=== PATIENT | female | born 1990 | race Caucasian/White ===

== ENCOUNTER → 2018-06-08 07:24 | Outpatient (CLI) | payer SELFPAY | PROVIDERS: Family Provider Family Medicine; PCP Family Medicine | DX: D64.9 Anemia, unspecified (principal) ==

== ENCOUNTER → 2018-06-08 14:43 | Outpatient (CLI) | payer SELFPAY ==
[2018-06-08 14:58] LABS: Hematocrit 39.7 % (37-47); Hemoglobin 12.8 g/dl (12.0-15.0); Mean Corp Hgb Conc 32.2 g/gl (32-36); Mean Corpuscular Hgb 28.9 pg (27.0-32.0); Mean Corpuscular Volume 89.6 fL (81-99); Mean Platelet Vol. 9.6 fl (6.2-12.0); Platelet Count 281 K/mm3 (150-450); RBC Distribution Width CV 14.9 % (11.6-14.6); RBC Distribution Width SD 48.5 fl (35.1-43.9); Red Blood Count 4.43 M/mm3 (4.2-5.4); Scan Indicated on CBC? Y/N NO; White Blood Count 6.2 K/mm3 (4.4-11.0)
[2018-06-08 15:22] LABS: Ferritin 8 ng/mL (8-252); Iron 97 ug/dL (50-170); Iron Binding Capacity,Total 468 ug/dL (250-450)
== END ==
PROVIDERS: Family Provider Family Medicine; PCP Family Medicine
DX: Z00.00 Encounter for general adult medical examination without abnormal findings (principal)
CPT/HCPCS: 36415; 82728; 83540; 83550; 85027

== ENCOUNTER → 2022-10-26 | Outpatient (CLI) | payer SELFPAY ==
[2022-10-30 01:07] LABS: Chlamydia By Nucleic Acid AMP Negative (Negative)
[2022-10-30 10:29] LABS: Gonococcus By Nucleic Acid AMP Negative (Negative)
== END | disposition home or self-care (01) ==
PROVIDERS: PCP Family Medicine; Visit Provider Obstetrics & Gynecology
DX: O09.90 Supervision of high risk pregnancy, unspecified, unspecified trimester (principal); Z3A.00 Weeks of gestation of pregnancy not specified
CPT/HCPCS: 87086; 87491; 87591

== ENCOUNTER → 2022-11-20 | Outpatient (CLI) | payer SELFPAY ==
[2022-11-20 09:32] LABS: Absolute Neutrophil Count 4.4 X10^3/uL (2.0-7.7); Basophil# 0.05 X10^3/uL; Basophil% 0.8 % (0-1); Eosinophil# 0.22 X10^3/uL; Eosinophils% 3.4 % (0-5); Hematocrit 39.3 % (37-47); Hemoglobin 13.4 g/dL (12.0-15.0); Lymphocyte % 21.5 % (19-41); Mean Corp Hgb Conc 34.1 g/dL (32-36); Mean Corpuscular Hgb 30.6 pg (27.0-32.0); Mean Corpuscular Volume 89.7 fL (81-99); Mean Platelet Vol. 9.5 fl (6.2-12.0); Monocyte# 0.42 X10^3/uL; Monocyte% 6.4 % (0-10); NRBC Flagged by Analyzer 0 % (0-5); Neutrophil % 67.4 % (47-70); Platelet Count 307 K/mm3 (150-450); RBC Distribution Width CV 13.9 % (11.6-14.6); RBC Distribution Width SD 45.8 fl (35.1-43.9); Red Blood Count 4.38 M/mm3 (4.2-5.4); White Blood Count 6.5 K/mm3 (4.4-11.0)
[2022-11-20 10:17] LABS: NATERA MAILED SPECIMEN
[2022-11-20 10:38] LABS: HIV - WCH Non-Reactive (Nonreactive); Hepatitis B Surface Antigen Non-Reactive (Nonreactive); Hepatitis C Antibody Non-Reactive (Nonreactive); Rubella IgG Equiv (Nonreactive); Syphilis Antibodies Non-reactive
== END | disposition home or self-care (01) ==
PROVIDERS: PCP Family Medicine; Referring Provider Obstetrics & Gynecology; Visit Provider Obstetrics & Gynecology
DX: O09.90 Supervision of high risk pregnancy, unspecified, unspecified trimester (principal); Z3A.00 Weeks of gestation of pregnancy not specified
CPT/HCPCS: 36415; 85025; 86703; 86762; 86780; 86803; 86850; 86900; 86901; 87340

== ENCOUNTER → 2023-03-07 | Outpatient (CLI) | payer SELFPAY ==
[2023-03-07 08:20] LABS: Absolute Lymphocyte Count 1.26 X10^3/uL (0.83-4.51); Absolute Neutrophil Count 4.9 X10^3/uL (2.0-7.7); Basophil# 0.02 X10^3/uL; Basophil% 0.3 % (0-1); Eosinophil# 0.18 X10^3/uL; Eosinophils% 2.7 % (0-5); Hematocrit 34.4 % (37-47); Hemoglobin 11.4 g/dL (12.0-15.0); Lymphocyte # 1.26 X10^3/ul (0.83-4.51); Lymphocyte % 18.6 % (19-41); Mean Corp Hgb Conc 33.1 g/dL (32-36); Mean Corpuscular Hgb 31.2 pg (27.0-32.0); Mean Corpuscular Volume 94.2 fL (81-99); Mean Platelet Vol. 9.8 fl (6.2-12.0); Monocyte# 0.36 X10^3/uL; Monocyte% 5.3 % (0-10); NRBC Flagged by Analyzer 0 % (0-5); Neutrophil # 4.87 X10^3/uL (2.7-7.7); Neutrophil % 72.1 % (47-70); Platelet Count 247 K/mm3 (150-450); RBC Distribution Width CV 14.1 % (11.6-14.6); RBC Distribution Width SD 48.3 fl (35.1-43.9); Red Blood Count 3.65 M/mm3 (4.2-5.4); White Blood Count 6.8 K/mm3 (4.4-11.0)
[2023-03-07 08:39] LABS: Glucose Challenge Gest 1H 50g 162 mg/dL (70-140)
[2023-03-07 09:12] LABS: HIV - WCH Non-Reactive (Nonreactive); Syphilis Antibodies Non-reactive
== END | disposition home or self-care (01) ==
PROVIDERS: PCP Family Medicine; Referring Provider Advanced Practice Midwife; Visit Provider Advanced Practice Midwife
DX: O09.90 Supervision of high risk pregnancy, unspecified, unspecified trimester (principal); Z13.1 Encounter for screening for diabetes mellitus; Z3A.00 Weeks of gestation of pregnancy not specified
CPT/HCPCS: 36415; 82950; 85025; 86703; 86780

== ENCOUNTER → 2023-03-13 | Outpatient (CLI) | payer SELFPAY ==
[2023-03-13 11:05] LABS: Glucose GTT- Fasting 87 mg/dL (74-106)
[2023-03-13 11:50] LABS: Glucose GTT- 1 Hour 135 mg/dL (120-170)
[2023-03-13 12:50] LABS: Glucose GTT- 2 Hour 124 mg/dL (70-120)
[2023-03-13 13:34] LABS: Glucose GTT- 3 Hour 106 mg/dL (74-106)
== END | disposition home or self-care (01) ==
PROVIDERS: PCP Family Medicine; Referring Provider Nurse Practitioner Women's Health; Visit Provider Nurse Practitioner Women's Health
DX: Z13.1 Encounter for screening for diabetes mellitus (principal)
CPT/HCPCS: 36415; 82951; 82952

== ENCOUNTER → 2023-04-04 | Outpatient (CLI) | payer SELFPAY | END | disposition home or self-care (01) | LOC: LABSPEC 14:35 | PROVIDERS: PCP Family Medicine; Referring Provider Obstetrics & Gynecology; Visit Provider Obstetrics & Gynecology | DX: O26.899 Other specified pregnancy related conditions, unspecified trimester (principal); R10.2 Pelvic and perineal pain; Z3A.00 Weeks of gestation of pregnancy not specified | CPT/HCPCS: 87070; 87077; 87205 ==

== ENCOUNTER → 2024-08-21 | Outpatient (CLI) | payer SELFPAY ==
--- NOTE | 2024-08-21 10:23 | US_ITS ---
STUDY: ABDOMINAL ULTRASOUND - RIGHT UPPER QUADRANT REASON FOR VISIT: Female, 34 years old RUQ ABD PAIN TECHNIQUE: Ultrasound evaluation of the right upper quadrant was performed with real-time and static acharya-scale imaging. TECHNICAL QUALITY: Adequate. COMPARISON: None. FINDINGS: Liver: The liver measures 16.2 cm. There is increased echogenicity consistent with fatty infiltration. The bile ducts are within normal limits. There is hepatic color flow. The direction of portal flow is hepatopetal. There is no demonstrated mass lesion. Gallbladder: Normal distended gallbladder. The gallbladder wall measures 2.0 mm. There is a negative sonographic Padilla''s sign. There is no pericholecystic fluid. There are no gallstones. Common Bile Duct (C.B.D.): The common bile duct measures 2 mm. Pancreas: Normal size of the head, body and tail of the pancreas. There is normal echogenicity of the pancreas. There is no demonstrated pancreatic mass or cyst. Right Kidney: Normal size of the right kidney. The right kidney measures 11.4 cm x 4 cm x 4.5 cm. Normal renal cortex. The right cortex measures 1.5 cm. There is no demonstrated renal mass or cyst. There is no right hydronephrosis. US/Abdomen Limited IMPRESSION: Fatty infiltration of the liver. Electronically Signed: Star Cortez MD at 12:10 EST ,
== END | disposition home or self-care (01) ==
LOC: US 10:21
PROVIDERS: PCP Family Medicine; Referring Provider Family Medicine; Visit Provider Family Medicine
DX: R10.11 Right upper quadrant pain (principal)
CPT/HCPCS: 76705

== ENCOUNTER → 2024-09-09 | Outpatient (CLI) | payer SELFPAY ==
--- NOTE | 2024-09-09 08:56 | NM_ITS ---
PROCEDURE: HEPATOBILLIARY IMG W/PHARM INT REASON FOR EXAM: Right upper quadrant abdominal pain. TECHNIQUE: Intravenous Choletec with planar imaging of the abdomen. 1.8 mcg Kinevac intravenously approximately 60 minutes after the radiopharmaceutical with additional anterior imaging and a region of interest drawn around the gallbladder to calculate a time-activity curve. RADIOPHARMACEUTICAL: 5.7 mCi mebrofenin intravenous. COMPARISON: None. FINDINGS: Study presented for my interpretation on 09/16/2024. There is good uptake of the radiopharmaceutical by the liver. Normal gallbladder visualization with the gallbladder identified by 30 minutes. Radioisotope extending into the small bowel by the 15 minute film. Gallbladder Ejection Fraction: 0 % at 29 minutes (normal is >35%) NM/Hepatobilliary Img w/Pharm Int IMPRESSION: 1. Abnormal gallbladder ejection fraction of 0% at 29 minutes following cholecy stokinin administration. This is concerning for chronic cholecystitis. 2. Satisfactory hepatic uptake and clearance, as well as filling of the gallbla dder and small bowel activity. No evidence of common duct obstruction. Reading Location: [id number]
== END | disposition home or self-care (01) ==
LOC: NM 08:54
PROVIDERS: PCP Family Medicine; Referring Provider Family Medicine; Visit Provider Family Medicine
DX: R10.11 Right upper quadrant pain (principal)
CPT/HCPCS: 78227; A9537; J2805

== ENCOUNTER → 2025-02-13 | Outpatient (CLI) | payer SELFPAY ==
[2025-02-16 23:07] LABS: Chlamydia By Nucleic Acid AMP Negative (Negative); Gonococcus By Nucleic Acid AMP Negative (Negative)
== END | disposition home or self-care (01) ==
LOC: LABSPEC 16:16
PROVIDERS: PCP Family Medicine; Visit Provider Advanced Practice Midwife
DX: O09.90 Supervision of high risk pregnancy, unspecified, unspecified trimester (principal); Z3A.00 Weeks of gestation of pregnancy not specified; Z12.4 Encounter for screening for malignant neoplasm of cervix
CPT/HCPCS: 87086; 87088; 87491; 87591; 87624; 88175; G0145

== ENCOUNTER → 2025-02-23 | Outpatient (CLI) | payer SELFPAY ==
[2025-02-23 12:25] LABS: Hematocrit 41.1 % (37-47); Hemoglobin 13.2 g/dL (12.0-15.0); Immature Granulocytes Count 0.030 X10^3/uL (0.0-0.0); Mean Corp Hgb Conc 32.1 g/dL (32-36); Mean Corpuscular Volume 89.3 fL (81-99); Mean Platelet Vol. 9.9 fl (6.2-12.0); NRBC Flagged by Analyzer 0 % (0-5); Platelet Count 341 K/mm3 (150-450); RBC Distribution Width CV 14.9 % (11.6-14.6); RBC Distribution Width SD 48.8 fl (35.1-43.9); Red Blood Count 4.60 M/mm3 (4.2-5.4); White Blood Count 6.4 K/mm3 (4.4-11.0)
[2025-02-23 13:37] LABS: HIV Nonreactive (Nonreactive); Hepatitis B Surface Antigen Nonreactive (Nonreactive); Hepatitis C Antibody Nonreactive (Nonreactive); Syphilis Antibodies Nonreactive (Nonreactive)
--- OUTSIDE RECORDS SUMMARY | 2025-02-23 19:22 | XMS RPT_ITS | CCD ---
Author Organization [facility] Care Team Providers Care Industrial Tech Instructor Name Role Phone Self, Self Primary Care Provider Unavailabl e SELF, SELF Referring Unavailable SELF, SELF Primary Care Unavailable JIMMY TADEO Attending Unavailable Lili Rodriguez DO Primary Care Provider [phone] Mehrdad DOOLEY, [facility] Primary Care Provider [phone] Lili Rodriguez DO Primary Care Provider MARY MAE Referring Unavailable JOSE DAVIDSON Attending Unavailable LILI RODRIGUEZ Primary Care Unavailable SELF, SELF Referring Unavailable LILI RODRIGUEZ Primary Care Unavailable LATHA REAVES Attending Unavailabl e SELF, SELF Primary Care Unavailable SELF, SELF Referring Unavailable AIDE THAKKAR Attending Unavailable RUPALI SON Admitting Unavailable RUPALI SON Attending Unavailable SYSTEM, PROVIDER NOT IN Referring Unavaila ble LILI RODRIGUEZ Primary Care Unavailable CONSULT, HEMATOLOGY Consulting Unavailable TAIWO ROCA Attending Unavailable LILI RODRIGUEZ Primary Care Unavailable JOSE DAVIDSON Attending Unavailable LILI RODRIGUEZ Primary Care Unavailable LILI RODRIGUEZ Referring Unavailable Dr. Lili Rodriguez Primary Care Provider [phone] Dr. Lili Rodriguez Referring Provider Dr. Allyssa Santana Attending Provider [phone] Dr. Meghana Granda Attending Provider [phone] Lili Rodriguez Primary Care Provider Dr. Lili Rodriguez Referring Provider [phone] JOSE CRUZ Hernandes Attending Provider [phone] JOSE CRUZ Jordan Attending Provider [phone] Dianne EDITORIAL CLERK, EDITORIAL CLERKSameera Garcia Attending Provider [phone] Unavailable Unavailable Shane, Dr. Shekhar Acosta Primary Care Catherine vailable MARCANTHBARRERA, ALLYSSA NATION Referring Un available Ella, Dr. Betina Gomez Attending Unav ailable Shane, Dr. Shekhar Acosta Primary Care Catherine vailable Guero, Dr. Loli Lo Attending Unava ilable Guero, Dr. Loli Lo Admitting Unava ilable Shane, Dr. Shekhar Acosta Primary Care Catherine vailable Guero, Dr. Loli Lo Attending Unava ilable Guero, Dr. Loli Lo Admitting Unava ilable Shane, Dr. Shekhar Acosta Primary Care Catherine vailable [place], Dr. Esme Nation Attending U navailable Shane, Dr. Shekhar Acosta Primary Care Catherine vailable Uriel, Dr. Joanne Regan Attending Unav ailable Shane, Dr. Shekhar Acosta Primary Care Catherine vailable Uriel, Dr. Joanne Regan Attending Unav ailable Michael, Dr. Booth Primary Care Provider Dr. Lili Rodriguez Referring Provider [phone] Dr. Meghana Granda Attending Provider Shekhar Lynn MD Primary [facility] Provide r Guero Aguirre MD, Loli Unavailable Unavailable Shekhar Lynn MD [facility] Provide r Sigrid DOOLEY, Kalani Mattson Unavailable SHILPI BENAVIDES Attending Unavailable CYNDI WONG Referring Unavailabl e SHEKHAR LYNN Primary [facility] Unavail able SHILPI BENAVIDES Attending Unavailable SHEKHAR LYNN Primary Care Unavail able SHILPI BENAVIDES Admitting Unavailable SHILPI BENAVIDES Attending Unavailable CYNDI WONG Referring Unavailabl e RANNEY, CHRISTOPHER KARLA Primary Care Unavail able KALANI CAO Attending Unavailable SHANE, SHEKHAR CADENAR Primary Care Unavail able SHANE, SHEKHAR KARLA Primary Care Unavail able Og DOOLEY, Ananda Primary Care Provider [phone] Og DOOLEY, Ananda Referring Provider Debbie Jordan CNM Attending Provider Og, Chalflaco Referring Unavailable Og, Chalon Primary Care Unavailable Debbie Jordan Attending Unavailable Og, Chalon Referring Unavailable Og, Chalon Primary Care Unavailable Cyndi Wong Attending Unavailable Dianne EDITORIAL CLERK, Radha Attending Unavailable Debbie Jordan Attending Unavailable Og, Chalon Primary Care Unavailable Og, Chalon Primary Care Unavailable Jolliff, Susana S Referring Unavailable Jolliff, Susana S Attending Unavailable Og, Chalon Primary Care Unavailable Jolliff, Susana S Referring Unavailable Jolliff, Susana S Attending Unavailable Allergies Allergy Classification Reported Allergen(s) Allergy Type Date of Onset Reaction(s) Facility (3 sources) NSAIDs Propensity to adverse reactions to drug 7 [facility] (1 source) Aspirin Drug Allergy 2 Other - comment required [facility] (7 sources) Nonsteroidal Anti-inflammator y Compounds Propensity to adverse reactions 3 [facility] Comment on above: HEMOPHILLIA B SAMUEL R (9 sources) Doxycycline; Translations: [doxycycline] Drug Allergy 3 [facility] (5 sources) natural latex rubber; Translations: [LATEX] Allergy to substance (finding) 3 [facility] 3 [facility] (7 sources) Penicillins; Translations: [Penicillins] Allergy to drug (finding) 3 Itching, Rash [id number] Work Phone: (4 sources) Latex Propensity to adverse reactions 3 [facility] Work Phone: (2 sources) Penicillins Propensity to adverse reactions 3 Itching, Rash [facility] Work Phone: (2 sources) natural latex rubber Allergy to substance 5 [facility] Comment on above: Rash (2 sources) Penicillins Allergy to substance 5 Shortness of breath [facility] (1 source) natural latex rubber Drug allergy (disorder) 5 [facility] (1 source) NSAIDs Drug allergy (disorder) 5 [facility] (1 source) Penicillins Drug allergy (disorder) 5 [facility] Medications Current Medications Medication Drug Class(es) Dates Sig (Normalized) Sig (Original) alteplase (Cathflo Activase) injection 2 mg (1 source) Start: 10-22-2024 amoxicillin 875 mg / clavulanate 125 mg oral tablet (2 sources) Penicillin-class Antibacterial Start: 11-16-2021 End: 11-26-2021 take 1 tablet by mouth every twelve hours amoxicillin-clav ulanate 875-125 MG tablet Take 1 tablet by mouth every 12 hours for 10 days. 20 tablet 0 11/16/2021 11/26/2021 Active ascorbic acid 1000 mg oral capsule (7 sources) Vitamin C Start: 01-30-2025 take 1 capsule by mouth once daily Ascorbic Acid (Vitamin C) 1,000 mg capsule Active 1000 mg PO daily January 30, 2025 12:00am Start: 10-22-2024 take 1000 mg by mouth twice da nolan 1,000 mg, oral, 2 times daily, First dose on Sun10/22/24 at 1300 take 1 tablet by jaxon th twice daily ascorbic acid (Vitamin C) 1,000 mg tablet Take 1 tablet (1,000 mg) by mouth 2 times a day. Active cholecalciferol 0.05 mg oral capsule (7 sources) Vitamin D Start: 01-30-2025 take 1 capsule by mouth once daily Cholecalciferol (Vitamin D3) 50 mcg (2,000 unit) capsule Active 6000 U PO daily January 30, 2025 12:00am Start: 10-22-2024 take 10 ug by mouth once daily 10 mcg (400 Units), oral, Daily, First dose on Sun10/22/24 at 1800 cholecalciferol (Vitamin D3) 25 mcg (1000 units) tablet Active ferrous fumarate 325 mg oral tablet (2 sources) Start: 09-19-2024 take 1 tablet by mouth once daily Ferrous Fumarate 325 mg (106 mg iron) tablet Active 325 mg PO daily September 19, 2024 1:00am ferrous sulfate 325 mg oral tablet (5 sources) Start: 10-22-2024 take 325 mg by mouth once daily 325 mg, oral, Daily, First dose (after last reorder) on Sun10/22/24 at 1830 take 1 tablet by mouth once vielka y ferrous sulfate 325 (65 Fe) mg EC tablet Take 1 tablet by mouth once daily. Do not crush, chew, or split. Active 1000 ml glucose 500 mg/ml injection (1 source) Start: 11-27-2021 End: 11-27-2021 dextrose 50 % IV solution 1 ml HYDROmorphone hydrochloride 1 mg/ml cartridge (2 sources) Opioid Agonist Start: 10-22-2024 0.4 mg, intrav enous, Every 3 hours PRN, pain severe (7-10), first line, Starting on Sun10/22/24 at 1724 Start: 10-22-2024 End: 10-22-2024 0.2 mg, intravenous, Every 5 min PRN, pain moderate (4-6), first line, Starting on Sun10/22/24 at 1118, Recovery (only), Max total of 4 mg regardless of dose. Multivit 69-Pokj-Cgpmfd 1-Dh a (Pnv-Dha) 27 mg iron-1 mg -300 mg capsule (7 sources) Start: 10-18-2022 Multivit 47-Ir on-Folate 1-Dha (Pnv-Dha) 27 mg iron-1 mg -300 mg capsule Active NMA PO October 18, 2022 12:00am Start: 10-18-2022 Multivit 47-Ir on-Folate 1-Dha (Pnv-Dha) 27 mg iron-1 mg -300 mg capsule Active CAP PO October 18, 2022 12:00am [place]-3 Fatty Acids 1,000 mg capsule (2 sources) Start: 01-30-2025 take 1 capsule by mouth once daily [place]-3 Fatty Acids 1,000 mg capsule Active 2000 mg PO daily January 30, 2025 12:00am ondansetron 4 mg oral tablet (3 sources) Serotonin-3 Receptor Antagonist Start: 10-22-2024 take 1 tablet by mouth every eight hours as needed 4 mg, oral, Every 8 hours PRN, nausea/vomiting , first line, Starting on Sun10/22/24 at 2121 Start: 10-22-2024 End: 10-22-2024 4 mg, intravenous, Once as n eeded, nausea/vomiting, first line, Starting on Sun10/22/24 at 1118, For 1 dose, Recovery (only), When administering via IV Push, administer over 3-5 minutes. Start: 11-27-2021 ondansetron (Z OFRAN) injection 4 mg oxyCODONE hydrochloride 10 mg oral tablet (3 sources) Opioid Agonist Start: 10-23-2024 End: 10-26-2024 take 1 tablet by mouth every four hours for pain oxyCODONE (Roxicodone) 10 mg immediate release tablet Indications: Hemophilia B (Multi) Take 1 tablet (10 mg) by mouth every 4 hours if needed for severe pain (7 - 10) for up to 3 days. 18 tablet 10/23/2024 11:28 AM EDT 10/23/2024 10/26/2024 Active Start: 10-22-2024 End: 10-23-2024 take 1 tablet by mouth every four hours as needed 5 mg, oral, Every 4 hours PRN, pain moderate (4-6), first line, Starting on Sun10/22/24 at 1725, If ordered PRN for pain, nurse is permitted to administer this medication for higher pain scores based on patient preference? Yes polyethylene glycol 3350 55883 mg powder for oral solution (1 source) Osmotic Laxative Start: 10-22-2024 17 g, oral, Daily, First dose on Sun10/22/24 at 1800, Bowel Regimen - for prevention of constipation. sennosides, skilled nursing 8.6 mg oral tablet (1 source) Start: 10-22-2024 take 1 tablet by mouth twice daily for constipation 17.2 mg (2 tablet), oral, 2 times daily, First dose on Sun10/22/24 at 2100, Bowel Regimen - for prevention of constipation Hold for loose stools Completed/Discontinued Medications Medication Drug Class(es) Dates Sig (Normalized) Sig (Original) acetaminophen 500 mg oral tablet (3 sources) Start: 05-29-2023 End: 10-15-2024 take 2 tablets by mouth every six hours for pain acetaminophen (Tylenol) 500 mg tablet Indications: (normal spontaneous vaginal delivery) ([facility]) Take 2 tablets (1,000 mg) by mouth every 6 hours if needed for moderate pain (4 - 6). 120 tablet 05/29/2023 10/15/2024 Discontinued (Med List Cleanup) Start: 11-27-2021 End: 11-28-2021 take 1 tablet by mouth every four hours as needed acetaminophen (TYLENOL) tablet 650 mg acetaminophen 500 mg / caffeine 65 mg oral tablet (1 source) Central Nervous System Stimulant, Methylxanthine Start: 10-23-2024 End: 10-23-2024 take 1 tablet by mouth once, then take 8 tablets by mouth once daily 1 tablet, oral, Once, On Sun10/23/24 at 0900, For 1 dose, Maximum 8 tablets per day B-Complex With Vitamin C capsule (2 sources) Start: 09-19-2024 End: 01-30-2025 B-Complex With Vitamin C capsule Discontinued 1 NMA PO daily September 19, 2024 1:00am January 30, 2025 11:00am calcium chloride 0.0014 meq/ml / potassium chloride 0.004 meq/ml / sodium chloride 0.103 meq/ml / sodium lactate 0.028 meq/ml injectable solution (1 source) Start: 10-22-2024 End: 10-23-2024 take 75 mL intravenously every hour 75 mL/hr, intravenous, Continuous, Starting on Sun10/22/24 at 1145, For 1 day, Recovery (only) esomeprazole 20 mg delayed release oral capsule (2 sources) Proton Pump Inhibitor End: 10-15-2024 take 1 capsule by mouth once daily before mealtime esomeprazole (NexIUM) [address] capsule Take 1 capsule (20 mg) by mouth once daily in the morning. Take before meals. Do not open capsule. 10/15/2024 Discontinued (Med List Cleanup) nonacog froy 1 unt injection (8 sources) Human Blood Coagulation Factor Start: 10-22-2024 End: 10-23-2024 take 4500 [IU] intravenously every twelve hours 4,500 Units, intravenous, Every 12 hours, First dose (after last modification) on Sun10/22/24 at 2200, For 2 doses, Please give at 10pm and 10 am , Site of bleed: Post-op Start: 10-22-2024 End: 10-22-2024 take 4500 [IU] intravenously every twelve hours 4,500 Units, intravenous, Every 12 hours, First dose on Sun10/22/24 at 1100, For 3 doses, Preprocedure, Please infuse first dose pre-op for surgery. Note: we are using the patient's own supply of Benefix shipped from [facility] to Pharmacy just for this procedure. 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 50 units/kg. Weight 90.9 kg. Infuse slow I.V. push every 12 hours as directed. Disp 3 doses. No refill. 3 each 10/16/2024 Active coagulation fact or IX, recomb, (BeneFIX) 3,000 unit injection Indications: hemophilia B Infuse 50 Units/kg into a venous catheter if needed (to treat or prevent bleeding). Rx to [facility] on 12/20/23. Patient stated current weight at 95 kg. Active 1 ml hydrALAZINE hydrochloride 20 mg/ml injection (1 source) Arteriolar Vasodilator Start: 11-27-2021 End: 11-28-2021 take 10 mg intravenously every hour as needed hydrALAZINE (APRESOLINE) injection 10 mg iopamidol (ISOVUE-370) 76 % injection 75 mL (1 source) Start: 11-27-2021 End: 11-27-2021 iopamidol (ISOVUE-370) 76 % injection 75 mL labetalol hydrochloride 5 mg/ml injectable solution (1 source) beta-Adrenergic Gianfranco Start: 11-27-2021 End: 11-28-2021 take 10 mg intravenously every hour as needed labetalol (NORMODYNE) injection 10 mg Magnesium (3 sources) Magnesium CAPS Quantity: 0 Refills: 0 Ordered: 15-Jan-2023 DO Active metroNIDAZOLE 500 mg oral tablet (3 sources) Nitroimidazole Antimicrobial Start: 2023 End: 04-12-2023 take 1 tablet by mouth twice daily Metronidazole 500 mg tablet Discontinued 500 mg PO TWICE A DAY 14 7 0 2023 12:00am April 11, 2023 12:00am April 12, 2023 12:04am penicillin v potassium 500 mg oral tablet (3 sources) Start: 04-10-2023 End: 04-17-2023 take 1 tablet by mouth three times daily Penicillin V Potassium 500 mg tablet Discontinued 500 mg PO THREE TIMES A DAY 21 7 0 April 10, 2023 12:00am April 16, 2023 12:00am April 17, 2023 12:03am polyethylene glycol (MIRALAX) packet 17 g (1 source) Start: 11-27-2021 End: 11-28-2021 polyethylene glycol (MIRALAX) packet 17 g 2 ml prochlorperazine 5 mg/ml injection (1 source) Phenothiazine Start: 11-27-2021 End: 11-27-2021 prochlorperazine (COMPAZINE) injection 10 mg Start: 11-27-2021 End: 11-27-2021 prochlorperazine (COMPAZINE) injection 10 mg Senna Leaves (1 source) Start: 11-27-2021 End: 11-28-2021 senna (SENOKOT) tablet 8.6 mg 1000 ml sodium chloride 9 mg/ml injection (5 sources) Start: 10-22-2024 End: 10-23-2024 take 100 mL intravenously every hour 100 mL/hr, intravenous, Continuous, Starting on Sun10/22/24 at 1915, For 12 hours Start: 11-27-2021 sodium chlorid e flush 0.9 % injection 5-40 mL Start: 11-27-2021 End: 11-27-2021 sodium chloride 0.9% IV solu tion Vitamin C CAPS (3 sources) Vitamin C CAPS Q uantity: 0 Refills: 0 Ordered: 15-Jan-2023 DO Active Vitamin D CAPS (3 sources) Vitamin D CAPS Q uantity: 0 Refills: 0 Ordered: 15-Jan-2023 DO Active Problems Active Problems Problem Classification Problem Date Documented Date Episodic/Chronic Acute cerebrovascular disease (2 sources) Cerebrovascular accident; Translations: [Cerebral infarction, unspecified] Onset: 11-27-2021 Chronic Coagulation and hemorrhagic disorders (19 sources) Hereditary factor IX deficiency disease; 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] Onset: 11-22-2021 Chronic Conditions associated with dizziness or vertigo (1 source) Dizziness; Translations: [Dizziness and giddiness] Episodic Deficiency and other anemia (1 source) Iron deficiency anemia due to blood loss; Translations: [Iron deficiency anemia secondary to blood loss (chronic)] 10-15-2024 Chronic Deficiency and other anemia (2 sources) Iron deficiency anemia secondary to blood loss (chronic); Translations: [Iron deficiency anemia secondary to blood loss (chronic)] Onset: 10-15-2024 Chronic Diabetes or abnormal glucose tolerance complicating ; childbirth; or the puerperium (8 sources) Impaired glucose tolerance in ; Translations: [Abnormal glucose complicating ] 03-07-2023 Episodic Headache; including migraine (7 sources) Migraine; Translations: [Migraine, unspecified, not intractable, without status migrainosus] Onset: 11-27-2021 Chronic Other complications of (2 sources) Obesity complicating , unspecified trimester; Translations: [Obesity complicating , unspecified trimester] Onset: 02-20-2023 Chronic Other complications of (4 sources) Maternal obesity complicating , childbirth and the puerperium, antepartum; Translations: [Obesity complicating , unspecified trimester] 01-30-2025 Chronic Comment on above: HGBA1c Other complications of (18 sources) High risk ; Translations: [Supervision of high risk , unspecified, unspecified trimester] Onset: 05-07-2023 Resolved: 05-26-2023 10-18-2022 Episodic Comment on above: , YARA 09/17/25, Damaris Hall, Mo PRR YARA 3, boy, Mo Other complications of (20 sources) Supervision of high risk , unspecified, unspecified trimester; Translations: [Supervision of unspecified high-risk ] Onset: 01-15-2023 10-26-2022 Episodic Other complications of (3 sources) Rubella non-immune; Translations: [Supervision of other high risk pregnancies, unspecified trimester] 03-07-2023 Episodic Other complications of (5 sources) Supervision of other high risk pregnancies, unspecified trimester; Translations: [Other specified complications of , antepartum condition or complication] 03-07-2023 Episodic Other complications of (1 source) Other diseases of the blood and blood-forming organs and certain disorders involving the immune mechanism complicating , third trimester; Translations: [Oth dis of bld/bld-form org/immun mechnsm comp preg, 3rd tri] Onset: 03-27-2023 Episodic Other connective tissue disease (1 source) Neurological symptom; Translations: [Unspecified symptoms and signs involving the nervous system] Episodic Other eye disorders (1 source) Nystagmus; Translations: [Unspecified nystagmus] Chronic Other hematologic conditions (1 source) H/O: coagulation defect; Translations: [Personal history of diseases of the blood and blood-forming organs and certain disorders involving the immune mechanism] Episodic Other nervous system disorders (3 sources) H/O: migraine; Translations: [Supervision of other high-risk ] Episodic Other nervous system disorders (1 source) Personal history of other diseases of the nervous system and sense organs; Translations: [Personal history of dis of the nervous sys and sense organs] Onset: 01-15-2023 Episodic Other and delivery including normal (20 sources) ; Translations: [Encounter for supervision of normal , unspecified, unspecified trimester] Onset: 03-27-2023 Resolved: 05-26-2023 10-26-2022 Episodic Comment on above: Equiv-presume nonimm une and MMR pp declined NIPT, Pt Ca rrier of hemophilia Other screening for suspected conditions (not mental disorders or infectious disease) (7 sources) Encounter for suspected problem with growth ruled out; Translations: [Abnormal results of function studies of other organs and systems] Onset: 01-15-2023 10-02-2024 Episodic Other upper respiratory infections (1 source) Acute maxillary sinusitis; Translations: [Acute maxillary sinusitis, unspecified] Episodic Residual codes; unclassified (11 sources) 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 Mac-care until 36 weeks then transfer of care to . Residual codes; unclassified (20 sources) Genetic carrier of other disease; Translations: [Other genetic carrier status] Onset: 11-22-2021 Episodic Residual codes; unclassified (3 sources) Gestation period, 20 weeks; Translations: [ state, incidental] Episodic Residual codes; unclassified (1 source) 30 weeks gestation of ; Translations: [30 weeks gestation of ] Onset: 03-27-2023 Episodic Residual codes; unclassified (1 source) Personal history of other complications of , childbirth and the puerperium; Translations: [Personal history of comp of preg, chldbrth and the puerp] Onset: 01-15-2023 Episodic Residual codes; unclassified (1 source) 20 weeks gestation of ; Translations: [20 weeks gestation of ] Onset: 01-15-2023 Episodic Residual codes; unclassified (1 source) Genetic disorder carrier; Translations: [Genetic carrier of other disease] 10-02-2024 Episodic Residual codes; unclassified (4 sources) Family history of cancer; Translations: [Family history of malignant neoplasm, unspecified] 07-14-2024 Episodic Comment on above: Mother lymphoma, jonatan erMGM breast, colonOffered empower Residual codes; unclassified (1 source) 9 weeks gestation of ; Translations: [9 weeks gestation of ] Onset: 02-13-2025 Episodic Residual codes; unclassified (1 source) Family history of malignant neoplasm, unspecified; Translations: [Family history of malignant neoplasm, unspecified] Onset: 02-13-2025 Episodic Past or Other Problems Problem Classification Problem Date Documented Date Episodic/Chronic Abdominal pain (1 source) Right upper quadrant pain; Translations: [Right upper quadrant pain] Onset: 09-26-2024 Episodic Biliary tract disease (15 sources) Biliary dyskinesia; Translations: [Other specified diseases of gallbladder] Onset: 10-02-2024 Resolved: 10-23-2024 10-02-2024 Episodic Coagulation and hemorrhagic disorders (4 sources) Bleeds easily; Translations: [Hemorrhagic condition, unspecified] Onset: 04-30-2023 Resolved: 05-26-2023 05-26-2023 Episodic Esophageal disorders (4 sources) Gastroesophageal reflux disease without esophagitis; Translations: [Gastro-esophageal reflux disease without esophagitis] Onset: 05-26-2023 Resolved: 05-26-2023 05-26-2023 Chronic Menopausal disorders (4 sources) Abnormal perimenopausal bleeding; Translations: [Excessive bleeding in the premenopausal period] Onset: 04-30-2023 Resolved: 05-26-2023 05-26-2023 Chronic Mood disorders (2 sources) Mood disorders Onset: 11-22-2021 11-22-2021 Other complications of (4 sources) Headache; Translations: [Other specified related conditions, third trimester] Onset: 05-07-2023 Resolved: 05-26-2023 05-26-2023 Episodic Other connective tissue disease (2 sources) Unspecified symptoms and signs involving the nervous system; Translations: [Unspecified symptoms and signs involving the nervous system] Onset: 11-27-2021 Episodic Other injuries and conditions due to external causes (2 sources) Other injury of unspecified body region, initial encounter; Translations: [Other injury of unspecified body region, initial encounter] Onset: 11-29-2021 Episodic Other non-traumatic joint disorders (2 sources) Pain in left elbow; Translations: [Pain in left elbow] Onset: 11-29-2021 Episodic Results Test Name Value Interpretation Reference Range Facility PAP IG HPV APTIMA 16/18,45on 02-20-2025 ADEQ Comment Normal . [facility] Comment on above: Order Comment: Speci men Comment: [id number] Specimen Comment: Source.............Cervix Specimen Comment: No. of containers..01 ThinPrep Vial Result Comment: Sati sfactory for evaluation. Endocervical and/or squamous metaplastic cells (endocervical component) are present. Performed By: #### L 7400.0280, M100.2200, L7000.1800 #### [facility] [address] [place], [place], [id number] COMM . Normal . [facility] Comment on above: Order Comment: Speci men Comment: [id number] Specimen Comment: Source.............Cervix Specimen Comment: No. of containers..01 ThinPrep Vial Performed By: #### L 7400.0280, M100.2200, L7000.1800 #### [facility] [address] [place], [place], [id number] COMMENT Comment Normal . [facility] Comment on above: Order Comment: Speci men Comment: [id number] Specimen Comment: Source.............Cervix Specimen Comment: No. of containers..01 ThinPrep Vial Result Comment: This liquid based ThinPrep(R) pap test was screened with the use of an image guided system. Performed By: #### L 7400.0280, M100.2200, L7000.1800 #### [facility] [address] [place], [address] DIAG Comment Normal . [facility] Comment on above: Order Comment: Speci men Comment: [id number] Specimen Comment: Source.............Cervix Specimen Comment: No. of containers..01 ThinPrep Vial Result Comment: NEGA TIVE FOR INTRAEPITHELIAL LESION OR MALIGNANCY. THIS SPECIMEN WAS RESCREENED PART OF OUR VISUAL SPECIALIST PROGRAM. Performed By: #### L 7400.0280, M100.2200, L7000.1800 #### [facility] [address] [place], [address] HPV APTIMA, HR Negative Normal Negative [facility] Comment on above: Order Comment: Speci men Comment: [id number] Specimen Comment: Source.............Cervix Specimen Comment: No. of containers..01 ThinPrep Vial Result Comment: This nucleic acid amplification test detects fourteen high- risk HPV types (16,18,31,33,35,39,45,51,52,56,58,59,66,68) without differentiation. Performed By: #### L 7400.0280, M100.2200, L7000.1800 #### [facility] [address] [place], [address] HPV Roz Rfx Comment Normal . [facility] Comment on above: Order Comment: Speci men Comment: [id number] Specimen Comment: Source.............Cervix Specimen Comment: No. of containers..01 ThinPrep Vial Result Comment: Liberty smart not met, HPV Genotype not performed. Performed at: [facility] [address] [place], [place] [id number] Organizational Psychologist: Nate Gamez MD, Phone: [phone] Performed at: - [address] [id number] Organizational Psychologist: Corrine Johnson MD, Phone: [phone] Performed at: = - [facility] [id number] Organizational Psychologist: Corrine Johnson MD, Phone: [phone] Performed By: #### L 7400.0280, M100.2200, L7000.1800 #### [facility] [address] [place], [address] PAPSMR Comment Normal . [facility] Comment on above: Order Comment: Speci men Comment: [id number] Specimen Comment: Source.............Cervix Specimen Comment: No. of containers..01 ThinPrep Vial Result Comment: The Pap smear is a screening test designed to aid in the detection of premalignant and malignant conditions of the uterine cervix. It is not a diagnostic procedure and should not be used as the sole means of detecting cervical cancer. Both false-positive and false-negative reports do occur. Performed By: #### L 7400.0280, M100.2200, L7000.1800 #### [facility] [address] [place], [place], [address] PERFORM Comment Normal . [facility] Comment on above: Order Comment: Speci men Comment: [id number] Specimen Comment: Source.............Cervix Specimen Comment: No. of containers..01 ThinPrep Vial Result Comment: Carley Zhu, Road Engineer (ASCP) Performed By: #### L 7400.0280, M100.2200, L7000.1800 #### [facility] [address] [place], [place], [address] QC REV Comment Normal . [facility] Comment on above: Order Comment: Speci men Comment: [id number] Specimen Comment: Source.............Cervix Specimen Comment: No. of containers..01 ThinPrep Vial Result Comment: Slim Jordan, Road Engineer (ASCP) Performed By: #### L 7400.0280, M100.2200, L7000.1800 #### [facility] [address] [place], [address] Chlamydia/GC ALAYNA aptimaon CHLAMY,NUC ACID Negative Normal Negative [facility] Comment on above: Performed By: #### L 7400.0280, M100.2200, L7000.1800 #### [facility] [address] [place], [address] GC BY NUC ACID Negative Normal Negative [facility] Comment on above: Result Comment: Perf ormed at: =G - [facility] [address] [id number] Organizational Psychologist: Corrine Johnson MD, Phone: [phone] Performed By: #### L 7400.0280, M100.2200, L7000.1800 #### [facility] [address] [place], [address] Urine Cultureon 02-15-2025 URC Below infection level. Mixed Gram Positive Organisms [place] Count 1000-10,000 MIXC Mixed contaminants. Submit a new specimen if indicated. Normal [facility] Comment on above: Performed By: #### L 7400.0280, M100.2200, L7000.1800 #### [facility] [address] [place], [address] Chlamydia trachomatis rRNA d etection by probe and target amplification methodOrdered By: Debbie Jordan on 02-13-2025 C. trachomatis rRNA ALAYNA+probe Ql (Unsp spec) Negative Negative [facility] Neisseria gonorrhoeae nuclei c acid detection by amplified probe techniqueOrdered By: Debbie Jordan on 02-13-2025 N. gonorrhoeae DNA ALAYNA+probe Ql (Unsp spec) Negative Negative [facility] Comment on above: Performed at: =[facility]abela [facility] [place] [id number] Director: Corrine Johnson MD, Phone: [phone] [employer] Office Visit Reporton 02-13-2025 [employer] Office Visit Report [facility] [address], [address] [place] [address] OFFICE VISIT Date of Service: 02/13/25 MR#: [id number] Acct: [id number] Name: SUSANA RODRIGUEZ Rep #: [id number] : 1990 Provider: JOSE CRUZ Alatorre ams Age/Sex: 34/F Location: [facility] Status: Signed Intake Vital Signs 09/19/24 13:46 02/13/25 14:43 Height 5 ft 5 in 5 ft 5 in Weight: 202 lb 6 oz BMI 33.6 BP 111/69 Intake Visit Reasons: *NEW* NOB LMP 12/11, YARA 09/17 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 Is patient in pain?: No Allergies Latex, Natural Rubber Allergy (Mild, Verified 02/13/25 14:47) Hives Penicillins Allergy (Mild, Verified 02/13/25 14:47) Shortness of breath NSAIDS (Non-Steroidal Anti-Inflamma Adverse Reaction (Verified 02/13/25 14:47) Other Medications ???Medication ???Instructions ???Recorded ???Confirmed ???Type multivitamin no.47-iron fum 27 cap PO 10/18/22 01/30/25 History mg-folate no.1 1 mg-dha 300 mg capsule (PNV-DHA) ferrous fumarate 325 mg (106 mg 325 mg PO QDAY 09/19/24 01/30/25 H istory iron) tablet ascorbic acid (vitamin C) 1,000 mg 1,000 mg PO QDAY 01/30/25 History capsule cholecalciferol (vitamin D3) 50 6,000 unit PO QDAY 01/30/25 History mcg (2,000 unit) capsule omega-3 fatty acids 1,000 mg 2,000 mg PO QDAY 01/30/25 01/30/25 History capsule Last Menstrual Period: 12/11/24 Zika: Zika virus screening: Negative : No Have you fallen in the past year?: No PFSH PFSH Medical History Seasonal allergies Abnormal biliary HIDA scan History of femur fracture 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 Surgical History History of cholecystectomy Hx of oral surgery Family History Mother Cancer, Onset Age: 31 lymphoma Grandmother Breast cancer Colon cancer Diabetes Father Hypertension Brother Hemophilia Brother Hemophilia Social History adopted: No household members: spouse and children number of children: 1 service: No current occupational status: unemployed current occupation: [employer] pets and animals: No history of recent travel: Yes (- December) out of state: Yes out of country: No sexually active: Yes Smoking Status: Never smoker Electronic Cigarette Use: not used alcohol intake: never substance use type: does not use diet: other well-balanced diet: about half the time caffeine: No eating out: rarely or never during the past year weight has: decreased > 10 lbs what type of physical activity do you participate in: walking and bicycling frequency: 3-4 times per week duration: 15-30 minutes/day sanaz/faith: Hinduism seatbelt use: always do you feel safe at home: Yes additional social history: Mo History 2 Elective abortions Hx Para 1 Spontaneous abortions Hx # Term Pregnancies 1 Ectopic pregnancies Hx # Pregnancies Multiple births # of living children 1 Past Pregnancies Del. Date Name GA/Weeks Outcome Route Bth Weight Gen Labor Lgth Anesthesia Del Locatn Provider FOB 05/27/23 Rafael 39 live - full term 7lbs 7oz Male epidural Mo Delivery Date: 05/27/23 Last Updated by: Katheryn Fine IOL hemophilia carrier HPI *NEW* NOB LMP 12/11, YARA 09/17 Details: SUSANA RODRIGUEZ is a 34 year old who presents for New OB visit. OB Visit YARA Calculator Estimated Delivery Date Method Current WG Current Estimate 09/17/25 Ultrasound #1 9w 1d Other Estimates 09/17/25 LMP (Certain) 9w 1d Comments: HIV: Urine Culture: Sequential Screen: NIPT Screen: Estimated Due Date: 09/17/25 Expected Delivery Route/Plan Labor Preferences- CB/BF classes: [] labor support person: [] labor intervention preferences: [] pain management options preferred: [] cut cord/dad catch: [] : [] PP control planned: [] discussed possible routes of delivery and associated risks: [] special requests: [] Specific Issue/Plans Covid status: [] Flu vaccine: [] Tdap vaccine: [] Rhogam: [] LARC form signed: [] Problem list reviewed and updated with the most current plan of care details and appropriate orders placed. Relevant counseling for the gestational age provided. Continue routine care and follow up unless otherwise noted in visit notes/problem list details Initial Weight: 202 lb Date -???-???-???-???-???- ???-???-???-???-???-? ??-???- EGA Weight BP Urine Prot -???-???-???-???-???- ???-???-???-???-???-? ??-???- Glucose FHR FuHt Pres Dilation -???-???-???-???-???- ???-?? (more content not included)... Normal [facility] Urine cultureOrdered By: Spenser Jordan on 02-13-2025 Bacteria identified Cx Nom (U) Positive Abnormal [facility] CBC panel Auto (Bld)on 10-23 Erythrocyte distribution width (RBC) [Ratio] 14.1 % 11.5 - 14.5 % [facility] Hematocrit (Bld) [Volume fraction] 39.3 % 36.0 - 46.0 % [facility] Hemoglobin (Bld) [Mass/Vol] 11.8 g/dL Low 12.0 - 16.0 g/dL [facility] Interpretation and review of laboratory results Abnormal [facility] MCH (RBC) [Entitic mass] 27.4 pg 26.0 - 34.0 pg [facility] MCHC (RBC) [Mass/Vol] 30 g/dL Low 32.0 - 36.0 g/dL [facility] MCV (RBC) [Entitic vol] 91 fL 80 - 100 fL [facility] Nucleated RBC/100 WBC (Bld) [Ratio] 0 % [facility] Platelets (Bld) [#/Vol] 367 10*3/uL [facility] RBC (Bld) [#/Vol] 4.3 10*6/uL [facility] WBC (Bld) [#/Vol] 10.7 10*3/uL [facility] Erythrocyte distribution width (RBC) [Ratio] 14.1 % Normal 11.5-14.5 [facility] Comment on above: Performed By: #### 5 7021-8 #### BEKAH SAM ([id number]) [facility] ([place]) [address] [place] [address] Hematocrit (Bld) [Volume fraction] 39.3 % Normal 36.0-46.0 [facility] Comment on above: Performed By: #### 5 7021-8 #### BEKAH SAM ([id number]) [facility]) [address] [place] [address] Hemoglobin (Bld) [Mass/Vol] 11.8 g/dL Low 12.0-16.0 [facility] Comment on above: Performed By: #### 5 7021-8 #### BEKAH SAM ([id number]) [facility]) [address] [place] [address] MCH (RBC) [Entitic mass] 27.4 pg Normal 26.0-34.0 [facility] Comment on above: Performed By: #### 5 7021-8 #### BEKAH SAM ([id number]) [facility] ([place]) [address] [place] [address] MCHC (RBC) [Mass/Vol] 30.0 g/dL Low 32.0-36.0 [facility] Comment on above: Performed By: #### 5 7021-8 #### BEKAH SAM ([id number]) [facility]) [address] [place] [address] MCV (RBC) [Entitic vol] 91 fL Normal 80-100 U [facility] Comment on above: Performed By: #### 5 7021-8 #### BEKAH SAM ([id number]) [facility]) [address] [place] [address] Nucleated RBC/100 WBC (Bld) [Ratio] 0.0 /100 WBCs Normal 0.0-0.0 [facility] Comment on above: Performed By: #### 5 7021-8 #### BEKAH SAM ([id number]) [facility]) [address] [place] [address] Platelets (Bld) [#/Vol] 367 x10*3/uL Normal 150-450 [facility] Comment on above: Performed By: #### 5 7021-8 #### BEKAH SAM ([id number]) [facility]) [address] [place] [address] RBC (Bld) [#/Vol] 4.30 x10*6/uL Normal 4.00-5.20 [facility] Comment on above: Performed By: #### 5 7021-8 #### BEKAH SAM ([id number]) [facility]) [address] [place] [address] WBC (Bld) [#/Vol] 10.7 x10*3/uL Normal 4.4-11.3 [facility] Comment on above: Performed By: #### 5 7021-8 #### BEKAH SAM ([id number]) [facility]) [address] [place] [address] Blood type and Indirect anti body screen panel (Bld)on 10-22-2024 ABO group Nom (Bld) AB [facility] Blood group antibody screen Ql Negative [facility] D Ag Ql (Bld) Positive [facility] ABO group Nom (Bld) AB Normal [facility] Comment on above: Order Comment: Colle ct CBCD monthly starting 10/04/23 Performed By: #### 5 7021-8 #### BEKAH Sylvester'HADLEY ([id number]) [facility]) [address] [place] [id number] Blood group antibody screen Ql Negative [facility] Comment on above: Order Comment: Colle ct CBCD monthly starting 10/04/23 Performed By: #### 5 7021-8 #### BEKAH Sylvester'HADLEY ([id number]) [facility]) [address] [place] [id number] D Ag Ql (Bld) Positive [facility] Comment on above: Order Comment: Colle ct CBCD monthly starting 10/04/23 Performed By: #### 5 7021-8 #### BEKAH O'HADLEY ([id number]) [facility]) [address] [place] [id number] CBC W Auto Differential pane l (Bld)on 10-22-2024 Basophils (Bld) [#/Vol] 0.04 10*3/uL [facility] Basophils/100 WBC (Bld) 0.8 % 0.0 - 2.0 % [facility] Eosinophils (Bld) [#/Vol] 0.32 10*3/uL [facility] Eosinophils/100 WBC (Bld) 6.5 % 0.0 - 6.0 % [facility] Erythrocyte distribution width (RBC) [Ratio] 13.7 % 11.5 - 14.5 % [facility] Hematocrit (Bld) [Volume fraction] 38.2 % 36.0 - 46.0 % [facility] Hemoglobin (Bld) [Mass/Vol] 12.1 g/dL 12.0 - 16.0 g/dL [facility] Immature granulocytes (Bld) [#/Vol] 0.01 10*3/uL [facility] Immature granulocytes/100 WBC (Bld) 0.2 % 0.0 - 0.9 % [facility] Comment on above: Immature Granulocyte Count (IG) includes promyelocytes, myelocytes and metamyelocytes but does not include bands. Percent differential counts (%) should be interpreted in the context of the absolute cell counts (cells/UL). Interpretation and review of laboratory results Abnormal [facility] Lymphocytes (Bld) [#/Vol] 1.82 10*3/uL [facility] Lymphocytes/100 WBC (Bld) 37 % 13.0 - 44.0 % [facility] MCH (RBC) [Entitic mass] 27.3 pg 26.0 - 34.0 pg [facility] MCHC (RBC) [Mass/Vol] 31.7 g/dL Low 32.0 - 36.0 g/dL [facility] MCV (RBC) [Entitic vol] 86 fL 80 - 100 fL [facility] Monocytes (Bld) [#/Vol] 0.35 10*3/uL [facility] Monocytes/100 WBC (Bld) 7.1 % 2.0 - 10.0 % [facility] Neutrophils (Bld) [#/Vol] 2.38 10*3/uL [facility] Comment on above: Percent differential counts (%) should be interpreted in the context of the absolute cell counts (cells/uL). Neutrophils/100 WBC (Bld) 48.4 % 40.0 - 80.0 % [facility] Nucleated RBC/100 WBC (Bld) [Ratio] 0 % [facility] Platelets (Bld) [#/Vol] 364 10*3/uL [facility] RBC (Bld) [#/Vol] 4.43 10*6/uL [facility] WBC (Bld) [#/Vol] 4.9 10*3/uL [facility] Basophils (Bld) [#/Vol] 0.04 x10*3/uL Normal 0.00-0.10 [facility] Comment on above: Order Comment: Colle ct CBCD monthly starting 10/04/23 Performed By: #### 5 7021-8 #### BEKAH Sylvester'HADLEY ([id number]) [facility]) [address] [place] [address] Basophils/100 WBC (Bld) 0.8 % Normal 0.0-2.0 [facility] Comment on above: Order Comment: Colle ct CBCD monthly starting 10/04/23 Performed By: #### 5 7021-8 #### BEKAH Sylvester'HADLEY ([id number]) [facility]) [address] [place] [address] Eosinophils (Bld) [#/Vol] 0.32 x10*3/uL Normal 0.00-0.70 [facility] Comment on above: Order Comment: Colle ct CBCD monthly starting 10/04/23 Performed By: #### 5 7021-8 #### BEKAH Sylvester'HADLEY ([id number]) [facility]) [address] [place] [address] Eosinophils/100 WBC (Bld) 6.5 % Normal 0.0-6.0 [facility] Comment on above: Order Comment: Colle ct CBCD monthly starting 10/04/23 Performed By: #### 5 7021-8 #### BEKAH Sylvester'HADLEY ([id number]) [facility]) [address] [place] [address] Erythrocyte distribution width (RBC) [Ratio] 13.7 % Normal 11.5-14.5 [facility] Comment on above: Order Comment: Colle ct CBCD monthly starting 10/04/23 Performed By: #### 5 7021-8 #### BEKAH Sylvester'HADLEY ([id number]) [facility]) [address] [place] [address] Hematocrit (Bld) [Volume fraction] 38.2 % Normal 36.0-46.0 [facility] Comment on above: Order Comment: Colle ct CBCD monthly starting 10/04/23 Performed By: #### 5 7021-8 #### BEKAH SAM ([id number]) [facility]) [address] [place] [address] Hemoglobin (Bld) [Mass/Vol] 12.1 g/dL Normal 12.0-16.0 [facility] Comment on above: Order Comment: [facility] ct CBCD monthly starting 10/04/23 Performed By: #### 5 7021-8 #### BEKAH SAM ([id number]) [facility]) [address] [place] [address] Immature granulocytes (Bld) [#/Vol] 0.01 x10*3/uL Normal 0.00-0.70 [facility] Comment on above: Order Comment: Colle ct CBCD monthly starting 10/04/23 Performed By: #### 5 7021-8 #### BEKAH SAM ([id number]) [facility]) [address] [place] [address] Immature granulocytes/100 WBC (Bld) 0.2 % Normal 0.0-0.9 [facility] Comment on above: Order Comment: Colle ct CBCD monthly starting 10/04/23 Result Comment: Lucy ture Granulocyte Count (IG) includes promyelocytes, myelocytes and metamyelocytes but does not include bands. Percent differential counts (%) should be interpreted in the context of the absolute cell counts (cells/UL). Performed By: #### 5 7021-8 #### BEKAH SAM ([id number]) [facility]) [address] [place] [address] Lymphocytes (Bld) [#/Vol] 1.82 x10*3/uL Normal 1.20-4.80 [facility] Comment on above: Order Comment: Colle ct CBCD monthly starting 10/04/23 Performed By: #### 5 7021-8 #### BEKAH Sylvester'HADLEY ([id number]) [facility]) [address] [place] [address] Lymphocytes/100 WBC (Bld) 37.0 % Normal 13.0-44.0 [facility] Comment on above: Order Comment: Colle ct CBCD monthly starting 10/04/23 Performed By: #### 5 7021-8 #### BEKAH Sylvester'HADLEY ([id number]) [facility]) [address] [place] [address] MCH (RBC) [Entitic mass] 27.3 pg Normal 26.0-34.0 [facility] Comment on above: Order Comment: Colle ct CBCD monthly starting 10/04/23 Performed By: #### 5 7021-8 #### BEKAH Sylvester'HADLEY ([id number]) [facility]) [address] [place] [address] MCHC (RBC) [Mass/Vol] 31.7 g/dL Low 32.0-36.0 [facility] Comment on above: Order Comment: Colle ct CBCD monthly starting 10/04/23 Performed By: #### 5 7021-8 #### BEKAH SAM ([id number]) [facility]) [address] [place] [address] MCV (RBC) [Entitic vol] 86 fL Normal 80-100 U [facility] Comment on above: Order Comment: Colle ct CBCD monthly starting 10/04/23 Performed By: #### 5 7021-8 #### BEKAH Sylvester'HADLEY ([id number]) [facility]) [address] [place] [address] Monocytes (Bld) [#/Vol] 0.35 x10*3/uL Normal 0.10-1.00 [facility] Comment on above: Order Comment: Colle ct CBCD monthly starting 10/04/23 Performed By: #### 5 7021-8 #### BEKAH SAM ([id number]) [facility]) [address] [place] [address] Monocytes/100 WBC (Bld) 7.1 % Normal 2.0-10.0 U [facility] Comment on above: Order Comment: Colle ct CBCD monthly starting 10/04/23 Performed By: #### 5 7021-8 #### BEKAH SAM ([id number]) [facility]) [address] [place] [address] Neutrophils (Bld) [#/Vol] 2.38 x10*3/uL Normal 1.20-7.70 [facility] Comment on above: Order Comment: Colle ct CBCD monthly starting 10/04/23 Result Comment: Perc ent differential counts (%) should be interpreted in the context of the absolute cell counts (cells/uL). Performed By: #### 5 7021-8 #### BEKAH SAM ([id number]) [facility]) [address] [place] [address] Neutrophils/100 WBC (Bld) 48.4 % Normal 40.0-80.0 [facility] Comment on above: Order Comment: Colle ct CBCD monthly starting 10/04/23 Performed By: #### 5 7021-8 #### BEKAH SAM ([id number]) [facility]) [address] [place] [address] Nucleated RBC/100 WBC (Bld) [Ratio] 0.0 /100 WBCs Normal 0.0-0.0 [facility] Comment on above: Order Comment: Colle ct CBCD monthly starting 10/04/23 Performed By: #### 5 7021-8 #### BEKAH SAM ([id number]) [facility]) [address] [place] [address] Platelets (Bld) [#/Vol] 364 x10*3/uL Normal 150-450 [facility] Comment on above: Order Comment: Colle ct CBCD monthly starting 10/04/23 Performed By: #### 5 7021-8 #### BEKAH Sylvester'HADLEY ([id number]) [facility]) [address] [place] [address] RBC (Bld) [#/Vol] 4.43 x10*6/uL Normal 4.00-5.20 [facility] Comment on above: Order Comment: Colle ct CBCD monthly starting 10/04/23 Performed By: #### 5 7021-8 #### BEKAH Sylvester'HADLEY ([id number]) [facility]) [address] [place] [address] WBC (Bld) [#/Vol] 4.9 x10*3/uL Normal 4.4-11.3 [facility] Comment on above: Order Comment: Colle ct CBCD monthly starting 10/04/23 Performed By: #### 5 7021-8 #### BEKAH Sylvester'HADLEY ([id number]) [facility]) [address] [place] [address] HCG ( test) Ql (U)o n 10-22-2024 Interpretation and review of laboratory results Normal [facility] Work Phone: Preg Test, Ur Negative Negative [facility] Work Phone: [facility] Work Phone: Surgical pathology studyon 0 10-22-2024 Surgical pathology study Pathology report.total SEE COMMENT Surgical Pathology Case: [id number] Authorizing Provider: Shilpi Benavides MD Collected: 10/22/2024 1110 Ordering Location: [facility] Received: 10/22/2024 [facility] Pathologist: Veronica Coronado MD PhD Specimen: GALLBLADDER CHOLECYSTECTOMY, GALLBLADDER Path report.final diagnosis SEE COMMENT A. Gallbladder, Cholecystectomy: -- Gallbladder with focal mild chronic inflammation. -- Two benign lymph nodes. Laboratory comment By the signature on this report, the individual or group listed as making the Final Interpretation/Diagno sis certifies that they have reviewed this case. Path report.relevant Hx SEE COMMENT Pre-op diagnosis: Biliary dyskinesia [K82.8] Path report.gross observation SEE COMMENT A: Received in formalin, labeled with the patient's name and hospital number and gallbladder, is an intact gallbladder, opened for fixation, measuring 6.8 x 3.1 x 0.8 cm. The serosal surface is smooth, and glistening with focal hemorrhagic areas. The wall measures up to 0.3 cm in greatest thickness. The lumen contains bile. Calculi are not present. The mucosal surface appears bile-stained, with areas of melgar-red. Adjacent to the cystic duct margin is are two possible lymph nodes measuring up to 1.0 cm in greatest dimension. Abrasive Worker sections consisting of the cystic duct margin, and gallbladder wall, and the possible lymph nodes are submitted in two cassettes. BMG/SBS Summary of Cassettes: Specimen Label Site A 1 Gallbladder wall and cystic duct margin 2 Possible lymph nodes Normal [facility] Comment on above: Order Comment: Colle ct CBCD monthly starting 10/04/23 Amylaseon 10-15-2024 Amylase [Catalytic activity/Vol] 27 U/L Low 29 - 103 U/L [facility] Amylase [Catalytic activity/Vol] 27 U/L Low 29-103 [facility] Comment on above: Performed By: #### 1 798-8 #### SHIV Wilcox ([id number]) [facility] ([facility]) [address] [place] [address] Bilirubin, Directon 10-16-19 25 Bilirubin.direct [Mass/Vol] 0.1 mg/dL 0.0 - 0.3 mg/dL [facility] Bilirubin.glucuronidated+Sanju irubin.albumin boundon 10-15-2024 Bilirubin.direct [Mass/Vol] 0.1 mg/dL Normal 0.0-0.3 [facility] Comment on above: Performed By: #### 1 968-7 #### SHIV Wilcox ([id number]) [facility] ([facility]) [address] [place], [place] [id number] CBC W Auto Differential pane l (Bld)on 10-15-2024 Basophils (Bld) [#/Vol] 0.05 10*3/uL [facility] Basophils/100 WBC (Bld) 0.8 % 0.0 - 2.0 % [facility] Eosinophils (Bld) [#/Vol] 0.27 10*3/uL [facility] Eosinophils/100 WBC (Bld) 4.5 % 0.0 - 6.0 % [facility] Erythrocyte distribution width (RBC) [Ratio] 14.4 % 11.5 - 14.5 % [facility] Hematocrit (Bld) [Volume fraction] 39.8 % 36.0 - 46.0 % [facility] Hemoglobin (Bld) [Mass/Vol] 13 g/dL 12.0 - 16.0 g/dL [facility] Immature granulocytes (Bld) [#/Vol] 0.02 10*3/uL [facility] Immature granulocytes/100 WBC (Bld) 0.3 % 0.0 - 0.9 % [facility] Comment on above: Immature Granulocyte Count (IG) includes promyelocytes, myelocytes and metamyelocytes but does not include bands. Percent differential counts (%) should be interpreted in the context of the absolute cell counts (cells/UL). Lymphocytes (Bld) [#/Vol] 1.73 10*3/uL [facility] Lymphocytes/100 WBC (Bld) 28.9 % 13.0 - 44.0 % [facility] MCH (RBC) [Entitic mass] 28.1 pg 26.0 - 34.0 pg [facility] MCHC (RBC) [Mass/Vol] 32.7 g/dL 32.0 - 36.0 g/dL [facility] MCV (RBC) [Entitic vol] 86 fL 80 - 100 fL [facility] Monocytes (Bld) [#/Vol] 0.43 10*3/uL [facility] Monocytes/100 WBC (Bld) 7.2 % 2.0 - 10.0 % [facility] Neutrophils (Bld) [#/Vol] 3.49 10*3/uL [facility] Comment on above: Percent differential counts (%) should be interpreted in the context of the absolute cell counts (cells/uL). Neutrophils/100 WBC (Bld) 58.3 % 40.0 - 80.0 % [facility] Nucleated RBC/100 WBC (Bld) [Ratio] 0 % [facility] Platelets (Bld) [#/Vol] 376 10*3/uL [facility] RBC (Bld) [#/Vol] 4.62 10*6/uL [facility] WBC (Bld) [#/Vol] 6 10*3/uL [facility] Basophils (Bld) [#/Vol] 0.05 x10*3/uL Normal 0.00-0.10 [facility] Comment on above: Order Comment: Colle ct CBCD monthly starting 10/04/23 Performed By: #### 5 7021-8 #### BEKAH Sylvester'HADLEY ([id number]) [facility] ([place]) [address] [place] [address] Basophils/100 WBC (Bld) 0.8 % Normal 0.0-2.0 [facility] Comment on above: Order Comment: Colle ct CBCD monthly starting 10/04/23 Performed By: #### 5 7021-8 #### BEKAH Sylvester'HADLEY ([id number]) [facility] ([place]) [address] [place] [address] Eosinophils (Bld) [#/Vol] 0.27 x10*3/uL Normal 0.00-0.70 [facility] Comment on above: Order Comment: Colle ct CBCD monthly starting 10/04/23 Performed By: #### 5 7021-8 #### BEKAH Sylvester'HADLEY ([id number]) [facility] ([place]) [address] [place] [address] Eosinophils/100 WBC (Bld) 4.5 % Normal 0.0-6.0 [facility] Comment on above: Order Comment: Colle ct CBCD monthly starting 10/04/23 Performed By: #### 5 7021-8 #### BEKAH Sylvester'HADLEY ([id number]) [facility] ([place]) [address] [place] [address] Erythrocyte distribution width (RBC) [Ratio] 14.4 % Normal 11.5-14.5 [facility] Comment on above: Order Comment: [facility] ct CBCD monthly starting 10/04/23 Performed By: #### 5 7021-8 #### BEKAH SAM ([id number]) [facility] ([place]) [address] [place] [address] Hematocrit (Bld) [Volume fraction] 39.8 % Normal 36.0-46.0 [facility] Comment on above: Order Comment: [facility] ct CBCD monthly starting 10/04/23 Performed By: #### 5 7021-8 #### BEKAH SAM ([id number]) [facility] ([place]) [address] [place] [address] Hemoglobin (Bld) [Mass/Vol] 13.0 g/dL Normal 12.0-16.0 [facility] Comment on above: Order Comment: [facility] ct CBCD monthly starting 10/04/23 Performed By: #### 5 7021-8 #### BEKAH SAM ([id number]) [facility] ([place]) [address] [place] [address] Immature granulocytes (Bld) [#/Vol] 0.02 x10*3/uL Normal 0.00-0.70 [facility] Comment on above: Order Comment: [facility] ct CBCD monthly starting 10/04/23 Performed By: #### 5 7021-8 #### BEKAH Sylvester'HADLEY ([id number]) [facility] ([place]) [address] [place] [address] Immature granulocytes/100 WBC (Bld) 0.3 % Normal 0.0-0.9 [facility] Comment on above: Order Comment: [facility] ct CBCD monthly starting 10/04/23 Result Comment: Lucy ture Granulocyte Count (IG) includes promyelocytes, myelocytes and metamyelocytes but does not include bands. Percent differential counts (%) should be interpreted in the context of the absolute cell counts (cells/UL). Performed By: #### 5 7021-8 #### BEKAH SAM ([id number]) [facility] ([place]) [address] [place] [address] Lymphocytes (Bld) [#/Vol] 1.73 x10*3/uL Normal 1.20-4.80 [facility] Comment on above: Order Comment: Colle ct CBCD monthly starting 10/04/23 Performed By: #### 5 7021-8 #### BEKAH Sylvester'HADLEY ([id number]) [facility] ([place]) [address] [place] [address] Lymphocytes/100 WBC (Bld) 28.9 % Normal 13.0-44.0 [facility] Comment on above: Order Comment: Colle ct CBCD monthly starting 10/04/23 Performed By: #### 5 7021-8 #### BEKAH SAM ([id number]) [facility] ([place]) [address] [place] [address] MCH (RBC) [Entitic mass] 28.1 pg Normal 26.0-34.0 [facility] Comment on above: Order Comment: Colle ct CBCD monthly starting 10/04/23 Performed By: #### 5 7021-8 #### BEKAH Sylvester'HADLEY ([id number]) [facility] ([place]) [address] [place] [address] MCHC (RBC) [Mass/Vol] 32.7 g/dL Normal 32.0-36.0 [facility] Comment on above: Order Comment: Colle ct CBCD monthly starting 10/04/23 Performed By: #### 5 7021-8 #### BEKAH Sylvester'HADLEY ([id number]) [facility] ([place]) [address] [place] [address] MCV (RBC) [Entitic vol] 86 fL Normal 80-100 U [facility] Comment on above: Order Comment: Colle ct CBCD monthly starting 10/04/23 Performed By: #### 5 7021-8 #### BEKAH Sylvester'HADLEY ([id number]) [facility] ([place]) [address] [place] [address] Monocytes (Bld) [#/Vol] 0.43 x10*3/uL Normal 0.10-1.00 [facility] Comment on above: Order Comment: Colle ct CBCD monthly starting 10/04/23 Performed By: #### 5 7021-8 #### BEKAH Sylvester'HADLEY ([id number]) [facility] ([place]) [address] [place] [address] Monocytes/100 WBC (Bld) 7.2 % Normal 2.0-10.0 [facility] Comment on above: Order Comment: Colle ct CBCD monthly starting 10/04/23 Performed By: #### 5 7021-8 #### BEKAH Sylvester'HADLEY ([id number]) [facility] ([place]) [address] [place] [address] Neutrophils (Bld) [#/Vol] 3.49 x10*3/uL Normal 1.20-7.70 [facility] Comment on above: Order Comment: Colle ct CBCD monthly starting 10/04/23 Result Comment: Perc ent differential counts (%) should be interpreted in the context of the absolute cell counts (cells/uL). Performed By: #### 5 7021-8 #### BEKAH SAM ([id number]) [facility] ([place]) [address] [place] [address] Neutrophils/100 WBC (Bld) 58.3 % Normal 40.0-80.0 [facility] Comment on above: Order Comment: Colle ct CBCD monthly starting 10/04/23 Performed By: #### 5 7021-8 #### BEKAH SAM ([id number]) [facility] ([place]) [address] [place] [address] Nucleated RBC/100 WBC (Bld) [Ratio] 0.0 /100 WBCs Normal 0.0-0.0 [facility] Comment on above: Order Comment: Colle ct CBCD monthly starting 10/04/23 Performed By: #### 5 7021-8 #### BEKAH SAM ([id number]) [facility] ([place]) [address] [place] [address] Platelets (Bld) [#/Vol] 376 x10*3/uL Normal 150-450 [facility] Comment on above: Order Comment: Colle ct CBCD monthly starting 10/04/23 Performed By: #### 5 7021-8 #### BEKAH Sylvester'HADLEY ([id number]) [facility] ([place]) [address] [place] [address] RBC (Bld) [#/Vol] 4.62 x10*6/uL Normal 4.00-5.20 [facility] Comment on above: Order Comment: Colle ct CBCD monthly starting 10/04/23 Performed By: #### 5 7021-8 #### BEKAH Sylvester'HADLEY ([id number]) [facility] ([place]) [address] [place] [address] WBC (Bld) [#/Vol] 6.0 x10*3/uL Normal 4.4-11.3 [facility] Comment on above: Order Comment: Colle ct CBCD monthly starting 10/04/23 Performed By: #### 5 7021-8 #### BEKAH SAM ([id number]) [facility] ([place]) [address] [place] [address] Coagulation factor IX activi ty actual/Normalon 10-15-2024 Coagulation factor IX activity actual/normal Coag (PPP) [Relative time] 38 % Low 65-150 [facility] Comment on above: Performed By: #### 3 187-2 #### SHIV Wilcox ([id number]) [facility] ([facility]) [address] [place] [address] Coagulation factor IX activi ty actual/normal Coag (PPP) [Relative time]Ordered By: Sherly Chatterjee on 10-15-2024 Interpretation and review of laboratory results Abnormal [facility] Coagulation surface inducedo n 10-15-2024 aPTT Coag (PPP) [Time] 38 s High 26-36 Un [facility] Comment on above: Order Comment: The A PTT is no longer used for monitoring Unfractionated Heparin Therapy. For monitoring Heparin Therapy, use the Heparin Assay. Performed By: #### 1 4979-9 #### SHIV Wilcox ([id number]) [facility] ([facility]) [address] [place] [address] Coagulation tissue factor in ducedon 10-15-2024 PT Coag (PPP) [Time] 11.0 s Normal 9.8-12.4 [facility] Comment on above: Performed By: #### 5 902-2 #### SHIV Wilcox ([id number]) [facility] ([facility]) [address] [place] [address] Comprehensive metabolic 2000 panelon 10-15-2024 Albumin BCP dye [Mass/Vol] 4.8 g/dL 3.4 - 5.0 g/dL [facility] ALP [Catalytic activity/Vol] 58 U/L 33 - 110 U/L [facility] ALT With P-5'-P [Catalytic activity/Vol] 10 U/L 7 - 45 U/L [facility] Comment on above: Patients treated wit h Sulfasalazine may generate falsely decreased results for ALT. Anion gap [Moles/Vol] 11 mmol/L 10 - 2 0 mmol/L [facility] AST With P-5'-P [Catalytic activity/Vol] 9 U/L 9 - 39 U/L [facility] Bilirubin [Mass/Vol] 0.8 mg/dL 0.0 - 1 .2 mg/dL [facility] Calcium [Mass/Vol] 10 mg/dL 8.6 - 10. 3 mg/dL [facility] Chloride [Moles/Vol] 106 mmol/L 98 - 10 7 mmol/L [facility] CO2 [Moles/Vol] 26 mmol/L 21 - 32 mmol/L [facility] Creatinine [Mass/Vol] 0.84 mg/dL 0.50 - 1.05 mg/dL [facility] eGFR - PINF [facility] Comment on above: Calculations of anusha mated GFR are performed using the 2020 CKD-EPI Study Refit equation without the race variable for the IDMS-Traceable creatinine methods. https://jasn.asnjournals.org/content//ASN.2020 205032 Glucose [Mass/Vol] 97 mg/dL 74 - 99 mg/dL [facility] Interpretation and review of laboratory results Normal [facility] Potassium [Moles/Vol] 4.2 mmol/L 3.5 - 5.3 mmol/L [facility] Protein [Mass/Vol] 7.8 g/dL 6.4 - 8.2 g/dL [facility] Sodium [Moles/Vol] 139 mmol/L 136 - 145 mmol/L [facility] Urea nitrogen [Mass/Vol] 12 mg/dL 6 - 23 mg/dL [facility] Albumin BCP dye [Mass/Vol] 4.8 g/dL Normal 3.4-5.0 [facility] Comment on above: Performed By: #### 2 4323-8 #### BEKAH SAM ([id number]) [facility] ([place]) [address] [place] [address] ALP [Catalytic activity/Vol] 58 U/L Normal 33-110 [facility] Comment on above: Performed By: #### 2 4323-8 #### BEKAH SAM ([id number]) [facility] ([place]) [address] [place] [address] ALT With P-5'-P [Catalytic activity/Vol] 10 U/L Normal 7-45 [facility] Comment on above: Result Comment: Otilia ents treated with Sulfasalazine may generate falsely decreased results for ALT. Performed By: #### 2 4323-8 #### BEKAH SAM ([id number]) [facility] ([place]) [address] [place] [address] Anion gap [Moles/Vol] 11 mmol/L Normal 10-20 [facility] Comment on above: Performed By: #### 2 4323-8 #### BEKAH Sylvester'HADLEY ([id number]) [facility] ([place]) [address] [place] [address] AST With P-5'-P [Catalytic activity/Vol] 9 U/L Normal 9-39 [facility] Comment on above: Performed By: #### 2 4323-8 #### BEKAH Sylvester'HADLEY ([id number]) [facility] ([place]) [address] [place] [address] Bilirubin [Mass/Vol] 0.8 mg/dL Normal 0.0-1.2 [facility] Comment on above: Performed By: #### 2 4323-8 #### BEKAH Sylvester'HADLEY ([id number]) [facility] ([place]) [address] [place] [address] Calcium [Mass/Vol] 10.0 mg/dL Normal 8.6-10.3 [facility] Comment on above: Performed By: #### 2 4323-8 #### BEKAH Sylvester'HADLEY ([id number]) [facility] ([place]) [address] [place] [address] Chloride [Moles/Vol] 106 mmol/L Normal 98-107 [facility] Comment on above: Performed By: #### 2 4323-8 #### BEKAH O'HADLEY ([id number]) [facility] ([place]) [address] [place] [address] CO2 [Moles/Vol] 26 mmol/L Normal 21-32 [facility] Comment on above: Performed By: #### 2 4323-8 #### BEKAH Sylvester'HADLEY ([id number]) [facility] ([place]) [address] [place] [address] Creatinine [Mass/Vol] 0.84 mg/dL Normal 0.50-1.05 [facility] Comment on above: Performed By: #### 2 4323-8 #### BEKAH Sylvester'HADLEY ([id number]) [facility] ([place]) [address] [place] [address] GFR/1.73 sq M.predicted MDRD (S/P/Bld) [Vol rate/Area] mL/min/{1.73_m2} Normal >60 [facility] Comment on above: Result Comment: Calc ulations of estimated GFR are performed using the 2020 CKD-EPI Study Refit equation without the race variable for the IDMS-Traceable creatinine methods. https://jasn.asnjournals.org/content/early//ASN.2020 936098 Performed By: #### 2 4323-8 #### BEKAH Sylvester'HADLEY ([id number]) [facility] ([place]) [address] [place] [address] Glucose [Mass/Vol] 97 mg/dL Normal 74-99 [facility] Comment on above: Performed By: #### 2 4323-8 #### BEKAH Sylvester'HADLEY ([id number]) [facility] ([place]) [address] [place] [address] Potassium [Moles/Vol] 4.2 mmol/L Normal 3.5-5.3 [facility] Comment on above: Performed By: #### 2 4323-8 #### BEKAH Sylvester'HADLEY ([id number]) [facility] ([place]) [address] [place] [address] Protein [Mass/Vol] 7.8 g/dL Normal 6.4-8.2 [facility] Comment on above: Performed By: #### 2 4323-8 #### BEKAH Sylvester'HADLEY ([id number]) [facility] ([place]) [address] [place] [address] Sodium [Moles/Vol] 139 mmol/L Normal 136-145 [facility] Comment on above: Performed By: #### 2 4323-8 #### BEKAH SAM ([id number]) [facility] ([place]) [address] [place] [address] Urea nitrogen [Mass/Vol] 12 mg/dL Normal 6-23 [facility] Comment on above: Performed By: #### 2 4323-8 #### BEKAH SAM ([id number]) [facility] ([place]) [address] [place] [address] Factor 9 ActivityOrdered By: Sherly Chatterjee on 10-15-2024 Coagulation factor IX activity actual/normal Coag (PPP) [Relative time] 38 % Low 65 - 150 % [facility] Ferritinon 10-15-2024 Ferritin [Mass/Vol] 32 ng/mL 8 - 150 ng/mL Un [facility] Ferritin [Mass/Vol] 32 ng/mL Normal 8-150 [facility] Comment on above: Order Comment: Month ly CBCD, comprehensive , and ferritin Performed By: #### 2 276-4 #### SHIV Wilcox ([id number]) [facility] ([facility]) [address] [place] [address] Iron and Iron binding capaci ty panelon 10-15-2024 Iron [Mass/Vol] 31 ug/dL Low 35 - 150 ug/dL [facility] Iron binding capacity [Mass/Vol] 417 ug/dL 240 - 445 ug/dL [facility] Iron binding capacity.unsaturated [Mass/Vol] 386 ug/dL High 110 - 370 ug/dL [facility] Iron saturation [Mass fraction] 7 % Low 25 - 45 % [facility] Iron [Mass/Vol] 31 ug/dL Low 35-150 [facility] Comment on above: Performed By: #### 5 7021-8 #### BEKAH SAM ([id number]) [facility] ([place]) [address] [place] [address] Iron binding capacity [Mass/Vol] 417 ug/dL Normal 240-445 [facility] Comment on above: Performed By: #### 5 7021-8 #### BEKAH SAM ([id number]) [facility] ([place]) [address] [place] [address] Iron binding capacity.unsaturated [Mass/Vol] 386 ug/dL High 110-370 [facility] Comment on above: Performed By: #### 5 7021-8 #### BEKAH Sylvester'HADLEY ([id number]) [facility] ([place]) [address] [place] [address] Iron saturation [Mass fraction] 7 % Low 25-45 [facility] Comment on above: Performed By: #### 5 7021-8 #### BEKAH Sylvester'HADLEY ([id number]) [facility] ([place]) [address] [place] [address] Lipaseon 10-15-2024 Lipase [Catalytic activity/Vol] 22 U/L 9 - 82 U/L [facility] Lipase [Catalytic activity/V ol]on 10-15-2024 Venipuncture immediately after or during the administration of Metamizole may lead to falsely low results. Testing should be performed immediately prior to Metamizole dosing. [facility] No Panel Informationon 10-15 Interpretation and review of laboratory results Normal [facility] Interpretation and review of laboratory results Abnormal [facility] PT Coag (PPP) [Time]on 10-15 INR Coag (PPP) [Relative time] 1 {INR} 0.9 - 1.1 [facility] Interpretation and review of laboratory results Normal [facility] INR Coag (PPP) [Relative time] 1.0 Normal 0.9-1.1 [facility] Comment on above: Performed By: #### 5 902-2 #### SHIV Wilcox ([id number]) [facility] ([facility]) [address] [place] [address] Protime-INRon 10-15-2024 PT Coag (PPP) [Time] 11 s [facility] Reticulocytes panel (Bld)on 10-15-2024 Hemoglobin (Reticulocytes) [Entitic mass] 29 pg 28 - 38 pg [facility] Immature Retic fraction 4.1 % NINF - 16.0 % [facility] Comment on above: Reticulocytes are me asured based on a fluorescent technique. The IRF, or immature reticulocyte fraction, is the percent of reticulocytes that show medium (MFR) or high (HFR) fluorescence. This value can be used to assess the relative maturity of the reticulocyte population in response to anemia. The shift reticulocytes are not measured by this technique, eliminating the need for their correction in the reticulocyte index. Interpretation and review of laboratory results Normal [facility] Reticulocytes (Bld) [#/Vol] 0.049 10*3/uL [facility] Reticulocytes/100 RBC (Bld) 1.1 % 0.5 - 2.0 % [facility] Hemoglobin (Reticulocytes) [Entitic mass] 29 pg Normal 28-38 [facility] Comment on above: Order Comment: To be done with CBCD Performed By: #### 5 0262-5 #### BEKAH SAM ([id number]) [facility] ([place]) [address] [place] [address] IMMATURE RETIC FRACTION 4.1 % Normal <=16.0 U [facility] Comment on above: Order Comment: To be done with CBCD Result Comment: Reti culocytes are measured based on a fluorescent technique. The IRF, or immature reticulocyte fraction, is the percent of reticulocytes that show medium (MFR) or high (HFR) fluorescence. This value can be used to assess the relative maturity of the reticulocyte population in response to anemia. The shift reticulocytes are not measured by this technique, eliminating the need for their correction in the reticulocyte index. Performed By: #### 5 0262-5 #### BEKAH SAM ([id number]) [facility] ([place]) [address] [place] [address] Reticulocytes (Bld) [#/Vol] 0.049 x10*6/uL Normal 0.018-0.083 [facility] Comment on above: Order Comment: To be done with CBCD Performed By: #### 5 0262-5 #### BEKAH SAM ([id number]) [facility] ([place]) [address] [place] [address] Reticulocytes/100 RBC (Bld) 1.1 % Normal 0.5-2.0 [facility] Comment on above: Order Comment: To be done with CBCD Performed By: #### 5 0262-5 #### BEKAH SAM ([id number]) [facility] ([place]) [address] [place] [address] Slide RequestOrdered By: Yusef Enrique on 10-15-2024 [facility] Triacylglycerol lipaseon Lipase [Catalytic activity/Vol] 22 U/L Normal 9-82 [facility] Comment on above: Order Comment: Venip uncture immediately after or during the administration of Metamizole may lead to falsely low results. Testing should be performed immediately prior to Metamizole dosing. Performed By: #### 3 040-3 #### SHIV Wilcox ([id number]) [facility] [facility] ([facility] [address] [place] [address] aPTTon 10-15-2024 aPTT Coag (PPP) [Time] 38 s High [facility] aPTT Coag (PPP) [Time]on Interpretation and review of laboratory results Abnormal [facility] The APTT is no longe r used for monitoring Unfractionated Heparin Therapy. For monitoring Heparin Therapy, use the Heparin Assay. [facility] Surgery Visit Reporton 09-19 Surgery Visit Report [facility] [address] [place], [place] [address] OFFICE VISIT Date of Service: 09/19/24 MR#: [id number] Acct: [id number] Name: SUSANA RODRIGUEZ Rep #: [id number] : 1990 Provider: Dr. Cyndi ivey MD Age/Sex: 34/F Location: [facility] Status: Signed with Addenda ADDENDUM by Dr. Cyndi Wong MD on 09/21/24 at 0903 Visit Charges Office Visits / Consults: 19681 OV L3 New 30min (new office visit level 3--correction) 09/21/24 0903 Date Cyndi Wong MD cc: * Signed Intake Vital Signs 07/14/24 08:10 09/19/24 13:46 Height 5 ft 5 in 5 ft 5 in Weight: 208 lb 4 oz BMI 34.6 BP 118/74 Blood Pressure Location Rt brachial Position Sitting Respiration 18 Pulse 64 Pulse Source Monitor Temp 97.5 F L Temp Source Temporal Pulse Oximetry (%) 100 Oxygen Delivery Method room air Intake Visit Reasons: ABNORMAL HIDA Chief Complaint: abnormal hida Is patient in pain?: No Allergies Penicillins Allergy (Mild, Verified 09/19/24 13:47) Shortness of breath NSAIDS (Non-Steroidal Anti-Inflamma Adverse Reaction (Verified 09/19/24 13:47) Other Medications ???Medication ???Instructions ???Recorded ???Confirmed ???Type multivitamin no.47-iron fum 27 cap PO 10/18/22 07/14/24 History mg-folate no.1 1 mg-dha 300 mg capsule (PNV-DHA) B-complex with vitamin C 1 cap PO QDAY 09/19/24 09/19/24 Hi story ferrous fumarate 325 mg (106 mg 325 mg PO QDAY 09/19/24 09/19/24 H istory iron) tablet PFSH Medical History (Updated 09/19/24 @ 13:46 by Nahomy Escoto LPN) Abnormal biliary HIDA scan History of femur fracture 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 Surgical History Hx of oral surgery Family History Mother Cancer, Onset Age: 31 lymphoma Grandmother Breast cancer Colon cancer Diabetes Father Hypertension Social History adopted: No household members: spouse current occupational status: employed 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 Patient also does have a significant past medical history for a hemophilia B carrier and does need factor prior to procedures and after. Patient states her factors are about 32 to 39% and normal is from 50 to 150%. Patient did go to to deliver baby and follow 2022 and everything was controlled with the factor at that time. Patient states she does have the factor at home. Patient ultrasound gallbladder showed no gallstones, normal wall, no pericholecystic fluid, common bile duct 2 mm. Patient's HIDA scan showed ejection fraction of 0% at 29 minutes. Patient states she did have a lot of pain during the hide exam. Patient states that she has changed her diet to more of a Mediterranean diet. However she did have ice cream last night and had a lot of epigastric pain and nausea afterwards. Patient does have some reflux but only gets it maybe once every 2 weeks depending on food worse with citrus foods. ROS General General: Yes weight change and fatigue; No appetite, colon cancer, breast cancer or weakness HEENT HEENT: No difficulty swallowing, eye injury, eye surgery, swollen glands or hoarseness Endo Endocrine: No thyroid disease, diabetes mellitus, thyroid cancer, Hair loss, heat intolerance or cold intolerance Skin Skin: No rash or changing moles Musc Musculoskeletal: No back problems, arthritis, rheumatoid arthritis, gout or joint pain Cardio Cardiovascular: No murmur, pacemaker, heart disease, atrial fibrillation, high blood pressure, heart attack, heart stent, palpitations, shortness of breat with exertion or chest pain Psych Psychiatric: No depression, anxiety or hearing voices Resp Respiratory: No shortness of breath, No sleep apnea, No cough, No COPD, No asthma, No emphysema and No wheezing Gastro Gastrointestinal: Yes abdominal pain, No nausea or vomiting, No diarrhea, Yes constipation, No blood in stool, No acid reflux, No hemorrhoids, No ulcers, Yes gallbladder problem and No black,tarry stools Edilson Hematologic: No blood thinners, Yes blood disorders, No bleeding, No anemia and No blood clots (more content not included)... Normal [facility] Hepatobilliary Img w/Pharm I nton 09-09-2024 Hepatobilliary Img w/Pharm Int [facility] Services [address] [place] [address] Hepatobilliary Img w/Pharm Int MR#: [id number] Acct: [id number] Name: SUSANA RODRIGUEZ Rep #: [id number] : 1990 F 34 From: Christiano Antony PCP: Dr. Ananda Foley MD Status: REG CLI Study: Hepatobilliary Img w/Pharm Int Date of Exam: 0 09/09/24 Exam# [id number] Ordering Dr: Susana Gaona MD PROCEDURE: HEPATOBILLIARY IMG W/PHARM INT REASON FOR EXAM: Right upper quadrant abdominal pain. TECHNIQUE: Intravenous Choletec with planar imaging of the abdomen. 1.8 mcg Kinevac intravenously approximately 60 minutes after the radiopharmaceutical with additional anterior imaging and a region of interest drawn around the gallbladder to calculate a time-activity curve. RADIOPHARMACEUTICAL: 5.7 mCi mebrofenin intravenous. COMPARISON: None. FINDINGS: Study presented for my interpretation on 09/16/2024. There is good uptake of the radiopharmaceutical by the liver. Normal gallbladder visualization with the gallbladder identified by 30 minutes. Radioisotope extending into the small bowel by the 15 minute film. Gallbladder Ejection Fraction: 0 % at 29 minutes (normal is >35%) NM/Hepatobilliary Img w/Pharm Int IMPRESSION: 1. Abnormal gallbladder ejection fraction of 0% at 29 minutes following cholecystokinin administration. This is concerning for chronic cholecystitis. 2. Satisfactory hepatic uptake and clearance, as well as filling of the gallbladder and small bowel activity. No evidence of common duct obstruction. Reading Location: [id number] CC: Dr. Susana Gaona MD; Dr. Ananda Foley MD Security Solutions Architect: Signed Normal [facility] Abdomen Limitedon 08-21-2024 Abdomen Limited [facility] [address] [place], [place] [address] Abdomen Limited MR#: [id number] Acct: [id number] Name: SUSANA RODRIGUEZ Rep #: [id number] : 1990 F 34 From: Star dangelo MD PCP: Dr. Ananda Foley MD Status: REG [facility] Study: Abdomen Limited Date of Exam: 08/21/24 Exam# [id number] Ordering Dr: Ssuana Gaona MD [id number] STUDY: ABDOMINAL ULTRASOUND - RIGHT UPPER QUADRANT REASON FOR VISIT: Female, 34 years old RUQ ABD PAIN TECHNIQUE: Ultrasound evaluation of the right upper quadrant was performed with real-time and static paiz-scale imaging. TECHNICAL QUALITY: Adequate. COMPARISON: None. FINDINGS: Liver: The liver measures 16.2 cm. There is increased echogenicity consistent with fatty infiltration. The bile ducts are within normal limits. There is hepatic color flow. The direction of portal flow is hepatopetal. There is no demonstrated mass lesion. Gallbladder: Normal distended gallbladder. The gallbladder wall measures 2.0 mm. There is a negative sonographic Padilla''s sign. There is no pericholecystic fluid. There are no gallstones. Common Bile Duct (C.B.D.): The common bile duct measures 2 mm. Pancreas: Normal size of the head, body and tail of the pancreas. There is normal echogenicity of the pancreas. There is no demonstrated pancreatic mass or cyst. Right Kidney: Normal size of the right kidney. The right kidney measures 11.4 cm x 4 cm x 4.5 cm. Normal renal cortex. The right cortex measures 1.5 cm. There is no demonstrated renal mass or cyst. There is no right hydronephrosis. US/Abdomen Limited IMPRESSION: Fatty infiltration of the liver. Electronically Signed: Star Cortez MD at 12:10 EST Reading Location ID and State: [address] [place] [address] , Service support , CC: Dr. Susana Gaona MD; Dr. Ananda Foley MD Security Solutions Architect: Signed Normal [facility] Box Lining Machine Feeder Office Visit Reporton 07-14-2024 Box Lining Machine Feeder Office Visit Report [facility] [address], [address] [place] [address] OFFICE VISIT Date of Service: 07/14/24 MR#: [id number] Acct: [id number] Name: SUSANA RODRIGUEZ Rep #: [id number] : 1990 Provider: JITENDRA love Age/Sex: 34/F Location: [facility] Status: Signed Intake Vital Signs 07/13/23 15:54 07/14/24 08:04 07/14/24 08:10 Height 5 ft 5 in 5 ft 5 in 5 ft 5 in Weight: 216 lb 8 oz BMI 36.0 BP 110/66 Intake 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) Chief Complaint: Annual 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 Is patient in pain?: No Allergies Penicillins Allergy (Mild, Verified 07/14/24 08:03) Shortness of breath NSAIDS (Non-Steroidal Anti-Inflamma Adverse Reaction (Verified 07/14/24 08:03) Other Medications ???Medication ???Instructions ???Recorded ???Confirmed ???Type multivitamin no.47-iron fum 27 cap PO 10/18/22 07/14/24 History mg-folate no.1 1 mg-dha 300 mg capsule (PNV-DHA) Is last menstrual period known: Yes Last Menstrual Period: 06/24/24 Post menopausal: No Patient : No : No PFSH Medical History History of femur fracture 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 Surgical History Hx of oral surgery Family History Mother Cancer, Onset Age: 31 lymphoma Grandmother Breast cancer Colon cancer Diabetes Father Hypertension Social History adopted: No household members: spouse current occupational status: employed 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 Date Name GA/Weeks Outcome Route Bth Weight Infant Gen Labor Lgth Anesthesia Del Locatn Provider FOB Unknown [place] live - full term 7lbs 7oz Male HPI Encounter for routine gynecological examination Details: SUSANA RODRIGUEZ is a 34 year old who presents for annual exam. Declines concerns. Condoms for contraception Last PAP: 2022 History of abnormal PAP: no Last mammogram: age 37 Other preventative health care screenings: Og Female Reproductive History Last Menstrual Period: 06/24/24 Cycle Length: 21-35 Questions: metorrhagia: No, sexually active: Yes, dyspareunia: No and PCB: No ROS Const Constitutional: Denies fatigue, weight gain or weight loss Cardio Card: Denies chest pain Resp Resp: Denies cough or dyspnea on exertion GI GI: Denies abdominal pain, bloating, change in stool character, constipation or vomiting : Reports as per HPI; Denies difficulty voiding, pelvic pain, urinary frequency, urinary incontinence, urinary urgency, vaginal discharge or vaginal pruritus Exam Const General: cooperative, healthy appearing, no acute distress and well developed Orientation: alert, oriented to person and oriented to place [facility] Head: normal to inspection Neck Neck: normal visual inspection Thyroid: thyroid normal Lymphatic: no lymphadenopathy noted Chest Breast inspection: normal inspection of the breasts and normal inspection of the axillae Breast palpation: normal palpation of the breasts, normal palpation of the axillae and no axillary lymphadenopathy Resp Effort Inspection: normal respiratory effort GI Palpation: soft, no masses and nontender Rectal Exam: deferred External Female Exam: normal external appearance and normal appearance of the urethra Urethra: normal appearance of the urethra and normal palpation Speculum Exam - Vagina: normal appearance of the vagina and normal vaginal discharge Speculum Exam - Cervix: normal appearance of the cervix Bimanual Exam- Vagina Uterus: normal bimanual exam, uterine size normal, uterine shape normal and non-tender Bimanual Exam- Adnexa, other: normal adnexae, no masses, normal and non-tender Pelvic Support: normal Neuro General: patient alert and patient oriented x3 Psych Affect: normal affect Coding Level of Care Code Off vis,est,prev 18-39yrs Diagnoses Encounter for gynecological examination without abnormal finding Z01.419 Gynecological examination findings: a (more content not included)... Normal [facility] Gram stain for investigation of transfusion reactionOrdered By: Meghana Edwards on 04-04-2023 Microscopic observation Gram stain Nom (Unsp spec) [facility] Laboratory - Chemistry and C hemistry - challengeon 04-04-2023 Glucose Ql (U) Negative [facility] Laboratory - Urinalysison Protein Ql (U) Negative [facility] Thin prep Papanicolaou smear with manual screeningOrdered By: Meghana Edwards on 04-04-2023 Genital Culture Actinomyces naeslundii [facility] Clinic Note - Heme Oncon Clinic Note - Heme Onc History of Presen t Illness: ID Statement: SUSANA RODRIGUEZ is a 32 year old Female Chief Complaint: hemophilia b carrier Interval History: 32 yr old female was 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 Previous records show factor IX at 42% when checked in [place] in 2004 this is a follow up for History of Present Illness Patient is Gr1P0 at 30 weeks gestation Feels well, on PNV, denies any bleeding issues plans [facility] delivery [facility] with high rigger, will bring factor from home, understands genetics of hemophilia, she is carrying a boy Repeat factor IX is 43% 11/2022 12 point review of systems negative except as state in HPI. PAST MEDICAL HISTORY She had her Bourbon teeth extraction in 10/2017 w/o incident. heavy bleeding during her menarche at 14 yrs of age. Patient had h/o trauma followed by femur fracture in 2002 and underwent Zeus fixation. She did not require any factor replacement at that time. [facility] brothers were diagnosed with Hem[facility] and work up revealed she was a carrier for hemophilia B. Factor IX levels- 42% vWF activity-1001% vWF ag-164% Factor VIII-157% Past Medical and Surgical History: As above in HPI. Family History: Maternal Grandfather was diagnosed with moderate Hemophilia B Mothers carrier alba was never tested. All her maternal Uncles have no disease. She has two brothers and both of them have Moderate Hemophilia B with factor levels around 4 % per patient. One of her brothers suffered ICH as a child and another brother is on Benefix as needed. Mother had H/o Atrial sarcoma with liver resection for metastasis and subsequently dies of cardiac failure when patient was 7 months old. Maternal grand mother had h/o clon cancer, Breast cancer and most recently skin cancer. 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 Denies smoking, alcohol or illicit drug use. medications and allergies reviewed in emr Review of Systems: ConstitutionalNEGATIV E: Fever, Chills, Anorexia, Weight Loss, Malaise EyesNEGATIVE: Blurry Vision, Drainage, Diploplia, Redness, Vision Loss/ Change ENMTNEGATIVE: Nasal Discharge, Nasal Congestion, Ear Pain, Mouth Pain, Throat Pain RespiratoryNEGATIVE: Dry Cough, Productive Cough, Hemoptysis, Wheezing, Shortness of Breath CardiologyNEGATIVE: Chest Pain, Dyspnea on Exertion, Orthopnea, Palpitations, Syncope GastrointestinalNEGAT ENID: Abdominal Pain, Constipation, Diarrhea, Nausea, Vomiting GenitourinaryNEGATIVE : Discharge, Dysuria, Flank Pain, Frequency, Hematuria MusculoskeletalNEGATI VE: Decreased ROM, Pain, Swelling, Stiffness, Weakness NeurologicalNEGATIVE: Dizziness, Confusion, Headache, Seizures, Syncope PsychiatricNEGATIVE: Mood Changes, Anxiety, Hallucinations, Sleep Changes, Suicidal Ideas SkinNEGATIVE: Mass, Pain, Pruritus, Rash, Ulcer EndocrineNEGATIVE: Heat Intolerance, Cold Intolerance, Sweat, Polyuria, Thirst Hematologic/LymphPOSI TIVE: Bruising NEGATIVE: Anemia, Easy Bleeding, Night Sweats, Petechiae Allergic/ImmunologicN EGATIVE: Anaphylaxis, Itchy/ Teary Eyes, Itching, Sneezing, Swelling Allergies and Intolerances: Allergies: penicillin: Drug, Other, Active aspirin: Drug, Other, Active NSAIDs: Drug Category, Other, Active Latex: Latex, Rash, Active Outpatient Medication Profile: * Patient Currently Takes Medications as of 28-Nov-2022 11:16 documented in Structured Notes BeneFIX intravenous kit: 3500 international unit(s) +/-10% (50 iu/kg) intravenous every 24 hours as needed to treat or prevent bleeding. [facility] , Start Date: 25-Aug-2021 Vitamin D3 1000 intl units oral tablet: 1 tab(s) orally once a day ferrous sulfate: Vitamin B Complex 100: [place]cliff-3: 1 Plus 1: Vitamin C 1000 mg oral tablet: orally 2 times a day Medical History: : ICD-10: Z34.90, Status: Active Family History: No Family History items are recorded in the problem list. Social History: Social Substance History: Social Historydenies smoking, alcohol and drug use Smoking Statusnever smoker (1) Tobacco Usedenies Alcohol Usedenies Drug Usedenies Vitals and Measurements: Vitals: Temp: 35.8 HR: 99 RR: 18 BP: 110/69 SPO2%: 100 Measurements: HT(cm): 165.7 WT(kg): 95.1 BSA: 2.09 BMI: 34.6 Physical Exam: Constitutional: Well developed, awake/alert/oriented x3, no distress, alert and cooperative Eyes: PERRL, EOMI, clear sclera ENMT: mucous membranes moist, no apparent injury, no lesions seen Head/Neck: Neck supple, no apparent injury, thyroid without mass or tenderness, No JVD, trachea midline, no bruits Respiratory/Thorax: Patent airways, CTAB, normal breath sounds with good chest expansion, thorax symmetric Cardiovascular: Regular, rate and (more content not included)... Normal [facility] Clinic Note - Intakeon 03-27 Clinic Note - Intake Patient Visit Information: Visit TypeFollow Up Visit Source of Informationpatient Accompanied byspouse Admission Information: Admission Since Last VisitNo Vital Signs: Temp (degrees C)35.8 degrees C Temperatureskin Heart Rate (beats/min)99 beats per minute Respiration (breaths/min)18 breath per minute BP Systolic (mm Hg)110 mmHg BP Diastolic (mm Hg)69 mmHg BP Mean (mm Hg)82 mmHg Height in cm165.7 centimeter(s) Weight in kg95.1 kilogram(s) Weightstanding BMI (kg/m2)34.6 kg/M2 BSA (m2)2.09 M2 Last 3 Weights & HeightsDate: Weight/Scale Type:Height: 28-Nov-2022 11:0283.8 kg 165.7 cm SpO2 (%)100 % SpO2 Patient Onroom air Pain Screening: Patient States Painno (0) Allergies: penicillin: Drug, Other, Active aspirin: Drug, Other, Active NSAIDs: Drug Category, Other, Active Latex: Latex, Rash, Active Outpatient Medication Profile: * Patient Currently Takes Medications as of 28-Nov-2022 11:16 documented in Structured Notes BeneFIX intravenous kit: 3500 international unit(s) +/-10% (50 iu/kg) intravenous every 24 hours as needed to treat or prevent bleeding. [facility] , Start Date: 25-Aug-2021 Vitamin D3 1000 intl units oral tablet: 1 tab(s) orally once a day ferrous sulfate: Vitamin B Complex 100: [place]cliff-3: 1 Plus 1: Vitamin C 1000 mg oral tablet: orally 2 times a day Notification: NotificationsAnnual Screens Due Dates Advanced Directives: Nov 28, 2023 Family Violence: Nov 28, 2023 Depression (Due every 6 months for ONC only; all others use Annual date): May 27, 2023 Substance Use - Alcohol: Nov 28, 2023 Substance Use - Drugs: Nov 28, 2023 Nutrition: Nov 28, 2023 Learning: Nov 28, 2023 Travel History: COVID-19 Screening Completedno exposure or symptoms Travel or ExposureNO travel to International locations in the past 30 days Falls: Have you fallen in the last 6 monthsno Do you have a fear of fallingno Do you feel you need assistanceno Is the patient using an assistive deviceno Not a falls riskimplement environmental risk factors interventions Electronic Signatures: Dorie Quiñones (PALOMO Flood) (Signed 27-Mar-2023 08:11) Authored: Patient Visit Information, Vital Signs, Allergies, Outpatient Medication Profile, Notification, Travel History, Falls Last Updated: 27-Mar-2023 08:11 by Dorie Quiñones (PALOMO Flood) Normal [facility] No Panel Informationon 03-27 Normal PR-AVSL[facility]-Ihtv an 320 Work Phone: OB Follow up or repeat scano n 03-27-2023 OB Follow up or repeat scan Indication ======== Growth for Intrauterine Growth Restriction, Class I Obesity (BMI 30-34.9) History ====== General History Height 165 cm Height (ft) 5 ft Height (in) 5 in Previous Outcomes 1 Para 0 Maternal Assessment Height 165 cm Height (ft) 5 ft Height (in) 5 in Weight 83 kg Weight (lb) 182 lb Weight gain 0 kg Weight gain (lb) 0 lb BMI 30.29 kg/m? Physical Exam Initial weight (lb) 182 lb ========= Shoemaker . Number of fetuses: 1 Dating ====== GA by prior assessment 30 w + 3 d YARA by prior assessment: 06/02/2023 Ultrasound examination on: 03/27/2023 GA by U/S based upon: AC, BPD, Femur, HC GA by U/S 31 w + 2 d YARA by U/S: 05/27/2023 Assigned: based on stated YARA, selected on 01/15/2023 Assigned GA 30 w + 3 d Assigned YARA: 06/02/2023 Growth Overview Exam date GA BPD (mm) HC (mm) AC (mm) FL (mm) HL (mm) EFW (g) 01/15/2023 20w 2d 48 59% 184.1 64% 141.9 21% 32.8 40% 31.5 37% 325 29% 02/20/2023 25w 3d 63.3 48% 237.4 40% 185.2 2% 45.5 25% 683 8% 03/27/2023 30w 3d 82.3 97% 291.8 64% 257.8 31% 57.3 25% 1569 37% Impression ========= The patient is a carrier for Hemophilia B. She has a rr cfDNA. Delivery at [facility] planned. -Normal interval growth -No malformations were identified on a limited survey The patient is aware of the above information Thank you allowing us to participate in the care of your patient Follow-up ======== per [facility] appt to follow. General Evaluation Cardiac activity present. FHR 135 bpm. movements: visualized. Presentation: cephalic Placenta: Placental site: anterior, No Previa Seen Umbilical cord: Cord vessels: 3 vessel cord Amniotic fluid: Amount of AF: normal amount. MVP 3.3 cm. JORDAN 10.7 cm. Q1 2.1 cm, Q2 3.3 cm, Q3 2.7 cm, Q4 2.6 cm Biometry Standard BPD 82.3 mm 33w 1d 97% Hadlock OFD 100.8 mm 65% INTERGROWTH-21st HC 291.8 mm 32w 1d 64% Hadlock Cerebellum tr 39.4 mm 31w 5d 83% Mesa AC 257.8 mm 30w 0d 31% Hadlock Femur 57.3 mm 30w 0d 25% Hadlock HC / AC 1.13 EFW 1,569 g 30w 0d 37% Hadlock EFW (lb) 3 lb EFW (oz) 7 oz EFW by: Hadlock (SEN-BG-FN-FL) Extended Can Piler 5.4 mm Head / Face / Neck Cephalic index 0.82 75% Nicolaides Extremities / Bony Struc FL / BPD 0.70 FL / HC 0.20 FL / AC 0.22 Other Structures FHR 135 bpm Anatomy Cranium: Normal Lateral ventricles: Normal Midline falx: Normal Cavum septi pellucidi: Normal Cerebellum: Normal Cisterna magna: Normal Head / Neck Rt lateral ventricle: Normal Lt lateral ventricle: Normal Thalami: Normal Cerebellar lobes: Normal 4-chamber view: suboptimal RVOT view: suboptimal LVOT view: suboptimal 3-vessel view: suboptimal Heart / Thorax Cardiac axis: Normal Diaphragm: Normal Stomach: Normal Kidneys: Normal Bladder: visualized Abdomen Stomach: correct situs Rt kidney: Normal Lt kidney: Normal Large bowel: Normal sex: male Wants to know sex: yes Biophysical Profile 2: breathing movements 2: Gross body movements 2: tone 2: Amniotic fluid volume 03/13 Biophysical profile score Maternal Structures Uterus / Cervix Uterus: Normal Cervix: Not visualized Ovaries / Tubes / Adnexa Rt ovary: Visualized Rt ovary details: Normal Lt ovary: Not visualized Method ====== Transabdominal ultrasound examination. View: Suboptimal view: limited by late gestational age Electronically signed by: ESME CHANCE MD [facility] TELEVISION CABINET FINISHER - Office Visiton 03-07 TELEVISION CABINET FINISHER - Office Visit Provider Shamar hughes A:32 yr old female with Known hemophilia B carrier, follows up for management of (male fetus), at 30w3d gestation Hemophilia B: -Counseled on hemophilia at initial [facility] visit - Dx?d in 2004, h/o easy bruising and menorrhagia, labs demonstrated low Factor IX (FIX) activity but FIX level >40%; her 2 brothers have moderate Hemophilia B. She did not require transfusion or factor replacement w/ dental extraction or femur zeus fixation, no personal h/o major bleed. -f/u with Dr. Jack this morning and details of plan below: - Baseline FIX levels at 42% last checked 2004 and repeat 11/2022 at 43%. Goal is to keep levels at 100% peripartum and first 48 hours. after which levels of 40-50% are adequate for hemostasis so will not need factor replacement given her levels. Given baseline factor levels, will not need supplementation at home. Questions about peripartum management of baby, will be addressed by OB. Plan to induce at 39 weeks per OB - Okay to get epidural once she receives factor replacement. - plan for lysteda at home post - continue PNV , avoid ASA and other NSAIDS due to increased bleeding risk - Recommend repeat US assessment at 36w GA. Data is limited regarding the optimal mode of delivery given the risk of this male fetus being affected and possible hemorrhagic complications. Studies of children born with moderate to severe hemophilia have demonstrated similar incidences of intracranial bleed with compared with planned CS, although rates are significantly increased with vacuum- and forceps-assisted vaginal deliveries. Thus, while there is a slight risk of serious bleeding during , delivery by CS does not eliminate this risk. Thus, we recommend against operative vaginal delivery or use of scalp electrodes, but it is reasonable to consider as long as maternal/ status remains reassuring and prolonged labor is avoided. Unless additional concerns develop, do not recommend delivery prior to 39w. We do recommend delivery at [facility] for access to Hematology and required medications. - Given maternal bleeding risks, will plan for Anesthesiology consult in the third trimester. - Will plan for Neonatology consult prior to delivery, and if the ?s Hemophilia status is unknown discussed with patient we will defer performance of circumcision. H/O Migraines: - Found to be from exposure to black mold -Pt reports these have resolved now that they have sold the house and she is no longer exposed to the mold -Not on treatment at this time PNC - YARA 06/02/23 by LMP c/w OSH 8w US - Referred by Dr. Allyssa Santana in [place], [place] - [facility]NL records reviewed, AB+/-, Rubella IgG equivocal - S/p rrCFDNA w/ Cynthia, XY - Growth today- EFW 37%, AC 31%, normal interval growth- repeat at 36 wks, pt would like to limit the number of US as she is paying out of pocket for these. -GBS at 36 wks -Will need to confirm tdap status -Plan to transfer care to [facility] at 36 wks -RTC at 36 wks for SHERIDAN and repeat growth Arti Tang APRN-NUCLEAR WASTE MANAGEMENT ENGINEER Chief Complaint patient presents today for MFM F/u operations officer declined [facility] [employer] History of Present IllnessPt is a 32 y.o, here at 30w3d for MFM f/u, given distance to home she is currently in shared care with her local OBGYN. She plans to transfer care at 36 wks to [facility] for delivery at [facility]. Overall feeling well. +FM. Denies VB, LOF, or CTXs. Had f/u with Dr. Jack earlier today and detailed plan made for her delivery. See plan for details. Overall no concerns today. Active Problems Problems 20 weeks gestation of (V22.2) (Z3A.20) H/O migraine during (V23.89) (Z86.69,Z87.59) Hemophilia B (286.1) (D67) High risk , antepartum (V23.9) (O09.90) (V22.2) (Z34.90) Allergies Medication doxycycline Adverse Reaction; Throat pain; Recorded By: Rianna Marmolejo; 01/15/2023 3:32:31 PM Penicillins Adverse Reaction; Itching; Rash; Recorded By: Rianna Marmolejo; 01/15/2023 3:32:31 PM NonMedication Latex Adverse Reaction; Rash; Recorded By: Rianna Marmolejo; 01/15/2023 3:32:31 PM Current Meds Medication NameInstruction Magnesium CAPS Vitamin C CAPS Vitamin D CAPS Vitals Vital Signs Recorded: [id number] 01:09PM Heart Rate93 Whzicbqx256 Baonvylwm12 Height5 ft 5 in Qunqzi130 lb 0.8 oz BMI Xomtwtplxs55.79 kg/m2 BSA Calculated2.02 Tobacco Useb) No Falls Screening (Age 18+)a) No falls within the last year Pain Scale0 Physical Exam Constitutional: Alert and in no acute distress. Well developed, well nourished Head and Face: Head and face: normal Eyes: Normal external exam - nonicteric sclera, extraocular movements intact (EOMI) and no ptosis. Ears, Nose, Mouth, and Throat: External inspection of ears and nose: normal Neck: no neck asymmetry. Supple Pulmonary: No respiratory distress Abdomen: soft, non-tender, gravid. Musculoskeletal: no joint swelling seen, alcides (more content not included)... Normal [employer] Tobacco Screening.on 023 Fall risk assessment a) No falls within the last year [id number] an 320 Work Phone: Tobacco use status CPHS b) No M [id number] an 320 Work Phone: Laboratory - Chemistry and C hemistry - challengeon 03-22-2023 Glucose Ql (U) Negative [facility] Laboratory - Urinalysison Protein Ql (U) Trace [facility] No Panel InformationOrdered By: Radha Dean on 03-13-2023 Glucose 3 Hour See comment 70-120 [facility] Comment on above: FASTING 87 Col: 0803/28 0955GLUCOSE TOLERANCE TEST Reference Interval Non- Adults Fasting 74 - 106 30 minutes 110 - 170 1 hour 120 - 170 2 hour 74 - 120 3 hour 74 - 106 4 hour 74 - 106 5 hour 74 - 106 GLU 1 HR 135 Col: 03/13/23 1051 GLU 2 HR 124 H Col: 03/13/23 1152 GLU 3 HR 106 Col: 03/13/23 1255 Absolute lymphocyte countOrd ered By: Debbie Jordan on 03-07-2023 Lymphocytes Auto (Unsp spec) [#/Vol] 1.26 10*3/uL 0.83-4.51 [facility] Basophil percentageOrdered B y: Debbie Jordan on 03-07-2023 Basophils/100 WBC (Bld) 0.3 % 0-1 [facility] Eosinophils/100 WBC (Bld) 2.7 % 0-5 [facility] Neutrophils (Bld) [#/Vol] 4.9 10*3/uL 2.0-7.7 [facility] Neutrophils/100 WBC (Bld) 72.1 % 47-70 [facility] WBC (Bld) [#/Vol] 6.8 10*3/uL 4.4-11.0 [facility] Blood erythrocytes count (nu mber/volume)Ordered By: Debbie Jordan on 03-07-2023 RBC (Bld) [#/Vol] 3.65 10*6/uL 4.2-5.4 [facility] Blood hemoglobin measurement (mass/volume)Ordered By: Debbie Jordan on 03-07-2023 Hemoglobin (Bld) [Mass/Vol] 11.4 g/dL 12.0-15.0 [facility] Blood lymphocytes/100 leukoc ytesOrdered By: Debbie Jordan on 03-07-2023 Lymphocytes/100 WBC (Bld) 18.6 % 19-41 [facility] Blood monocytes/100 leukocyt esOrdered By: Debbie Jordan on 03-07-2023 Monocytes/100 WBC (Bld) 5.3 % 0-10 [facility] Blood platelet mean volumeOr dered By: Debbie Jordan on 03-07-2023 Platelet mean volume (Bld) [Entitic vol] 9.8 fL 6.2-12.0 [facility] Determination of erythrocyte mean corpuscular volume (MCV)Ordered By: Debbie Jordan on 03-07-2023 MCV (RBC) [Entitic vol] 94.2 fL 81-99 [facility] Gestational diabetes screen 1-hour screen with 50g oral glucose loadOrdered By: Debbie Jordan on 03-07-2023 Glucose 1 Hr post 50 g glucose PO [Mass/Vol] 162 mg/dL 70-140 [facility] HIV 1 and HIV-2 antibody ass ay with HIV-1 p24 antigen detectionOrdered By: Debbie Jordan on 03-07-2023 HIV 1+2 Ab+HIV1 p24 Ag IA Ql Non-Reactive Nonreactive [facility] Hematocrit Auto (Bld) [Volum e fraction]Ordered By: Debbie Jordan on 03-07-2023 Hematocrit (Bld) [Volume fraction] 34.4 % 37-47 [facility] Laboratory - Chemistry and C hemistry - challengeon 03-07-2023 Glucose Ql (U) Negative [facility] Laboratory - Hematology and Cell countsOrdered By: Debbie Jordan on 03-07-2023 Erythrocyte distribution width (RBC) [Entitic vol] 48.3 fL 35.1-43.9 [facility] Erythrocyte distribution width (RBC) [Ratio] 14.1 % 11.6-14.6 [facility] Immature granulocytes/100 WBC (Bld) 1.000 % 0.0-0.9 [facility] Comment on above: IG% - Immature Granu locytes (promyelocytes, myelocytes and metamyelocytes) > 1% indicates that a LEFT SHIFT is Present. MCH (RBC) [Entitic mass] 31.2 pg 27.0-32.0 [facility] Nucleated RBC/100 WBC (Bld) [Ratio] 0 % 0-5 [facility] Laboratory - Urinalysison Protein Ql (U) Negative [facility] MCHC Auto (RBC) [Mass/Vol]Or dered By: Debbie Jordan on 03-07-2023 MCHC (RBC) [Mass/Vol] 33.1 g/dL 32-36 [facility] Platelets bldOrdered By: Spenser Jordan on 03-07-2023 Platelets (Bld) [#/Vol] 247 10*3/uL 150-450 [facility] Serum Treponema species anti body detectionOrdered By: Debbie Jordan on 03-07-2023 Treponema sp Ab Ql (S) Non-Reactive [facility] OB Follow up or repeat scano n 02-20-2023 OB Follow up or repeat scan Indication ======== Growth for Abnormality Suspected, Class I Obesity (BMI 30-34.9) History ====== General History Height 165 cm Height (ft) 5 ft Height (in) 5 in Previous Outcomes 1 Para 0 Maternal Assessment Height 165 cm Height (ft) 5 ft Height (in) 5 in Weight 83 kg Weight (lb) 182 lb Weight gain 0 kg Weight gain (lb) 0 lb BMI 30.29 kg/m? Physical Exam Initial weight (lb) 182 lb ========= Shoemaker . Number of fetuses: 1 Dating ====== GA by prior assessment 25 w + 3 d YARA by prior assessment: 06/02/2023 Ultrasound examination on: 02/20/2023 GA by U/S based upon: AC, BPD, Femur, HC GA by U/S 25 w + 0 d YARA by U/S: 06/05/2023 Assigned: based on stated YARA, selected on 01/15/2023 Assigned GA 25 w + 3 d Assigned YARA: 06/02/2023 Growth Overview Exam date GA BPD (mm) HC (mm) AC (mm) FL (mm) HL (mm) EFW (g) 01/15/2023 20w 2d 48 59% 184.1 64% 141.9 21% 32.8 40% 31.5 37% 325 29% 02/20/2023 25w 3d 63.3 48% 237.4 40% 185.2 2% 45.5 25% 683 8% Impression ========= Ms. Rodriguez returns for completion of the heart and face views and evaluation of growth. -The anatomic survey was completed -Decreased interval growth. The AC is at the 2% and the EFW is at the 8% percentile -No malformations identified on a limited survey -Normal amniotic fluid volume -Normal doppler indices with an RI at the 40% percentile I discussed the findings of growth restriction with Susana and her family member. We discussed that the etiology for FGR can vary and includes infections, genetics, medications, hypertension, placental insufficiency and constitutional smallness. We discussed that a pathologically growth restricted fetus is at an increased risk of stillbirth. Recommend weekly BPP with dopplers and a growth ultrasounds in 3 weeks. All questions were answered Thank you for allowing us to participate in the care of your patient Follow-up ======== BPP with dopplers in one week General Evaluation Cardiac activity present. FHR 138 bpm. movements: visualized. Presentation: breech Placenta: Placental site: anterior, No Previa Seen Umbilical cord: Cord vessels: 3 vessel cord Amniotic fluid: MVP 3.9 cm. JORDAN 13.4 cm. Q1 2.8 cm, Q2 3.6 cm, Q3 3.1 cm, Q4 3.9 cm Biometry Standard BPD 63.3 mm 25w 4d 48% Hadlock OFD 85.9 mm 82% INTERGROWTH-21st HC 237.4 mm 25w 6d 40% Hadlock Cerebellum tr 29.8 mm 26w 1d 77% Mesa AC 185.2 mm 23w 2d 2% Hadlock Femur 45.5 mm 25w 0d 25% Hadlock HC / AC 1.28 EFW 683 g 24w 1d 8% Hadlock EFW (lb) 1 lb EFW (oz) 8 oz EFW by: Hadlock ([id number]) Extended Can Piler 5.8 mm Head / Face / Neck Cephalic index 0.74 7% Nicolaides Nasal bone: present Extremities / Bony Struc FL / BPD 0.72 FL / HC 0.19 FL / AC 0.25 Other Structures FHR 138 bpm Anatomy Cranium: Normal Lateral ventricles: Normal Midline falx: Normal Cavum septi pellucidi: Normal Cerebellum: Normal Cisterna magna: Normal Head / Neck Rt lateral ventricle: Normal Lt lateral ventricle: Normal Thalami: Normal Cerebellar lobes: Normal Lips: Normal Profile: Normal Nose: Normal Face Nasal bone: present Maxilla: Normal Mandible: Normal Orbits: Normal 4-chamber view: Normal RVOT view: Normal LVOT view: Normal 3-vessel view: Normal 6-jnzetd-eqvavwm view: Normal Heart / Thorax Aortic arch view: Normal Bicaval view: Normal Cardiac axis: Normal Diaphragm: Normal Stomach: Normal Kidneys: Normal Bladder: visualized Abdomen Stomach: correct situs Rt kidney: Normal Lt kidney: Normal Large bowel: Normal sex: male Wants to know sex: yes Doppler Arterial Umbilical A PI 1.11 28% Wilton Umbilical A RI 0.69 40% Wilton Maternal Structures Uterus / Cervix Uterus: Visualized Cervix: Not visualized Ovaries / Tubes / Adnexa Rt ovary details: Normal Lt ovary: Not visualized Method ====== Transabdominal ultrasound examination. 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 Susana Rodriguez. She is a 32 year old, , female who was 21 weeks 6 days at the time of our appointment with an EDC of 06-02-23. 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 PAST HISTORY: Susana reports no major complications or exposures during the current . She recently experienced flu like symptoms for 2 days, but did not have a fever. 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 She has not had genetic testing, but has FIX levels below 40%, and has two clinically affected brothers. Cell-free DNA screening was ordered by her provider, and returned low risk for trisomy 21, trisomy 18, trisomy 13, sex chromosome aneuploidy, and triploidy. sex was predicted to be male. Ultrasound on 01-15-23 showed normal anatomy with no soft markers or malformations. FAMILY HISTORY A three generation pedigree was reviewed and the following concerns regarding this were apparent. 1. Hemophilia B in patient and her two brothers. 2. with hypertrophic cardiomyopathy. 3. Paternal grandmother with colon cancer in her 40s, breast cancer in her 60s, and skin cancer in her 80s. Three of 's paternal uncles with prostate cancer, and another paternal uncle with GI cancner. The remainder of the family history was negative for defects, intellectual disability, recurrent loss, or recognized inherited conditions. Consanguinity denied. REPORTED ETHNICITY/RACE: Patient: Moises Patient's partner: Katherine Per updated ACOG recommendations from October 2016, we discussed the availability, benefits, and limitations of carrier screening for cystic fibrosis (CF), spinal muscular atrophy (SMA), and hemoglobinopathies/th alassemias. We reviewed the carrier frequencies of these conditions, varied clinical manifestations, and their autosomal recessive inheritance. If both members of the couple are found to be carriers for the same condition, there is a 25% chance for an affected child and diagnosis would be available. [place] screening is available for CF, hemoglobinopathies, and thalassemias, and SMA. We also discussed the availability of more expanded/wood ethnic carrier screening for additional, primarily autosomal recessive, conditions. We discussed the pros and cons of expanded carrier screening including the higher likelihood of being identified as a carrier for at least one condition on a larger panel. Approximately 2-4% of couples are found to be at risk to have a child with a genetic disorder based on this screening. The patient declined carrier screening. COUNSELING: The following information was discussed with your patient: 1. The general population risk of 3-5% for defects in every . 2. Hemophilia B is a hereditary bleeding disorder caused by a lack of blood clotting factor IX. Without enough factor IX, the blood cannot clot properly to control bleeding. Bleeding ranges from mild to severe, and can include post-operative or tooth extraction bleeding, prolonged or delayed oozing after relatively minor trauma, and spontaneous bleeds in the joints or muscles. This is an X-linked recessive condition, meaning there is a 1 in 2 risk for the male fetus to be affected. In the future, if Susana is with a female fetus, there would be a 1 in 2 risk for it to be a carrier, with 30% of female carriers being symptomatic. 3. The availability of diagnostic F9 genetic testing via amniocentesis to determine whether or not the fetus is affected. The methods, benefits, limitations and risks of amniocentesis and a 1 in 400 risk of complications, including a 1 in 800 risk of miscarriage. These risks may be increased due to Susana's carrier status. 4. The availability of F9 genetic testing via cord blood to determine whether or not the baby is affected after . 5. Susana has met with MFM and hematology, and will be scheduled to meet with neonatology, in order to create an appropriate delivery plan. Recommendations such as no operative vaginal delivery or scalp electrodes can be found in the above provider notes. We also discussed the option of genetic testing for Susana, as she has not had it done before. 6. Susana's is diagnosed with hypertrophic cardiomyopathy. Hypertrophic cardiomyopathy (HCM) is a condition in which the muscles of the left ventricle thicken, and is most commonly due to a mutation of one of the genes currently known to encode different components of the sarcomere and is inherited in an autosomal dominant manner. For individuals with a family history of HCM, a pathogenic mutation (known harmful gene change) in one of the sarcomere genes can be found in 50-60% of individuals. For individuals without a family history (simplex case), a pathogenic mutation can be found in around 20-30% of indiv (more content not included)... Normal [facility] - Chemistry and C hemistry - challengeon 01-19-2023 Glucose Ql (U) Negative [facility] Laboratory - Urinalysison Protein Ql (U) Negative [facility] No Panel Informationon 01-15 Normal ZN-[id number]-G akeside 1500 Work Phone: OB Completed scan + Detailed Anatomyon 01-15-2023 OB Completed scan + Detailed Anatomy Indication ======== Abnormality Suspected, Class I Obesity (BMI 30-34.9) History ====== General History Height 165 cm Height (ft) 5 ft Height (in) 5 in Previous Outcomes 1 Para 0 Maternal Assessment Height 165 cm Height (ft) 5 ft Height (in) 5 in Weight 83 kg Weight (lb) 182 lb BMI 30.29 kg/m? ========= Shoemaker . Number of fetuses: 1 Dating ====== GA by prior assessment 20 w + 2 d YARA by prior assessment: 06/02/2023 Ultrasound examination on: 01/15/2023 GA by U/S based upon: AC, BPD, Femur, HC GA by U/S 20 w + 2 d YARA by U/S: 06/02/2023 Assigned: based on stated YARA, selected on 01/15/2023 Assigned GA 20 w + 2 d Assigned YARA: 06/02/2023 Growth Overview Exam date GA BPD (mm) HC (mm) AC (mm) FL (mm) HL (mm) EFW (g) 01/15/2023 20w 2d 48 59% 184.1 64% 141.9 21% 32.8 40% 31.5 37% 325 29% Impression ========= A targeted anatomic survey was indicated due to hemophilia B. She has risk reducing cffDNA. - biometry is consistent with the stated gestational age -Detailed anatomic evaluation of the brain/ventricles, face, heart/outflow tracts and chest anatomy, abdominal organ specific anatomy, number/length/archite cture of limbs and detailed evaluation of the umbilical cord and placenta and other anatomy as clinically indicated was attempted. -The following structures were not visualized: heart and face -No malformations were identified on this incomplete survey within limitations of sonographic evaluation at this gestational age and maternal acoustic properties and lie. A repeat evaluation was scheduled. Thank you for allowing us to participate in the care of your patient Follow-up ======== Follow up anatomy in 2 weeks General Evaluation Cardiac activity present. FHR 161 bpm. movements: visualized. Presentation: cephalic Placenta: Placental site: anterior, No Previa Seen Umbilical cord: Cord vessels: 3 vessel cord. Insertion site: placental insertion: normal Amniotic fluid: Amount of AF: normal amount Biometry Standard BPD 48.0 mm 20w 4d 59% Hadlock OFD 66.2 mm 94% INTERGROWTH-21st HC 184.1 mm 20w 5d 64% Hadlock Cerebellum tr 22.6 mm 21w 3d 87% Mesa Nuchal fold 4.6 mm AC 141.9 mm 19w 4d 21% Hadlock Femur 32.8 mm 20w 2d 40% Hadlock Humerus 31.5 mm 37% Chitty HC / AC 1.30 >99% Hadlock EFW 325 g 19w 6d 29% Hadlock EFW (lb) 0 lb EFW (oz) 11 oz EFW by: Hadlock ([id number]) Extended Can Piler 6.8 mm CM 3.6 mm 9% Nicolaides Head / Face / Neck Cephalic index 0.73 3% Nicolaides Nasal bone: Suboptimal Extremities / Bony Struc FL / BPD 0.68 28% Hadlock FL / HC 0.18 21% Hadlock FL / AC 0.23 82% Hadlock Other Structures FHR 161 bpm Anatomy Cranium: Normal Lateral ventricles: Normal Choroid plexus: Normal Midline falx: Normal Cavum septi pellucidi: Normal Cerebellum: Normal Cisterna magna: Normal Head / Neck Head size: Normal Head shape: Normal Rt lateral ventricle: Normal Lt lateral ventricle: Normal Rt choroid plexus: Normal Lt choroid plexus: Normal Thalami: Normal Cerebellar lobes: Normal Vermis: Normal Neck: Normal Neck: No neck masses seen Lips: Normal Profile: suboptimal Nose: Normal Face Nasal bone: Suboptimal Maxilla: suboptimal Mandible: suboptimal Orbits: suboptimal 4-chamber view: suboptimal RVOT view: suboptimal LVOT view: suboptimal 3-vessel view: Normal 6-vhdyyf-fbdjjid view: Normal Heart / Thorax Situs: situs solitus (normal) Aortic arch view: Normal Bicaval view: Normal Cardiac position: levocardia (normal) Cardiac axis: Normal Cardiac size: normal (approx. 1/3 of thoracic area) Cardiac proportions: proportioned (normal) Cardiac rhythm: regular (normal) Rt lung: Normal Lt lung: Normal Rt diaphragm: Normal Lt diaphragm: Normal Cord insertion: Normal Stomach: Normal Kidneys: Normal Bladder: Normal Abdomen Abdom. wall: Normal Stomach: Stomach size and situs appear normal Rt kidney: Normal Lt kidney: Normal Small bowel: Normal Large bowel: Normal Cervical spine: Normal Thoracic spine: Normal Lumbar spine: Normal Sacral spine: Normal Arms: Normal Hands: normal Legs: Normal Feet: normal Rt upper arm: Normal Rt forearm: Normal Rt hand: Normal Rt fingers: Normal Lt upper arm: Normal Lt forearm: Normal Lt hand: Normal Lt fingers: Normal Rt upper leg: Normal Rt lower leg: Normal Rt foot: Normal Rt toes: Normal Lt upper leg: Normal Lt lower leg: Normal Lt foot: Normal Lt toes: Normal Position of hands: Normal Position of feet: Normal sex: male Wants to know sex: yes Genetic Screen Age 32 yrs Echogenic focus: no Ventriculomegal (more content not included)... 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 : anatomy Provider Impressions 32yo G1 @ 20w2d (YARA 06/02/23 by LMP c/w OSH 8w US) presents for MFM consult in the setting of symptomatic 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 status following w/ Dr. Jack @ , planning delivery @ [facility]. 1. Routine: - YARA 06/02/23 by LMP c/w OSH 8w US - Referred by Dr. Allyssa Santana in [place], [place] - PNL records reviewed, AB+/-, Rubella IgG equivocal - S/p rrCFDNA w/ Cynthia, XY - Anatomy scan today unremarkable but unable to clear face/cardiac views, recommend 2w f/u 2. Maternal Hemophilia B Carrier: - Dx?d in 2004, h/o easy bruising and menorrhagia, labs demonstrated low Factor IX (FIX) activity but FIX level >40%; her 2 brothers have moderate Hemophilia B. She did not require transfusion or factor replacement w/ dental extraction or femur zeus fixation, no personal h/o major bleed. - Follows w/ Dr. Jack @ (last saw 11/2022). Per chart, goal to keep FIX levels at 100% peripartum thru 48h pp, if Cs maintain at least 50% for next 10-14d. Given b/l levels may not need supplementation at home but plan for Lysteda. Okay to get epidural once receives factor replacement, avoid NSAIDs. - FIX activity 43% (11/2022); Heme f/u appt scheduled on 03/27 per patient. Given bleeding risk associated with and we appreciate their recommendations. - We discussed Hemophilia is a hereditary bleeding disorder. Both Hemophilia A (FVIII deficiency) and B (FIX deficiency) are X-linked, meaning if the patient is a carrier and her partner is not, any male offspring have a 50% chance of being affected with the disease and any female offspring have a 50% of also being carriers. The fetus is a male, recommend further discussion with Genetics to discuss testing options. - Recommend repeat US assessment @ 30w and 36w GA. Data is limited regarding the optimal mode of delivery given the risk of this male fetus being affected and possible hemorrhagic complications. Studies of children born with moderate to severe hemophilia have demonstrated similar incidences of intracranial bleed with compared with planned Cs, although rates are significantly increased with vacuum- and forceps-assisted vaginal deliveries. Thus, while there is a slight risk of serious bleeding during , delivery by Cs does not eliminate this risk. Thus, we recommend against operative vaginal delivery or use of scalp electrodes, but it is reasonable to consider as long as maternal/ status remains reassuring and prolonged labor is avoided. Unless additional concerns develop, do not recommend delivery prior to 39w. We do recommend delivery at [facility] for access to Hematology and required medications. - Given maternal bleeding risks, will plan for Anesthesiology consult in the third trimester. - Will plan for Neonatology consult prior to delivery, and if the ?s Hemophilia status is unknown discussed with patient we will defer performance of circumcision. 3. Migraines: - Previously rx?d amlodipine (d/c?d d/t concern for causing plt dysfunction) and amitriptyline PRN. Reports currently managed on rest/Tylenol/ice as needed with good control. Does not currently follow with Neurology and declines referral. Reports previously worsened by exposure to black mold and she has since moved housing. - We discussed that in many patients with migraines, sx improve during . Treatment involves avoiding precipitating factors, rest, ice and massage. Medical therapy includes Tylenol, low-dose caffeine, Reglan and Benadryl. NSAIDs can be used prior to the third trimester if needed (although contraindicated in this patient). Prophylactic treatment including beta-blockers can be tried if needed. Dispo: Thank you for this referral. Given her high-risk with plans to deliver at [facility] and geographic distance, at this time will plan to follow her for OB co-management/shared care with [facility] return visit and Growth US at 30w GA; given inability to complete Anatomy US today, also recommend return in 2w for US. If without additional concerns, will plan to fully transfer to [facility] OB care @ 36w for weekly visits. Patient expressed understanding and all of her questions were answered. We are happy to see her again sooner should any questions/concerns arise. Joanne Trevino MD MFM Fellow D/w Dr. Jaramillo Chief Complaint Patient presents for MFM consult. baironandreadora macdonald History of Present [id number] G1 @ 20w2d (YARA 06/02/23 by LMP c/w OSH 8w US) presents for MFM consult in the setting of symptomatic 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 status following w/ D (more content not included)... Normal [employer] Tobacco Screening.on 023 Adult depression screening assessment No MG-Genetics -L [place] 1500 Work Phone: Fall risk assessment a) No falls within the last year EI-Kpwagukz-E [place] 1500 Work Phone: Last menstrual period start date 28Aug2022 FT-Cdeoxkmd-F [place] 1500 Work Phone: Tobacco use status CPHS b) No M B-Spcvktop-P [place] 1500 Work Phone: Laboratory - Chemistry and C hemistry - challengeon 12-18-2022 Glucose Ql (U) Negative [facility] Laboratory - Urinalysison Protein Ql (U) Negative [facility] AMB - Narrative Note-Social Workon 11-28-2022 AMB - Narrative Note-Social Work Discipline and Description: Discipline: Social Work Topic: Annual Hematology Comp Visit Description: Patient in for her annual viisit with Dr. Jack and the [facility] team. Patient reports no insurance but has access to local medical care as needed. Patient reports overall health has was compromised over the last year, bleeding disorder managed ok, see medical notes. Patient reports mental & emotional health are good, no depressive episodes no suicide ideation, no attempts at self harm, No manic or depressive mood swings, no rage or uncontrolled anger, doesn't isolate, engages well with family, peers and community. Patient reports eating well with meals balanced most of the time, she is so usually vary aware of nutritional intake. Patient reports sleeping well through the night with no issues. Patient recently moved to [place], having to leave last home due to alleged mold contamination. Patient suffered from stroke like symptoms 2 times. Patient reports that doctors weren't clear if she suffered from TIA's or if it was the mold in the home causing the symptoms. Patient reports since the move shes been well but Migraines have returned. Patient is seen at the [facility] the [facility] for her OB care and reports all is well with the baby. She reports that the new home is ok, no threats or hazards, she is doing much better now that her symptoms have resolved, basic needs being met, care up to date, no need for support service referrals at this time. SW to follow up as needed. Alma Rosa Ruiz. Electronic Signatures: Alma Rosa Boyd) (Signed 29-Nov-2022 13:49) Authored: Discipline and Description Last Updated: 29-Nov-2022 13:49 by Alma Rosa Boyd) [facility] Note - Heme Onc-Benig n Heme Follow-upon 11-28-2022 Clinic Note - Heme Onc-Benign Heme Follow-up Patient Visit Information: Visit Type: Benign Heme Follow-up History of Present Illness: ID Statement: SUSANA RODRIGUEZ is a 32 year old Female Chief Complaint: hemophilia b carrier Interval History: 32 yr old female was 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 Previous records show factor IX at 42% when checked in [place] in 2004 this is a follow up for History of Present Illness Patient is Gr1P0 at 3 months gestation Feels well, on PNV, denies any bleeding issues plans for delivery at [facility] with high rigger and asked for a referral 12 point review of systems negative except as state in HPI. PAST MEDICAL HISTORY She had her Bourbon teeth extraction in 10/2017 w/o incident. heavy bleeding during her menarche at 14 yrs of age. Patient had h/o trauma followed by femur fracture in 2002 and underwent Zeus fixation. She did not require any factor replacement at that time. [facility] when her brothers were diagnosed with Hemophilia and work up revealed she was a carrier for hemophilia B. Factor IX levels- 42% vWF activity-1001% vWF ag-164% Factor VIII-157% Past Medical and Surgical History: As above in HPI. Family History: Maternal Grandfather was diagnosed with moderate Hemophilia B Mothers carrier alba was never tested. All her maternal Uncles have no disease. She has two brothers and both of them have Moderate Hemophilia B with factor levels around 4 % per patient. One of her brothers suffered ICH as a child and another brother is on Benefix as needed. Mother had H/o Atrial sarcoma with liver resection for metastasis and subsequently dies of cardiac failure when patient was 7 months old. Maternal grand mother had h/o clon cancer, Breast cancer and most recently skin cancer. 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 Denies smoking, alcohol or illicit drug use. medications and allergies reviewed in emr Review of Systems: ConstitutionalNEGATIV E: Fever, Chills, Anorexia, Weight Loss, Malaise EyesNEGATIVE: Blurry Vision, Drainage, Diploplia, Redness, Vision Loss/ Change ENMTNEGATIVE: Nasal Discharge, Nasal Congestion, Ear Pain, Mouth Pain, Throat Pain RespiratoryNEGATIVE: Dry Cough, Productive Cough, Hemoptysis, Wheezing, Shortness of Breath CardiologyNEGATIVE: Chest Pain, Dyspnea on Exertion, Orthopnea, Palpitations, Syncope GastrointestinalNEGAT ENID: Abdominal Pain, Constipation, Diarrhea, Nausea, Vomiting GenitourinaryNEGATIVE : Discharge, Dysuria, Flank Pain, Frequency, Hematuria MusculoskeletalNEGATI VE: Decreased ROM, Pain, Swelling, Stiffness, Weakness NeurologicalNEGATIVE: Dizziness, Confusion, Headache, Seizures, Syncope PsychiatricNEGATIVE: Mood Changes, Anxiety, Hallucinations, Sleep Changes, Suicidal Ideas SkinNEGATIVE: Mass, Pain, Pruritus, Rash, Ulcer EndocrineNEGATIVE: Heat Intolerance, Cold Intolerance, Sweat, Polyuria, Thirst Hematologic/LymphPOSI TIVE: Bruising NEGATIVE: Anemia, Easy Bleeding, Night Sweats, Petechiae Allergic/ImmunologicN EGATIVE: Anaphylaxis, Itchy/ Teary Eyes, Itching, Sneezing, Swelling Allergies and Intolerances: Allergies: penicillin: Drug, Other, Active aspirin: Drug, Other, Active NSAIDs: Drug Category, Other, Active Latex: Latex, Rash, Active Outpatient Medication Profile: * Patient Currently Takes Medications as of 28-Nov-2022 11:16 documented in Structured Notes BeneFIX intravenous kit: Last Dose Taken: , 3500 international unit(s) +/-10% (50 iu/kg) intravenous every 24 hours as needed to treat or prevent bleeding. [facility] , Start Date: 25-Aug-2021 Vitamin D3 1000 intl units oral tablet: Last Dose Taken: , 1 tab(s) orally once a day ferrous sulfate: Last Dose Taken: Vitamin B Complex 100: Last Dose Taken: [place]iff-3: Last Dose Taken: 1 Plus 1: Last Dose Taken: Vitamin C 1000 mg oral tablet: Last Dose Taken: , orally 2 times a day Medical History: : ICD-10: Z34.90, Status: Active Family History: No Family History items are recorded in the problem list. Social History: Social Substance History: Social Historydenies smoking, alcohol and drug use Smoking Statusnever smoker Tobacco Usedenies Alcohol Usedenies Drug Usedenies Vitals and Measurements: Vitals: Temp: 36.8 HR: 89 RR: 18 BP: 119/70 SPO2%: 100 Measurements: HT(cm): 165.7 WT(kg): 83.8 BSA: 1.96 BMI: 30.5 Physical Exam: Constitutional: Well developed, awake/alert/oriented x3, no distress, alert and cooperative Eyes: PERRL, EOMI, clear sclera ENMT: mucous membranes moist, no apparent injury, no lesions seen Head/Neck: Neck supple, no apparent injury, thyroid without mass or tenderness, No JVD, trachea midline, no bruits Respiratory/Thorax: Patent airways, CTAB, normal yunior (more content not included)... Normal [facility] Clinic Note - Intakeon 11-28 Clinic Note - Intake Patient Visit Information: Visit TypeFollow Up Visit Source of Informationpatient Vital Signs: Temp (degrees C)36.8 degrees C Temperatureskin Heart Rate (beats/min)89 beats per minute Respiration (breaths/min)18 breath per minute BP Systolic (mm Hg)119 mmHg BP Diastolic (mm Hg)70 mmHg BP Mean (mm Hg)86 mmHg Height in cm165.7 centimeter(s) Heightstanding Weight in kg83.8 kilogram(s) Weightstanding BMI (kg/m2)30.5 kg/M2 BSA (m2)1.96 M2 Nursing Verification [id number] Nursing Verification Height in cm165.7 centimeter(s) Nursing Verification CommentHEIGHT VERIFIED--Kahlil COVARRUBIAS RN SpO2 (%)100 % SpO2 Patient Onroom air Pain Screening: Patient States Painyes Current Pain Score (0-10)4 Pain Description/Locationb ack and hip Pain Scale UsedNumeric (0-10) Currently on a Pain Regimenno Allergies: penicillin: Drug, Other, Active aspirin: Drug, Other, Active NSAIDs: Drug Category, Other, Active Latex: Latex, Rash, Active Outpatient Medication Profile: * Patient Currently Takes Medications as of 28-Nov-2022 11:16 documented in Structured Notes BeneFIX intravenous kit: Last Dose Taken: , 3500 international unit(s) +/-10% (50 iu/kg) intravenous every 24 hours as needed to treat or prevent bleeding. [facility] , Start Date: 25-Aug-2021 Vitamin D3 1000 intl units oral tablet: Last Dose Taken: , 1 tab(s) orally once a day ferrous sulfate: Last Dose Taken: Vitamin B Complex 100: Last Dose Taken: [place]iff-3: Last Dose Taken: 1 Plus 1: Last Dose Taken: Vitamin C 1000 mg oral tablet: Last Dose Taken: , orally 2 times a day Notification: NotificationsAnnual Screens Due Dates Advanced Directives: Nov 28, 2023 Family Violence: Nov 28, 2023 Depression (Due every 6 months for ONC only; all others use Annual date): May 27, 2023 Substance Use - Alcohol: Nov 28, 2023 Substance Use - Drugs: Nov 28, 2023 Nutrition: Nov 28, 2023 Learning: Nov 28, 2023 Travel History: COVID-19 Screening Completedno exposure or symptoms Travel or ExposureNO travel to International locations in the past 30 days Falls: Have you fallen in the last 6 monthsno Do you have a fear of fallingno Do you feel you need assistanceno Is the patient using an assistive deviceno Spiritual/Procedural: Spiritual/cultural/re ligious practices important for us to knowno Alcohol, prescription or recreational drugs taken this AM for non medical reasonsno Adv Dir: Living [facility] [place] Violence: Are you or have you been threatened or abused physically,emotionall y or sexually abused by anyoneno Do you feel UNSAFE going back to the place you are livingno Depression: Past 2 wks: [place] down, depressed or hopelessno Past 2 wks: [place] little interest/pleasure doing thingsno Any Thoughts of Harming Othersno In the Past Month: Have you wished you were or could go to sleep and not wake upno In the Past Month: Have you had any actual thoughts of killing yourselfno Lifetime: Have you ever done, started to do, or prepared to do anything to end your lifeno Substance: How many times in the past year have you had 4 or more drinks within 24 hours0 Patient Declined to Answerno How many times in past year have you used recreational or prescription drugs for non-medical reasons0 Nutrition/Learning: In the past month, was there any day when you or anyone in your family went hungry because you didn't have enough foodno Primary LanguageEnglish Do you, or others today, need extra help due to problems with hearing,speaking, seeing, moving around or learningno Other Stiles Learnerno Electronic Signatures: Giana Covarrubias) (Signed 28-Nov-2022 23:52) Authored: Vital Signs, Notification Co-Signer: Vital Signs, Allergies, Outpatient Medication Profile, Notification, Travel History, Falls, Spiritual/Procedural, Adv Dir, Violence, Depression, Substance, Nutrition/Learning Merissa Jj (PALOMO) (Signed 28-Nov-2022 11:17) Authored: Patient Visit Information, Vital Signs, Allergies, Outpatient Medication Profile, Notification, Travel History, Falls, Spiritual/Procedural, Adv Dir, Violence, Depression, Substance, Nutrition/Learning Last Updated: 28-Nov-2022 23:52 by Giana Covarrubias (RN) Normal [facility] FACTOR IXon 11-28-2022 FACTOR IX 43 % Low 65 - 150 [facility] Comment on above: Performed By: #### F AC9 #### [facility] [address] [place] [address] Absolute lymphocyte countOrd ered By: Dr. Santana on 11-20-2022 Lymphocytes Auto (Unsp spec) [#/Vol] 1.40 10*3/uL 0.83-4.51 [facility] Basophil percentageOrdered B y: Dr. Santana on 11-20-2022 Basophils/100 WBC (Bld) 0.8 % 0-1 [facility] Eosinophils/100 WBC (Bld) 3.4 % 0-5 [facility] Neutrophils (Bld) [#/Vol] 4.4 10*3/uL 2.0-7.7 [facility] Neutrophils/100 WBC (Bld) 67.4 % 47-70 [facility] WBC (Bld) [#/Vol] 6.5 10*3/uL 4.4-11.0 [facility] Blood erythrocytes count (nu mber/volume)Ordered By: Dr. Santana on 11-20-2022 RBC (Bld) [#/Vol] 4.38 10*6/uL 4.2-5.4 [facility] Blood hemoglobin measurement (mass/volume)Ordered By: Dr. Santana on 11-20-2022 Hemoglobin (Bld) [Mass/Vol] 13.4 g/dL 12.0-15.0 [facility] Blood lymphocytes/100 leukoc ytesOrdered By: Dr. Santana on 11-20-2022 Lymphocytes/100 WBC (Bld) 21.5 % 19-41 [facility] Blood monocytes/100 leukocyt esOrdered By: Dr. Santana on 11-20-2022 Monocytes/100 WBC (Bld) 6.4 % 0-10 [facility] Blood platelet mean volumeOr dered By: Dr. Santana on 11-20-2022 Platelet mean volume (Bld) [Entitic vol] 9.5 fL 6.2-12.0 [facility] Determination of erythrocyte mean corpuscular volume (MCV)Ordered By: Dr. Santana on 11-20-2022 MCV (RBC) [Entitic vol] 89.7 fL 81-99 [facility] HIV 1 and HIV-2 antibody ass ay with HIV-1 p24 antigen detectionOrdered By: Dr. Santana on 11-20-2022 HIV 1+2 Ab+HIV1 p24 Ag IA Ql Non-Reactive Nonreactive [facility] Hematocrit Auto (Bld) [Volum e fraction]Ordered By: Dr. Santana on 11-20-2022 Hematocrit (Bld) [Volume fraction] 39.3 % 37-47 [facility] Laboratory - Chemistry and C hemistry - challengeon 11-20-2022 Glucose Ql (U) Negative [facility] Laboratory - Hematology and Cell countsOrdered By: Dr. Santana on 11-20-2022 Erythrocyte distribution width (RBC) [Entitic vol] 45.8 fL 35.1-43.9 [facility] Erythrocyte distribution width (RBC) [Ratio] 13.9 % 11.6-14.6 [facility] Immature granulocytes/100 WBC (Bld) 0.500 % 0.0-0.9 [facility] Comment on above: IG% - Immature Granu locytes (promyelocytes, myelocytes and metamyelocytes) > 1% indicates that a LEFT SHIFT is Present. MCH (RBC) [Entitic mass] 30.6 pg 27.0-32.0 [facility] Nucleated RBC/100 WBC (Bld) [Ratio] 0 % 0-5 [facility] Laboratory - Urinalysison Protein Ql (U) Negative [facility] MCHC Auto (RBC) [Mass/Vol]Or dered By: Dr. Santana on 11-20-2022 MCHC (RBC) [Mass/Vol] 34.1 g/dL 32-36 [facility] No Panel InformationOrdered By: Dr. Santana on 11-20-2022 Hepatitis B Surface Antigen Non-Reactive Nonreactive [facility] Hepatitis C Antibody Non-Reactive Nonreactive [facility] Comment on above: Non Reactive: < 0.8 Equivocal: >/= 0.8 to < 1.0 Reactive: >/= 1.0The CDC recommends that a reactive/equivocal HCV antibody result be followed up by the HCV Nucleic Acid Amplificationtest ([id number]) Miscellaneous Test Comment MAILED SPECIMEN [facility] Rubella IgG Antibody Equiv Nonreactive [facility] Comment on above: Antibody Results Int erpretation of Immune Status Non Reactive Presumed Non-Immune Equivocal Equivocal Reactive Presumed Immune Platelets bldOrdered By: Dr. Santana on 11-20-2022 Platelets (Bld) [#/Vol] 307 10*3/uL 150-450 [facility] Serum Treponema species anti body detectionOrdered By: Dr. Santana on 11-20-2022 Treponema sp Ab Ql (S) Non-Reactive [facility] Culture, urineOrdered By: Dr Lizeth Santana on 10-29-2022 Bacteria identified Cx Nom (U) Culture exhibits no growth. [facility] Chlamydia trachomatis rRNA d etection by probe and target amplification methodOrdered By: Dr. Santana on 10-26-2022 C. trachomatis rRNA ALAYNA+probe Ql (Unsp spec) Negative Negative [facility] Laboratory - Microbiology an d Antimicrobial susceptibilityOrdered By: Dr. Santana on 10-26-2022 N. gonorrhoeae DNA ALAYNA+probe Ql (Unsp spec) Negative Negative [facility] Comment on above: Performed at: =[address] [id number] Director: Corrine Johnson MD, Phone: [phone] XR ELBOW LEFT 3+ VIEWSon XR ELBOW LEFT 3+ VIEWS EXAM: XR ELBOW LE FT 3+ VIEWS, 11/29/2021 22:32 PM COMPARISON: No prior studies available for comparison. 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 Effusion: There is no joint effusion. Soft Tissue: Soft tissue swelling along the medial aspect of the elbow. Bone: No acute osseous abnormality is identified. Joint: The radiocapitellar and ulnotrochlear joints are anatomically aligned. Joint spaces are preserved. IMPRESSION: Mild medial soft tissue swelling. No acute fracture or dislocation. I personally viewed and interpreted these images and I have reviewed and approved this report. Normal [facility] CALCIUMon 11-29-2021 Calcium [Mass/Vol] 9.5 mg/dL Normal 8.6-10.5 [facility] Comment on above: Performed By: #### L [id number] #### [facility] (DEFAULT) [address] [address] CBC AND ELECTRONIC DIFFon Basophils (Bld) [#/Vol] 0.06 10*3/uL Normal 0.00-0.15 [facility] Comment on above: Performed By: #### P TPTT #### [facility] (DEFAULT) [address] [address] Basophils/100 WBC (Bld) 1.0 % Normal [facility] Comment on above: Performed By: #### P TPTT #### [facility] (DEFAULT) [address] [address] DIFF STATUS Electronic Differential Normal [facility] Comment on above: Performed By: #### P TPTT #### [facility] (DEFAULT) [address] [address] Eosinophils (Bld) [#/Vol] 0.25 10*3/uL Normal 0.00-0.42 [facility] Comment on above: Performed By: #### P TPTT #### [facility] (DEFAULT) [address] [address] Eosinophils/100 WBC (Bld) 4.1 % Normal [facility] Comment on above: Performed By: #### P TPTT #### [facility] (DEFAULT) [address] [place] [address] Hematocrit (Bld) [Volume fraction] 42.4 % Normal 34.9-44.3 [facility] Comment on above: Performed By: #### P TPTT #### [facility] (DEFAULT) [address] [address] Hemoglobin (Bld) [Mass/Vol] 13.9 g/dL Normal 11.4-15.2 [facility] Comment on above: Performed By: #### P TPTT #### [facility] (DEFAULT) [address] [place] [address] Immature Grans % 0.2 % Normal [facility] Comment on above: Performed By: #### P TPTT #### [facility] (DEFAULT) [address] [address] Immature Grans Absolute <0.04 Normal <=0.09 [facility] Comment on above: Performed By: #### P TPTT #### [facility] (DEFAULT) [address] [address] Lymphocytes (Bld) [#/Vol] 2.27 10*3/uL Normal 1.16-3.51 [facility] Comment on above: Performed By: #### P TPTT #### [facility] (DEFAULT) [address] [address] Lymphocytes/100 WBC (Bld) 37.0 % Normal [facility] Comment on above: Performed By: #### P TPTT #### [facility] (DEFAULT) [address] [address] MCV (RBC) [Entitic vol] 90.0 fL Normal 79.6-97.7 [facility] Comment on above: Performed By: #### P TPTT #### [facility] (DEFAULT) [address] [address] Mean Cell Hgb 29.5 pg Normal 25.9-33.9 [facility] Comment on above: Performed By: #### P TPTT #### [facility] (DEFAULT) [address] [place] [address] Mean Cell Hgb Conc 32.8 g/dL Normal 31.4-35.9 [facility] Comment on above: Performed By: #### P TPTT #### [facility] (DEFAULT) [address] [place] [address] 99396 Monocytes (Bld) [#/Vol] 0.55 10*3/uL Normal 0.22-0.87 [facility] Comment on above: Performed By: #### P TPTT #### [facility] (DEFAULT) [address] [place] [address] 85703 Monocytes/100 WBC (Bld) 9.0 % Normal [facility] Comment on above: Performed By: #### P TPTT #### [facility] (DEFAULT) [address] [place] [address] 19834 Nucleated RBC 0.0 /100 WBC Normal <=0.2 [facility] Comment on above: Performed By: #### P TPTT #### [facility] (DEFAULT) [address] [place] [address] 57921 Platelet mean volume (Bld) [Entitic vol] 9.9 fL Normal 8.5-12.2 [facility] Comment on above: Performed By: #### P TPTT #### [facility] (DEFAULT) [address] [place] [address] 64594 Platelets (Bld) [#/Vol] 352 10*3/uL Normal 150-393 [facility] Comment on above: Performed By: #### P TPTT #### [facility] (DEFAULT) [address] [place] [address] 09078 RBC (Bld) [#/Vol] 4.71 10*6/uL Normal 3.91-5.04 [facility] Comment on above: Performed By: #### P TPTT #### [facility] (DEFAULT) [address] [place] [address] 26233 RBC Distribution 13.3 % Normal 10.8-14.9 [facility] Comment on above: Performed By: #### P TPTT #### [facility] (DEFAULT) [address] [place] [address] 62415 Segs + Bands Auto 48.7 % Normal [facility] Comment on above: Performed By: #### P TPTT #### [facility] (DEFAULT) [address] [place] [address] 28993 Segs + Bands,Absolute Auto 3.00 K/uL Normal 1.64-7.28 [facility] Comment on above: Performed By: #### P TPTT #### [facility] (DEFAULT) [address] [address] WBC (Bld) [#/Vol] 6.14 10*3/uL Normal 3.99-11.19 [facility] Comment on above: Performed By: #### P TPTT #### [facility] (DEFAULT) [address] [place] [address] 73178 CHEM 7 (LYTES,BUN,CREA,GLUC) on 11-29-2021 Anion gap [Moles/Vol] 10 mmol/L Normal 7-17 [facility] Comment on above: Performed By: #### L [id number] #### [facility] (DEFAULT) [address] [place] [address] 72494 Chloride [Moles/Vol] 107 mmol/L Normal 98-108 [facility] Comment on above: Performed By: #### L [id number] #### [facility] (DEFAULT) [address] [place] [address] 14201 CO2 [Moles/Vol] 24 mmol/L Normal 21-31 [facility] Comment on above: Performed By: #### L [id number] #### U [facility] (DEFAULT) [address] [place] [address] 23030 Creatinine [Mass/Vol] 0.98 mg/dL Normal 0.50-1.20 [facility] Comment on above: Performed By: #### L [id number] #### U [facility] (DEFAULT) [address] [place] [address] 89507 GFR/1.73 sq M.predicted among non-blacks MDRD (S/P/Bld) [Vol rate/Area] 80 mL/min/{1.73_m2} Normal >=60 [facility] Comment on above: Result Comment: Repo rted eGFR is based on the CKD-EPI 2020 equation using creatinine, age, and sex. Performed By: #### L [id number] #### [facility] (DEFAULT) [address] [place] [address] 95375 Glucose [Mass/Vol] 92 mg/dL Normal 70-99 [facility] Comment on above: Performed By: #### L [id number] #### [facility] (DEFAULT) [address] [place] [address] 58630 Osmolality [Osmolality] 287 mosm/kg Normal 278-305 [facility] Comment on above: Performed By: #### L [id number] #### [facility] (DEFAULT) [address] [place] [address] 89873 Potassium [Moles/Vol] 4.0 mmol/L Normal 3.5-5.0 [facility] Comment on above: Performed By: #### L [id number] #### [facility] (DEFAULT) [address] [place] [address] 26634 Sodium [Moles/Vol] 137 mmol/L Normal 135-145 [facility] Comment on above: Performed By: #### L [id number] #### [facility] (DEFAULT) [address] [place] [address] 66108 Urea nitrogen [Mass/Vol] 14 mg/dL Normal 7-25 [facility] Comment on above: Performed By: #### L [id number] #### [facility] (DEFAULT) [address] [place] [address] 46820 Urea nitrogen/Creatinine [Mass ratio] 14 mg/mg Normal [facility] Comment on above: Performed By: #### L [id number] #### [facility] (DEFAULT) [address] [place] [address] 76669 HIGH SENSITIVITY TROPONIN I - SINGLE ORDERon 11-29-2021 hs-Troponin I <3 Normal <34 [facility] Comment on above: Order Comment: Acute Coronary Syndrome (ACS): Initial Evaluation and Management: [email or web address] Performed By: #### L ABHSTI1 #### [facility] (DEFAULT) [address] [place] [address] 02777 MAGNESIUMon 11-29-2021 Magnesium [Mass/Vol] 2.0 mg/dL Normal 1.6-2.6 [facility] Comment on above: Performed By: #### L [id number] #### [facility] (DEFAULT) [address] [place] [address] 56490 PHOSPHATE, INORGANICon 11-29 Phosphorous 3.3 mg/dL Normal 2.2-4.6 [facility] Comment on above: Performed By: #### L [id number] #### [facility] (DEFAULT) [address] [place] [address] 81687 PT,INR,PTTon 11-29-2021 aPTT Coag (Bld) [Time] 32.2 s Normal 24.0-34.3 [facility] Comment on above: Performed By: #### P TPTT #### [facility] (DEFAULT) [address] [place] [address] 68557 INR Coag (PPP) [Relative time] 0.9 {INR} Normal 0.9-1.1 [facility] Comment on above: Performed By: #### P TPTT #### [facility] (DEFAULT) [address] [place] [address] 29423 PT Coag (PPP) [Time] 11.8 s Low 11.9-14.2 [facility] Comment on above: Performed By: #### P TPTT #### [facility] (DEFAULT) [address] [place] [address] 42714 CBC,PLATELETSon 11-28-2021 Hematocrit (Bld) [Volume fraction] 40.2 % Normal 34.9-44.3 [facility] Comment on above: Performed By: #### L ABHSTI1 #### [facility] (DEFAULT) [address] [place] [address] 68598 Hemoglobin (Bld) [Mass/Vol] 13.5 g/dL Normal 11.4-15.2 [facility] Comment on above: Performed By: #### L ABHSTI1 #### [facility] (DEFAULT) [address] [address] MCV (RBC) [Entitic vol] 87.8 fL Normal 79.6-97.7 [facility] Comment on above: Performed By: #### L ABHSTI1 #### [facility] (DEFAULT) [address] [place] [address] 41645 Mean Cell Hgb 29.5 pg Normal 25.9-33.9 [facility] Comment on above: Performed By: #### L ABHSTI1 #### [facility] (DEFAULT) [address] [place] [address] 09114 Mean Cell Hgb Conc 33.6 g/dL Normal 31.4-35.9 [facility] Comment on above: Performed By: #### L ABHSTI1 #### [facility] (DEFAULT) [address] [place] [address] 03810 Platelet mean volume (Bld) [Entitic vol] 9.6 fL Normal 8.5-12.2 [facility] Comment on above: Performed By: #### L ABHSTI1 #### [facility] (DEFAULT) [address] [place] [address] 33403 Platelets (Bld) [#/Vol] 278 10*3/uL Normal 150-393 [facility] Comment on above: Performed By: #### L ABHSTI1 #### [facility] (DEFAULT) [address] [place] [address] 51150 RBC (Bld) [#/Vol] 4.58 10*6/uL Normal 3.91-5.04 [facility] Comment on above: Performed By: #### L ABHSTI1 #### [facility] (DEFAULT) [address] [place] [address] 72270 RBC Distribution 13.5 % Normal 10.8-14.9 [facility] Comment on above: Performed By: #### L ABHSTI1 #### [facility] (DEFAULT) [address] [place] [address] 58521 WBC (Bld) [#/Vol] 6.29 10*3/uL Normal 3.99-11.19 [facility] Comment on above: Performed By: #### L ABHSTI1 #### [facility] (DEFAULT) [address] [place] [address] 65194 Erythrocyte distribution width (RBC) [Ratio] 13.5 % 10.8 - 14.9 % [facility] Hematocrit (Bld) [Volume fraction] 40.2 % 34.9 - 44.3 % [facility] Hemoglobin (Bld) [Mass/Vol] 13.5 g/dL 11.4 - 15.2 g/dL [facility] Interpretation and review of laboratory results Normal [facility] MCH (RBC) [Entitic mass] 29.5 pg 25.9 - 33.9 pg [facility] MCHC (RBC) [Mass/Vol] 33.6 g/dL 31.4 - 35.9 g/dL [facility] MCV (RBC) [Entitic vol] 87.8 fL 79.6 - 97.7 fL [facility] Platelet mean volume (Bld) [Entitic vol] 9.6 fL 8.5 - 12.2 fL [facility] Platelets (Bld) [#/Vol] 278 10*3/uL 150 - 393 K/uL [facility] RBC (Bld) [#/Vol] 4.58 10*6/uL [facility] WBC (Bld) [#/Vol] 6.29 10*3/uL 3.99 - 11. 19 K/uL [facility] CHEM 7 (LYTES,BUN,CREA,GLUC) on 11-28-2021 Anion gap [Moles/Vol] 12 mmol/L Normal 7-17 [facility] Comment on above: Performed By: #### L ABHSTI1 #### [facility] (DEFAULT) [address] [place] [address] 40433 Chloride [Moles/Vol] 108 mmol/L Normal 98-108 [facility] Comment on above: Performed By: #### L ABHSTI1 #### [facility] (DEFAULT) [address] [place] [address] 84233 CO2 [Moles/Vol] 22 mmol/L Normal 21-31 [facility] Comment on above: Performed By: #### L ABHSTI1 #### [facility] (DEFAULT) [address] [place] [address] 54396 Creatinine [Mass/Vol] 0.77 mg/dL Normal 0.50-1.20 [facility] Comment on above: Performed By: #### L ABHSTI1 #### [facility] (DEFAULT) [address] [place] [address] 08802 eGFR, CKD-EPI, Female >90 Normal >=60 [facility] Comment on above: Result Comment: Repo rted eGFR is based on the CKD-EPI 2020 equation using creatinine, age, and sex. Performed By: #### L ABHSTI1 #### [facility] (DEFAULT) [address] [place] [address] 24182 Glucose [Mass/Vol] 88 mg/dL Normal 70-99 [facility] Comment on above: Performed By: #### L ABHSTI1 #### [facility] (DEFAULT) [address] [place] [address] 07207 Osmolality [Osmolality] 288 mosm/kg Normal 278-305 [facility] Comment on above: Performed By: #### L HSTI1 #### [facility] (DEFAULT) [address] [place] [address] 54332 Potassium [Moles/Vol] 3.7 mmol/L Normal 3.5-5.0 [facility] Comment on above: Performed By: #### L NOLVIATI1 #### [facility] (DEFAULT) [address] [place] [address] 37099 Sodium [Moles/Vol] 138 mmol/L Normal 135-145 [facility] Comment on above: Performed By: #### L NOLVIATI1 #### [facility] (DEFAULT) [address] [place] [address] 53187 Urea nitrogen [Mass/Vol] 13 mg/dL Normal 7-25 [facility] Comment on above: Performed By: #### L NOLVIATI1 #### [facility] (DEFAULT) [address] [place] [address] 62649 Urea nitrogen/Creatinine [Mass ratio] 17 mg/mg Normal [facility] Comment on above: Performed By: #### L HSTI1 #### [facility] (DEFAULT) [address] [place] [address] 97163 Anion gap [Moles/Vol] 12 mmol/L 7 - 17 mmol/L [facility] Chloride [Moles/Vol] 108 mmol/L 98 - 10 8 mmol/L [facility] CO2 [Moles/Vol] 22 mmol/L 21 - 31 mmol/L [facility] Creatinine [Mass/Vol] 0.77 mg/dL 0.50 - 1.20 mg/dL [facility] GFR/1.73 sq M.predicted CKD-EPI (S/P/Bld) [Vol rate/Area] >90 >=60 mL/min/1.73m2 [facility] Comment on above: Reported eGFR is bas ed on the CKD-EPI 2020 equation using creatinine, age, and sex. Glucose [Mass/Vol] 88 mg/dL 70 - 99 mg/dL [facility] Osmolality Calc [Osmolality] 288 [facility] Potassium [Moles/Vol] 3.7 mmol/L 3.5 - 5.0 mmol/L [facility] Sodium [Moles/Vol] 138 mmol/L 135 - 145 mmol/L [facility] Urea nitrogen [Mass/Vol] 13 mg/dL 7 - 25 mg/dL [facility] Urea nitrogen/Creatinine [[facility] ratio] 17 [facility] 11-28-2021 CT HEAD WITHOUT CONTRAST EXAM: CT HEAD WITHOUT CONTRAST, 11/28/2021 12:30 PM COMPARISON: Comparison is made to prior CT of the head from November 27, 2021. CLINICAL INDICATIONS: 31 years Female Stroke, follow up; 24 hrs post tPA; RELEVANT CLINICAL HISTORY: To be scheduled 24 hours post admission.; TECHNIQUE: A series of transaxial computerized tomographic images are obtained from base of skull to vertex without intravenous contrast. Axial whole-head and thin section posterior fossa slices are provided. Reformats: Sagittal and coronal. FINDINGS: No acute intracranial hemorrhage, significant mass effect or established territory infarct. No hyperdense extra-axial collection is noted. Ventricles are normal in size and configuration for patient's stated age. No significant mass effect involving the posterior fossa structures. Calvarium and skull base appear intact. Visualized sinuses show no air fluid levels. Visualized orbits are unremarkable. IMPRESSION: No significant interval change in comparison to previous head CT from November 27, 2021. No acute intracranial findings. Normal [facility] CT Head WO contraston 2021 IMPRESSION: No significant interval change in comparison to previous head CT from November 27, 2021. No acute intracranial findings. OLOGY EXAM: CT HEAD WITHOU T CONTRAST, 11/28/2021 12:30 PM COMPARISON: Comparison is made to prior CT of the head from November 27, 2021. CLINICAL INDICATIONS: 31 years Female Stroke, follow up; 24 hrs post tPA; RELEVANT CLINICAL HISTORY: To be scheduled 24 hours post admission.; TECHNIQUE: A series of transaxial computerized tomographic images are obtained from base of skull to vertex without intravenous contrast. Axial whole-head and thin section posterior fossa slices are provided. Reformats: Sagittal and coronal. FINDINGS: No acute intracranial hemorrhage, significant mass effect or established territory infarct. No hyperdense extra-axial collection is noted. Ventricles are normal in size and configuration for patient's stated age. No significant mass effect involving the posterior fossa structures. Calvarium and skull base appear intact. Visualized sinuses show no air fluid levels. Visualized orbits are unremarkable. RADIOLOGY Alo Goddard MD, MPH - 11/28/2021 EXAM: CT HEAD WITHOUT CONTRAST, 11/28/2021 12:30 PM COMPARISON: Comparison is made to prior CT of the head from November 27, 2021. CLINICAL INDICATIONS: 31 years Female Stroke, follow up; 24 hrs post tPA; RELEVANT CLINICAL HISTORY: To be scheduled 24 hours post admission.; TECHNIQUE: A series of transaxial computerized tomographic images are obtained from base of skull to vertex without intravenous contrast. Axial whole-head and thin section posterior fossa slices are provided. Reformats: Sagittal and coronal. FINDINGS: No acute intracranial hemorrhage, significant mass effect or established territory infarct. No hyperdense extra-axial collection is noted. Ventricles are normal in size and configuration for patient's stated age. No significant mass effect involving the posterior fossa structures. Calvarium and skull base appear intact. Visualized sinuses show no air fluid levels. Visualized orbits are unremarkable. IMPRESSION IMPRESSION: No significant interval change in comparison to previous head CT from November 27, 2021. No acute intracranial findings. U [facility] Radiology Study observation (narrative) U [facility] CT Head WO contrastOrdered B y: Alo Goddard on 11-28-2021 U [facility] Work Phone: EXTRA MICROon 11-28-2021 [facility] FACTOR IX ACTIVITYon 022 Factor IX 40 % Activity Low 77-147 [facility] Comment on above: Performed By: #### L [id number] #### [facility] (DEFAULT) [address] [place] [address] 21884 FACTOR IX ACTIVITYOrdered By : Swati Butler on 11-28-2021 Coagulation factor IX activity actual/normal Coag (PPP) [Relative time] 33 Low [facility] Interpretation and review of laboratory results Abnormal [facility] FIBRINOGEN, CLOTTABLEon 11-05 Fibrinogen-Clottable 248 mg/dL Normal 220-410 [facility] Comment on above: Order Comment: Fibr inogen levels may be altered by the normal physiologic changes of and should be interpreted considering reference ranges specific to gestational age.First Trimester: 244-510 mg/dLSecond Trimester: 291-538 mg/dLThird Trimester: 373-619 mg/dLReference: Mesha Thompson LG, Jt OLMSTEAD. and laboratory studies: a reference table for clinicians. Obstet Gynecol 2009; 114:1326. Result Comment: Func tional Fibrinogen (activity) levels can be affected by direct thrombin inhibitors such as heparins (>2.0 IU/ml) and dabigatran. Abnormal results should be interpreted with caution. Performed By: #### P TPTT #### [facility] (DEFAULT) [address] [place] [address] 98662 Fibrinogen Coag (PPP) [Mass/Vol] 248 mg/dL 220 - 410 mg/dL [facility] Comment on above: Functional Fibrinoge n (activity) levels can be affected by direct thrombin inhibitors such as heparins (>2.0 IU/ml) and dabigatran. Abnormal results should be interpreted with caution. Interpretation and review of laboratory results Normal [facility] Fibrinogen levels may be altered by the normal physiologic changes of and should be interpreted considering reference ranges specific to gestational age. First Trimester: 244-510 mg/dL Second Trimester: 291-538 mg/dL Third Trimester: 373-619 mg/dL Reference: Mesha Thompson LG, Cunningham FG. and laboratory studies: a reference table for clinicians. Obstet Gynecol 2009; 114:1326. [facility] HEMOGLOBIN [id number] By: Val Alcocer on 11-28-2021 Average glucose Estimated from glycated hemoglobin (Bld) [Mass/Vol] 100 mg/dL [facility] HbA1c (Bld) [Mass fraction] 5.1 % 4.7 - 5.6 % [facility] HEMOGLOBIN A1Con 11-28-2021 Glucose [Mass/Vol] 100 mg/dL Normal [facility] Comment on above: Performed By: #### L AB980 #### [facility] (DEFAULT) [address] [place] [address] 89261 HbA1c (Bld) [Mass fraction] 5.1 % Normal 4.7-5.6 [facility] Comment on above: Performed By: #### L AB980 #### [facility] (DEFAULT) [address] [place] [address] 89047 LIPID PANEL WITH REFLEX TO M EASURED LDLon 11-28-2021 Calculated LDL Cholesterol 132 mg/dL High 0-99 [facility] Comment on above: Result Comment: [<10 0 mg/dL: Optimal] [100-129 mg/dL: Near Optimal] [130-159 mg/dL: Borderline High] [160-189 mg/dL: High] [>189 mg/dL: Very High] Performed By: #### P TPTT #### [facility] (DEFAULT) [address] [place] [address] 87086 Cholesterol [Mass/Vol] 206 mg/dL High <200 [facility] Comment on above: Result Comment: [<20 0 mg/dL: Desirable] [200-239 mg/dL: Borderline High] [>239 mg/dL: High] Performed By: #### P TPTT #### [facility] (DEFAULT) [address] [place] [address] 74281 Cholesterol in HDL [Mass/Vol] 61 mg/dL Normal >=40 [facility] Comment on above: Result Comment: [<40 mg/dL: Low (High Risk)] [>59 mg/dL: High (Low Risk)] Performed By: #### P TPTT #### [facility] (DEFAULT) [address] [place] [address] 44433 Non HDL Cholesterol 145 mg/dL High <130 [facility] Comment on above: Performed By: #### P TPTT #### [facility] (DEFAULT) [address] [place] [address] 14040 Total Cholesterol/HDL Ratio 3.4 Normal <4.5 [facility] Comment on above: Performed By: #### P TPTT #### [facility] (DEFAULT) [address] [place] [address] 18129 Triglyceride [Mass/Vol] 66 mg/dL Normal <150 [facility] Comment on above: Result Comment: [<15 0 mg/dL: Desirable] [150-199 mg/dL: Borderline] [200-499 mg/dL: High] [>500 mg/dL: Very High] Performed By: #### P TPTT #### [facility] (DEFAULT) [address] [place] [address] 32627 Cholesterol [Mass/Vol] 206 mg/dL High <200 [facility] Comment on above: [<200 mg/dL: Desirab le] [200-239 mg/dL: Borderline High] [>239 mg/dL: High] Cholesterol in HDL [Mass/Vol] 61 mg/dL >=40 [facility] Comment on above: [<40 mg/dL: Low (Hig h Risk)] [>59 mg/dL: High (Low Risk)] Cholesterol in HDL [Mass/Vol] 145 mg/dL High <130 [facility] Cholesterol in LDL [Mass/Vol] 132 mg/dL High 0 - 99 mg/dL [facility] Comment on above: [<100 mg/dL: Optimal ] [100-129 mg/dL: Near Optimal] [130-159 mg/dL: Borderline High] [160-189 mg/dL: High] [>189 mg/dL: Very High] Cholesterol.total/Smita sterol in HDL [Mass ratio] 3.4 {ratio} <4.5 [facility] Interpretation and review of laboratory results Abnormal [facility] Triglyceride [Mass/Vol] 66 mg/dL <150 [facility] Comment on above: [<150 mg/dL: Desirab le] [150-199 mg/dL: Borderline] [200-499 mg/dL: High] [>500 mg/dL: Very High] [facility] MAGNESIUMon 11-28-2021 Magnesium [Mass/Vol] 2.3 mg/dL Normal 1.6-2.6 [facility] Comment on above: Performed By: #### L [facility] #### [facility] (DEFAULT) [address] [place] [address] Interpretation and review of laboratory results Normal [facility] Magnesium [Mass/Vol] 2.3 mg/dL 1.6 - 2 .6 mg/dL [facility] MR Brain WO contraston 11-28 IMPRESSION: No acute intracranial finding. OLOGY EXAM: MRI BRAIN WITHOUT CONTRAST, 11/27/2021 22:17 PM COMPARISON: No prior studies available for comparison. INDICATION: 31 years Female with Stroke Workup; TECHNIQUE: A series of multisequence, multiplanar MR images of the brain are obtained without intravenous contrast. Thank you for allowing me to assist in the care of your patient. If health care providers have questions or concerns regarding this report, please text me on Arc[employer] chat, or if emergent call or text my personal cell - M. Kayleigh Khalil MD. FINDINGS: PARENCHYMA: No mass effect or midline shift. No parenchymal abnormality. INFARCT/HEMORRHAGE: None. MIDLINE: Normal. EXTRA-AXIAL: Normal ventricles and sulci. Normal basilar cisterns. VASCULAR: Patent flow voids. ORBITS: Normal. SOFT TISSUES: Soft tissues and scalp are normal. OSSEOUS: Sinuses clear. Mastoids clear. No osseous abnormality. RADIOLOGY Liya Khalil MD - 11/28/2021 EXAM: MRI BRAIN WITHOUT CONTRAST, 11/27/2021 22:17 PM COMPARISON: No prior studies available for comparison. INDICATION: 31 years Female with Stroke Workup; TECHNIQUE: A series of multisequence, multiplanar MR images of the brain are obtained without intravenous contrast. --- Thank you for allowing me to assist in the care of your patient. If health care providers have questions or concerns regarding this report, please text me on Arcamed chat, or if emergent call or text my personal cell - M. Kayleigh Khalil MD. --- FINDINGS: PARENCHYMA: No mass effect or midline shift. No parenchymal abnormality. INFARCT/HEMORRHAGE: None. MIDLINE: Normal. EXTRA-AXIAL: Normal ventricles and sulci. Normal basilar cisterns. VASCULAR: Patent flow voids. ORBITS: Normal. SOFT TISSUES: Soft tissues and scalp are normal. OSSEOUS: Sinuses clear. Mastoids clear. No osseous abnormality. IMPRESSION IMPRESSION: No acute intracranial finding. [facility] MR Brain WO contrastOrdered By: Liya Khalil on 11-28-2021 [facility] Work Phone: MRI BRAIN WITHOUT CONTRASTon 11-28-2021 MRI BRAIN WITHOUT CONTRAST EXAM: MRI BRAIN WITHOUT CONTRAST, 11/27/2021 22:17 PM COMPARISON: No prior studies available for comparison. INDICATION: 31 years Female with Stroke Workup; TECHNIQUE: A series of multisequence, multiplanar MR images of the brain are obtained without intravenous contrast. Thank you for allowing me to assist in the care of your patient. If health care providers have questions or concerns regarding this report, please text me on [employer] secure chat, or if emergent call or text my personal cell - L. Kayleigh Khalil MD. FINDINGS: PARENCHYMA: No mass effect or midline shift. No parenchymal abnormality. INFARCT/HEMORRHAGE: None. MIDLINE: Normal. EXTRA-AXIAL: Normal ventricles and sulci. Normal basilar cisterns. VASCULAR: Patent flow voids. ORBITS: Normal. SOFT TISSUES: Soft tissues and scalp are normal. OSSEOUS: Sinuses clear. Mastoids clear. No osseous abnormality. IMPRESSION: No acute intracranial finding. Normal [facility] No Panel Informationon 11-28 [facility] BETA HCG, QUAL, BLOODon 11-05 HCG (Qual) Serum Negative Normal Negative [facility] Comment on above: Performed By: #### L [id number] #### [facility] (DEFAULT) [address] [place] [address] CBC AND ELECTRONIC DIFFon Basophils (Bld) [#/Vol] 0.04 10*3/uL Normal 0.00-0.15 [facility] Comment on above: Performed By: #### L [id number] #### [facility] (DEFAULT) [address] [address] Basophils/100 WBC (Bld) 1.2 % Normal [facility] Comment on above: Performed By: #### L [id number] #### [facility] (DEFAULT) [address] [address] DIFF STATUS Electronic Differential Normal [facility] Comment on above: Performed By: #### L [id number] #### [facility] (DEFAULT) [address] [address] Eosinophils (Bld) [#/Vol] 0.12 10*3/uL Normal 0.00-0.42 [facility] Comment on above: Performed By: #### L [id number] #### [facility] (DEFAULT) [address] [address] Eosinophils/100 WBC (Bld) 3.7 % Normal [facility] Comment on above: Performed By: #### L [id number] #### [facility] (DEFAULT) [address] [address] Hematocrit (Bld) [Volume fraction] 40.0 % Normal 34.9-44.3 [facility] Comment on above: Performed By: #### L [id number] #### [facility] (DEFAULT) [address] [address] Hemoglobin (Bld) [Mass/Vol] 13.0 g/dL Normal 11.4-15.2 [facility] Comment on above: Performed By: #### L [id number] #### [facility] (DEFAULT) [address] [place] [address] Immature Grans % 0.3 % Normal [facility] Comment on above: Performed By: #### L [id number] #### [facility] (DEFAULT) [address] [place] [address] Immature Grans Absolute <0.04 Normal <=0.09 [facility] Comment on above: Performed By: #### L [id number] #### [facility] (DEFAULT) [address] [place] [address] Lymphocytes (Bld) [#/Vol] 1.29 10*3/uL Normal 1.16-3.51 [facility] Comment on above: Performed By: #### L [id number] #### [facility] (DEFAULT) [address] [place] [address] Lymphocytes/100 WBC (Bld) 39.4 % Normal [facility] Comment on above: Performed By: #### L [id number] #### [facility] (DEFAULT) [address] [place] [address] MCV (RBC) [Entitic vol] 88.5 fL Normal 79.6-97.7 [facility] Comment on above: Performed By: #### L [id number] #### [facility] (DEFAULT) [address] [place] [address] Mean Cell Hgb 28.8 pg Normal 25.9-33.9 [facility] Comment on above: Performed By: #### L [id number] #### [facility] (DEFAULT) [address] [place] [address] Mean Cell Hgb Conc 32.5 g/dL Normal 31.4-35.9 [facility] Comment on above: Performed By: #### L [id number] #### [facility] (DEFAULT) [address] [place] [address] Monocytes (Bld) [#/Vol] 0.32 10*3/uL Normal 0.22-0.87 [facility] Comment on above: Performed By: #### L [id number] #### [facility] (DEFAULT) [address] [place] [address] Monocytes/100 WBC (Bld) 9.8 % Normal [facility] Comment on above: Performed By: #### L [id number] #### [facility] (DEFAULT) [address] [place] [address] Nucleated RBC 0.0 /100 WBC Normal <=0.2 [facility] Comment on above: Performed By: #### L [id number] #### [facility] (DEFAULT) [address] [place] [address] Platelet mean volume (Bld) [Entitic vol] 9.6 fL Normal 8.5-12.2 [facility] Comment on above: Performed By: #### L [id number] #### [facility] (DEFAULT) [address] [place] [address] Platelets (Bld) [#/Vol] 300 10*3/uL Normal 150-393 [facility] Comment on above: Performed By: #### L [id number] #### [facility] (DEFAULT) [address] [place] [address] RBC (Bld) [#/Vol] 4.52 10*6/uL Normal 3.91-5.04 [facility] Comment on above: Performed By: #### L [id number] #### [facility] (DEFAULT) [address] [place] [address] RBC Distribution 13.4 % Normal 10.8-14.9 [facility] Comment on above: Performed By: #### L [id number] #### [facility] (DEFAULT) [address] [place] [address] Segs + Bands Auto 45.6 % Normal [facility] Comment on above: Performed By: #### L [id number] #### [facility] (DEFAULT) [address] [place] [address] Segs + Bands,Absolute Auto 1.49 K/uL Low 1.64-7.28 [facility] Comment on above: Performed By: #### L [id number] #### [facility] (DEFAULT) [address] [place] [address] WBC (Bld) [#/Vol] 3.27 10*3/uL Low 3.99-11.19 [facility] Comment on above: Performed By: #### L [id number] #### [facility] (DEFAULT) [address] [place] [address] Basophils (Bld) [#/Vol] 0.04 10*3/uL 0.00 - 0.15 K/uL [facility] Basophils/100 WBC (Bld) 1.2 % [facility] DIFF STATUS Electronic Differential [facility] Eosinophils (Bld) [#/Vol] 0.12 10*3/uL 0.00 - 0.42 K/uL [facility] Eosinophils/100 WBC (Bld) 3.7 % [facility] Erythrocyte distribution width (RBC) [Ratio] 13.4 % 10.8 - 14.9 % [facility] Hematocrit (Bld) [Volume fraction] 40.0 % 34.9 - 44.3 % [facility] Hemoglobin (Bld) [Mass/Vol] 13.0 g/dL 11.4 - 15.2 g/dL [facility] Immature granulocytes (Bld) [#/Vol] 10*3/uL <=0.09 K/uL [facility] Immature granulocytes/100 WBC (Bld) 0.3 % [facility] Interpretation and review of laboratory results Abnormal [facility] Lymphocytes (Bld) [#/Vol] 1.29 10*3/uL 1.16 - 3.51 K/uL [facility] Lymphocytes/100 WBC (Bld) 39.4 % [facility] MCH (RBC) [Entitic mass] 28.8 pg 25.9 - 33.9 pg [facility] MCHC (RBC) [Mass/Vol] 32.5 g/dL 31.4 - 35.9 g/dL [facility] MCV (RBC) [Entitic vol] 88.5 fL 79.6 - 97.7 fL [facility] Monocytes (Bld) [#/Vol] 0.32 10*3/uL 0.22 - 0.87 K/uL [facility] Monocytes/100 WBC (Bld) 9.8 % [facility] Neutrophils (Bld) [#/Vol] 1.49 10*3/uL Low 1.64 - 7.28 K/uL [facility] Nucleated RBC/100 WBC (Bld) [Ratio] 0.0 % <=0.2 /100 WBC [facility] Platelet mean volume (Bld) [Entitic vol] 9.6 fL 8.5 - 12.2 fL [facility] Platelets (Bld) [#/Vol] 300 10*3/uL 150 - 393 K/uL [facility] RBC (Bld) [#/Vol] 4.52 10*6/uL [facility] Segmented neutrophils/100 WBC (Bld) 45.6 % [facility] WBC (Bld) [#/Vol] 3.27 10*3/uL Low 3.99 - 11. 19 K/uL [facility] CBC with Auto Differentialon 11-27-2021 Basophils (Bld) [#/Vol] 0.0 10*3/uL K/CU MM [facility] Basophils/100 WBC (Bld) 0.8 % 0 - 1 % [facility] Differential Type AUTOMATED DIFFERENTIAL [facility] Eosinophils Absolute 0.2 K/CU MM [facility] Eosinophils/100 WBC (Bld) 4.3 % High 0 - 3 % [facility] Hematocrit (Bld) [Volume fraction] 40.1 % 37 - 47 % [facility] Hemoglobin.gastrointest inal spec 1 Ql (Stl) 12.7 [facility] Interpretation and review of laboratory results Abnormal [facility] Lymphocytes Absolute 1.6 K/CU MM [facility] Lymphocytes/100 WBC (Bld) 41.2 % 24 - 44 % [facility] MCH (RBC) [Entitic mass] 28.5 pg 27 - 31 PG [facility] MCHC (RBC) [Mass/Vol] 31.7 % Low 32.0 - 36.0 % [facility] MCV (RBC) [Entitic vol] 89.9 fL [facility] Monocytes Absolute 0.4 K/CU MM [facility] Monocytes/100 WBC (Bld) 10.1 % High 0 - 4 % [facility] Neutrophils/100 WBC (Bld) 0.3 % 0 - 0.43 % [facility] Platelet distribution width (Bld) [Ratio] 13.4 % 11.7 - 14.9 % [facility] Platelet mean volume (Bld) [Entitic vol] 9.3 fL [facility] Platelets (Bld) [#/Vol] 300 10*3/uL [facility] RBC (Bld) [#/Vol] 4.46 10*6/uL [facility] Segs Absolute 1.6 K/CU [facility] Relative 43.3 % 36 - 66 % [facility] Total Immature Neutrophil 0.01 K/CU MM [facility] WBC (Bld) [#/Vol] 3.8 10*3/uL Low [facility] 7 - EDon 11-27-2021 Anion gap [Moles/Vol] 11 mmol/L Normal 7-17 [facility] Comment on above: Performed By: #### P TPTT #### [facility] (DEFAULT) [address] [address] Chloride [Moles/Vol] 108 mmol/L Normal 98-108 [facility] Comment on above: Performed By: #### P TPTT #### [facility] (DEFAULT) [address] [place] [address] CO2 [Moles/Vol] 22 mmol/L Normal 21-31 [facility] Comment on above: Performed By: #### P TPTT #### [facility] (DEFAULT) [address] [place] [address] Creatinine [Mass/Vol] 0.78 mg/dL Normal 0.50-1.20 [facility] Comment on above: Performed By: #### P TPTT #### [facility] (DEFAULT) [address] [place] [address] eGFR, CKD-EPI, Female >90 Normal >=60 [facility] Comment on above: Result Comment: Repo rted eGFR is based on the CKD-EPI 2020 equation using creatinine, age, and sex. Performed By: #### P TPTT #### [facility] (DEFAULT) [address] [place] [address] Glucose [Mass/Vol] 91 mg/dL Normal 70-99 [facility] Comment on above: Performed By: #### P TPTT #### [facility] (DEFAULT) [address] [place] [address] Osmolality [Osmolality] 288 mosm/kg Normal 278-305 [facility] Comment on above: Performed By: #### P TPTT #### [facility] (DEFAULT) [address] [place] [address] Potassium [Moles/Vol] 4.1 mmol/L Normal 3.5-5.0 [facility] Comment on above: Performed By: #### P TPTT #### [facility] (DEFAULT) [address] [place] [address] Sodium [Moles/Vol] 137 mmol/L Normal 135-145 [facility] Comment on above: Performed By: #### P TPTT #### [facility] (DEFAULT) [address] [place] [address] Urea nitrogen [Mass/Vol] 15 mg/dL Normal 7-25 [facility] Comment on above: Performed By: #### P TPTT #### [facility] (DEFAULT) [address] [place] [address] Urea nitrogen/Creatinine [Mass ratio] 19 mg/mg Normal [facility] Comment on above: Performed By: #### P TPTT #### [facility] (DEFAULT) [address] [place] [address] Anion gap [Moles/Vol] 11 mmol/L 7 - 17 mmol/L [facility] Chloride [Moles/Vol] 108 mmol/L 98 - 10 8 mmol/L [facility] CO2 [Moles/Vol] 22 mmol/L 21 - 31 mmol/L [facility] Creatinine [Mass/Vol] 0.78 mg/dL 0.50 - 1.20 mg/dL [facility] GFR/1.73 sq M.predicted CKD-EPI (S/P/Bld) [Vol rate/Area] >90 >=60 mL/min/1.73m2 [facility] Comment on above: Reported eGFR is bas ed on the CKD-EPI 2020 equation using creatinine, age, and sex. Glucose [Mass/Vol] 91 mg/dL 70 - 99 mg/dL [facility] Osmolality Calc [Osmolality] 288 [facility] Potassium [Moles/Vol] 4.1 mmol/L 3.5 - 5.0 mmol/L [facility] Sodium [Moles/Vol] 137 mmol/L 135 - 145 mmol/L [facility] Urea nitrogen [Mass/Vol] 15 mg/dL 7 - 25 mg/dL [facility] Urea nitrogen/Creatinine [Mass ratio] 19 mg[facility] WO CONTRASTon 2021 No acute intracrania l abnormality. [facility] RIS CONSOLIDATED EXAMINATION: CT OF THE HEAD WITHOUT CONTRAST 11/27/2021 10:00 am TECHNIQUE: CT of the head was performed without the administration of intravenous contrast. Dose modulation, iterative reconstruction, and/or weight based adjustment of the mA/kV was utilized to reduce the radiation dose to as low as reasonably achievable. COMPARISON: None. HISTORY: ORDERING SYSTEM PROVIDED HISTORY: dizziness TECHNOLOGIST PROVIDED HISTORY: Reason for exam:->dizziness Has a code stroke or stroke alert been called?->Yes Is the patient ?->No FINDINGS: BRAIN/VENTRICLES: There is no acute intracranial hemorrhage, mass effect or midline shift. No abnormal extra-axial fluid collection. The paiz-white differentiation is maintained without evidence of an acute infarct. There is no evidence of hydrocephalus. ORBITS: The visualized portion of the orbits demonstrate no acute abnormality. SINUSES: The visualized paranasal sinuses and mastoid air cells demonstrate no acute abnormality. SOFT TISSUES/SKULL: No acute abnormality of the visualized skull or soft tissues. [facility] Byron Clement MD - 11/27/2021 EXAMINATION: CT OF THE HEAD WITHOUT CONTRAST 11/27/2021 10:00 am TECHNIQUE: CT of the head was performed without the administration of intravenous contrast. Dose modulation, iterative reconstruction, and/or weight based adjustment of the mA/kV was utilized to reduce the radiation dose to as low as reasonably achievable. COMPARISON: None. HISTORY: ORDERING SYSTEM PROVIDED HISTORY: dizziness TECHNOLOGIST PROVIDED HISTORY: Reason for exam:->dizziness Has a code stroke or stroke alert been called?->Yes Is the patient ?->No FINDINGS: BRAIN/VENTRICLES: There is no acute intracranial hemorrhage, mass effect or midline shift. No abnormal extra-axial fluid collection. The paiz-white differentiation is maintained without evidence of an acute infarct. There is no evidence of hydrocephalus. ORBITS: The visualized portion of the orbits demonstrate no acute abnormality. SINUSES: The visualized paranasal sinuses and mastoid air cells demonstrate no acute abnormality. SOFT TISSUES/SKULL: No acute abnormality of the visualized skull or soft tissues. IMPRESSION: No acute intracranial abnormality. [facility] Phone: Radiology Study observation (narrative) [employer] Phone: CT HEAD WO CONTRASTOrdered B y: Byron Murray on 11-27-2021 [facility] Phone: CT Head limitedon 11-27-2021 IMPRESSION: No acute intracranial abnormality. Findings were discussed with Amor Molina MD at 12:18 PM on November 27, 2021. I personally viewed and interpreted these images and I have reviewed and approved this report. OLOGY EXAM: CT STROKE HEAD-STROKE ALERT ONLY, 11/27/2021 12:12 PM COMPARISON: None. CLINICAL INDICATIONS: 31 years Female Suspected Stroke; RELEVANT CLINICAL HISTORY: Last known well 0815. Right upper extremity weakness and right facial droop. TECHNIQUE: A series of transaxial computerized tomographic images are obtained from base of skull to vertex without intravenous contrast. Axial whole-head and thin section posterior fossa slices are provided. Reformats: Sagittal and coronal. FINDINGS: There is no abnormal increased or decreased attenuation. Paiz-white matter differentiation is well-maintained. There is no mass lesion or midline shift. There is no evidence of hemorrhage or acute large territory infarct. There is no extracerebral collection. Ventricles are normal in size and configuration for patient's stated age. Posterior fossa is within normal limits. Calvarium and skull base appear intact. The visualized sinuses appear clear. The visualized orbits are unremarkable RADIOLOGY Speedy Meier MD - 11/27/2021 EXAM: CT STROKE HEAD-STROKE ALERT ONLY, 11/27/2021 12:12 PM COMPARISON: None. CLINICAL INDICATIONS: 31 years Female Suspected Stroke; RELEVANT CLINICAL HISTORY: Last known well 0815. Right upper extremity weakness and right facial droop. TECHNIQUE: A series of transaxial computerized tomographic images are obtained from base of skull to vertex without intravenous contrast. Axial whole-head and thin section posterior fossa slices are provided. Reformats: Sagittal and coronal. FINDINGS: There is no abnormal increased or decreased attenuation. Paiz-white matter differentiation is well-maintained. There is no mass lesion or midline shift. There is no evidence of hemorrhage or acute large territory infarct. There is no extracerebral collection. Ventricles are normal in size and configuration for patient's stated age. Posterior fossa is within normal limits. Calvarium and skull base appear intact. The visualized sinuses appear clear. The visualized orbits are unremarkable IMPRESSION IMPRESSION: No acute intracranial abnormality. Findings were discussed with Amor Molina MD at 12:18 PM on November 27, 2021. I personally viewed and interpreted these images and I have reviewed and approved this report. [facility] limitedOrdered By: Rafia Meier on 11-27-2021 [facility] Work Phone: CT STROKE HEAD-STROKE ALERT ONLYon 11-27-2021 CT STROKE HEAD-STROKE ALERT ONLY EXAM: CT STROKE HEAD-STROKE ALERT ONLY, 11/27/2021 12:12 PM COMPARISON: None. CLINICAL INDICATIONS: 31 years Female Suspected Stroke; RELEVANT CLINICAL HISTORY: Last known well 814. Right upper extremity weakness and right facial droop. TECHNIQUE: A series of transaxial computerized tomographic images are obtained from base of skull to vertex without intravenous contrast. Axial whole-head and thin section posterior fossa slices are provided. Reformats: Sagittal and coronal. FINDINGS: There is no abnormal increased or decreased attenuation. Paiz-white matter differentiation is well-maintained. There is no mass lesion or midline shift. There is no evidence of hemorrhage or acute large territory infarct. There is no extracerebral collection. Ventricles are normal in size and configuration for patient's stated age. Posterior fossa is within normal limits. Calvarium and skull base appear intact. The visualized sinuses appear clear. The visualized orbits are unremarkable IMPRESSION: No acute intracranial abnormality. Findings were discussed with Amor Molina MD at 12:18 PM on November 27, 2021. I personally viewed and interpreted these images and I have reviewed and approved this report. Normal [facility] CTA HEAD NECK W CONTRASTon 0 11-27-2021 Unremarkable CTA of the head and neck. [facility] RIS CONSOLIDATED EXAMINATION: CTA OF THE HEAD AND NECK WITH CONTRAST 11/27/2021 10:01 am: TECHNIQUE: CTA of the head and neck was performed with the administration of intravenous contrast. Multiplanar reformatted images are provided for review. MIP images are provided for review. Stenosis of the internal carotid arteries measured using NASCET criteria. Dose modulation, iterative reconstruction, and/or weight based adjustment of the mA/kV was utilized to reduce the radiation dose to as low as reasonably achievable. COMPARISON: Noncontrast CT head from earlier today HISTORY: ORDERING SYSTEM PROVIDED HISTORY: stroke alert TECHNOLOGIST PROVIDED HISTORY: Reason for exam:->stroke alert Has a code stroke or stroke alert been called?->Yes Decision Support Exception - unselect if not a suspected or confirmed emergency medical condition->Emergency Medical Condition (MA) FINDINGS: CTA NECK: AORTIC ARCH/ARCH VESSELS: No dissection or arterial injury. No significant stenosis of the brachiocephalic or subclavian arteries. CAROTID ARTERIES: No dissection, arterial injury, or hemodynamically significant stenosis by NASCET criteria. VERTEBRAL ARTERIES: No dissection, arterial injury, or significant stenosis. SOFT TISSUES: The lung apices are clear. No cervical or superior mediastinal lymphadenopathy. The larynx and pharynx are unremarkable. No acute abnormality of the salivary and thyroid glands. BONES: No acute osseous abnormality. CTA HEAD: ANTERIOR CIRCULATION: No significant stenosis of the intracranial internal carotid, anterior cerebral, or middle cerebral arteries. No aneurysm. POSTERIOR CIRCULATION: No significant stenosis of the vertebral, basilar, or posterior cerebral arteries. No aneurysm. OTHER: No dural venous sinus thrombosis on this non-dedicated study. BRAIN: No mass effect or midline shift. No extra-axial fluid collection. The paiz-white differentiation is maintained. [facility] RIS CONSOLIDATED Byron Murray MD - 11/27/2021 EXAMINATION: CTA OF THE HEAD AND NECK WITH CONTRAST 11/27/2021 10:01 am: TECHNIQUE: CTA of the head and neck was performed with the administration of intravenous contrast. Multiplanar reformatted images are provided for review. MIP images are provided for review. Stenosis of the internal carotid arteries measured using NASCET criteria. Dose modulation, iterative reconstruction, and/or weight based adjustment of the mA/kV was utilized to reduce the radiation dose to as low as reasonably achievable. COMPARISON: Noncontrast CT head from earlier today HISTORY: ORDERING SYSTEM PROVIDED HISTORY: stroke alert TECHNOLOGIST PROVIDED HISTORY: Reason for exam:->stroke alert Has a code stroke or stroke alert been called?->Yes Decision Support Exception - unselect if not a suspected or confirmed emergency medical condition->Emergency Medical Condition (MA) FINDINGS: CTA NECK: AORTIC ARCH/ARCH VESSELS: No dissection or arterial injury. No significant stenosis of the brachiocephalic or subclavian arteries. CAROTID ARTERIES: No dissection, arterial injury, or hemodynamically significant stenosis by NASCET criteria. VERTEBRAL ARTERIES: No dissection, arterial injury, or significant stenosis. SOFT TISSUES: The lung apices are clear. No cervical or superior mediastinal lymphadenopathy. The larynx and pharynx are unremarkable. No acute abnormality of the salivary and thyroid glands. BONES: No acute osseous abnormality. CTA HEAD: ANTERIOR CIRCULATION: No significant stenosis of the intracranial internal carotid, anterior cerebral, or middle cerebral arteries. No aneurysm. POSTERIOR CIRCULATION: No significant stenosis of the vertebral, basilar, or posterior cerebral arteries. No aneurysm. OTHER: No dural venous sinus thrombosis on this non-dedicated study. BRAIN: No mass effect or midline shift. No extra-axial fluid collection. The paiz-white differentiation is maintained. IMPRESSION: Unremarkable CTA of the head and neck. [facility] [employer] Work Phone: [facility] [employer] Work Phone: Radiology Study observation (narrative) [employer] [facility] Work Phone: Comprehensive Metabolic Pane l w/ Reflex to MGon 11-27-2021 Albumin [Mass/Vol] 4.4 g/dL [facility] ALP (Bld) [Catalytic activity/Vol] 41 U/L [facility] ALT [Catalytic activity/Vol] 10 U/L 10 - 40 U/L [facility] Anion gap [Moles/Vol] 9 mmol/L [facility] AST [Catalytic activity/Vol] 14 U/L Low [facility] Bilirubin [Mass/Vol] 0.8 mg/dL [facility] [employer] Calcium [Mass/Vol] 9.5 mg/dL [facility] Chloride [Moles/Vol] 105 mmol/L [facility] CO2 [Moles/Vol] 25 mmol/L [facility] lt Creatinine [Mass/Vol] 0.8 mg/dL [facility] Free PSA/Total PSA [Mass fraction] 7.1 [facility] GFR >60 >60 mL/min/1.73m2 [facility] GFR Non- >60 >60 mL/min/1.73m2 [facility] Glucose [Mass/Vol] 89 mg/dL [facility] Interpretation and review of laboratory results Abnormal [facility] Potassium [Moles/Vol] 3.9 mmol/L [facility] Sodium [Moles/Vol] 139 mmol/L [facility] Urea nitrogen (BldV) [Mass/Vol] 16 [facility] FACTOR IX ACTIVITYon 022 Factor IX 33 % Activity Low 77-147 [facility] Comment on above: Performed By: #### F A9, FIB #### [facility] (DEFAULT) [address] [place] [address] FIBRINOGEN, CLOTTABLEon 11-05 Fibrinogen-Clottable 262 mg/dL Normal 220-410 [facility] Comment on above: Order Comment: Fibr inogen levels may be altered by the normal physiologic changes of and should be interpreted considering reference ranges specific to gestational age. First Trimester: 244-510 mg/dL Second Trimester: 291-538 mg/dL Third Trimester: 373-619 mg/dL Reference: Mesha Thompson LG, Jt OLMSTEAD. and laboratory studies: a reference table for clinicians. Obstet Gynecol 2009; 114:1326. Result Comment: Func tional Fibrinogen (activity) levels can be affected by direct thrombin inhibitors such as heparins (>2.0 IU/ml) and dabigatran. Abnormal results should be interpreted with caution. Performed By: #### F A9, FIB #### [facility] (DEFAULT) [address] [place] [address] Fibrinogen Coag (PPP) [Mass/Vol] 262 mg/dL 220 - 410 mg/dL [facility] Comment on above: Functional Fibrinoge n (activity) levels can be affected by direct thrombin inhibitors such as heparins (>2.0 IU/ml) and dabigatran. Abnormal results should be interpreted with caution. Interpretation and review of laboratory results Normal [facility] Fibrinogen levels may be altered by the normal physiologic changes of and should be interpreted considering reference ranges specific to gestational age. First Trimester: 244-510 mg/dL Second Trimester: 291-538 mg/dL Third Trimester: 373-619 mg/dL Reference: Mesha Thompson LG, Jt OLMSTEAD. and laboratory studies: a reference table for clinicians. Obstet Gynecol 2009; 114:1326. [facility] GLUCOSE POCon 11-27-2021 Glucose [Mass/Vol] 97 mg/dL 70 - 99 mg/dL [facility] Poc Sample Type CAPBL [facility] Test performed at address of the patient encounter. [facility] HCG ( test) QlOrder ed By: Jack Ayala on 11-27-2021 Beta HCG ( test) Ql Negative Negative [facility] Interpretation and review of laboratory results Normal [facility] HEPATIC FUNCTION PANELon Albumin [Mass/Vol] 4.3 g/dL Normal 3.5-5.0 [facility] Comment on above: Performed By: #### P TPTT #### [facility] (DEFAULT) [address] [address] ALP [Catalytic activity/Vol] 35 U/L Normal 32-126 [facility] Comment on above: Performed By: #### P TPTT #### [facility] (DEFAULT) [address] [address] ALT [Catalytic activity/Vol] 8 U/L Low 9-48 [facility] Comment on above: Performed By: #### P TPTT #### [facility] (DEFAULT) [address] [address] AST [Catalytic activity/Vol] 14 U/L Normal 10-39 [facility] Comment on above: Performed By: #### P TPTT #### [facility] (DEFAULT) [address] [place] [address] Bilirubin [Mass/Vol] 1.0 mg/dL Normal <1.5 [facility] Comment on above: Performed By: #### P TPTT #### [facility] (DEFAULT) [address] [address] Bilirubin.indirect [Mass/Vol] 0.1 mg/dL Normal <0.3 [facility] Comment on above: Performed By: #### P TPTT #### [facility] (DEFAULT) [address] [place] [address] Protein [Mass/Vol] 7.1 g/dL Normal 6.4-8.3 [facility] Comment on above: Performed By: #### P TPTT #### [facility] (DEFAULT) [address] [place] [address] Albumin [Mass/Vol] 4.3 g/dL 3.5 - 5.0 g/dL [facility] ALP [Catalytic activity/Vol] 35 U/L 32 - 126 U/L [facility] ALT [Catalytic activity/Vol] 8 U/L Low 9 - 48 U/L [facility] AST [Catalytic activity/Vol] 14 U/L 10 - 39 U/L [facility] Bilirubin [Mass/Vol] 1.0 mg/dL <1.5 [facility] Bilirubin.direct [Mass/Vol] 0.1 mg/dL <0.3 [facility] Interpretation and review of laboratory results Abnormal [facility] Protein [Mass/Vol] 7.1 g/dL 6.4 - 8.3 g/dL [facility] HIGH SENSITIVITY TROPONIN I - SINGLE ORDERon 11-27-2021 hs-Troponin I <3 Normal <34 [facility] Comment on above: Order Comment: Acute Coronary Syndrome (ACS): Initial Evaluation and Management:[email or web address] Performed By: #### P TPTT #### [facility] (DEFAULT) [address] [address] Interpretation and review of laboratory results Normal [facility] Troponin I.cardiac DL <= 0.01 ng/mL [Mass/Vol] ng/mL <34 ng/L [facility] MAGNESIUMon 11-27-2021 Interpretation and review of laboratory results Normal [facility] Magnesium [Mass/Vol] 2.2 mg/dL 1.6 - 2 .6 mg/dL [facility] Magnesium [Mass/Vol] 2.2 mg/dL Normal 1.6-2.6 [facility] Comment on above: Performed By: #### P TPTT #### [facility] (DEFAULT) [address] [place] [address] MR Brain WO contraston 11-27 Radiology Study observation (narrative) [facility] No Panel Informationon 11-27 [facility] POCT Glucoseon 11-27-2021 Glucose [Mass/Vol] 86 mg/dL [facility] PTINR-STROKEon 11-27-2021 INR Coag (PPP) [Relative time] 0.9 {INR} Normal 0.9-1.1 [facility] Comment on above: Performed By: #### P TPTT #### [facility] (DEFAULT) [address] [place] [address] PT Coag (PPP) [Time] 12.3 s Normal 11.9-14.2 [facility] Comment on above: Performed By: #### P TPTT #### [facility] (DEFAULT) [address] [place] [address] INR Coag (Bld) [Relative time] 0.9 {INR} [facility] Interpretation and review of laboratory results Normal [facility] PT Coag (PPP) [Time] 12.3 s [facility] PTTon 11-27-2021 aPTT Coag (Bld) [Time] 30.8 s Normal 24.0-34.3 [facility] Comment on above: Performed By: #### L [id number] #### [facility] (DEFAULT) [address] [place] [address] aPTT Coag (PPP) [Time] 30.8 s [facility] Interpretation and review of laboratory results Normal [facility] , urineon Beta HCG ( test) Ql (U) Negative NEGATIVE [facility] Interpretation HCG METHOD LIMITATIONS: [place] [facility] Comment on above: Very dilute specimen s, as indicated by low specific gravity, may have insufficient concentration of HCG to bring about a positive result. Specific [place], Urine 1.015 [facility]-28-19 aPTT Coag (Bld) [Time] 38.2 s High [facility] Comment on above: EFFECTIVE 02/09/2017 THERAPEUTIC RANGE FOR ROUTINE HEPARIN USE IS 52.0-85.0 SECONDS. INR Coag (Bld) [Relative time] 0.91 {INR} INDEX [facility] Comment on above: THERAPEUTIC RANGE: INDICATIONS: INR 2.0-3.0 Most (DVT, PE, Atrial Fibillation, Bioprosthetic valve, St Judes bicuspid aortic valve) INDICATIONS: 2.5-3.5 Most mechanical valves recurrent thrombosis. Interpretation and review of laboratory results Abnormal [facility] PT Coag (PPP) [Time] 11.3 s Low [facility] Comment on above: Protime seconds can vary due to reagent sensitivity. Please use INR to monitor oral anticoagulants. [facility] TOXICOLOGY SCREEN URINE - UD RGOrdered By: Harmony Slaughter on 11-27-2021 Barbiturates Ql (U) Negative Cutoff: 200 ng/mL [facility] Cannabinoids Screen Ql (U) Negative Cutoff: 50 ng/mL [facility] Drugs identified Screen Nom (U) Negative Negative [facility] Interpretation and review of laboratory results Normal [facility] For Medical Purposes Only. Nonforensic screen results are considered presumptive and no confirmatory testing will follow. Drugs are detected by immunoassay or Liquid Chromatography Mass Spectrometry (LC-MS/MS). The LC-MS/MS test was developed and its performance characteristics determined by the Toxicology Laboratory at [facility]. It has not been cleared or approved by the FDA. The laboratory is regulated under CLIA as qualified to perform high-complexity testing. This test is used for clinical purposes and should not be regarded as investigational or for research. The following drugs with their lowest level of detection in ng/ml(LOD) are included in this screen: 6 Monoacetylmorphine(30 0), 7 Aminoflunitrazepam(25 ), 7 Aminoclonazepam(50),7 hydroxymitragynine (100),Alphahydroxymid azolam (200), Alphahydrozyalprazola m(200), Alprazolam(50), Amitriptyline(50), Amphetamine(250), Atenolol(500),Benzoyl ecgonine(50), Buprenorphine(100), Bupropion(25),Caffein e(63305),Chlordiazepo xide(50), Chlorpheniramine(100) , Chlorpromazine(50), Citalopram(100), Clonazepam(200), Cocaine(25),Codeine(2 00), Cotinine(500),Desipra mine(50), Desmethyldoxepin(100) , Dextromethorphan(100) , Diazepam(100), Dihydrocodeine(100), Diltazem(50), Diphenhydramine(100), Doxepin(100),EDDP/met hadone(100), Ephedrine/Pseudoephed rine(100),Fentanyl(25 ),Flunitrazepam(100), Fluoxetine(200), Flurazepam(50),Gabape ntin(1500), Haloperidol(25), Hydrocodone(100), Hydromorphone(200), Imipramine(50), Ketamine(25), Lidocaine(25),Lorazep am(100), Lysergide(LSD)(25),Ma protiline(200), MDA(250), MDMA(250), Meperidine(50),Midazo velasco (200),Methadone(50), Methamphetamine(500), Methylphenidate(50), Metoprolol(50), Morphine(200),Nalbuph ine(50), Naloxone(200), Norbuprenorphine(300) , Nordiazepam(100), Norfentanyl(50),Norox ycodone (100), Norpropoxyphene(50), Nortriptyline(50), Olanzapine(200),Oxaze samantha(200),Oxycodone(10 0),Oxymorphone(200), Phencyclidine(PCP)(25 ), Pheniramine(25), Pregabalin(1500), Promethazine(50), Propoxyphene(100), Propanolol(50), Quetiapine(25), Quinidine(500), Ranitidine(500), Risperidone(100), Sertraline(50),Temaze samantha(100), Thioridazine(100), Tramadol(50), Trazodone(25), Triazolam(100), Trifluoperazine (100),Venlafaxine(50) , Verapamil(100), Zolpidem(200) [facility] TOXICOLOGY SCREEN URINE - UD RGon 11-27-2021 Barbiturates Negative Normal Cutoff: 200 ng/mL [facility] Comment on above: Order Comment: For M edical Purposes Only. Nonforensic screen results are considered presumptive and no confirmatory testing will follow. Drugs are detected by immunoassay or Liquid Chromatography Mass Spectrometry (LC-MS/MS). The LC-MS/MS test was developed and its performance characteristics determined by the Toxicology Laboratory at [facility]. It has not been cleared or approved by the FDA. The laboratory is regulated under CLIA as qualified to perform high-complexity testing. This test is used for clinical purposes and should not be regarded as investigational or for research. The following drugs with their lowest level of detection in ng/ml(LOD) are included in this screen: 6 Monoacetylmorphine(300), 7 Aminoflunitrazepam(25), 7 Aminoclonazepam(50),7 hydroxymitragynine (100),Alphahydroxymidazolam (200), Alphahydrozyalprazolam(200), Alprazolam(50), Amitriptyline(50), Amphetamine(250), Atenolol(500),Benzoylecgonine(50), Buprenorphine(100), Bupropion(25),Caffeine(31294),Chlordiazepoxide(50), Chlorpheniramine(100), Chlorpromazine(50), Citalopram(100), Clonazepam(200), Cocaine(25),Codeine(200), Cotinine(500),Desipramine(50), Desmethyldoxepin(100), Dextromethorphan(100), Diazepam(100), Dihydrocodeine(100), Diltazem(50), Diphenhydramine(100),Doxepin(100),EDDP/methadone(100), Ephedrine/Pseudoephedrine(100),Fentanyl(25),Flunitrazepam(100) ,Fluoxetine(200), Flurazepam(50),Gabapentin(1500), Haloperidol(25), Hydrocodone(100), Hydromorphone(200), Imipramine(50), Ketamine(25), Lidocaine(25),Lorazepam(100), Lysergide(LSD)(25),Maprotiline(200), MDA(250), MDMA(250), Meperidine(50),Midazolam (200),Methadone(50), Methamphetamine(500), Methylphenidate(50), Metoprolol(50), Morphine(200),Nalbuphine(50), Naloxone(200), Norbuprenorphine(300), Nordiazepam(100), Norfentanyl(50),Noroxycodone (100), Norpropoxyphene(50), Nortriptyline(50), Olanzapine(200),Oxazepam(200),Oxycodone(100),Oxymorphone(200), Phencyclidine(PCP)(25), Pheniramine(25), Pregabalin(1500), Promethazine(50), Propoxyphene(100), Propanolol(50), Quetiapine(25), Quinidine(500), Ranitidine(500), Risperidone(100), Sertraline(50),Temazepam(100), Thioridazine(100), Tramadol(50), Trazodone(25), Triazolam(100), Trifluoperazine (100),Venlafaxine(50), Verapamil(100), Zolpidem(200) Performed By: #### U DRG #### [facility] (DEFAULT) [address] [place] [address] Cannabinoids Screen Ql (U) Negative Normal Cutoff: 50 ng/mL [facility] Comment on above: Order Comment: For M edical Purposes Only. Nonforensic screen results are considered presumptive and no confirmatory testing will follow. Drugs are detected by immunoassay or Liquid Chromatography Mass Spectrometry (LC-MS/MS). The LC-MS/MS test was developed and its performance characteristics determined by the Toxicology Laboratory at [facility]. It has not been cleared or approved by the FDA. The laboratory is regulated under CLIA as qualified to perform high-complexity testing. This test is used for clinical purposes and should not be regarded as investigational or for research. The following drugs with their lowest level of detection in ng/ml(LOD) are included in this screen: 6 Monoacetylmorphine(300), 7 Aminoflunitrazepam(25), 7 Aminoclonazepam(50),7 hydroxymitragynine (100),Alphahydroxymidazolam (200), Alphahydrozyalprazolam(200), Alprazolam(50), Amitriptyline(50), Amphetamine(250), Atenolol(500),Benzoylecgonine(50), Buprenorphine(100), Bupropion(25),Caffeine(58039),Chlordiazepoxide(50), Chlorpheniramine(100), Chlorpromazine(50), Citalopram(100), Clonazepam(200), Cocaine(25),Codeine(200), Cotinine(500),Desipramine(50), Desmethyldoxepin(100), Dextromethorphan(100), Diazepam(100), Dihydrocodeine(100), Diltazem(50), Diphenhydramine(100),Doxepin(100),EDDP/methadone(100), Ephedrine/Pseudoephedrine(100),Fentanyl(25),Flunitrazepam(100) ,Fluoxetine(200), Flurazepam(50),Gabapentin(1500), Haloperidol(25), Hydrocodone(100), Hydromorphone(200), Imipramine(50), Ketamine(25), Lidocaine(25),Lorazepam(100), Lysergide(LSD)(25),Maprotiline(200), MDA(250), MDMA(250), Meperidine(50),Midazolam (200),Methadone(50), Methamphetamine(500), Methylphenidate(50), Metoprolol(50), Morphine(200),Nalbuphine(50), Naloxone(200), Norbuprenorphine(300), Nordiazepam(100), Norfentanyl(50),Noroxycodone (100), Norpropoxyphene(50), Nortriptyline(50), Olanzapine(200),Oxazepam(200),Oxycodone(100),Oxymorphone(200), Phencyclidine(PCP)(25), Pheniramine(25), Pregabalin(1500), Promethazine(50), Propoxyphene(100), Propanolol(50), Quetiapine(25), Quinidine(500), Ranitidine(500), Risperidone(100), Sertraline(50),Temazepam(100), Thioridazine(100), Tramadol(50), Trazodone(25), Triazolam(100), Trifluoperazine (100),Venlafaxine(50), Verapamil(100), Zolpidem(200) Performed By: #### U DRG #### [facility] (DEFAULT) [address] [place] [address] Drugs Detected Urine Tox Negative Normal Negative [facility] Comment on above: Order Comment: For M edical Purposes Only. Nonforensic screen results are considered presumptive and no confirmatory testing will follow. Drugs are detected by immunoassay or Liquid Chromatography Mass Spectrometry (LC-MS/MS). The LC-MS/MS test was developed and its performance characteristics determined by the Toxicology Laboratory at [facility]. It has not been cleared or approved by the FDA. The laboratory is regulated under CLIA as qualified to perform high-complexity testing. This test is used for clinical purposes and should not be regarded as investigational or for research. The following drugs with their lowest level of detection in ng/ml(LOD) are included in this screen: 6 Monoacetylmorphine(300), 7 Aminoflunitrazepam(25), 7 Aminoclonazepam(50),7 hydroxymitragynine (100),Alphahydroxymidazolam (200), Alphahydrozyalprazolam(200), Alprazolam(50), Amitriptyline(50), Amphetamine(250), Atenolol(500),Benzoylecgonine(50), Buprenorphine(100), Bupropion(25),Caffeine(24079),Chlordiazepoxide(50), Chlorpheniramine(100), Chlorpromazine(50), Citalopram(100), Clonazepam(200), Cocaine(25),Codeine(200), Cotinine(500),Desipramine(50), Desmethyldoxepin(100), Dextromethorphan(100), Diazepam(100), Dihydrocodeine(100), Diltazem(50), Diphenhydramine(100),Doxepin(100),EDDP/methadone(100), Ephedrine/Pseudoephedrine(100),Fentanyl(25),Flunitrazepam(100) ,Fluoxetine(200), Flurazepam(50),Gabapentin(1500), Haloperidol(25), Hydrocodone(100), Hydromorphone(200), Imipramine(50), Ketamine(25), Lidocaine(25),Lorazepam(100), Lysergide(LSD)(25),Maprotiline(200), MDA(250), MDMA(250), Meperidine(50),Midazolam (200),Methadone(50), Methamphetamine(500), Methylphenidate(50), Metoprolol(50), Morphine(200),Nalbuphine(50), Naloxone(200), Norbuprenorphine(300), Nordiazepam(100), Norfentanyl(50),Noroxycodone (100), Norpropoxyphene(50), Nortriptyline(50), Olanzapine(200),Oxazepam(200),Oxycodone(100),Oxymorphone(200), Phencyclidine(PCP)(25), Pheniramine(25), Pregabalin(1500), Promethazine(50), Propoxyphene(100), Propanolol(50), Quetiapine(25), Quinidine(500), Ranitidine(500), Risperidone(100), Sertraline(50),Temazepam(100), Thioridazine(100), Tramadol(50), Trazodone(25), Triazolam(100), Trifluoperazine (100),Venlafaxine(50), Verapamil(100), Zolpidem(200) Performed By: #### U DRG #### [facility] (DEFAULT) [address] [place] [address] URINE DIPSTICK; REFLEX MICRO SCOPY; REFLEX CULTURE PERFORMABLEon 11-27-2021 Appearance (U) Clear Normal Clear [facility] Comment on above: Performed By: #### L [id number] #### [facility] (DEFAULT) [address] [address] Blood Urine Small Abnormal Negative [facility] Comment on above: Performed By: #### L [id number] #### [facility] (DEFAULT) [address] [address] Color (U) Yellow Normal Yellow [facility] Comment on above: Performed By: #### L [id number] #### [facility] (DEFAULT) [address] [address] Glucose Ql (U) Negative Normal Negative [facility] Comment on above: Performed By: #### L [id number] #### [facility] (DEFAULT) [address] [address] Ketones Ql (U) Negative Normal Negative [facility] Comment on above: Performed By: #### L [id number] #### U [facility] (DEFAULT) [address] [address] Leukocyte esterase Test strip Ql (U) Negative Normal Negative [facility] Comment on above: Performed By: #### L [id number] #### U [facility] (DEFAULT) [address] [place] [address] Nitrites Urine Negative Normal Negative [facility] Comment on above: Performed By: #### L [id number] #### [facility] (DEFAULT) [address] [place] [address] pH (U) 8.0 [pH] Abnormal 5.0-7.0 [facility] Comment on above: Performed By: #### L [id number] #### [facility] (DEFAULT) [address] [place] [address] Protein Urine Negative Normal Negative [facility] Comment on above: Performed By: #### L [id number] #### [facility] (DEFAULT) [address] [place] [address] Specific [place] Urine 1.010 Normal 1.001-1.035 [facility] Comment on above: Performed By: #### L [id number] #### [facility] (DEFAULT) [address] [place] [address] Urobilinogen Urine 0.2 E.U./dL Normal 0.2 E.U/d L, 1.0 E.U/dL [facility] Comment on above: Performed By: #### L [id number] #### [facility] (DEFAULT) [address] [place] [address] Appearance (U) Clear Clear [facility] Color (U) Yellow Yellow [facility] Glucose Test strip (U) [Mass/Vol] Negative Negative [facility] Interpretation and review of laboratory results [facility] Ketones (U) [Mass/Vol] Negative Negative [facility] Leukocyte esterase Test strip Ql (U) Negative Negative [facility] Nitrite Ql (U) Negative [facility] pH (U) 8.0 [pH] Abnormal 5.0 - 7.0 [facility] Protein (U) [Mass/Vol] Negative Negative [facility] RBC (U) [#/Vol] Small Abnormal [facility] Specific gravity (U) [Rel density] 1.010 [facility] Urobilinogen (U) [Mass/Vol] 0.2 E.U./dL 0.2 E.U/dL, 1.0 E.U/dL [facility] URINE MICROSCOPIC WITH REFLE X TO CULTUREon 11-27-2021 Bacteria ABSENT Normal ABSENT [facility] Comment on above: Performed By: #### L [id number] #### [facility] (DEFAULT) [address] [place] [address] RBC Urine 0-2 Normal 0-2 [facility] Comment on above: Performed By: #### L [id number] #### [facility] (DEFAULT) [address] [place] [address] Squamous/Epithelial Cells 1/hpf = 1+ Normal 1/hpf = 1+, 2-5/hpf = 2+, 0/hpf = 0+, ABSENT [facility] Comment on above: Performed By: #### L [id number] #### [facility] (DEFAULT) [address] [place] [address] WBC Urine 0-5 Normal 0-5 [facility] Comment on above: Performed By: #### L [id number] #### [facility] (DEFAULT) [address] [place] [address] Bacteria LM Ql (Urine sed) ABSENT ABSENT [facility] Interpretation and review of laboratory results Normal [facility] RBC LM.HPF (Urine sed) [#/Area] 0-2 0 - 2 /HPF [facility] Squamous/Epithelial Cells 1/hpf = 1+ 1/hpf = 1+, 2-5/hpf = 2+, 0/hpf = 0+, ABSENT [facility] WBC LM.HPF (Urine sed) [#/Area] 0-5 0 - 5 /HPF [facility] Urinalysis with Microscopico n 11-27-2021 Bacteria, UA FEW NEGATIVE /HPF [facility] Bil[facility] Urine Negative NEGATIVE MG/DL [place] [facility] Blood, Urine SMALL NEGATIVE [facility] Cast Type Negative Abnormal NO CAST FORMS SEEN /HPF [facility] Clarity, UA SL HAZY CLEAR [facility] Color, UA YELLOW YELLOW [facility] Crystal Type Negative NEGATIVE /HPF [facility] Epithelial Cells, UA RARE /HPF [facility] Glucose Ql (U) Negative NEGATIVE MG/DL [facility] Interpretation and review of laboratory results Abnormal [facility] Ketones Ql (U) Negative NEGATIVE MG/DL [facility] Leukocyte esterase Test strip Ql (U) Negative NEGATIVE [facility] Nitrite Urine, Quantitative Negative NEGATIVE [facility] pH (U) 7.0 [pH] [facility] Protein, UA Negative NEGATIVE MG/DL [facility] RBC (U) [#/Vol] Negative [facility] Specific [place], UA 1.015 [facility] Urobilinogen, Urine 0.2 [facility] WBC, UA Negative [facility] Urine Drug Screenon 11-28-19 22 Amphetamines Negative NEGATIVE [facility] Barbiturate Screen, Ur Negative NEGATIVE [facility] Benzodiazepine Screen, Urine Negative NEGATIVE [facility] Cannabinoid Scrn, Ur Negative NEGATIVE [facility] Cocaine Metabolite Negative NEGATIVE [facility] Opiates, Urine Negative NEGATIVE [facility] th Oxycodone Negative NEGATIVE [facility] Comment on above: THRESHOLD CONCENTRATIONS (mg/dL) AMPHT 1000 PADMA,OPIA 300 BZO,BAR 200 PCP 25 THC 50 OXY 100 * UNCONFIRMED POSITIVES MAY NOT MEET FORENSIC REQUIREMENTS. Phencyclidine, Urine Negative NEGATIVE [facility] FACTOR IX ACTIVITYOrdered By : Swati Butler on 11-23-2021 Coagulation factor IX activity actual/normal Coag (PPP) [Relative time] 32 Low [facility] Interpretation and review of laboratory results Abnormal [facility] CBC AND ELECTRONIC DIFFon Basophils (Bld) [#/Vol] 0.04 10*3/uL Normal 0.00-0.15 [facility] Comment on above: Performed By: #### L [id number] #### [facility] (DEFAULT) [address] [address] Basophils/100 WBC (Bld) 1.2 % Normal [facility] Comment on above: Performed By: #### L [id number] #### [facility] (DEFAULT) [address] [place] [address] DIFF STATUS Electronic Differential Normal [facility] Comment on above: Performed By: #### L [id number] #### U [facility] (DEFAULT) [address] [place] [address] 8[address]10 Eosinophils (Bld) [#/Vol] 0.14 10*3/uL Normal 0.00-0.42 [facility] Comment on above: Performed By: #### L [id number] #### [facility] (DEFAULT) [address] [place] [address] 75549 Eosinophils/100 WBC (Bld) 4.1 % Normal [facility] Comment on above: Performed By: #### L [id number] #### [facility] (DEFAULT) [address] [place] [address] 13194 Hematocrit (Bld) [Volume fraction] 42.0 % Normal 34.9-44.3 [facility] Comment on above: Performed By: #### L [id number] #### [facility] (DEFAULT) [address] [place] [address] 65493 Hemoglobin (Bld) [Mass/Vol] 13.7 g/dL Normal 11.4-15.2 [facility] Comment on above: Performed By: #### L [id number] #### [facility] (DEFAULT) [address] [place] [address] 75717 Immature Grans % 0.3 % Normal [facility] Comment on above: Performed By: #### L [id number] #### [facility] (DEFAULT) [address] [place] [address] 39538 Immature Grans Absolute <0.04 Normal <=0.09 [facility] Comment on above: Performed By: #### L [id number] #### [facility] (DEFAULT) [address] [place] [address] 44781 Lymphocytes (Bld) [#/Vol] 1.20 10*3/uL Normal 1.16-3.51 [facility] Comment on above: Performed By: #### L [id number] #### [facility] (DEFAULT) [address] [place] [address] 12602 Lymphocytes/100 WBC (Bld) 35.5 % Normal [facility] Comment on above: Performed By: #### L [id number] #### [facility] (DEFAULT) [address] [place] [address] 11610 MCV (RBC) [Entitic vol] 89.6 fL Normal 79.6-97.7 [facility] Comment on above: Performed By: #### L [id number] #### [facility] (DEFAULT) [address] [place] [address] 86813 Mean Cell Hgb 29.2 pg Normal 25.9-33.9 [facility] Comment on above: Performed By: #### L [id number] #### [facility] (DEFAULT) [address] [place] [address] 92882 Mean Cell Hgb Conc 32.6 g/dL Normal 31.4-35.9 [facility] Comment on above: Performed By: #### L [id number] #### [facility] (DEFAULT) [address] [place] [address] 98203 Monocytes (Bld) [#/Vol] 0.35 10*3/uL Normal 0.22-0.87 [facility] Comment on above: Performed By: #### L [id number] #### [facility] (DEFAULT) [address] [place] [address] 19572 Monocytes/100 WBC (Bld) 10.4 % Normal [facility] Comment on above: Performed By: #### L [id number] #### [facility] (DEFAULT) [address] [address] Nucleated RBC 0.0 /100 WBC Normal <=0.2 [facility] Comment on above: Performed By: #### L [id number] #### [facility] (DEFAULT) [address] [place] [address] 33405 Platelet mean volume (Bld) [Entitic vol] 9.7 fL Normal 8.5-12.2 [facility] Comment on above: Performed By: #### L [id number] #### [facility] (DEFAULT) [address] [place] [address] 53464 Platelets (Bld) [#/Vol] 314 10*3/uL Normal 150-393 [facility] Comment on above: Performed By: #### L [id number] #### [facility] (DEFAULT) [address] [place] [address] 95928 RBC (Bld) [#/Vol] 4.69 10*6/uL Normal 3.91-5.04 [facility] Comment on above: Performed By: #### L [id number] #### [facility] (DEFAULT) [address] [place] [address] 32330 RBC Distribution 13.4 % Normal 10.8-14.9 [facility] Comment on above: Performed By: #### L [id number] #### U [facility] (DEFAULT) [address] [place] [address] 48965 Segs + Bands Auto 48.5 % Normal [facility] Comment on above: Performed By: #### L [id number] #### [facility] (DEFAULT) [address] [place] [address] 42237 Segs + Bands,Absolute Auto 1.64 K/uL Normal 1.64-7.28 [facility] Comment on above: Performed By: #### L [id number] #### U [facility] (DEFAULT) [address] [place] [address] 52204 WBC (Bld) [#/Vol] 3.38 10*3/uL Low 3.99-11.19 [facility] Comment on above: Performed By: #### L [id number] #### [facility] (DEFAULT) [address] [place] [address] 74020 Basophils (Bld) [#/Vol] 0.04 10*3/uL 0.00 - 0.15 K/uL [facility] Basophils/100 WBC (Bld) 1.2 % O [facility] DIFF STATUS Electronic Differential [facility] Eosinophils (Bld) [#/Vol] 0.14 10*3/uL 0.00 - 0.42 K/uL [facility] Eosinophils/100 WBC (Bld) 4.1 % [facility] Erythrocyte distribution width (RBC) [Ratio] 13.4 % 10.8 - 14.9 % [facility] Hematocrit (Bld) [Volume fraction] 42.0 % 34.9 - 44.3 % [facility] Hemoglobin (Bld) [Mass/Vol] 13.7 g/dL 11.4 - 15.2 g/dL [facility] Immature granulocytes (Bld) [#/Vol] 10*3/uL <=0.09 K/uL [facility] Immature granulocytes/100 WBC (Bld) 0.3 % [facility] Interpretation and review of laboratory results Abnormal [facility] Lymphocytes (Bld) [#/Vol] 1.20 10*3/uL 1.16 - 3.51 K/uL [facility] Lymphocytes/100 WBC (Bld) 35.5 % [facility] MCH (RBC) [Entitic mass] 29.2 pg 25.9 - 33.9 pg [facility] MCHC (RBC) [Mass/Vol] 32.6 g/dL 31.4 - 35.9 g/dL [facility] MCV (RBC) [Entitic vol] 89.6 fL 79.6 - 97.7 fL [facility] Monocytes (Bld) [#/Vol] 0.35 10*3/uL 0.22 - 0.87 K/uL [facility] Monocytes/100 WBC (Bld) 10.4 % [facility] Neutrophils (Bld) [#/Vol] 1.64 10*3/uL 1.64 - 7.28 K/uL [facility] Nucleated RBC/100 WBC (Bld) [Ratio] 0.0 % <=0.2 /100 WBC [facility] Platelet mean volume (Bld) [Entitic vol] 9.7 fL 8.5 - 12.2 fL [facility] Platelets (Bld) [#/Vol] 314 10*3/uL 150 - 393 K/uL [facility] RBC (Bld) [#/Vol] 4.69 10*6/uL [facility] Segmented neutrophils/100 WBC (Bld) 48.5 % [facility] WBC (Bld) [#/Vol] 3.38 10*3/uL Low 3.99 - 11. 19 K/uL [facility] CMPN WITHOUT GLUCOSEon 11-22 Albumin [Mass/Vol] 4.5 g/dL Normal 3.5-5.0 [facility] Comment on above: Performed By: #### L [id number] #### [facility] (DEFAULT) [address] [place] [address] 07881 ALP [Catalytic activity/Vol] 38 U/L Normal 32-126 [facility] Comment on above: Performed By: #### L [id number] #### [facility] (DEFAULT) [address] [place] [address] 48628 ALT [Catalytic activity/Vol] 10 U/L Normal 9-48 [facility] Comment on above: Performed By: #### L [id number] #### [facility] (DEFAULT) [address] [place] [address] 44725 Anion gap [Moles/Vol] 9 mmol/L Normal 7-17 [facility] Comment on above: Performed By: #### L [id number] #### [facility] (DEFAULT) [address] [place] [address] 28485 AST [Catalytic activity/Vol] 12 U/L Normal 10-39 [facility] Comment on above: Performed By: #### L [id number] #### [facility] (DEFAULT) [address] [place] [address] 61162 Bilirubin [Mass/Vol] 0.9 mg/dL Normal <1.5 [facility] Comment on above: Performed By: #### L [id number] #### U [facility] (DEFAULT) [address] [place] [address] 98296 Calcium [Mass/Vol] 9.7 mg/dL Normal 8.6-10.5 [facility] Comment on above: Performed By: #### L [id number] #### U [facility] (DEFAULT) [address] [place] [address] 54122 Chloride [Moles/Vol] 106 mmol/L Normal 98-108 [facility] Comment on above: Performed By: #### L [id number] #### U [facility] (DEFAULT) [address] [place] [address] 45350 CO2 [Moles/Vol] 28 mmol/L Normal 21-31 [facility] Comment on above: Performed By: #### L [id number] #### U [facility] (DEFAULT) [address] [place] [address] 58536 Creatinine [Mass/Vol] 0.75 mg/dL Normal 0.50-1.20 [facility] Comment on above: Performed By: #### L [id number] #### U [facility] (DEFAULT) [address] [place] [address] 96503 eGFR, CKD-EPI, Female >90 Normal >=60 [facility] Comment on above: Result Comment: Repo rted eGFR is based on the CKD-EPI 1 equation using creatinine, age, and sex. Performed By: #### L [id number] #### U [facility] (DEFAULT) [address] [place] [address] 05630 Potassium [Moles/Vol] 4.3 mmol/L Normal 3.5-5.0 [facility] Comment on above: Performed By: #### L [id number] #### U [facility] (DEFAULT) [address] [place] [address] 58069 Protein [Mass/Vol] 7.0 g/dL Normal 6.4-8.3 [facility] Comment on above: Performed By: #### L [id number] #### U [facility] (DEFAULT) [address] [place] [address] 32115 Sodium [Moles/Vol] 139 mmol/L Normal 135-145 [facility] Comment on above: Performed By: #### L [id number] #### U [facility] (DEFAULT) [address] [place] [address] 49883 Urea nitrogen [Mass/Vol] 14 mg/dL Normal 7-25 [facility] Comment on above: Performed By: #### L [id number] #### U [facility] (DEFAULT) [address] [place] [address] 72824 Urea nitrogen/Creatinine [Mass ratio] 19 mg/mg Normal [facility] Comment on above: Performed By: #### L [id number] #### [facility] (DEFAULT) [address] [place] [address] 99968 Albumin [Mass/Vol] 4.5 g/dL 3.5 - 5.0 g/dL [facility] ALP [Catalytic activity/Vol] 38 U/L 32 - 126 U/L [facility] ALT [Catalytic activity/Vol] 10 U/L 9 - 48 U/L [facility] Anion gap [Moles/Vol] 9 mmol/L 7 - 17 mmol/L [facility] AST [Catalytic activity/Vol] 12 U/L 10 - 39 U/L [facility] Bilirubin [Mass/Vol] 0.9 mg/dL <1.5 [facility] Calcium [Mass/Vol] 9.7 mg/dL 8.6 - 10. 5 mg/dL [facility] Chloride [Moles/Vol] 106 mmol/L 98 - 10 8 mmol/L [facility] CO2 [Moles/Vol] 28 mmol/L 21 - 31 mmol/L [facility] Creatinine [Mass/Vol] 0.75 mg/dL 0.50 - 1.20 mg/dL [facility] GFR/1.73 sq M.predicted CKD-EPI (S/P/Bld) [Vol rate/Area] >90 >=60 mL/min/1.73m2 [facility] Comment on above: Reported eGFR is bas ed on the CKD-EPI 2020 equation using creatinine, age, and sex. Potassium [Moles/Vol] 4.3 mmol/L 3.5 - 5.0 mmol/L [facility] Protein [Mass/Vol] 7.0 g/dL 6.4 - 8.3 g/dL [facility] Sodium [Moles/Vol] 139 mmol/L 135 - 145 mmol/L [facility] Urea nitrogen [Mass/Vol] 14 mg/dL 7 - 25 mg/dL [facility] Urea nitrogen/Creatinine [Mass ratio] 19 mg/mg [facility] FACTOR IX ACTIVITYon 022 Factor IX 32 % Activity Low 77-147 [facility] Comment on above: Performed By: #### F A9 #### [facility] (DEFAULT) [address] [address] FERRITINon 11-22-2021 Ferritin [Mass/Vol] 10.8 ng/mL 10.0 - 2 91.0 ng/mL [facility] Interpretation and review of laboratory results Normal [facility] Ferritin [Mass/Vol] 10.8 ng/mL Normal 10.0-291.0 [facility] Comment on above: Performed By: #### L [id number] #### [facility] (DEFAULT) [address] [address] PTTon 11-22-2021 aPTT Coag (Bld) [Time] 34.7 s High 24.0-34.3 [facility] Comment on above: Performed By: #### P TT #### [facility] (DEFAULT) [address] [address] aPTT Coag (PPP) [Time] 34.[address] [facility] Interpretation and review of laboratory results Abnormal [facility] CNOVon 03-29-2021 CNOV Office Visit (OBGYWM ) SUSANA MURO ([id number]) 1990 F Date Time Provider Department 03/29/21 2:00 PM SUSANA IRELAND OBHELENWRaul During your visit today, we recorded the following information about you: Blood pressure Weight Height Last Period 112/ 73.9 kg 1.664 m 03/06/21 Susana Ireland APRN.NUCLEAR WASTE MANAGEMENT ENGINEER 03/29/2021 2:44 PM Signed Lucila is a 30 year old who presents for an annual gynecologic exam with complaints, bump to right vagina. Noticed bump a week ago and thinks it is mostly resolved. Getting in 2 months. Menses: cycles every 28-30 days and 7 days of flow. Hemophilia B. Contraception: none HPV vaccine: No Last Pap: 11/14/2016 normal HPV: N/A History of abnormal pap: No History of ovarian cyst: Yes Last mammogram: never Sexually active: never OB History T0 L0 SAB0 TAB0 Ectopic0 Multiple0 Live Births0 PAST MEDICAL HISTORY Diagnosis Date - Family history of hemophilia B 2 Brothers - Femur fracture (HCC) - Hemophilia B (HCC) PAST SURGICAL HISTORY Procedure Laterality Date - CHG FEMORAL LENGTH FRACTURE OR EQUAL Rods placed and Removed from left leg - COLONOSCOP W/ OR W/O [facility] SPEC Colonoscopy - COLONOSCOP W/ OR W/O [facility] SPEC 09/28/2016 Colonoscopy - PAST SURGICAL HISTORY OF Trigger Thumb Release Surgery FAMILY HISTORY Problem Relation Age of Onset - Cancer Mother Liver and Heart - Seizures Brother - other (Hemophilia B) Brother - Cancer Maternal Grandmother Colon, Breast, and Skin - Stroke Maternal Grandmother - Diabetes Maternal Grandmother - Hypertension Maternal Grandmother - Hypertension Maternal Grandfather - other (Hemophilia B) Maternal Grandfather - Hypertension Paternal Grandmother - Heart Paternal Grandmother - Stroke Paternal Grandmother - Diabetes Paternal Grandfather - Heart Failure Paternal Grandfather - other (Dementia) Paternal Grandfather - other (Hemophilia B) Brother SOCIAL HISTORY Social History Tobacco Use - Smoking status: Never Smoker - Smokeless tobacco: Never Used Substance Use Topics - Alcohol use: No - Drug use: No REVIEW OF SYSTEMS Abdomen: No abdominal pain, nausea, vomiting, diarrhea, or constipation. No bloating, early satiety, indigestion, or increased flatulence. Bladder: No dysuria, gross hematuria, urinary frequency, urinary urgency, or incontinence. Breast: No breast lumps, nipple d/c, overlying skin changes, redness or skin retraction. Breast tenderness premenstrual. Allergies and current medication updated:Yes EXAM: BP 112/70 Ht 5' 5.5 (1.66m) Wt 163 lb (73.9kg) LMP 03/06/2021 BMI 26.70 kg/(m2). GENERAL: pleasant, female in no apparent distress HEENT: Normocephalic, atraumatic, mucus membranes moist and no lesions NECK: Supple, full range of motion, no adenopathy and thyroid normal DERMATOLOGY: Normal, without lesions, non-icteric and non-hirsute BREAST: soft, non-tender, symmetric, no dominant mass, normal nipple-areolar complex, no lymphadenopathy and no nipple discharge CHEST: Normal inspiratory effort ABDOMEN: soft, non-tender and no masses PELVIC: external genitalia normal, normal Bartholin's glands, urethra, [place]'s glands, no vulvar lesions, no cervical lesions, good vaginal support, physiologic discharge present, normal appearing perineal body and perianal region BIMANUAL: uterus normal size, shape and consistency, no adnexal masses and non-tender RECTOVAGINAL: deferred. NEURO: alert and oriented x3,exam grossly non-focal EXTREMITIES: normal ASSESSMENT/PLAN: 1) Health maintenance: Pap done with reflex HPV. No vaginal bump noted on exam. Nutrition, exercise and routine health maintenance exams reviewed. HPV vaccine: no 2) Contraception: none. Contraceptive options reviewed and information provided. Plans to use condoms. Given information on VCF strips in additions to condoms. 3) STD screening: Declined STD check. 4) Follow up one year or sooner as needed Susana Ireland APRN.JERSON Glez 2021 10:28 AM Signed Normal pap letter sent Referring Provider: SELF [200] Allergies As of Date: 03/29/2021 (No Known Allergies) Date Reviewed: 03/29/2021 Reviewed by: Susana Ireland APRN.JERSON - Fully Assessed Reason for Visit: Well Woman [1463] Primary Visit Diagnosis:Encounter for gynecological examination (general) (routine) without abnormal findings [Z01.419] Other Visit Diagnoses:Screening for cervical cancer [Z12.4] Special screening examination for human papillomavirus (HPV) [Z11.51] Order(s):PAP FLUID CERVICAL SCREENING [5612289] Order #: [id number]. #:[id number] Prescriptions as of 2021 - acetaminophen (TYLENOL) 325 mg tablet Take 650 mg by mouth every 6 hours as needed. Problem List As Of Date 03/29/2021 Noted Resolved Chronic abdominal pain [R1 (more content not included)... Normal [facility] CYTOLOGYon 03-29-2021 CYTOLOGY Specimen originated from [facility] Specimen #: [id number] Submitting Physician: SUSANA IRELAND CNP SPECIMEN SUBMITTED A: CERVICAL, SCREENING, FLUID ____ FINAL DIAGNOSIS A. CERVICAL, SCREENING, FLUID Satisfactory for interpretation. Negative for intraepithelial lesion or malignancy. This specimen has been analyzed by the ThinPrep Imaging System, an automated imaging and review system, which assists the laboratory in evaluating cells on ThinPrep Pap tests. Following automated imaging, selected wells from every slide are reviewed by a engineer steam. BOOKER Chow(ASCP) (Electronic Signature) ____ CLINICAL DATA ROUTINE EXAM, HPV Testing: Yes, Reflex HPV for ASCUS Date of Last Menstrual Period: 03/06/2021 STAINS A: CERVICAL, SCREENING, FLUID THIN PREP DECORATIVE ENGRAVER Jose Gonzaelz M.D., Foreign Service Officer Date of Report: 2021 Date of Procedure: 03/29/2021 Date of Receipt: 03/30/2021 Submitted by: SUSANA IRELAND CNP Location: [facility] Diagnostic interpretation performed at [facility], [address] [place] [address]. CLIA Number: [id number] The Pap Smear is a screening test for cervical cancer. False negative results occur with all screening tests, emphasizing the need for rescreening at recommended intervals, and clinical correlation. Normal [facility] FREE T3 MHUCon 01-28-2020 FREE T3 MHUC 3.37 pg/mL Normal 2.32-6.09 [facility] Comment on above: Performed By: #### T 3FRE #### [address] [address] T4 FREE MHUCon 01-28-2020 T4 FREE MHUC 0.93 ng/dL Normal 0.78-2.19 [facility] Comment on above: Performed By: #### T 4FRE #### [address] [address] Vital Signs Date Time Vital Sign Value Performing Clinician Facility 02-13-2025 14:43-0400 Body height 165.1 cm Ananda Foley MD Work Phone: [facility] 02-13-2025 14:43-0400 Body mass index (BMI) [Ratio] 33.6 kg/m2 Ananda Foley MD Work Phone: [facility] 02-13-2025 14:43-0400 Body weight 91.79 kg Ananda Foley MD Work Phone: [facility] 02-13-2025 14:43-0400 Diastolic blood pressure 69 mm[Hg] Ananda Foley MD Work Phone: [facility] 02-13-2025 14:43-0400 Systolic blood pressure 111 mm[Hg] Ananda Foley MD Work Phone: [facility] 10-23-2024 04:00-0400 Body temperature 98.6 [degF] Shilpi Benavides MD Work Phone: [facility] 10-23-2024 04:00-0400 Diastolic blood pressure 69 mm[Hg] Shilpi Benavides MD Work Phone: [facility] 10-23-2024 04:00-0400 Heart rate 65 /min Shilpi Benavides MD Work Phone: [facility] 10-23-2024 04:00-0400 Respiratory rate 18 /min Shilpi Benavides MD Work Phone: [facility] 10-23-2024 04:00-0400 SaO2% (BldA) [Mass fraction] 96 % Shilpi Benavides MD Work Phone: [facility] 10-23-2024 04:00-0400 Systolic blood pressure 109 mm[Hg] Shilpi Benavides MD Work Phone: [facility] 10-22-2024 08:39-0400 Body height 165.1 cm Shilpi Benavides MD Work Phone: [facility] 10-22-2024 08:39-0400 Body mass index (BMI) [Ratio] 33.79 kg/m2 Shilpi Benavides MD Work Phone: [facility] 10-22-2024 08:39-0400 Body weight 92.1 kg Shilpi Benavides MD Work Phone: [facility] 10-15-2024 10:13-0400 Body height 166.3 cm Kalani Cao MD Work Phone: [facility] 10-15-2024 10:13-0400 Body mass index (BMI) [Ratio] 32.87 kg/m2 Kalani Cao MD Work Phone: [facility] 10-15-2024 10:13-0400 Body temperature 97.2 [degF] Kalain Cao MD Work Phone: [facility] 10-15-2024 10:13-0400 Body weight 90.9 kg Kalani Cao MD Work Phone: [facility] 10-15-2024 10:13-0400 Diastolic blood pressure 71 mm[Hg] Kalani Cao MD Work Phone: [facility] 10-15-2024 10:130400 Heart rate 75 /min Kalani Cao MD Work Phone: [facility] 10-15-2024 10:13-0400 SaO2% (BldA) [Mass fraction] 99 % Kalani Cao MD Work Phone: [facility] 10-15-2024 10:130400 Systolic blood pressure 109 mm[Hg] Kalani Cao MD Work Phone: [facility] 10-02-2024 11:45-0500 Body mass index (BMI) [Ratio] 33.75 kg/m2 Shilpi Benavides MD Work Phone: [facility] 10-02-2024 11:45-0500 Body temperature 97.5 [degF] Shilpi Benavides MD Work Phone: [facility] 10-02-2024 11:45-0500 Body weight 92.99 kg Shilpi Benavides MD Work Phone: [facility] 10-02-2024 11:45-0500 Diastolic blood pressure 76 mm[Hg] Shilpi Benavides MD Work Phone: [facility] 10-02-2024 11:45-0500 Heart rate 73 /min Sihlpi Benavides MD Work Phone: [facility] 10-02-2024 11:45-0500 Systolic blood pressure 113 mm[Hg] Shilpi Benavides MD Work Phone: [facility] 04-04-2023 09:27-0400 Body height 165.[address] Lili Rodriguez Work Phone: [facility] 04-04-2023 09:26-0400 Body mass index (BMI) [Ratio] 35 kg/m2 Dr. Lili Rodriguez Work Phone: [facility] 04-04-2023 09:26-0400 Body weight 95.[address] Lili Rodriguez Work Phone: [facility] 04-04-2023 09:26-0400 Diastolic blood pressure 70 mm[Hg] Dr. Lili Rodriguez Work Phone: [facility] 04-04-2023 09:26-0400 Systolic blood pressure 108 mm[Hg] Dr. Lili Rodriguez Work Phone: [facility] 03-27-2023 13:09-0400 Body height 165.1 cm Shekhar Lynn Work Phone: [id number] Work Phone: 03-27-2023 13:09-0400 Body mass index (BMI) [Ratio] 34.79 kg/m2 Shekhar Lynn Work Phone: [id number] [address] Work Phone: 03-27-2023 13:09-0400 Body surface area Derived from formula 2.02 m2 Shekhar Lynn Work Phone: [id number] [address] Work Phone: 03-27-2023 13:09-0400 Body weight 94.83 kg Shekhar Lynn Work Phone: [id number] [address] Work Phone: 03-27-2023 13:09-0400 Diastolic blood pressure 81 mm[Hg] Shekhar Lynn Work Phone: MI-XVZMF-Yaaqmf 320 Work Phone: 03-27-2023 13:09-0400 Heart rate 93 /min Shekhar Lynn Work Phone: QE-ZJDFB-Olqhvz 320 Work Phone: 03-27-2023 13:09-0400 Systolic blood pressure 123 mm[Hg] Shekhar Lynn Work Phone: VA-COEIY-Vbzmdn 320 Work Phone: 03-27-2023 13:09-0400 0 1 Shekhar Lynn Work Phone: VT-DYUQB-Kwwtzh 320 Work Phone: Comment on above: [employer] 03-22-2023 11:06-0400 Body mass index (BMI) [Ratio] 34.8 kg/m2 Dr. Lili Rodriguez Work Phone: [facility] 03-22-2023 11:06-0400 Body weight 95.[address] Lili Rodriguez Work Phone: [facility] 03-22-2023 11:06-0400 Diastolic blood pressure 60 mm[Hg] Dr. Lili Rodriguez Work Phone: [facility] 03-22-2023 11:06-0400 Respiratory rate 17 /min Dr. Lili Rodriguez Work Phone: [facility] 03-22-2023 11:06-0400 Systolic blood pressure 128 mm[Hg] Dr. Lili Rodriguez Work Phone: [facility] 03-07-2023 08:42-0400 Body height 165.[address] Lili Rodriguez Work Phone: [facility] 03-07-2023 08:28-0400 Body mass index (BMI) [Ratio] 34.2 kg/m2 Dr. Lili Rodriguez Work Phone: [facility] 03-07-2023 08:28-0400 Body weight 93.[address] Lili Rodriguez Work Phone: [facility] 03-07-2023 08:28-0400 Diastolic blood pressure 70 mm[Hg] Dr. Llii Rodriguez Work Phone: [facility] 03-07-2023 08:28-0400 Systolic blood pressure 116 mm[Hg] Dr. Lili Rodriguez Work Phone: [facility] 02-16-2023 10:53-0400 Body mass index (BMI) [Ratio] 33.6 kg/m2 Dr. Lili Rodriguez Work Phone: [facility] 02-16-2023 10:53-0400 Body weight 91.[address] Lili Rodriguez Work Phone: [facility] 02-16-2023 10:53-0400 Diastolic blood pressure 72 mm[Hg] Dr. Lili Rodriguez Work Phone: [facility] 02-16-2023 10:53-0400 Systolic blood pressure 114 mm[Hg] Dr. Lili Rodriguez Work Phone: [facility] 01-19-2023 13:03-0400 Body mass index (BMI) [Ratio] 32.6 kg/m2 Dr. Lili Rodriguez Work Phone: [facility] 01-19-2023 13:03-0400 Body weight 88.[address] Lili Rodriguez Work Phone: [facility] 01-19-2023 13:03-0400 Diastolic blood pressure 67 mm[Hg] Dr. Lili Rodriguez Work Phone: [facility] 01-19-2023 13:03-0400 Systolic blood pressure 101 mm[Hg] Dr. Lili Rodriguez Work Phone: [facility] 01-15-2023 15:23-0400 Body height 165.1 cm Shekhar Lynn Work Phone: ZF-Zrtbfcyw-Ovhwic de 1500 Work Phone: 01-15-2023 15:23-0400 Body mass index (BMI) [Ratio] 32.62 kg/m2 Shekhar Lynn Work Phone: XB-Qktpshnc-Ldarhc de 1500 Work Phone: 01-15-2023 15:23-0400 Body surface area Derived from formula 1.96 m2 Shekhar Lynn Work Phone: XI-Pnfqbnwj-Obwkea de 1500 Work Phone: 01-15-2023 15:23-0400 Body weight 88.91 kg Shekhar Lynn Work Phone: SG-Yryzlvrx-Uoecnz de 1500 Work Phone: 01-15-2023 15:23-0400 Diastolic blood pressure 71 mm[Hg] Shekhar Lynn Work Phone: MI-Tzuxagju-Greibs de 1500 Work Phone: 01-15-2023 15:23-0400 Heart rate 82 /min Shekhar Lynn Work Phone: TP-Spounfyc-Dizohs de 1500 Work Phone: 01-15-2023 15:23-0400 Systolic blood pressure 113 mm[Hg] Shekhar Lynn Work Phone: QK-Zqbdkrly-Naywbz de 1500 Work Phone: 01-15-2023 15:23-0400 1 1 Shekhar Lynn Work Phone: JR-Nxesctmp-Ygfpcc de 1500 Work Phone: Comment on above: GRAV 01-15-2023 15:23-0400 0 1 Shekhar Lynn Work Phone: HN-Bnwagmck-Civwjr de 1500 Work Phone: Comment on above: PARA [facility] 12-18-2022 08:33-0400 Body mass index (BMI) [Ratio] 31.6 kg/m2 Dr. Lili Rodriguez Work Phone: [facility] 12-18-2022 08:33-0400 Body weight 86.[address] Lili Rodriguez Work Phone: [facility] 12-18-2022 08:33-0400 Diastolic blood pressure 70 mm[Hg] Dr. Lili Rodriguez Work Phone: [facility] 12-18-2022 08:33-0400 Systolic blood pressure 114 mm[Hg] Dr. Lili Rodriguez Work Phone: [facility] 11-20-2022 08:46-0400 Body height 165.[address] Lili Rodriguez Work Phone: [facility] 11-20-2022 08:46-0400 Body mass index (BMI) [Ratio] 31 kg/m2 Dr. Lili Rodriguez Work Phone: [facility] 11-20-2022 08:46-0400 Body weight 84.[address] Lili Rodriguez Work Phone: [facility] 11-20-2022 08:46-0400 Diastolic blood pressure 72 mm[Hg] Dr. Lili Rodriguez Work Phone: [facility] 11-20-2022 08:46-0400 Systolic blood pressure 114 mm[Hg] Dr. Lili Rodriguez Work Phone: [facility] 10-26-2022 14:14-0400 Body height 165.[address] Lili Rodriguez Work Phone: [facility] 10-26-2022 14:11-0400 Body mass index (BMI) [Ratio] 30.8 kg/m2 Dr. Lili Rodriguez Work Phone: [facility] 10-26-2022 14:11-0400 Body weight 84.[address] Lili Rodriguez Work Phone: [facility] 10-26-2022 14:11-0400 Diastolic blood pressure 73 mm[Hg] Dr. Lili Rodriguez Work Phone: [facility] 10-26-2022 14:11-0400 Systolic blood pressure 117 mm[Hg] Dr. Lili Rodriguez Work Phone: [facility] 11-28-2021 15:00-0400 Diastolic blood pressure 61 mm[Hg] Jarred Fountain MD Work Phone: [facility] 11-28-2021 15:00-0400 Heart rate 86 /min Jarred Fountain MD Work Phone: [facility] 11-28-2021 15:00-0400 Respiratory rate 20 /min Jarred Fountain MD Work Phone: [facility] 11-28-2021 15:00-0400 SaO2% (BldA) [Mass fraction] 100 % Jarred Fountain MD Work Phone: [facility] 11-28-2021 15:00-0400 Systolic blood pressure 104 mm[Hg] Jarred Fountain MD Work Phone: [facility] 11-28-2021 08:00-0400 Body temperature 98.01 [degF] Jarred Fountain MD Work Phone: [facility] 11-27-2021 13:15-0400 Body mass index (BMI) [Ratio] 29.72 kg/m2 Jarred Fountain MD Work Phone: [facility] 11-27-2021 13:15-0400 Body weight 81 kg Jarred Fountain MD Work Phone: [facility] 11-27-2021 12:00-0400 Diastolic blood pressure 76 mm[Hg] Lily Cronin MD Work Phone (unformatted): [employer] 11-27-2021 12:00-0400 Heart rate 65 /min [facility] Mehrdad DOOLEY Work Phone (unformatted): [employer] Comment on above: Last CF Vitals 11-27-2021 12:00-0400 Respiratory rate 17 /min nathaly Cronin MD Work Phone (unformatted): [employer] 11-27-2021 12:00-0400 SaO2% (BldA) [Mass fraction] 99 % [facility] Mehrdad DOOLEY Work Phone (unformatted): [employer] 11-27-2021 12:00-0400 Systolic blood pressure 119 mm[Hg] nathaly Cronin MD Work Phone (unformatted): [employer] 11-27-2021 11:20-0400 Diastolic blood pressure 78 mm[Hg] Marilu Carreon MD Work Phone: [facility] 11-27-2021 11:20-0400 Heart rate 68 /min Marilu Carreon MD Work Phone: [facility] 11-27-2021 11:20-0400 Respiratory rate 18 /min Marilu Carreon MD Work Phone: [facility] 11-27-2021 11:20-0400 SaO2% (BldA) [Mass fraction] 100 % Marilu Carreon MD Work Phone: [facility] 11-27-2021 11:20-0400 Systolic blood pressure 121 mm[Hg] Marilu Carreon MD Work Phone: [facility] 11-27-2021 09:35-0400 Body height 165.1 cm Marilu Carreon MD Work Phone: [facility] 11-27-2021 09:35-0400 Body mass index (BMI) [Ratio] 28.29 kg/m2 Marilu Carreon MD Work Phone: [facility] 11-27-2021 09:35-0400 Body temperature 98.49 [degF] Marilu Carreon MD Work Phone: [facility] 11-27-2021 09:35-0400 Body weight 77.11 kg Marilu Carreon MD Work Phone: [facility] 11-22-2021 10:06-0400 Body height 165.1 cm Aide Thakkar MD Work Phone: [facility] 11-22-2021 10:06-0400 Body mass index (BMI) [Ratio] 29.29 kg/m2 Aide Thakkar MD Work Phone: [facility] 11-22-2021 10:06-0400 Body temperature 98.4 [degF] Aide Thakkar MD Work Phone: [facility] 11-22-2021 10:06-0400 Body weight 79.83 kg Aide Thakkar MD Work Phone: [facility] 11-22-2021 10:06-0400 Diastolic blood pressure 66 mm[Hg] Aide Thakkar MD Work Phone: [facility] 11-22-2021 10:06-0400 Heart rate 69 /min Aide Thakkar MD Work Phone: [facility] 11-22-2021 10:06-0400 Respiratory rate 20 /min Aide Thakkar MD Work Phone: [facility] 11-22-2021 10:06-0400 SaO2% (BldA) [Mass fraction] 100 % Aide Thakkar MD Work Phone: [facility] 11-22-2021 10:06-0400 Systolic blood pressure 119 mm[Hg] Aide Thakkar MD Work Phone: [facility] 11-16-2021 13:42-0400 Body temperature 97.39 [degF] Jimmy Tadeo PA-C Work Phone: [facility] 11-16-2021 13:42-0400 Diastolic blood pressure 71 mm[Hg] Jimmy Tippie PA-C Work Phone: [facility] 11-16-2021 13:42-0400 Heart rate 90 /min Jimmy Tippie PA-C Work Phone: [facility] 11-16-2021 13:42-0400 Respiratory rate 18 /min Jimmy Tippie PA-C Work Phone: [facility] 11-16-2021 13:42-0400 SaO2% (BldA) [Mass fraction] 98 % Jimmy Tippie PA-C Work Phone: [facility] 11-16-2021 13:42-0400 Systolic blood pressure 121 mm[Hg] Jimmy Tippie PA-C Work Phone: [facility] Encounters Encounter Date Encounter Type Care Provider Facility Start: 02-13-2025 End: 02-13-2025 ambulatory Ananda Foley MD Work Phone: -Laboratory Specimen Start: 02-13-2025 End: 02-13-2025 Patient encounter procedure Debbie Jordan CN -Laboratory Specimen Work Phone: Start: 02-13-2025 End: 02-13-2025 Patient encounter procedure Debbie Jordan CN -[facility] Work Phone: Start: 02-13-2025 End: 02-13-2025 ambulatory Ananda Foley MD Work Phone: -[facility] Start: 02-13-2025 End: 02-13-2025 ambulatory Debbie Jordan Facility:[facility] Start: 11-06-2024 End: 11-06-2024 Postop follow up visit related to original px Shilpi Benavides MD Work Phone: [facility] Comment on above: Biliary dyskinesia ( Primary Dx) Start: 11-06-2024 End: 11-06-2024 ambulatory SHILPI BENAVIDES [facility] Ambulatory Start: 10-22-2024 End: 10-23-2024 Evaluation and management of inpatient Shilpi Benavides MD Work Phone: [facility] 4 Comment on above: Biliary dyskinesia ( Primary Dx); Hemophilia B (Multi) Start: 10-20-2024 ambulatory SHILPI BENAVIDES [facility] Start: 10-15-2024 End: 10-15-2024 ambulatory VIOLASTEPHENNEO ACOSTA [facility] Start: 10-15-2024 End: 10-15-2024 Office outpatient new 45 minutes Kalani Cao MD Work Phone: [facility] Comment on above: Hemophilia B (Multi) (Primary Dx); Iron deficiency anemia due to chronic blood loss; 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; Cholecystitis Start: 10-15-2024 End: 10-15-2024 ambulatory KALANI CAO [facility] Start: 10-02-2024 End: 10-02-2024 Office consultation new/estab patient 40 min Shilpi Benavides MD Work Phone: [facility] Comment on above: Biliary dyskinesia ( Primary Dx); Abnormal results of function studies of other organs and systems; Genetic carrier of other disease Start: 10-02-2024 End: 10-02-2024 ambulatory SHILPI BENAVIDES [facility] Ambulatory Start: 09-19-2024 End: 09-19-2024 ambulatory Chalon Og Facility:[facility] Start: 09-09-2024 End: 09-09-2024 ambulatory Chalon Og Facility:[facility] Start: 08-21-2024 End: 08-21-2024 ambulatory Chalon Og Facility:[facility] Start: 07-14-2024 End: 07-14-2024 ambulatory Radha Dean NP Facility:[facility] Start: 04-04-2023 End: 04-04-[address] Lili Rodriguez Work Phone: [facility] Work Phone: Start: 04-04-2023 End: 04-04-[address] Lili Rodriguez Work Phone: [facility]-Laboratory, Specimen Work Phone: Start: 04-04-2023 End: 04-04-[address] Lili Rodriguez Work Phone: [facility] Work Phone: Start: 03-27-2023 Office outpatient vi sit 25 minutes Shekhar Lynn Work Phone: DP-WWWJZ-Irubys 320 Work Phone: Start: 03-27-2023 Patient encounter procedure Shekhar Lynn Work Phone: MY-TDXTJ-Xobrkp 320 Work Phone: Start: 03-27-[address] Bandar Lynn Facility:[facility] Start: 03-27-[address] Bandar Lynn Facility:[facility] Start: 03-22-2023 End: 03-22-[address] Lili Rodriguez Work Phone: [facility] Work Phone: Start: 03-13-2023 End: 03-13-[address] Lili Rodriguez Work Phone: [facility] Work Phone: Start: 03-13-2023 End: 03-13-[address] Lili Rodriguez Work Phone: [facility]-Laboratory Work Phone: Start: 03-07-2023 End: 03-07-[address] Lili Rodriguez Work Phone: [facility] Work Phone: Start: 03-07-2023 End: 03-07-[address] Lili Rodriguez Work Phone: [facility] Work Phone: Start: 02-20-[address] Bandar Lynn Facility:[id number] Start: 02-16-2023 End: 02-16-[address] Lili Rodriguez Work Phone: [facility] Work Phone: Start: 01-26-[address] Bandar Lynn Facility:[id number] Start: 01-19-2023 End: 01-19-[address] Lili Rodriguez Work Phone: [facility] Work Phone: Start: 01-15-[address] Bandar Lynn Facility:[id number] Start: 12-18-2022 End: 12-18-[address] Lili Rodriguez Work Phone: [facility] Work Phone: Start: 11-28-[address] Bandar Lynn Facility:[facility] Start: 11-20-2022 End: 11-20-[address] Lili Rodriguez Work Phone: [facility] Work Phone: Start: 11-20-2022 End: 11-20-[address] Lili Rodriguez Work Phone: [facility] Start: 10-26-2022 End: 10-26-[address] Lili Rodriguez Work Phone: [facility] Work Phone: Start: 10-26-2022 End: 10-26-[address] Lili Rodriguez Work Phone: [facility]-Laboratory, Specimen Start: 10-26-2022 End: 10-26-[address] Lili Rodriguez Work Phone: [facility] Start: 05-15-2022 ambulatory JOSE Haile NANCYJOAQUIN Julio Césari ty:[facility] Start: 02-16-2022 ambulatory MARY MAE Facilit y:[facility] Start: 01-20-2022 ambulatory SELF SELF Facility:[facility] Start: 11-29-2021 End: 11-30-2021 Emergency department patient visit TAIWO Schultz ROCA Facility:[facility] Start: 11-27-2021 End: 11-28-2021 Emergency department patient visit RUPALI SON Facility:[facility] Start: 11-27-2021 End: 11-28-2021 Evaluation and management of inpatient Jarred Fountain MD Work Phone: [facility] Emergency Department Comment on above: Complicated migraine Start: 11-27-2021 End: 11-27-2021 Subsequent hospital visit by physician Lily Cronin MD Work Phone (unformatted): [phone] [facility] [employer] Comment on above: Stroke Start: 11-27-2021 End: 11-27-2021 Emergency department patient visit Marilu Carreon MD Work Phone: [facility] Emergency Department Comment on above: Cerebrovascular acci dent (CVA), unspecified mechanism (HCC) (Primary Dx); Dizziness; Nystagmus; H/O hemophilia B Start: 11-22-2021 ambulatory SELF SELF Facility:[facility] Start: 11-22-2021 End: 11-22-2021 Office outpatient new 45 minutes Aide Thakkar MD Work Phone: Division of Hematology & Oncology Comment on above: Hemophilia B (Primar y Dx); 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 Start: 11-16-2021 ambulatory SELF SELF Facility:[facility] Start: 11-16-2021 End: 11-16-2021 Office outpatient visit 15 minutes Jimmy Tadeo PA-C Work Phone: [facility] Comment on above: Acute maxillary sinu sitis, recurrence not specified (Primary Dx) Procedures Date Procedure Procedure Detail Performing Clinician Start: 02-13-2025 Urine culture Ananda becerra MD Work Phone: Start: 10-23-2024 Blood count complete automated Kati Henriquez PA-C Work Phone: Start: 10-22-2024 PULSE OXIMETRY, CONTINUOUS Debra Umana MD Work Phone: Start: 10-22-2024 End: 10-22-2024 Laps surg cholecystectomy w/cholangiography Shilpi Benavides MD Work Phone: Start: 10-22-2024 Blood count complete auto&auto difrntl wbc Kalani Cao MD Work Phone: Start: 10-22-2024 Blood typing serolog ic rh (d) Shilpi Benavides MD Work Phone: Start: 10-22-2024 Urine test visual color cmprsn meths Shilpi Benavides MD Work Phone: Start: 04-04-2023 Cytopathology proced ure, preparation of smear, genital source Dr. Lili Rodriugez Work Phone: Start: 04-04-2023 Investigation of tra nsfusion reaction Dr. Lili Rodriguez Work Phone: Start: 01-26-2023 Medical genetics cou nseling each 30 minutes Shekhar Lynn Work Phone: Start: 11-28-2021 Ct head/brain w/o co ntrast material Amor Molina MD Work Phone: Start: 11-28-2021 Hemoglobin glycosylated a1c Amor Molina MD Work Phone: Start: 11-28-2021 Lipid panel Amor sparks MD Work Phone: Start: 11-27-2021 Mri brain brain stem w/o contrast material Amor Molina MD Work Phone: Start: 11-27-2021 Drug tst prsmv instr mnt chem analyzers pr date Jhonatan Dickson MD Work Phone: Start: 11-27-2021 EXTRA MICRO Jhonatan haile MD Work Phone: Start: 11-27-2021 Ct head/brain w/o co ntrast material Jhonatan Dickson MD Work Phone: Start: 11-27-2021 Assay of magnesium Alex or D Jesse DOOLEY Work Phone: Start: 11-27-2021 CBC AND ELECTRONIC DIFF Jhonatan Dickson MD Work Phone: Start: 11-27-2021 Complete blood count with white cell differential, automated Jhonatan Dickson MD Work Phone: Start: 11-27-2021 Hepatic function panel Jhonatan Dickson MD Work Phone: Start: 11-27-2021 MINT GREEN TOP TUBE Yandel Dickson MD Work Phone: Start: 11-27-2021 Glucose measurement, blood Rupali Son MD Work Phone: Start: 11-27-2021 Drug screen class list a Marilu Carreon MD Work Phone: Start: 11-27-2021 End: 11-27-2021 Urine test visual color cmprsn meths Marilu Carreon MD Work Phone: Start: 11-27-2021 End: 11-27-2021 Urnls dip stick/tablet reagent auto microscopy Marilu Carreon MD Work Phone: Start: 11-27-2021 Ct angiography neck w/contrast/noncontrast Marilu Carreon MD Work Phone: Start: 11-27-2021 Ecg routine ecg w/le ast 12 lds w/i&r Marilu Carreon MD Work Phone: Start: 11-27-2021 Ct head/brain w/o co ntrast material Marilu Carreon MD Work Phone: Start: 11-27-2021 PROTIME/INR & PTT Marilu Carreon MD Work Phone: Start: 11-27-2021 End: 11-27-2021 Gluc bld gluc mntr dev cleared fda spec home use Marilu Carreon MD Work Phone: Start: 11-22-2021 Assay of ferritin Aide Thakkar MD Work Phone: Start: 11-22-2021 CBC AND ELECTRONIC DIFF Aide Thakkar MD Work Phone: Start: 11-22-2021 Complete blood count with white cell differential, automated Aide Thakkar MD Work Phone: Urine culture Dr. Lili muir Work Phone: Plan of Treatment Date Care Activity Detail Author Start: 2042 Zoster Vaccines (1 of 2) Zoster Vaccines (1 of 2) [facility] Start: 04-06-2025 Influenza vaccination Influenza Vaccine (Season Ended) [facility] Start: 02-13-2025 Liquid based cervical cytology screening [facility] Start: 11-06-2024 End: 11-06-2024 Patient encounter procedure 11/06/2024 11:50 AM EDT Office Visit [facility] [address] [place] [address] [place] [id number] [facility] [address] [facility] [place] [address] [facility] Start: 10-22-2024 End: 10-22-2024 Admission to same day surgery center 10/22/2024 10:25 AM EDT - 10/22/2024 12:05 [place] [facility] [place] [address] [place] [address] [place] [address] [facility] [place] [address] CHOLECYSTECTOMY, LAPAROSCOPIC, WITH CHOLANGIOGRAM [61970 (CPT )] [facility] [place] Comment on above: CHOLECYSTECTOMY, LAPAROSCOPIC, WITH CHOL ANGIOGRAM [14223 (CPT )] Start: 10-22-2024 End: 10-22-2024 Laps surg cholecystectomy w/cholangiography CHOLECYSTECTOMY, LAPAROSCOPIC, WITH CHOLANGIOGRAM Biliary dyskinesia 10/22/2024 10:25 AM EDT Virtual [facility] Start: 10-22-2024 Subsequent hospital visit by physician [facility] [place] Start: 10-15-2024 End: 10-15-2024 Patient encounter procedure 10/15/2024 10:00 AM EDT Office Visit [facility] [address] [place] [address] [place] [address] [place], [place] [id number] [facility] Start: 04-06-2024 COVID-19 Vaccine ( season) COVID-19 Vaccine ( season) [facility] Start: 04-06-2024 Influenza vaccination Influenza Vaccine (#1) [facility] Start: 05-09-2023 ULTRASDFUV, Provider: [facility], Status: Pen, Time: 10:15 AM ULTRASDFUV, Provider: [facility], Status: Pen, Time: 10:15 AM MX-TBUJV-Hwgrls 320 Work Phone: Start: 03-27-2023 FUVCONTCLI, Provider: Arti Tang, Status: Pen, Time: 2:00 PM FUVCONTCLI, Provider: Arti Tang, Status: Pen, Time: 2:00 PM RJ-Oaiwpmza-Qhazllm e 1500 Work Phone: Start: 03-27-2023 ULTRASDFUV, Provider: [facility], Status: Pen, Time: 1:00 PM ULTRASDFUV, Provider: [facility], Status: Pen, Time: 1:00 PM FZ-Lhpopldq-Xkfncio e 1500 Work Phone: Start: 03-13-2023 Measurement of glucose 3 hours after glucose challenge for glucose tolerance test [facility] Start: 02-20-2023 ULTRASDFUV, Provider: KRISTEN PEDROZA, Status: Pen, Time: 8:30 AM ULTRASDFUV, Provider: KRISTEN PEDROZA, Status: Pen, Time: 8:30 AM WU-Klvulypb-Iqqafed e 1500 Work Phone: Start: 07-06-2022 End: 07-06-2022 Patient encounter procedure 07/06/2022 Office Visit Hematology Brad Townsend MD [address] [place], [place] [id number] Division of Hematology & Oncology Start: 04-06-2022 Influenza vaccination [facility] Start: 11-22-2021 End: 11-22-2021 Patient encounter procedure 11/22/2021 Office Visit Hematology Aide Thakkar MD [address] [facility] [address] [place] [id number] Division of Hematology & Oncology Start: 03-06-2021 Refusal of treatment by patient INFLUENZA VACCINE [facility] Start: 2017 COTEST / HPV COTEST / HPV [facility] Start: 2014 DTaP/Tdap/Td Vaccines (1 - Tdap) DTaP/Tdap/Td Vaccines (1 - Tdap) [facility] Start: 2013 Microscopic observation [Identifier] in Cervix by Cyto stain PAP SMEAR [facility] Start: 2013 Screening for malignant neoplasm of cervix [facility] Start: 2011 DTaP/Tdap/Td vaccine (1 - Tdap) DTaP/Tdap/Td vaccine (1 - Tdap) [facility] Start: 2011 DTaP/Tdap/Td VACCINES (1 - Tdap) DTaP/Tdap/Td VACCINES (1 - Tdap) [facility] Start: 2011 Hepatitis B Vaccines (1 of 3 - 19+ 3-dose series) Hepatitis B Vaccines (1 of 3 - 19+ 3-dose series) [facility] Start: 2011 Third diphtheria, tetanus and acellular pertussis (DTaP) vaccination TDAP (ADULT) [facility] Start: 2010 Hepatitis C screening Hepatitis C screen [facility] Start: 2010 HEPATITIS C SCREENING HEPATITIS C SCREENING [facility] Start: 2010 Tetanus vaccination TETANUS [facility] Start: 2007 HIV screening [facility] Start: 2007 HIV SCREENING HIV SCREENING [facility] Start: 2005 Varicella vaccination Varicella Vaccines (1 of 2 - 13+ 2-dose series) [facility] Start: 2004 Depression Screen Depression Screen [facility] Start: 1997 COVID-19 VACCINE (1) COVID-19 VACCINE (1) [facility] Start: 1993 MMR Vaccines (1 of 1 - Standard series) MMR Vaccines (1 of 1 - Standard series) [facility] Start: 1993 Varicella vaccine (1 of 2 - 2-dose childhood series) Varicella vaccine (1 of 2 - 2-dose childhood series) [facility] Start: 1992 Hepatitis C antibody, confirmatory test HEPATITIS C VIRUS SCREENING [facility] Start: 1992 Lipid panel Lipid Panel [facility] Start: 1992 Yearly Adult Physical Yearly Adult Physical [facility] End: 10-22-2024 Blood type and Indirect antibody screen panel - Blood Type And Screen Lab Timed As needed (Lab) until discontinued starting 10/22/2024, [address] [facility] Service Area Work Phone: Comment on above: As needed (Lab) until discontinued start ing 10/22/2024, 1 completed End: 10-26-2024 CBC panel - Blood by Automated count CBC Lab Routine Morning draw (Lab) for 3 Occurrences starting 10/24/2024 until 10/26/2024 [facility] Work Phone: Comment on above: Morning draw (Lab) for 3 Occurrences sta rting 10/24/2024 until 10/26/2024 CBC W Auto Different ial panel - Blood [facility] CBC W Auto Different ial panel - Blood [facility] Chlamydia deoxyribonucleic acid detection [facility] End: 11-28-2021 Continuous pulse oximetry Pulse oximetry, continuous Respiratory Care Routine Every 4hr for 24 Hours starting 11/27/2021 until 11/28/2021 [facility] Work Phone: Comment on above: Every 4hr for 24 Hours starting 11/28/19 until 11/28/2021 Cytology report of Cervical or vaginal smear or scraping Cyto stain.thin prep [facility] End: 11-27-2021 Echocardiography ECHOCARDIOGRAM Echocardiography Routine One Time for 1 Occurrences starting 11/27/2021 until 11/27/2021 [facility] Comment on above: One Time for 1 Occurrences starting 11/05 until 11/27/2021 EKG 12 Lead EKG 12 Lead ECG STAT 11/27/2021 10:15 AM EDT [facility] Work Phone: Electrocardiogram, 12-lead PRN ACS symptoms Electrocardiogram, 12-lead PRN ACS symptoms ECG Routine As needed until discontinued starting 10/22/[address] [facility] Service Area Work Phone: Comment on above: As needed until discontinued starting FACTOR IX ACTIVITY FACTOR IX ACT IVITY Lab Routine 11/28/2021 10:44 AM EDT [facility] Fasting glucose [Mass/volume] in Serum or Plasma [facility] anatomy study [facility] Glucose [Mass/volume ] in Serum or Plasma --1 hour post dose glucose [facility] Glucose [Mass/volume ] in Serum or Plasma --2 hours post dose glucose [facility] GOLD TOP TUBE GOLD TOP TUBE La b STAT 11/27/2021 12:08 PM EDT [facility] Hemoglobin A1c/Hemoglobin.total in Blood [facility] Hepatitis B surface antigen measurement [facility] Hepatitis C antibody measurement [facility] Hepatitis C antibody measurement [facility] HIV 1+2 Ab+HIV1 p24 Ag [Presence] in Serum or Plasma by Immunoassay [facility] Laps surg cholecyste ctomy w/cholangiography CHOLECYSTECTOMY, LAPAROSCOPIC, WITH CHOLANGIOGRAM Biliary dyskinesia [facility] OR LAVENDER TOP TUBE LAVENDER TOP T UBE Lab STAT [facility]21 12[facility] Liquid based cervica l cytology screening [facility] LT BLUE TOP TUBE LT BLUE TOP TUB E Lab STAT 11/27/2021 12:08 PM EDT [facility] Measurement of gluco se 3 hours after glucose challenge for glucose tolerance test [facility] Oxygen therapy [[facility] Data Set] Initiate Oxygen Therapy Protocol Respiratory Care Routine As Needed until discontinued starting 11/27/2021 [facility] Work Phone: Comment on above: As Needed until discontinued starting Path report.final Dx Spec [facility] RAINBOW DRAW RAINBOW DRAW Lab STAT 11/27/2021 12:08 PM EDT [facility] End: 10-26-2024 Renal function 2000 panel - Serum or Plasma Renal Function Panel Lab Routine Morning draw (Lab) for 3 Occurrences starting 10/24/2024 until 10/26/2024 [facility] Work Phone: Comment on above: Morning draw (Lab) for 3 Occurrences sta rting 10/24/2024 until 10/26/2024 Rubella IgG measurement [facility] Rubella IgG measurement [facility] Serologic test for syphilis [facility] End: 11-27-2021 Standard ECG [facility] Comment on above: One Time for 1 Occurrences starting 11/05 until 11/27/2021 Surgical pathology study [facility] Work Phone: Comment on above: Release Upon Ordering for 1 Occurrences starting 10/22/2024, 1 completed Transvaginal obstetr ic ultrasonography [facility] Treponema sp Ab [Presence] in Serum [facility] Payers Date Payer Category Payer Unknown [id number] 2024 Unknown [id number] 2024 Self-pay [id number] 1992 Unknown [id number] 2.16. [id number] 1992 Unknown [id number] 2.16. [id number] 1992 Unknown [id number] 2.16. [id number] 1992 Unknown [id number] 2.16. [id number] 1992 Unknown [id number] 2.16. [id number] 1992 Unknown [id number] 2.16. [id number] Self-pay [id number] Unknown Self Pay Unknown [id number] 2.16.8 [id number] Unknown [id number] 2.16.8 [id number] Unknown [id number] 2.16.8 [id number] Unknown [id number] 2.16.8 [id number] Unknown [id number] 2.16.8 [id number] Unknown [id number] 2.16.8 [id number] Social History Date Type Detail Facility Start: 11-16-2021 End: 01-30-2025 Tobacco smoking status ILIS Never smoked tobacco [facility] Start: 11-16-2021 End: 10-02-2024 Tobacco use and exposure Smokeless tobacco non-user [facility] Start: 11-16-2021 End: 11-06-2024 Alcohol intake Lifetime non-drinker (finding) [facility] Start: 1990 Sex Assigned At Not on file [facility] Start: 11-06-2021 End: 11-27-2021 Exposure to SARS-CoV-2 (event) Unable to assess [facility] Start: 11-27-2021 Alcohol intake Ex-drinker (finding) [facility] Phone: Start: 11-17-2021 End: 10-22-2024 Exposure to SARS-CoV-2 (event) Not sure [facility] Work Phone: Start: 10-26-2022 End: 04-04-2023 Tobacco smoking status NHIS Tobacco smoking consumption unknown [facility] Start: 1990 Sex Assigned At Female [facility] Start: 05-28-2023 End: 10-23-2024 History of Social function [facility] Start: 05-28-2023 End: 10-23-2024 Alcohol Use Disorder Identification Test - Consumption [AUDIT-C] [facility] How often to you hav e a drink containing alcohol? Never [facility] How many standard dr inks containing alcohol do you have on a typical day? Patient does not drink [facility] Work Phone: How hard is it for y ou to pay for the very basics like food, housing, medical care, and heating Not very hard [facility] In the past 12 month s, was there a time when you were not able to pay the mortgage or rent on time? 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 acute February 13, 2025 2:41pm Obesity affecting acute February 13, 2025 2:41pm acute February 13 2:41pm Supervision of high-risk acute February 13 025 2:41pm [facility] Work Phone: [phone] 447-335107-11-2025 [facility] [address], [address] [place] [address] OFFICE VISIT Date of Service: 02/13/25 MR#: [id number] Acct: [id number] Name: SUSANA RODRIGUEZ Rep #: [id number] : 1990 Provider: JOSE CRUZ Jordan Age/Sex: 34/F Location: [facility] Status: Signed Intake Vital Signs 09/19/24 13:46 02/13/25 14:43 Height 5 ft 5 in 5 ft 5 in Weight: 202 lb 6 oz BMI 33.6 BP 111/69 Intake Visit Reasons: *NEW* NOB LMP 12/11, YARA 09/17 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 Is patient in pain?: No Allergies Latex, Natural Rubber Allergy (Mild, Verified 02/13/25 14:47) Hives Penicillins Allergy (Mild, Verified 02/13/25 14:47) Shortness of breath NSAIDS (Non-Steroidal Anti-Inflamma Adverse Reaction (Verified 02/13/25 14:47) Other Medications ?Medication ?Instructions ?Recorded ?Confirmed ?Type multivitamin no.47-iron fum 27 cap PO 10/18/22 5 History mg-folate no.1 1 mg-dha 300 mg capsule (PNV-DHA) ferrous fumarate 325 mg (106 mg 325 mg PO QDAY 5 01/30/25 History iron) tablet ascorbic acid (vitamin C) 1,000 mg 1,000 mg PO QDAY 01/30/25 History capsule cholecalciferol (vitamin D3) 50 6,000 unit PO QDAY 01/30/25 History mcg (2,000 unit) capsule omega-3 fatty acids 1,000 mg 2,000 mg PO QDAY 01/30/25 01/30/25 History capsule Last Menstrual Period: 12/11/24 Zika: Zika virus screening: Negative : No Have you fallen in the past year?: No PFSH PFSH Medical History Seasonal allergies Abnormal biliary HIDA scan History of femur fracture 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 Surgical History History of cholecystectomy Hx of oral surgery Family History Mother Cancer, Onset Age: 31 lymphoma Grandmother Breast cancer Colon cancer Diabetes Father Hypertension Brother Hemophilia Brother Hemophilia Social History adopted: No household members: spouse and children number of children: 1 service: No current occupational status: unemployed current occupation: [employer] pets and animals: No history of recent travel: Yes (- December) out of state: Yes out of country: No sexually active: Yes Smoking Status: Never smoker Electronic Cigarette Use: not used alcohol intake: never substance use type: does not use diet: other well-balanced diet: about half the time caffeine: No eating out: rarely or never during the past year weight has: decreased > 10 lbs what type of physical activity do you participate in: walking and bicycling frequency: 3-4 times per week duration: 15-30 minutes/day sanaz/faith: Hinduism seatbelt use: always do you feel safe at home: Yes additional social history: Mo History 2 Elective abortions Hx Para 1 Spontaneous abortions Hx # Term Pregnancies 1 Ectopic pregnancies Hx # Pregnancies Multiple births # of living children 1 Past Pregnancies Del. Date Name GA/Weeks Outcome Route Bth Weight Gen Labor Lgth Anesthesia Del Locatn Provider FOB 05/27/23 Rafael 39 live - full term 7lbs 7oz Male e pidural [facility] Delivery Date: 05/27/23 Last Updated by: Katheryn Fine IOL hemophilia carrier HPI *NEW* NOB LMP 12/11, YARA 09/17 Details: SUSANA RODRIGUEZ is a 34 year old who presents for New OB visit. OB Visit YARA Calculator Estimated Delivery Date Method Current WG Current Estimate 09/17/25 Ultrasound #1 9w 1d Other Estimates 09/17/25 LMP (Certain) 9w 1d Comments: HIV: Urine Culture: Sequential Screen: NIPT Screen: Estimated Due Date: 09/17/25 Expected Delivery Route/Plan Labor Preferences- CB/BF classes: [] labor support person: [] labor intervention preferences: [] pain management options preferred: [] cut cord/dad catch: [] : [] PP control planned: [] discussed possible routes of delivery and associated risks: [] special requests: [] Specific Issue/Plans Covid status: [] Flu vaccine: [] Tdap vaccine: [] Rhogam: [] LARC form signed: [] Problem list reviewed and updated with the most current plan of care details and appropriate ordersplaced. Relevant counseling for the gestational age provided. Continue routine care and follow up unless otherwise noted in visit notes/problem list details Initial Weight: 202 lb Date -?-?-?-?-?-?-?-?-?-?-?-?- EGA Weight BP Urine Prot -?-?-?-?-?-?-?-?-?-?-?-?- Glucose FHR FuHt Pres Dilation -?-?-?-?-?-?-?-?-?-?-?-?- Effaced St Visit Note 02/13/25 -?-?-?-?-?-?-?-?-?-?-?-?- 9w 1d 202 lb 6 oz (+6 oz) 111/69 -?-?-?-?-?-?-?-?-?-?-?-?- 178 -?-?-?-?-?--?-?-?-?-?-?-?- KW- CRL 2.49cm c ons with dates. accepts NIPT Menstrual History Last Menstrual Period: 12/11/24 Reported LMP: definite Normal amount/duration: Yes Frequency in days: 28 On hormonal BC at conception: No hCG+: 01/05/25 Antepartum Record Genetic Screening: Congenital Heart Defect: Partner (hypertrophic cardiomyopathy), Neural Tube Defect: Other, Hemoglobinopathy Or Carrier: Other, Cystic Fibrosis: Other, Chromosome Abnormality: Other, Art-Sachs: Other, Hemophilia: Patient (Brothers, Son(Pt is carrier)), Intellectual Disability/Autism: Other, Recurrent Loss/Stillbirth: Patient (Grandmother Maternal 1 stillborn( unknown if abnormal)), Other Structural Defect: Other, Other Genetic Disease: Other and Maternal Metabolic Disorder: Other Infection History: Live with someone with TB or Exposed to TB: No, Patient or Partner has history of Genital Herpes: No, Rash or Viral illness since last mentrual period: No, Prior GBS-Infected child: No, History of STD: No, HIV Infection: No, History of Hepatitis: No, Recent travel outside of [place]: No, Concern for hepatitis exposure: No, Varicella immune: Yes (immune-virus) and Covid Vaccinated: No Medical History Medical History: Positive: Seasonal allergies (mild), Drug/latex allergies/reactions (Latex, PCN NSAIDS), Operations/hospitalizations (2024 Cholecystectomy, Hx Oral surgery) and Other (Obesity BMI 32.8) and Negative: Diabetes, Hypertension, Heart disease, Auto-immune disorder, Kidney disease/UTI, Neurologic/epilepsy, Psychiatric, Depression/ depression, Hepatitis/liver disease, Varicosities/phlebitis, Thyroid dysfunction, Trauma/domestic violence, History of blood transfusions, D (Rh)Sensitized, Pulmonary (e.g.,TB,Asthma), Breast, Flooring Professional surgery, Anesthetic complications, History of abnormal pap (DUE), Uterine anomaly/gi, Infertility, Anti-retroviral treatment and Relevant family history (No changes) ACOG First Trimester First Trimester: Desire for , Alcohol, Tobacco Cessation, Illicit/Recreational Drug/Substance Use, Intimate Partner Violence, Barriers to care, Unstable Housing, Communication Barriers, Environmental/Work Hazards, Anticipated Course of Care, Nurtrition and weight gain, Toxoplasmosis Precations, Use of Any medications, Sexual activity, Exercise, Dental Care, Sauna/Hot tub use, Seat Belt use, Childbirth classes/Hospital facilities, Travel, Indications for Ultrasound and Screening for Aneuploidy; Discussed Second Trimester Second Trimester: Signs and Symptoms of Labor, Selecting a care provider, Reproductive Life Planning & Contreception, Care Planning, Depression/Anxiety and Intimate Partner Violence; Discussed Tobacco Cessation Third Trimester Third Trimester: Pain Management Plans, Labor support person(s), Immediate Larc, Movement Monitoring, Signs and Symptoms of Preeclampsia, Feeding No , [place] Education and Family Medical Leave or Disability Forms ROS Const Reports system reviewed and no additional complaints, except as documented, Denies fatigue, Denies headache(s) and Denies lethargy ENT Denies headache(s) Card Reports system reviewed and no additional complaints, except as documented Resp Reports system reviewed and no additional complaints, except as documented GI Reports system reviewed and no additional complaints, except as documented, Denies abdominal pain, Denies constipation, Denies cramping, Denies diarrhea and Denies dyspepsia Reports system reviewed and no additional complaints, except as documented, Denies abnormal vaginalbleeding, Denies difficulty voiding, Denies dyspareunia and Denies dysuria Musc Reports system reviewed and no additional complaints, except as documented Skin/Breast Reports system reviewed and no additional complaints, except as documented Neuro Yes system reviewed and no additional complaints, except as documented and No headache(s) Psych Reports system reviewed and no additional complaints, except as documented, Denies anhedonia and Denies anxiety Endo Reports system reviewed and no additional complaints, except as documented and Denies fatigue Exam Const General: cooperative, healthy appearing and comfortable Neck Neck: normal visual inspection and full ROM Chest Chest palpation & inspection: normal inspection of the chest Breast inspection: normal inspection of the breasts and normal inspection of the axillae Breast palpation: normal palpation of the breasts and normal palpation of the axillae Resp Effort & Inspection: normal respiratory effort and able to speak in complete sentences GI Inspection: normal to inspection Palpation: soft External Female Exam: normal external appearance and normal appearance of the urethra Urethra: normal appearance of the urethra Skin General: no rashes or lesions noted Neuro General: patient alert, patient awake and patient oriented x3 Extrem General: normal to inspection and full ROM Psych Appearance: grossly normal and well kempt Mental Status: mental status grossly normal Mood: congruent mood Affect: normal affect Speech and Movement: speech and movement normal Thought Process: normal Thought Content: normal Coding Level of Care Code OB Routine Diagnoses Supervision of high-risk O09.90 9 weeks gestation of Z3A.09 Weeks of gestation: 9 weeks Obesity affecting O99.210 Family history of cancer Z80.9 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 Jack co-care until 36 weeks then transfer of care to . Orders: Orders CBC W/Diff, Automated 01/30/25 O09.90 - Supervision of high risk , unspecified, unspecified trimester Type & Screen 01/30/25 O09.90 - Supervision of high risk , unspecified, unspecified trimester Rubella IgG 01/30/25 O09.90 - Supervision of high risk , unspecified, unspecified trimester Hepatitis C Antibody 01/30/25 O09.90 - Supervision of high risk , unspecified, unspecifiedtrimester Hepatitis B Surface Antigen 01/30/25 O09.90 - Supervision of high risk , unspecified, unspecified trimester Culture, Urine 01/30/25 O09.90 - Supervision of high risk , unspecified, unspecified trimester Syphilis Antibodies 01/30/25 O09.90 - Supervision of high risk , unspecified, unspecified trimester Chlamydia/GC ALAYNA aptima 01/30/25 O09.90 - Supervision of high risk , unspecified, unspecified trimester HIV 01/30/25 O09.90 - Supervision of high risk , unspecified, unspecified trimester Hemoglobin A1c 01/30/25 O09.90 - Supervision of high risk , unspecified, unspecified trimester, O99.210 - Obesity complicating , unspecified trimester PAP IG HPV APTIMA 16/18,45 01/30/25 O09.90 - Supervision of high risk , unspecified, unspecified trimester, Z12.4 - Encounter for screening for malignant neoplasm of cervix Comments Comments: Patient oriented to practice and discussed care expectations and screenings. ACOG book offered to patient. Discussed routine and specially indicated labs if needed- patient consents to testing. See problem list details for plan information. Optional screening including maternal carrier screenings, neural tube defect screening, genetic screening options including quad screen, nuchal translucency, sequential screening, and NIPT screening offered to patient and patient chose: NIPT Clinical Quality Measures Falls Risk Screening/Assistive Devices Have you fallen in the past year?: No 02/13/25 1526 s JOSE CRUZ> Date _ Debbie Jordan CNM Cosigner Signature: Date (if applicable) CC: ~ [facility]07-11-2025 Progress note Author Debbie Jordan [facility] Note Date/Time February 13, 2025 3:26 pm [facility] [address], [address] [place] [address] OFFICE VISIT Date of Service: 02/13/25 MR#: [id number] Acct: [id number] Name: SUSANA RODRIGUEZ Rep #: [id number] : 1990 Provider: JOSE CRUZ Jordan Age/Sex: 34/F Location: [facility] Status: Signed Intake Vital Signs 09/19/24 13:46 02/13/25 14:43 Height 5 ft 5 in 5 ft 5 in Weight: 202 lb 6 oz BMI 33.6 BP 111/69 Intake Visit Reasons: *NEW* NOB LMP 12/11, YARA 09/17 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 Is patient in pain?: No Allergies Latex, Natural Rubber Allergy (Mild, Verified 02/13/25 14:47) Hives Penicillins Allergy (Mild, Verified 02/13/25 14:47) Shortness of breath NSAIDS (Non-Steroidal Anti-Inflamma Adverse Reaction (Verified 02/13/25 14:47) Other Medications ?Medication ?Instructions ?Recorded ?Confirmed ?Type multivitamin no.47-iron fum 27 cap PO 10/18/22 5 History mg-folate no.1 1 mg-dha 300 mg capsule (PNV-DHA) ferrous fumarate 325 mg (106 mg 325 mg PO QDAY 5 01/30/25 History iron) tablet ascorbic acid (vitamin C) 1,000 mg 1,000 mg PO QDAY 01/30/25 History capsule cholecalciferol (vitamin D3) 50 6,000 unit PO QDAY 01/30/25 History mcg (2,000 unit) capsule omega-3 fatty acids 1,000 mg 2,000 mg PO QDAY 01/30/25 01/30/25 History capsule Last Menstrual Period: 12/11/24 Zika: Zika virus screening: Negative : No Have you fallen in the past year?: No PFSH PFSH Medical History Seasonal allergies Abnormal biliary HIDA scan History of femur fracture 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 Surgical History History of cholecystectomy Hx of oral surgery Family History Mother Cancer, Onset Age: 31 lymphoma Grandmother Breast cancer Colon cancer Diabetes Father Hypertension Brother Hemophilia Brother Hemophilia Social History adopted: No household members: spouse and children number of children: 1 service: No current occupational status: unemployed current occupation: [employer] pets and animals: No history of recent travel: Yes (- December) out of state: Yes out of country: No sexually active: Yes Smoking Status: Never smoker Electronic Cigarette Use: not used alcohol intake: never substance use type: does not use diet: other well-balanced diet: about half the time caffeine: No eating out: rarely or never during the past year weight has: decreased > 10 lbs what type of physical activity do you participate in: walking and bicycling frequency: 3-4 times per week duration: 15-30 minutes/day sanaz/faith: Hinduism seatbelt use: always do you feel safe at home: Yes additional social history: Mo History 2 Elective abortions Hx Para 1 Spontaneous abortions Hx # Term Pregnancies 1 Ectopic pregnancies Hx # Pregnancies Multiple births # of living children 1 Past Pregnancies Del. Date Name GA/Weeks Outcome Route Bth Weight Infant Gen Labor Lgth Anesthesia Del [facility] Provider FOB 05/27/23 [place] 39 live - full term 7lbs 7oz Male e pidural [facility] Delivery Date: 05/27/23 Last Updated by: Katheryn Fine IOL hemophilia carrier HPI *NEW* NOB LMP 12/11, YARA 09/17 Details: SUSANA RODRIGUEZ is a 34 year old who presents for New OB visit. OB Visit YARA Calculator Estimated Delivery Date Method Current WG Current Estimate 09/17/25 Ultrasound #1 9w 1d Other Estimates 09/17/25 LMP (Certain) 9w 1d Comments: HIV: Urine Culture: Sequential Screen: NIPT Screen: Estimated Due Date: 09/17/25 Expected Delivery Route/Plan Labor Preferences- CB/BF classes: [] labor support person: [] labor intervention preferences: [] pain management options preferred: [] cut cord/dad catch: [] : [] PP control planned: [] discussed possible routes of delivery and associated risks: [] special requests: [] Specific Issue/Plans Covid status: [] Flu vaccine: [] Tdap vaccine: [] Rhogam: [] LARC form signed: [] Problem list reviewed and updated with the most current plan of care details and appropriate orders placed. Relevant counseling for the gestational age provided. Continue routine care and follow up unless otherwise noted in visit notes/problem list details Initial Weight: 202 lb Date -?-?-?-?-?-?-?-?-?-?-?-?- EGA Weight BP Urine Prot -?-?-?-?-?-?-?-?-?-?-?-?- Glucose FHR FuHt Pres Dilation -?-?-?-?-?-?-?-?-?-?-?-?- Effaced St Visit Note 02/13/25 -?-?-?-?-?-?-?-?-?-?-?-?- 9w 1d 202 lb 6 oz (+6 oz) 111/69 -?-?-?-?-?-?-?-?-?-?-?-?- 178 -?-?-?-?-?--?-?-?-?-?-?-?- KW- CRL 2.49cm c ons with dates. accepts NIPT Menstrual History Last Menstrual Period: 12/11/24 Reported LMP: definite Normal amount/duration: Yes Frequency in days: 28 On hormonal BC at conception: No hCG+: 01/05/25 Antepartum Record Genetic Screening: Congenital Heart Defect: Partner (hypertrophic cardiomyopathy), Neural Tube Defect: Other, Hemoglobinopathy Or Carrier: Other, Cystic Fibrosis: Other, Chromosome Abnormality: Other, Art-Sachs: Other, Hemophilia: Patient (Brothers, Son(Pt is carrier)), Intellectual Disability/Autism: Other, Recurrent Loss/Stillbirth: Patient (Grandmother Maternal 1 stillborn( unknown if abnormal)), Other Structural Defect: Other, Other Genetic Disease: Other and Maternal Metabolic Disorder: Other Infection History: Live with someone with TB or Exposed to TB: No, Patient or Partner has history of Genital Herpes: No, Rash or Viral illness since last mentrual period: No, Prior GBS-Infected child: No, History of STD: No, HIV Infection: No, History of Hepatitis: No, Recent travel outside of [place]: No, Concern for hepatitis exposure: No, Varicella immune: Yes (immune-virus) and Covid Vaccinated: No Medical History Medical History: Positive: Seasonal allergies (mild), Drug/latex allergies/reactions (Latex, PCN NSAIDS), Operations/hospitalizations (2024 Cholecystectomy, Hx Oral surgery) and Other (Obesity BMI 32.8) and Negative: Diabetes, Hypertension, Heart disease, Auto-immune disorder, Kidney disease/UTI, Neurologic/epilepsy, Psychiatric, Depression/ depression, Hepatitis/liver disease, Varicosities/phlebitis, Thyroid dysfunction, Trauma/domestic violence, History of blood transfusions, D (Rh) Sensitized, Pulmonary (e.g.,TB,Asthma), Breast, Flooring Professional surgery, Anesthetic complications, History of abnormal pap (DUE), Uterine anomaly/gi, Infertility, Anti-retroviral treatment and Relevant family history (No changes) ACOG First Trimester First Trimester: Desire for , Alcohol, Tobacco Cessation, Illicit/Recreational Drug/Substance Use, Intimate Partner Violence, Barriers to care, Unstable Housing, Communication Barriers, Environmental/Work Hazards, Anticipated Course of Care, Nurtrition and weight gain, Toxoplasmosis Precations, Use of Any medications, Sexual activity, Exercise, Dental Care, Sauna/Hot tub use, Seat Belt use, Childbirth classes/Hospital facilities, Travel, Indications for Ultrasound and Screening for Aneuploidy; Discussed Second Trimester Second Trimester: Signs and Symptoms of Labor, Selecting a care provider, Reproductive Life Planning & Contreception, Care Planning, Depression/Anxiety and Intimate Partner Violence; Discussed Tobacco Cessation Third Trimester Third Trimester: Pain Management Plans, Labor support person(s), Immediate Larc, Movement Monitoring, Signs and Symptoms of Preeclampsia, Feeding No , [place] Education and Family Medical Leave or Disability Forms ROS Const Reports system reviewed and no additional complaints, except as documented, Denies fatigue, Denies headache(s) and Denies lethargy ENT Denies headache(s) Card Reports system reviewed and no additional complaints, except as documented Resp Reports system reviewed and no additional complaints, except as documented GI Reports system reviewed and no additional complaints, except as documented, Denies abdominal pain, Denies constipation, Denies cramping, Denies diarrhea and Denies dyspepsia Reports system reviewed and no additional complaints, except as documented, Denies abnormal vaginal bleeding, Denies difficulty voiding, Denies dyspareunia and Denies dysuria Musc Reports system reviewed and no additional complaints, except as documented Skin/Breast Reports system reviewed and no additional complaints, except as documented Neuro Yes system reviewed and no additional complaints, except as documented and No headache(s) Psych Reports system reviewed and no additional complaints, except as documented, Denies anhedonia and Denies anxiety Endo Reports system reviewed and no additional complaints, except as documented and Denies fatigue Exam Const General: cooperative, healthy appearing and comfortable Neck Neck: normal visual inspection and full ROM Chest Chest palpation & inspection: normal inspection of the chest Breast inspection: normal inspection of the breasts and normal inspection of the axillae Breast palpation: normal palpation of the breasts and normal palpation of the axillae Resp Effort & Inspection: normal respiratory effort and able to speak in complete sentences GI Inspection: normal to inspection Palpation: soft External Female Exam: normal external appearance and normal appearance of the urethra Urethra: normal appearance of the urethra Skin General: no rashes or lesions noted Neuro General: patient alert, patient awake and patient oriented x3 Extrem General: normal to inspection and full ROM Psych Appearance: grossly normal and well kempt Mental Status: mental status grossly normal Mood: congruent mood Affect: normal affect Speech and Movement: speech and movement normal Thought Process: normal Thought Content: normal Coding Level of Care Code OB Routine Diagnoses Supervision of high-risk O09.90 9 weeks gestation of Z3A.09 Weeks of gestation: 9 weeks Obesity affecting O99.210 Family history of cancer Z80.9 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 Jack co-care until 36 weeks then transfer of care to . Orders: Orders CBC W/Diff, Automated 01/30/25 O09.90 - Supervision of high risk , unspecified, unspecified trimester Type & Screen 01/30/25 O09.90 - Supervision of high risk , unspecified, unspecified trimester Rubella IgG 01/30/25 O09.90 - Supervision of high risk , unspecified, unspecified trimester Hepatitis C Antibody 01/30/25 O09.90 - Supervision of high risk , unspecified, unspecified trimester Hepatitis B Surface Antigen 01/30/25 O09.90 - Supervision of high risk , unspecified, unspecified trimester Culture, Urine 01/30/25 O09.90 - Supervision of high risk , unspecified, unspecified trimester Syphilis Antibodies 01/30/25 O09.90 - Supervision of high risk , unspecified, unspecified trimester Chlamydia/GC ALAYNA aptima 01/30/25 O09.90 - Supervision of high risk , unspecified, unspecified trimester HIV 01/30/25 O09.90 - Supervision of high risk , unspecified, unspecified trimester Hemoglobin A1c 01/30/25 O09.90 - Supervision of high risk , unspecified, unspecified trimester, O99.210 - Obesity complicating , unspecified trimester PAP IG HPV APTIMA 16/18,45 01/30/25 O09.90 - Supervision of high risk , unspecified, unspecified trimester, Z12.4 - Encounter for screening for malignant neoplasm of cervix Comments Comments: Patient oriented to practice and discussed care expectations and screenings. ACOG book offered to patient. Discussed routine and specially indicated labs if needed- patient consents to testing. See problem list details for plan information. Optional screening including maternal carrier screenings, neural tube defect screening, genetic screening options including quad screen, nuchal translucency, sequential screening, and NIPT screening offered to patient and patient chose: NIPT Clinical Quality Measures Falls Risk Screening/Assistive Devices Have you fallen in the past year?: No 02/13/25 1526 <Electronically signed by Debbie Cody s CNM> Date _ Debbie Julian CNM Cosigner Signature: Date (if applicable) CC: ~ [facility] Work Phone: 1(452) 287-157904-03-2025 History of Present illness Narrative* Shilpi Benavides MD - 11/06/2024 11:50 AM EDT History Of Present Illness Susana Rodriguez is a 34 y.o. female presenting status post laparoscopic cholecystectomy. This avirtual visit with both video and audio. She is doing well. She is not having any fevers. No constipation or diarrhea. Last Recorded Vitals not currently . Physical Exam he is able to show me her incisions and we removed her Steri-Strips. Assessment/Plan She is done well from her laparoscopic cholecystectomy. I reviewed her pathology with her. She has no limitations to activities. She will follow-up me as needed. Shilpi Benavides MD FACS funeral home director Jeanmarie Kirkland Chair in Surgical [place] [facility] [address] [place] [address], [phone] email: [facility] Work Phone: 1(280) 212-163703-20-2025 History of Present illness Narrative* LUISA Juares - 10/23/2024 11:26 AM EDT 10/23/24 1100 Discharge Planning Living Arrangements Spouse/significant other Support Systems Spouse/significant other Type of Residence Private residence Number of Stairs to Enter Residence 0 Number of Stairs Within Residence 0 Do you have animals or pets at home? No Home or Post Acute Services None Expected Discharge Disposition Home Does the patient need discharge transport arranged? No Financial Resource Strain How hard is it for you to pay for the very basics like food, housing, medical care, and heating? Not very Housing Stability In the last 12 months, was there a time when you were not able to pay the mortgage or rent on time?N At any time in the past 12 months, were you homeless or living in a chcf (including now)? N Transportation Needs In the past 12 months, has lack of transportation kept you from medical appointments or from getting medications? no In the past 12 months, has lack of transportation kept you from meetings, work, or from getting things needed for daily living? No Care Transitions Note 10/23/24 Met with patient and spouse at bedside for assessment. Pt lives at home with spouse and their 17 month old baby. 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 Pt's mother is watching her baby now. Pt and spouse's families are both involved in care, able to provide assistance if needed and good supports for the patient. Pt also supported by oriental orthodox friends, involved in oriental orthodox community. Pt was independent prior to admit, able to complete ADLs, drives herself. No SDOH concerns when prompted, no issues getting medication. Pt states she is self-pay, they are part of a Hindu[employer] sharing group that they report works simliar to insurance, they have to pay upfront for services but are reimbursed and services are covered. Pt has been doing this for years and is used to this process, no concerns noted. Anticipate no needs at discharge. CONNER Hill, WOOD ROUTER HAND * Oniel Freeman MD - 10/23/2024 7:42 AM EDT [facility] DEPARTMENT OF SURGERY RUIZ SURGERY PROGRESS NOTE SUBJECTIVE Dizziness and nausea this AM. Reports shoulder pain bilaterally. Wasn't able to sleep much. OBJECTIVE Vitals: Temp: [36 C (96.8 F)-37 C (98.6 F)] 37 C (98.6 F) Heart Rate: [55-72] 65 Resp: [12-19] 18 BP: (102-122)/(55-73) 109/69 I/Os: I/O last 3 completed shifts: In: 2082.1 (22.6 mL/kg) [P.O.:500; I.V.:1582.1 (17.2 mL/kg)] Out: 5 (0.1 mL/kg) [Blood:5] Weight: 92.1 kg Exam: Gen: NAD, non-toxic appearing Eyes: No scleral icterus Card: RRR Resp: Non-labored breathing on RA Abd: Soft, moderately tender around laparoscopic incision sites, non-distended Ext: WWP, no swelling of BLE MSK: LUGO Neuro: AOx3, no gross neurological deficits Skin: Warm and dry Labs: None new Imaging: None new ASSESSMENT: 34 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 Admitted for observation and Benefix infusion. Exam reassuring. PLAN: - continue prn oxycodone - can consider adding scheduled tylenol and motrin - will schedule follow up with Dr. Benavides for post-op visit - counseled patient that: - steri-strips along incisions will fall off on their own - it is common to have diarrhea for days to weeks post-operatively d/w Dr. Kei Freeman MD General Surgery [id number] Cosigned by Shilpi Benavides MD at 10/23/2024 7:55 AM EDT documented in this [facility] Work Phone: 1(546) 460-406603-20-2025 Hospital course Narrative* Kati Henriquez PA-C - 10/23/2024 10:08 AM EDT Discharge Diagnosis Biliary dyskinesia Issues Requiring Follow-Up Post up follow up with surgical team Test Results Pending At Discharge Pending Labs Order Current Status Surgical Pathology Exam In process Hospital Course Susana Rodriguez is a 34 y.o. 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 Patient had a a h/o recurrent right upper quadrant pain and was admitted to surgery for smita with plans admission to the [facility] service post op for observation for bleeding and Benefix infusion. Patient was given 1 unit of Benefix 4550 Units pre-op and 2 additional doses post per hematology recs. She wasalso Oxycodone and IV Dilaudid for pain management post op. Discharge in stable condition with plans to follow up with Dr. Benavides on 11/06. FUV with Dr. Cao as needed. On the day of discharge, the patient reported feeling well and pain was controlled. Vitals and labswere stable. Attending has reviewed all labs and vitals, and discussed and agreed with the discharge plan prior to patient discharge. Patient discharged in stable condition. > 30 minutes spent on discharge planning. Pertinent Physical Exam At Time of Discharge Physical Exam Constitutional: Appearance: Normal appearance. Cardiovascular: Rate and Rhythm: Normal rate and regular rhythm. Pulmonary: Effort: Pulmonary effort is normal. Breath sounds: Normal breath sounds. Abdominal: General: Abdomen is flat. Palpations: Abdomen is soft. Comments: Tenderness at incision site Musculoskeletal: General: Normal range of motion. Neurological: General: No focal deficit present. Mental Status: She is alert and oriented to person, place, and time. Psychiatric: Mood and Affect: Mood normal. Behavior: Behavior normal. Home Medications Medication List START taking these medications oxyCODONE 10 mg immediate release tablet; Commonly known as: Roxicodone; Take 1 tablet (10 mg) by mouth every 4 hours if needed for severe pain (7 - 10) for up to 3 days. CONTINUE taking these medications ascorbic acid 1,000 mg tablet; Commonly known as: Vitamin C * BeneFIX 3,000 unit injection; Generic drug: coagulation factor IX (recombinant) * coagulation factor IX (recombinant) 3,000 unit injection; Commonly known as: BeneFIX; 4545 units +/-10%. 50 units/kg. Weight 90.9 kg. Infuse slow I.V. push every 12 hours as directed. Disp 3 doses. No refill. ferrous sulfate 325 (65 Fe) mg EC tablet Vitamin D3 25 mcg (1000 units) tablet; Generic drug: cholecalciferol * This list has 2 medication(s) that are the same as other medications prescribed for you. Read the directions carefully, and ask your doctor or other care provider to review them with you. Outpatient Follow-Up Future Appointments Date Time Provider Department Center 11/06/2024 11:50 AM Shilpi Benavides MD [id number] [facility] Kati Henriquez PA-C [facility] Work Phone: 1(711) 329-754603-20-2025 Plan of care note* Care Plan - Meghana Powell RN - 10/23/2024 5:33 AM EDT The patient's goals for the shift include Manage pain and monitor for s/s bleeding The clinical goals for the shift include Patient will remain safe, HDS, free from s/s of active bleeding and pain will be managed as per protocol until EOS Problem: Pain - Adult Goal: Verbalizes/displays adequate comfort level or baseline comfort level Outcome: Progressing Problem: Safety - Adult Goal: Free from fall injury Outcome: Progressing Problem: Discharge Planning Goal: Discharge to home or other facility with appropriate resources Outcome: Progressing Problem: Chronic Conditions and Co-morbidities Goal: Patient's chronic conditions and co-morbidity symptoms are monitored and maintained or improved Outcome: Progressing Problem: Nutrition Goal: Nutrient intake appropriate for maintaining nutritional needs Outcome: Progressing Problem: Fall/Injury Goal: Not fall by end of shift Outcome: Progressing Goal: Be free from injury by end of the shift Outcome: Progressing Goal: Verbalize understanding of personal risk factors for fall in the hospital Outcome: Progressing Problem: Pain Goal: Takes deep breaths with improved pain control throughout the shift Outcome: Progressing Goal: Turns in bed with improved pain control throughout the shift Outcome: Progressing Goal: Walks with improved pain control throughout the shift Outcome: Progressing Goal: Performs ADL's with improved pain control throughout shift Outcome: Progressing Goal: Participates in PT with improved pain control throughout the shift Outcome: Progressing Goal: Free from opioid side effects throughout the shift Outcome: Progressing Goal: Free from acute confusion related to pain meds throughout the shift Outcome: Progressing [facility]03-20-2025 Miscellaneous Notes* Care Plan - Meghana Powell RN - 10/23/2024 5:33 AM EDT The patient's goals for the shift include Manage pain and monitor for s/s bleeding The clinical goals for the shift include Patient will remain safe, HDS, free from s/s of active bleeding and pain will be managed as per protocol until EOS Problem: Pain - Adult Goal: Verbalizes/displays adequate comfort level or baseline comfort level Outcome: Progressing Problem: Safety - Adult Goal: Free from fall injury Outcome: Progressing Problem: Discharge Planning Goal: Discharge to home or other facility with appropriate resources Outcome: Progressing Problem: Chronic Conditions and Co-morbidities Goal: Patient's chronic conditions and co-morbidity symptoms are monitored and maintained or improved Outcome: Progressing Problem: Nutrition Goal: Nutrient intake appropriate for maintaining nutritional needs Outcome: Progressing Problem: Fall/Injury Goal: Not fall by end of shift Outcome: Progressing Goal: Be free from injury by end of the shift Outcome: Progressing Goal: Verbalize understanding of personal risk factors for fall in the hospital Outcome: Progressing Problem: Pain Goal: Takes deep breaths with improved pain control throughout the shift Outcome: Progressing Goal: Turns in bed with improved pain control throughout the shift Outcome: Progressing Goal: Walks with improved pain control throughout the shift Outcome: Progressing Goal: Performs ADL's with improved pain control throughout shift Outcome: Progressing Goal: Participates in PT with improved pain control throughout the shift Outcome: Progressing Goal: Free from opioid side effects throughout the shift Outcome: Progressing Goal: Free from acute confusion related to pain meds throughout the shift Outcome: Progressing * Significant Event - Cody Moreno MD - 10/22/2024 5:10 PM EDT [facility] Post-op Check S: POD 0 from laparoscopic cholecystectomy. Patient seen at bedside, awake, alert, conversational. Endorsing some mild nausea that improved with antinausea medications. Pain appropriate, managed with pain mediciones. O: Vital signs are stable, normotensive, afebrile, no new or worsening oxygen requirement, not tachycardic Visit Vitals BP 112/70 (BP Location: Left arm, Patient Position: Lying) Pulse 72 Temp 36.6 C (97.9 F) (Temporal) Resp 16 Constitutional: no acute distress Skin: warm and dry overall Neuro: A/O x4, no gross deficits HEENT: Atraumatic, no scleral icterus Cardiac: RRR Pulmonary: Unlabored respirations Abdomen: Mildly distended, appropriately tender. GI: Voiding Surgical Site: 3 abdominal incisions with mild strikethrough on steristrips, no oozing or significant bleeding. A/P: Overall, patient is doing well postoperatively with no acute concerns. Recommend pain control with tylenol 650 Q6hr, oxycodone 5mg Q6h. CLD, advance as tolerated. Will continue to optimize pain control as needed. Will continue to monitor clinical exam, vitals, I&O's, and labs when available. Will follow up on the patient in the a.m. or sooner as needed. Cody Moreno MD PGY-1 General Surgery [facility] [id number] * Op Note - Shilpi Benavides MD - 10/22/2024 10:39 AM EDT CHOLECYSTECTOMY, LAPAROSCOPIC, WITH CHOLANGIOGRAM Operative Note Date: 10/22/2024 OR Location: [facility] OR Name: Susana Rodriguez, : 1990, Age: 34 y.o., , Sex: female Diagnosis Pre-op Diagnosis * Biliary dyskinesia [K82.8] Post-op Diagnosis * Biliary dyskinesia [K82.8] Procedures CHOLECYSTECTOMY, LAPAROSCOPIC, WITH CHOLANGIOGRAM 11097 - OR LAPS SURG CHOLECYSTECTOMY W/CHOLANGIOGRAPHY Surgeons * Shilpi Benavides - Primary Resident/Fellow/Other Quality Technician: Surgeons and Role: * Oniel Freeman MD - Resident - Assisting Staff: Heel Former: Joan Mariano Person: Renée Anesthesia Staff: Anesthesiologist: Terrance Booth MD Bistro Attendant: Debra Umana MD Procedure Summary Anesthesia: General ASA: II Estimated Blood Loss: 2mL Intra-op Medications: Administrations occurring from 1030 to 1210 on 10/22/24: Medication Name Total Dose BUPivacaine-EPINEPHrine (Marcaine w/EPI) 0.5 %-1:200,000 injection 15 mL sodium chloride 0.9 % irrigation solution 900 mL lactated Ringer's infusion 53.75 mL ceFAZolin (Ancef) vial 1 g 2 g dexAMETHasone (Decadron) injection 4 mg/mL 8 mg dexmedeTOMIDine (Precedex) bolus from bag 28 mcg droperidol (Inapsine) injection 0.625 mg fentaNYL (Sublimaze) injection 50 mcg/mL 100 mcg HYDROmorphone (Dilaudid) injection 1 mg/mL 0.4 mg lidocaine (cardiac) injection 2% prefilled syringe 80 mg ondansetron (Zofran) 2 mg/mL injection 4 mg phenylephrine 40 mcg/mL syringe 10 mL 40 mcg propofol (Diprivan) injection 10 mg/mL 200 mg rocuronium (ZeMuron) 50 mg/5 mL injection 50 mg sugammadex (Bridion) 200 mg/2 mL injection 200 mg Anesthesia Record Intraprocedure I/O Totals Intake Dexmedetomidine 0.00 mL The total shown is the total volume documented since Anesthesia Start was filed. Ketamine 0.00 mL The total shown is the total volume documented since Anesthesia Start was filed. Total Intake 0 mL Specimen: ID Type Source Tests Collected by Time 1 : GALLBLADDER Tissue GALLBLADDER CHOLECYSTECTOMY SURGICAL PATHOLOGY EXAM Shilpi Benavides MD 10/22/2024 1110 Drains and/or Catheters: * None in log * Tourniquet Times: Implants: Findings: adhesions to gallbladder. Normal cholangiogram Indications: Susana Rodriguez is an 34 y.o. female who is having surgery for Biliary dyskinesia [K82.8]. The patient was seen in the preoperative area. The risks, benefits, complications, treatment options, non-operative alternatives, expected recovery and outcomes were discussed with the patient. The possibilities of reaction to medication, pulmonary aspiration, injury to surrounding structures, bleeding, recurrent infection, the need for additional procedures, failure to diagnose a condition, and creating a complication requiring transfusion or operation were discussed with the patient. The patient concurred with the proposed plan, giving informed consent. The site of surgery was properly noted/marked if necessary per policy. The patient has been actively warmed in preoperative area. Preoperative antibiotics have been ordered and given within 1 hours of incision. Venous thrombosis prophylaxis have been ordered including bilateral sequential compression devices Procedure Details: Patient brought to operating room general anesthesia was given. Patient's abdomen was prepped and draped. I made a vertical umbilical incision and using a Brody technique I entered and insufflated the abdomen. I placed 2 5 Meier trocars right upper quadrant. Lift up the gallbladder. There were adhesions to the gallbladder these were taken down. The cystic duct and cystic artery were isolated patient has short cystic duct. This was clipped and divided the cystic artery was clipped and divided remove the gallbladder from gallbladder bed with electrocautery. There is no bleeding. Is a 7.5 MHz ultrasound probe identified common hepatic duct into the head of the pancreas there is no stones or ductal dilatation. Put the gallbladder in Endobag brought out through my umbilical trocar site. Closed the fascial defect at the umbilicus with 0 Vicryl skin incision with 4-0 Vicryl Complications: None; patient tolerated the procedure well. Disposition: PACU - hemodynamically stable. Condition: stable Attending Attestation: I was present and scrubbed for the entire procedure. Shilpi Benavides * Brief Op Note - Oniel Freeman MD - 10/22/2024 10:39 AM EDT [facility] DEPARTMENT OF SURGERY BRIEF POSTOPERATIVE NOTE Date: 10/22/2024 OR Location: [facility] OR Patient Name: Susana Rodriguez : 1990 Age: 34 y.o. Sex: female PREOPERATIVE DIAGNOSIS: Symptomatic biliary dyskinesia POSTOPERATIVE DIAGNOSIS: Symptomatic biliary dyskinesia PROCEDURE: Laparoscopic cholecystectomy with ultrasound cholangiogram ATTENDING: Shilpi Benavides MD RESIDENT, FELLOW, AND/MOTORCYCLE TECHNICIAN: Oniel Freeman MD PGY5 ANESTHESIA: GETA ESTIMATED BLOOD LOSS: <5 cc FINDINGS: Adhesions to gallbladder suggestive of prior inflammation. Short cystic duct. Cystic duct and artery clipped and divided. US IOC with otherwise normal biliary anatomy including CBD. SPECIMENS: Gallbladder DRAINS: None COMPLICATIONS: None DISPOSITION: PACU PATIENT CONDITION: Satisfactory Oniel Freeman MD General Surgery PGY5 [id number] Cosigned by Shilpi Benavides MD at 10/22/2024 11:41 AM EDT [facility] Work Phone: [phone]) 185-812803-19-2025 manager pharmacy Note* Significant Event - Cody Moreno MD - 10/22/2024 5:10 PM EDT [facility] Post-op Check S: POD 0 from laparoscopic cholecystectomy. Patient seen at bedside, awake, alert, conversational. Endorsing some mild nausea that improved with antinausea medications. Pain appropriate, managed with pain mediciones. O: Vital signs are stable, normotensive, afebrile, no new or worsening oxygen requirement, not tachycardic Visit Vitals BP 112/70 (BP Location: Left arm, Patient Position: Lying) Pulse 72 Temp 36.6 C (97.9 F) (Temporal) Resp 16 Constitutional: no acute distress Skin: warm and dry overall Neuro: A/O x4, no gross deficits HEENT: Atraumatic, no scleral icterus Cardiac: RRR Pulmonary: Unlabored respirations Abdomen: Mildly distended, appropriately tender. GI: Voiding Surgical Site: 3 abdominal incisions with mild strikethrough on steristrips, no oozing or significant bleeding. A/P: Overall, patient is doing well postoperatively with no acute concerns. Recommend pain control with tylenol 650 Q6hr, oxycodone 5mg Q6h. CLD, advance as tolerated. Will continue to optimize pain control as needed. Will continue to monitor clinical exam, vitals, I&O's, and labs when available. Will follow up on the patient in the a.m. or sooner as needed. Cody Moreno MD PGY-1 General Surgery [facility] [id number] [facility] Work Phone: [phone] 266-281503-19-2025 History and physical note* Kati Henriquez PA-C - 10/22/2024 12:59 PM EDT History Of Present Illness Susana Rodriguez is a 34 y.o. 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 Patient had a a h/o recurrent right upper quadrant pain and was admitted to surgery for smita with plans admission to the [facility] post op for observation for bleeding and Benefix infusion. Past Medical History She has a past medical history of Hemophilia B (Multi), Migraine, and (normal spontaneous vaginal delivery) ([facility]) (05/28/2023). She has no past medical history of Delayed emergence from general anesthesia. Surgical History She has a past surgical history that includes Femur fracture surgery (Left, 2000); Bourbon tooth extraction (Bilateral, 2017); and Mouth surgery (Bilateral, 2021). Oncology History No history exists. Social History She reports that she has never smoked. She has never been exposed to tobacco smoke. She has never used smokeless tobacco. She reports that she does not drink alcohol and does not use drugs. Allergies Doxycycline, Latex, and Penicillins Review of Systems Constitutional: Negative for chills and fever. Gastrointestinal: Positive for abdominal pain. Genitourinary: Negative for dysuria. Neurological: Positive for dizziness. Physical Exam Constitutional: Appearance: Normal appearance. Cardiovascular: Rate and Rhythm: Normal rate and regular rhythm. Pulmonary: Effort: Pulmonary effort is normal. Breath sounds: Normal breath sounds. Abdominal: General: Abdomen is flat. Palpations: Abdomen is soft. Comments: Tenderness at incision site Musculoskeletal: General: Normal range of motion. Neurological: General: No focal deficit present. Mental Status: She is alert and oriented to person, place, and time. Psychiatric: Mood and Affect: Mood normal. Behavior: Behavior normal. Last Recorded Vitals Blood pressure 102/55, pulse 55, temperature 36 C (96.8 F), temperature source Temporal, resp. rate12, height 1.651 m (5' 5), weight 92.1 kg (203 lb 0.7 oz), SpO2 95%, not currently . Relevant Results No results found. Assessment/Plan Assessment & Plan Biliary dyskinesia Susana Rodriguez is a 34 y.o. 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 Patient had a a h/o recurrent right upper quadrant pain and was admitted to surgery for smita with plans admission to the [facility] post op for observation for bleeding and Benefix infusion. # 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 - Admit for observation post surgery - S/P lap smita, POD #0 - Received Benefix 50 U/kg or 4550 Units pre-op (given at 10:12 am) - Plan to Infuse Benefix 50 U/kg or 4550 units at 12 h and 24 h after 1st Benefix infusion ( plan 10pm and 10am doses) - IV hydration with NS@100 mL/hr X12 hrs - Monitor for bleeding post up - If stable morning after surgery, the patient can be discharged. - Surgical team to schedule FUV # DVT ppx - SCDs # Dispo: - Full Code - Plan DC tomorrow after last dose of Benefix if no bleeding I spent 75 minutes in the professional and overall care of this patient. Kati Henriquez PA-C [facility] Work Phone: [phone] History and physical note* Kati Henriquez PA-C - 10/22/2024 12:59 PM EDT History Of Present Illness Susana Rodriguez is a 34 y.o. 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 Patient had a a h/o recurrent right upper quadrant pain and was admitted to surgery for smita with plans admission to the [facility] post op for observation for bleeding and Benefix infusion. Past Medical History She has a past medical history of Hemophilia B (Multi), Migraine, and (normal spontaneous vaginal delivery) ([facility]) (05/28/2023). She has no past medical history of Delayed emergence from general anesthesia. Surgical History She has a past surgical history that includes Femur fracture surgery (Left, 2000); Bourbon tooth extraction (Bilateral, 2018); and Mouth surgery (Bilateral, 2021). Oncology History No history exists. Social History She reports that she has never smoked. She has never been exposed to tobacco smoke. She has never used smokeless tobacco. She reports that she does not drink alcohol and does not use drugs. Allergies Doxycycline, Latex, and Penicillins Review of Systems Constitutional: Negative for chills and fever. Gastrointestinal: Positive for abdominal pain. Genitourinary: Negative for dysuria. Neurological: Positive for dizziness. Physical Exam Constitutional: Appearance: Normal appearance. Cardiovascular: Rate and Rhythm: Normal rate and regular rhythm. Pulmonary: Effort: Pulmonary effort is normal. Breath sounds: Normal breath sounds. Abdominal: General: Abdomen is flat. Palpations: Abdomen is soft. Comments: Tenderness at incision site Musculoskeletal: General: Normal range of motion. Neurological: General: No focal deficit present. Mental Status: She is alert and oriented to person, place, and time. Psychiatric: Mood and Affect: Mood normal. Behavior: Behavior normal. Last Recorded Vitals Blood pressure 102/55, pulse 55, temperature 36 C (96.8 F), temperature source Temporal, resp. rate12, height 1.651 m (5' 5), weight 92.1 kg (203 lb 0.7 oz), SpO2 95%, not currently . Relevant Results No results found. Assessment/Plan Assessment & Plan Biliary dyskinesia Susana Rodriguez is a 34 y.o. 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 Patient had a a h/o recurrent right upper quadrant pain and was admitted to surgery for smita with plans admission to the [facility] post op for observation for bleeding and Benefix infusion. # 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 - Admit for observation post surgery - S/P lap smita, POD #0 - Received Benefix 50 U/kg or 4550 Units pre-op (given at 10:12 am) - Plan to Infuse Benefix 50 U/kg or 4550 units at 12 h and 24 h after 1st Benefix infusion ( plan 10pm and 10am doses) - IV hydration with NS@100 mL/hr X12 hrs - Monitor for bleeding post up - If stable morning after surgery, the patient can be discharged. - Surgical team to schedule FUV # DVT ppx - SCDs # Dispo: - Full Code - Plan DC tomorrow after last dose of Benefix if no bleeding I spent 75 minutes in the professional and overall care of this patient. Kati Henriquez PA-C * Shilpi Benavides MD - 10/22/2024 10:05 AM EDT H&P reviewed. The patient was examined and there are no changes to the H&P. Source Note - Shilpi Benavides MD - 10/02/2024 11:30 AM EST History Of Present Illness Susana Rodriguez is a 34 y.o. female presenting with episodes of recurrent right upper quadrant pain. She had an ultrasound that showed no evidence of any gallstones. She had a HIDA scan with CCK injection. She had a 0 ejection fraction. She has changed her diet recently so she is having less attacks. She has hemophilia. She had a child 2 years ago they did give her factor for that. She will be seeing her new court recording monitor in 2 weeks. She has no history of jaundice or pancreatitis no family history of gallstones no previous abdominal surgeries Last Recorded Vitals Blood pressure 113/76, pulse 73, temperature 36.4 C (97.5 F), weight 93 kg (205 lb), currently . Physical Examination Awake and alert normal respiration abdomen is benign some slight tenderness to deep palpation in the right upper quadrant Relevant Results Her phone I was able to review her records from the [facility] clinic. Her ultrasound showed no evidence of any gallstones and her HIDA scan did show an ejection fraction of 0% with CCK Assessment/Plan patient with evidence of biliary dyskinesia and symptoms. I reviewed the gallbladder booklet with her and her . We discussed risk and benefits of surgery versus continued watching. She can see how bad her symptoms are presently she at least does not have stones but does not have the risk for pancreatitis or jaundice. She will be seeing her court recording monitor. We obviously would be giving her factor both before and after operation and probably observing her in the hospital overnight. Shilpi Benavides MD FACS funeral home director Jeanmarie Kirkland Chair in Surgical [place] [facility] [id number] [place] [address], [phone] email: [email or web address] * Shilpi Benavides MD - 10/22/2024 8:04 AM EDT H&P reviewed. The patient was examined and there are no changes to the H&P. Source Note - Shilpi Benavides MD - 10/02/2024 11:30 AM EST History Of Present Illness Susana Rodriguez is a 34 y.o. female presenting with episodes of recurrent right upper quadrant pain. She had an ultrasound that showed no evidence of any gallstones. She had a HIDA scan with CCK injection. She had a 0 ejection fraction. She has changed her diet recently so she is having less attacks. She has hemophilia. She had a child 2 years ago they did give her factor for that. She will be seeing her new court recording monitor in 2 weeks. She has no history of jaundice or pancreatitis no family history of gallstones no previous abdominal surgeries Last Recorded Vitals Blood pressure 113/76, pulse 73, temperature 36.4 C (97.5 F), weight 93 kg (205 lb), currently . Physical Examination Awake and alert normal respiration abdomen is benign some slight tenderness to deep palpation in the right upper quadrant Relevant Results Her phone I was able to review her records from the [facility] clinic. Her ultrasound showed no evidence of any gallstones and her HIDA scan did show an ejection fraction of 0% with CCK Assessment/Plan patient with evidence of biliary dyskinesia and symptoms. I reviewed the gallbladder booklet with her and her . We discussed risk and benefits of surgery versus continued watching. She can see how bad her symptoms are presently she at least does not have stones but does not have the risk for pancreatitis or jaundice. She will be seeing her court recording monitor. We obviously would be giving her factor both before and after operation and probably observing her in the hospital overnight. Shilpi Benavides MD FACS funeral home director Jeanmarie Kirkland Chair in Surgical [place] [facility] [address] [place] [address], [phone] email: [email or web address] documented in this [facility] Work Phone: [phone] Procedure note* Brief Op Note - Oniel Freeman MD - 10/22/2024 10:39 AM EDT [facility] DEPARTMENT OF SURGERY BRIEF POSTOPERATIVE NOTE Date: 10/22/2024 OR Location: [facility] OR Patient Name: Susana Rodriguez : 1990 Age: 34 y.o. Sex: female PREOPERATIVE DIAGNOSIS: Symptomatic biliary dyskinesia POSTOPERATIVE DIAGNOSIS: Symptomatic biliary dyskinesia PROCEDURE: Laparoscopic cholecystectomy with ultrasound cholangiogram ATTENDING: Shilpi Benavides MD RESIDENT, FELLOW, AND/MOTORCYCLE TECHNICIAN: Oniel Freeman MD PGY5 ANESTHESIA: GETA ESTIMATED BLOOD LOSS: <5 cc FINDINGS: Adhesions to gallbladder suggestive of prior inflammation. Short cystic duct. Cystic duct and artery clipped and divided. US IOC with otherwise normal biliary anatomy including CBD. SPECIMENS: Gallbladder DRAINS: None COMPLICATIONS: None DISPOSITION: PACU PATIENT CONDITION: Satisfactory Oniel Freeman MD General Surgery PGY5 [id number] Cosigned by Shilpi Benavides MD at 10/22/2024 11:41 AM EDT [facility] Work Phone: [phone]) 244-532103-19-2025 Surgery Surgical operation note* Op Note - Shilpi Benavides MD - 10/22/2024 10:39 AM EDT CHOLECYSTECTOMY, LAPAROSCOPIC, WITH CHOLANGIOGRAM Operative Note Date: 10/22/2024 OR Location: [facility] OR Name: Susana Rodriguez, : 1990, Age: 34 y.o., , Sex: female Diagnosis Pre-op Diagnosis * Biliary dyskinesia [K82.8] Post-op Diagnosis * Biliary dyskinesia [K82.8] Procedures CHOLECYSTECTOMY, LAPAROSCOPIC, WITH CHOLANGIOGRAM [id number] - OR LAPS SURG CHOLECYSTECTOMY W/CHOLANGIOGRAPHY Surgeons * Shilpi Benavides - Primary Resident/Fellow/Other Quality Technician: Surgeons and Role: * Oniel Freeman MD - Resident - Assisting Staff: Heel Former: Joan Mariano Person: Renée Anesthesia Staff: Anesthesiologist: Terrance Booth MD Bistro Attendant: Debra Umana MD Procedure Summary Anesthesia: General ASA: II Estimated Blood Loss: 2mL Intra-op Medications: Administrations occurring from 1030 to 1210 on 10/22/24: Medication Name Total Dose BUPivacaine-EPINEPHrine (Marcaine w/EPI) 0.5 %-1:200,000 injection 15 mL sodium chloride 0.9 % irrigation solution 900 mL lactated Ringer's infusion 53.75 mL ceFAZolin (Ancef) vial 1 g 2 g dexAMETHasone (Decadron) injection 4 mg/mL 8 mg dexmedeTOMIDine (Precedex) bolus from bag 28 mcg droperidol (Inapsine) injection 0.625 mg fentaNYL (Sublimaze) injection 50 mcg/mL 100 mcg HYDROmorphone (Dilaudid) injection 1 mg/mL 0.4 mg lidocaine (cardiac) injection 2% prefilled syringe 80 mg ondansetron (Zofran) 2 mg/mL injection 4 mg phenylephrine 40 mcg/mL syringe 10 mL 40 mcg propofol (Diprivan) injection 10 mg/mL 200 mg rocuronium (ZeMuron) 50 mg/5 mL injection 50 mg sugammadex (Bridion) 200 mg/2 mL injection 200 mg Anesthesia Record Intraprocedure I/O Totals Intake Dexmedetomidine 0.00 mL The total shown is the total volume documented since Anesthesia Start was filed. Ketamine 0.00 mL The total shown is the total volume documented since Anesthesia Start was filed. Total Intake 0 mL Specimen: ID Type Source Tests Collected by Time 1 : GALLBLADDER Tissue GALLBLADDER CHOLECYSTECTOMY SURGICAL PATHOLOGY EXAM Shilpi Benavides MD 10/22/2024 1110 Drains and/or Catheters: * None in log * Tourniquet Times: Implants: Findings: adhesions to gallbladder. Normal cholangiogram Indications: Susana Rodriguez is an 34 y.o. female who is having surgery for Biliary dyskinesia [K82.8]. The patient was seen in the preoperative area. The risks, benefits, complications, treatment options, non-operative alternatives, expected recovery and outcomes were discussed with the patient. The possibilities of reaction to medication, pulmonary aspiration, injury to surrounding structures, bleeding, recurrent infection, the need for additional procedures, failure to diagnose a condition, and creating a complication requiring transfusion or operation were discussed with the patient. The patient concurred with the proposed plan, giving informed consent. The site of surgery was properly noted/marked if necessary per policy. The patient has been actively warmed in preoperative area. Preoperative antibiotics have been ordered and given within 1 hours of incision. Venous thrombosis prophylaxis have been ordered including bilateral sequential compression devices Procedure Details: Patient brought to operating room general anesthesia was given. Patient's abdomen was prepped and draped. I made a vertical umbilical incision and using a Brody technique I entered and insufflated the abdomen. I placed 2 5 Meier trocars right upper quadrant. Lift up the gallbladder. There were adhesions to the gallbladder these were taken down. The cystic duct and cystic artery were isolated patient has short cystic duct. This was clipped and divided the cystic artery was clipped and divided remove the gallbladder from gallbladder bed with electrocautery. There is no bleeding. Is a 7.5 MHz ultrasound probe identified common hepatic duct into the head of the pancreas there is no stones or ductal dilatation. Put the gallbladder in Endobag brought out through my umbilical trocar site. Closed the fascial defect at the umbilicus with 0 Vicryl skin incision with 4-0 Vicryl Complications: None; patient tolerated the procedure well. Disposition: PACU - hemodynamically stable. Condition: stable Attending Attestation: I was present and scrubbed for the entire procedure. Shilpi Benavides [facility] Work Phone: [phone] Attending History and physical note* Shilpi Benavides MD - 10/22/2024 10:05 AM EDT H&P reviewed. The patient was examined and there are no changes to the H&P. Source Note - Shilpi Benavides MD - 10/02/2024 11:30 AM EST History Of Present Illness Susana Rodriguez is a 34 y.o. female presenting with episodes of recurrent right upper quadrant pain. She had an ultrasound that showed no evidence of any gallstones. She had a HIDA scan with CCK injection. She had a 0 ejection fraction. She has changed her diet recently so she is having less attacks. She has hemophilia. She had a child 2 years ago they did give her factor for that. She will be seeing her new court recording monitor in 2 weeks. She has no history of jaundice or pancreatitis no family history of gallstones no previous abdominal surgeries Last Recorded Vitals Blood pressure 113/76, pulse 73, temperature 36.4 C (97.5 F), weight 93 kg (205 lb), currently . Physical Examination Awake and alert normal respiration abdomen is benign some slight tenderness to deep palpation in the right upper quadrant Relevant Results Her phone I was able to review her records from the [facility] clinic. Her ultrasound showed no evidence of any gallstones and her HIDA scan did show an ejection fraction of 0% with CCK Assessment/Plan patient with evidence of biliary dyskinesia and symptoms. I reviewed the gallbladder booklet with her and her . We discussed risk and benefits of surgery versus continued watching. She can see how bad her symptoms are presently she at least does not have stones but does not have the risk for pancreatitis or jaundice. She will be seeing her court recording monitor. We obviously would be giving her factor both before and after operation and probably observing her in the hospital overnight. Shilpi Benavides MD FACS funeral home director Jeanmarie Kirkland Chair in Surgical [place] [facility] [address] [place] [address], [phone] email: [email or web address] [facility] Work Phone: [phone]) [phone] Attending History and physical note* Shilpi Benavides MD - 10/22/2024 8:04 AM EDT H&P reviewed. The patient was examined and there are no changes to the H&P. Source Note - Shilpi Benavides MD - 10/02/2024 11:30 AM EST History Of Present Illness Susana Rodriguez is a 34 y.o. female presenting with episodes of recurrent right upper quadrant pain. She had an ultrasound that showed no evidence of any gallstones. She had a HIDA scan with CCK injection. She had a 0 ejection fraction. She has changed her diet recently so she is having less attacks. She has hemophilia. She had a child 2 years ago they did give her factor for that. She will be seeing her new court recording monitor in 2 weeks. She has no history of jaundice or pancreatitis no family history of gallstones no previous abdominal surgeries Last Recorded Vitals Blood pressure 113/76, pulse 73, temperature 36.4 C (97.5 F), weight 93 kg (205 lb), currently . Physical Examination Awake and alert normal respiration abdomen is benign some slight tenderness to deep palpation in the right upper quadrant Relevant Results Her phone I was able to review her records from the [facility] clinic. Her ultrasound showed no evidence of any gallstones and her HIDA scan did show an ejection fraction of 0% with CCK Assessment/Plan patient with evidence of biliary dyskinesia and symptoms. I reviewed the gallbladder booklet with her and her . We discussed risk and benefits of surgery versus continued watching. She can see how bad her symptoms are presently she at least does not have stones but does not have the risk for pancreatitis or jaundice. She will be seeing her court recording monitor. We obviously would be giving her factor both before and after operation and probably observing her in the hospital overnight. Shilpi Benavides MD FACS funeral home director Jeanmarie Kirkland Chair in Surgical [place] [facility] [address] [place] [address], [id number] email: [email or web address] Work Phone: [phone] Consult note* Kalani Cao MD - 10/20/2024 2:21 PM EDT HPI This is the first office visit for this 34 yo woman who is a carrier for hemophilia B. Since Xmas, she has a hx of right upper quadrant pain associated with nausea and diarrhea. Abd ultrasound and Hyda scan reveals a non-functioning GB. No stones. Wall of GB , not thickened, against a hx of chroniccholecystitis. No hx of hemoglobin/blood problem. It is planned that she will have her GB removed next week in [facility] with Dr. Benavides. PMHx: A0. Two year old health son. At the time of labor & delivery, however, the mother (patient) was having problems, LINOTYPER, after exposure to black mold. Had to leave the home and get it cleaned out of mold. The L&D was induced, early because of mothers' black mold condition. No other PMHx Family hx: Father 64-hx of ASCVD, mother- went patient ws 7 months old. Mother of a hepatic cancer that was present during the . Brothers have hemophilia B - patients of Dr. Cao. Social hx; no smoking, drinking, marijuana, no Rx drugs. Review of Systems Constitutional: Negative. HENT: Negative. Eyes: Negative. Respiratory: Negative. Cardiovascular: Negative. Gastrointestinal: Positive for abdominal distention, abdominal pain and nausea. RUQ abd pain from GB. Endocrine: Negative. Genitourinary: Negative. Musculoskeletal: Negative. Skin: Negative. Neurological: Negative. Hematological: Negative. Psychiatric/Behavioral: Negative. Objective BSA: 2.05 meters squared BP 109/71 Pulse 75 Temp 36.2 C (97.2 F) (Core) Ht (S) 1.663 m (5' 5.47) Wt 90.9 kg (200 lb6.4 oz) SpO2 99% BMI 32.87 kg/m has a past medical history of Hemophilia B (Multi), Migraine, and (normal spontaneous vaginal delivery) ([facility]) (05/28/2023). She has no past medical history of Delayed emergence from general anesthesia. has a past surgical history that includes Femur fracture surgery (Left, 2000); Bourbon tooth extraction (Bilateral, 2017); and Mouth surgery (Bilateral, 2021). Family History Family History Problem Relation Name Age of Onset Hypertension Father Hypertension Brother Diabetes Maternal Grandmother Patient's Oncology History documentation Oncology History No history exists. Susana Rodriguez reports that she has never smoked. She has never been exposed to tobacco smoke.She has never used smokeless tobacco. She reports no history of alcohol use. She reports no history of drug use. Physical Exam Vitals reviewed. Constitutional: Appearance: Normal appearance. She is normal weight. HENT: Head: Normocephalic and atraumatic. Mouth/Throat: Mouth: Mucous membranes are moist. Eyes: Extraocular Movements: Extraocular movements intact. Conjunctiva/sclera: Conjunctivae normal. Pupils: Pupils are equal, round, and reactive to light. Cardiovascular: Rate and Rhythm: Normal rate and regular rhythm. Pulses: Normal pulses. Heart sounds: Normal heart sounds. Pulmonary: Effort: Pulmonary effort is normal. Breath sounds: Normal breath sounds. Abdominal: Palpations: Abdomen is soft. Musculoskeletal: General: Normal range of motion. Cervical back: Normal range of motion and neck supple. Skin: General: Skin is warm. Neurological: General: No focal deficit present. Mental Status: She is alert and oriented to person, place, and time. Mental status is at baseline. Psychiatric: Mood and Affect: Mood normal. Behavior: Behavior normal. Thought Content: Thought content normal. Judgment: Judgment normal. Labs: normal glucose, BUN, Creatinine. Amylase-low at 27, ferritin=27, 7% iron saturation. Normal lipase =22, aPTT=38, PT=11, FIX=38% KOH=9688 with 58% PMNs and 29% lymphs, Hgb/PCV=13.0/39.8%, MCV=86, smhl=165 Assessment: Pre-op data indicate the patient is iron deficient. I prescribe Nature Made iron - 1 pill = 65 mg elemental iron daily for 3 months. My operation plans for the patient are as follows: Operative Plans: Pre-op: 1) Obtain CBCD 2) Infuse Benefix 50 U/kg or 4550 Units pre-op electrical construction project manager to [place] Post-op 3) Admit to [facility] service for overnight observation 4) Infuse Benefix 50 U/kg or 4550 units at 12 h and 24 h after 1st Benefix infusion 5) If stable morning after surgery, the patient can be discharged. Kalani Cao MD Senior Attending [facility] Work Phone: [phone] [phone] Consult note* Kalani Cao MD - 10/20/2024 2:21 PM EDT HPI This is the first office visit for this 34 yo woman who is a carrier for hemophilia B. Since Xmas, she has a hx of right upper quadrant pain associated with nausea and diarrhea. Abd ultrasound and Hyda scan reveals a non-functioning GB. No stones. Wall of GB , not thickened, against a hx of chroniccholecystitis. No hx of hemoglobin/blood problem. It is planned that she will have her GB removed next week in [facility] with Dr. Benavides. PMHx: A0. Two year old health son. At the time of labor & delivery, however, the mother (patient) was having problems, LINOTYPER, after exposure to black mold. Had to leave the home and get it cleaned out of mold. The L&D was induced, early because of mothers' black mold condition. No other PMHx Family hx: Father 64-hx of ASCVD, mother- went patient ws 7 months old. Mother of a hepatic cancer that was present during the . Brothers have hemophilia B - patients of Dr. Cao. Social hx; no smoking, drinking, marijuana, no Rx drugs. Review of Systems Constitutional: Negative. HENT: Negative. Eyes: Negative. Respiratory: Negative. Cardiovascular: Negative. Gastrointestinal: Positive for abdominal distention, abdominal pain and nausea. RUQ abd pain from GB. Endocrine: Negative. Genitourinary: Negative. Musculoskeletal: Negative. Skin: Negative. Neurological: Negative. Hematological: Negative. Psychiatric/Behavioral: Negative. Objective BSA: 2.05 meters squared BP 109/71 Pulse 75 Temp 36.2 C (97.2 F) (Core) Ht (S) 1.663 m (5' 5.47) Wt 90.9 kg (200 lb6.4 oz) SpO2 99% BMI 32.87 kg/m has a past medical history of Hemophilia B (Multi), Migraine, and (normal spontaneous vaginal delivery) ([facility]) (05/28/2023). She has no past medical history of Delayed emergence from general anesthesia. has a past surgical history that includes Femur fracture surgery (Left, 2000); Bourbon tooth extraction (Bilateral, 2017); and Mouth surgery (Bilateral, 2021). Family History Family History Problem Relation Name Age of Onset Hypertension Father Hypertension Brother Diabetes Maternal Grandmother Patient's Oncology History documentation Oncology History No history exists. Susana Rodriguez reports that she has never smoked. She has never been exposed to tobacco smoke.She has never used smokeless tobacco. She reports no history of alcohol use. She reports no history of drug use. Physical Exam Vitals reviewed. Constitutional: Appearance: Normal appearance. She is normal weight. HENT: Head: Normocephalic and atraumatic. Mouth/Throat: Mouth: Mucous membranes are moist. Eyes: Extraocular Movements: Extraocular movements intact. Conjunctiva/sclera: Conjunctivae normal. Pupils: Pupils are equal, round, and reactive to light. Cardiovascular: Rate and Rhythm: Normal rate and regular rhythm. Pulses: Normal pulses. Heart sounds: Normal heart sounds. Pulmonary: Effort: Pulmonary effort is normal. Breath sounds: Normal breath sounds. Abdominal: Palpations: Abdomen is soft. Musculoskeletal: General: Normal range of motion. Cervical back: Normal range of motion and neck supple. Skin: General: Skin is warm. Neurological: General: No focal deficit present. Mental Status: She is alert and oriented to person, place, and time. Mental status is at baseline. Psychiatric: Mood and Affect: Mood normal. Behavior: Behavior normal. Thought Content: Thought content normal. Judgment: Judgment normal. Labs: normal glucose, BUN, Creatinine. Amylase-low at 27, ferritin=27, 7% iron saturation. Normal lipase =22, aPTT=38, PT=11, FIX=38% ZOH=4304 with 58% PMNs and 29% lymphs, Hgb/PCV=13.0/39.8%, MCV=86, ycbk=479 Assessment: Pre-op data indicate the patient is iron deficient. I prescribe Nature Made iron - 1 pill = 65 mg elemental iron daily for 3 months. My operation plans for the patient are as follows: Operative Plans: Pre-op: 1) Obtain CBCD 2) Infuse Benefix 50 U/kg or 4550 Units pre-op electrical construction project manager to OR Post-op 3) Admit to [facility] service for overnight observation 4) Infuse Benefix 50 U/kg or 4550 units at 12 h and 24 h after 1st Benefix infusion 5) If stable morning after surgery, the patient can be discharged. Kalani Cao MD Senior Attending documented in this [facility] Work Phone: 1(673) 174-224103-12-2025 History of Present illness Narrative* Kalani Cao MD - 10/15/2024 10:00 AM EDT b * Giana Covarrubias RN - 10/15/2024 10:00 AM EDT VISIT TODAY WITH DR. CAO 1ST TIME Labs ordered. Will f/[facility] per Grace Valenzuela RN. AVS given with list of labs completed today and Dr. Barlow card.Giana Covarrubias RN * Kalani Cao MD - 10/15/2024 10:00 AM EDT Patient ID: Susana Rodriguez is a 34 y.o. female. Referring Physician: No referring provider defined for this encounter. 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 Since Xmas, she has a hx of right upper quadrant pain associated with nausea and diarrhea. Abd ultrasound and Hyda scan reveals a non-functioning GB. No stones. Wall of GB , not thickened, against a hx of chroniccholecystitis. No hx of hemoglobin/blood problem. It is planned that she will have her GB removed next week in [facility] with Dr. Benavides. PMHx: A0. Two year old health son. At the time of labor & delivery, however, the mother (patient) was having problems, LINOTYPER, after exposure to black mold. Had to leave the home and get it cleaned out of mold. The L&D was induced, early because of mothers' black mold condition. No other PMHx Family hx: Father 64-hx of ASCVD, mother- went patient ws 7 months old. Mother of a hepatic cancer that was present during the . Brothers have hemophilia B - patients of Dr. Cao. Social hx; no smoking, drinking, marijuana, no Rx drugs. Review of Systems Constitutional: Negative. HENT: Negative. Eyes: Negative. Respiratory: Negative. Cardiovascular: Negative. Gastrointestinal: Positive for abdominal distention, abdominal pain and nausea. RUQ abd pain from GB. Endocrine: Negative. Genitourinary: Negative. Musculoskeletal: Negative. Skin: Negative. Neurological: Negative. Hematological: Negative. Psychiatric/Behavioral: Negative. Objective BSA: 2.05 meters squared BP 109/71 Pulse 75 Temp 36.2 C (97.2 F) (Core) Ht (S) 1.663 m (5' 5.47) Wt 90.9 kg (200 lb6.4 oz) SpO2 99% BMI 32.87 kg/m has a past medical history of Hemophilia B (Multi), Migraine, and (normal spontaneous vaginal delivery) ([facility]) (05/28/2023). She has no past medical history of Delayed emergence from general anesthesia. has a past surgical history that includes Femur fracture surgery (Left, 2000); Bourbon tooth extraction (Bilateral, 2017); and Mouth surgery (Bilateral, 2021). Family History Problem Relation Name Age of Onset Hypertension Father Hypertension Brother Diabetes Maternal Grandmother Oncology History No history exists. Susana Rodriguez reports that she has never smoked. She has never been exposed to tobacco smoke.She has never used smokeless tobacco. She reports no history of alcohol use. She reports no history of drug use. Physical Exam Vitals reviewed. Constitutional: Appearance: Normal appearance. She is normal weight. HENT: Head: Normocephalic and atraumatic. Mouth/Throat: Mouth: Mucous membranes are moist. Eyes: Extraocular Movements: Extraocular movements intact. Conjunctiva/sclera: Conjunctivae normal. Pupils: Pupils are equal, round, and reactive to light. Cardiovascular: Rate and Rhythm: Normal rate and regular rhythm. Pulses: Normal pulses. Heart sounds: Normal heart sounds. Pulmonary: Effort: Pulmonary effort is normal. Breath sounds: Normal breath sounds. Abdominal: Palpations: Abdomen is soft. Musculoskeletal: General: Normal range of motion. Cervical back: Normal range of motion and neck supple. Skin: General: Skin is warm. Neurological: General: No focal deficit present. Mental Status: She is alert and oriented to person, place, and time. Mental status is at baseline. Psychiatric: Mood and Affect: Mood normal. Behavior: Behavior normal. Thought Content: Thought content normal. Judgment: Judgment normal. Labs: normal glucose, BUN, Creatinine. Amylase-low at 27, ferritin=27, 7% iron saturation. Normal lipase =22, aPTT=38, PT=11, FIX=38% WKZ=[id number] with 58% PMNs and 29% lymphs, Hgb/PCV=13.0/39.8%, MCV=86, aoer=960 Assessment: Pre-op data indicate the patient is iron deficient. I prescribe Nature Made iron - 1 pill = 65 mg elemental iron daily for 3 months. My operation plans for the patient are as follows: Operative Plans: Pre-op: 1) Obtain CBCD, aPTT, FIX 2) Infuse Benefix 60 U/kg or 5460 Units pre-op electrical construction project manager to OR Post-op 3) Admit to [facility] service for overnight observation 4) Infuse Benefix 50 U/kg or 4550 units at 12 h and 24 h after 1st Benefix infusion 5) If stable morning after surgery, the patient can be discharged. Kalani Cao MD Senior Attending WBC Date/Time Value Ref Range Status 05/27/2023 05:18 PM 14.5 (H) 4.4 - 11.3 x10*3/uL Final 05/26/2023 07:59 PM 11.5 (H) 4.4 - 11.3 x10*3/uL Final 05/26/2023 12:59 PM 9.9 4.4 - 11.3 x10*3/uL Final nRBC Date Value Ref Range Status 05/27/2023 0.0 0.0 - 0.0 /100 WBCs Final 05/26/2023 0.0 0.0 - 0.0 /100 WBCs Final 05/26/2023 0.0 0.0 - 0.0 /100 WBCs Final RBC Date Value Ref Range Status 05/27/2023 3.33 (L) 4.00 - 5.20 x10*6/uL Final 05/26/2023 3.96 (L) 4.00 - 5.20 x10*6/uL Final 05/26/2023 3.92 (L) 4.00 - 5.20 x10*6/uL Final Hemoglobin Date Value Ref Range Status 05/27/2023 9.5 (L) 12.0 - 16.0 g/dL Final 05/26/2023 11.2 (L) 12.0 - 16.0 g/dL Final 05/26/2023 11.1 (L) 12.0 - 16.0 g/dL Final Hematocrit Date Value Ref Range Status 05/27/2023 30.7 (L) 36.0 - 46.0 % Final 05/26/2023 34.9 (L) 36.0 - 46.0 % Final 05/26/2023 35.0 (L) 36.0 - 46.0 % Final MCV Date/Time Value Ref Range Status 05/27/2023 05:18 PM 92 80 - 100 fL Final 05/26/2023 07:59 PM 88 80 - 100 fL Final 05/26/2023 12:59 PM 89 80 - 100 fL Final MCH Date/Time Value Ref Range Status 05/27/2023 05:18 PM 28.5 26.0 - 34.0 pg Final 05/26/2023 07:59 PM 28.3 26.0 - 34.0 pg Final 05/26/2023 12:59 PM 28.3 26.0 - 34.0 pg Final MCHC Date/Time Value Ref Range Status 05/27/2023 05:18 PM 30.9 (L) 32.0 - 36.0 g/dL Final 05/26/2023 07:59 PM 32.1 32.0 - 36.0 g/dL Final 05/26/2023 12:59 PM 31.7 (L) 32.0 - 36.0 g/dL Final RDW Date/Time Value Ref Range Status 05/27/2023 05:18 PM 14.5 11.5 - 14.5 % Final 05/26/2023 07:59 PM 14.6 (H) 11.5 - 14.5 % Final 05/26/2023 12:59 PM 14.6 (H) 11.5 - 14.5 % Final Platelets Date/Time Value Ref Range Status 05/27/2023 05:18 PM 222 150 - 450 x10*3/uL Final 05/26/2023 07:59 PM 262 150 - 450 x10*3/uL Final 05/26/2023 12:59 PM 268 150 - 450 x10*3/uL Final MPV Date/Time Value Ref Range Status 05/27/2023 05:18 PM 11.0 7.5 - 11.5 fL Final 05/26/2023 07:59 PM 11.0 7.5 - 11.5 fL Final 05/26/2023 12:59 PM 10.9 7.5 - 11.5 fL Final Neutrophils % Date/Time Value Ref Range Status 08/21/2017 11:06 AM 60.4 40.0 - 80.0 % Final Immature Granulocytes %, Automated Date/Time Value Ref Range Status 08/21/2017 11:06 AM 0.7 0.0 - 0.9 % Final Comment: Percent differential counts (%) should be interpreted in the context of the absolute cell counts (cells/L). Lymphocytes % Date/Time Value Ref Range Status 08/21/2017 11:06 AM 27.7 13.0 - 44.0 % Final Monocytes % Date/Time Value Ref Range Status 08/21/2017 11:06 AM 8.3 2.0 - 10.0 % Final Eosinophils % Date/Time Value Ref Range Status 08/21/2017 11:06 AM 2.2 0.0 - 6.0 % Final Basophils % Date/Time Value Ref Range Status 08/21/2017 11:06 AM 0.7 0.0 - 2.0 % Final Neutrophils Absolute Date/Time Value Ref Range Status 08/21/2017 11:06 AM 2.49 1.20 - 7.70 x10E9/L Final No results found for: IGABSOL Lymphocytes Absolute Date/Time Value Ref Range Status 08/21/2017 11:06 AM 1.14 (L) 1.20 - 4.80 x10E9/L Final Monocytes Absolute Date/Time Value Ref Range Status 08/21/2017 11:06 AM 0.34 0.10 - 1.00 x10E9/L Final Eosinophils Absolute Date/Time Value Ref Range Status 08/21/2017 11:06 AM 0.09 0.00 - 0.70 x10E9/L Final Basophils Absolute Date/Time Value Ref Range Status 08/21/2017 11:06 AM 0.03 0.00 - 0.10 x10E9/L Final No components found for: PT aPTT Date/Time Value Ref Range Status 05/28/2023 08:14 AM 28 27 - 38 seconds Final 05/27/2023 05:54 AM 28 27 - 38 seconds Final 05/26/2023 01:00 PM 30 27 - 38 seconds Final Assessment/Plan Diagnoses and all orders for this visit: Iron deficiency anemia due to chronic blood loss - CBC and Auto Differential; Future - Comprehensive Metabolic Panel; Future - Ferritin; Future - Iron and TIBC; Future - Reticulocytes; Future - Slide Request; Future 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 - aPTT; Future - Factor 9 Activity; Future - Protime-INR; Future - Comprehensive Metabolic Panel; Future Cholecystitis - Comprehensive Metabolic Panel; Future - Bilirubin, Direct; Future - Lipase; Future - Amylase; Future Kalani Cao MD [facility] Work Phone: [phone]) 557-840502-27-2025 History of Present illness Narrative* Shilpi Benavides MD - 10/02/2024 11:30 AM EST History Of Present Illness Susana Rodriguez is a 34 y.o. female presenting with episodes of recurrent right upper quadrant pain. She had an ultrasound that showed no evidence of any gallstones. She had a HIDA scan with CCK injection. She had a 0 ejection fraction. She has changed her diet recently so she is having less attacks. She has hemophilia. She had a child 2 years ago they did give her factor for that. She will be seeing her new court recording monitor in 2 weeks. She has no history of jaundice or pancreatitis no family history of gallstones no previous abdominal surgeries Last Recorded Vitals Blood pressure 113/76, pulse 73, temperature 36.4 C (97.5 F), weight 93 kg (205 lb), currently . Physical Examination Awake and alert normal respiration abdomen is benign some slight tenderness to deep palpation in the right upper quadrant Relevant Results Her phone I was able to review her records from the [facility]. Her ultrasound showed no evidence of any gallstones and her HIDA scan did show an ejection fraction of 0% with CCK Assessment/Plan patient with evidence of biliary dyskinesia and symptoms. I reviewed the gallbladder booklet with her and her . We discussed risk and benefits of surgery versus continued watching. She can see how bad her symptoms are presently she at least does not have stones but does not have the risk for pancreatitis or jaundice. She will be seeing her court recording monitor. We obviously would be giving her factor both before and after operation and probably observing her in the hospital overnight. Shilpi Benavides MD FACS funeral home director Jeanmarie Kirkland Chair in Surgical [place] [facility] [address] [place] [address], [id number] email: [email or web address] documented in this [facility] Work Phone: 1(915) 706-150804-25-2022 History of Present illness Narrative* LUISA Dowell - 11/28/2021 4:18 PM EDT 11/28/21 2460 Social Work Screenings Screening patient has qualified for Depression Patient appropriate for screening? Yes Depression Screening Over the past two weeks have you been bothered by feeling down, depressed, or hopeless? No Do you have a history of depression? No Interventions Intervention Needed? No Patient was discharged prior to screening being completed, answers taken from nursing assessment. CONNER Calle, RAPHAEL, [facility] Manager Construction, Emergency Department [phone] * Samantha Cortes RN - 11/28/2021 4:18 PM EDT Discharge Planning Patient Assessment Admission Assessment Patient Assessment Completed: Yes Anticipated discharge disposition: Home Reason for Admission: (Hemaphelia traits/ Stroke symptoms) Is the patient able to participate in the assessment?: Yes Information source: Patient, Spouse Information Source Name/Contact: (patient herself) Demographics Verified and Updated: Yes Has the patient been admitted to any hospital in the last 30 days?: No Advanced Care Planning Has the patient completed Advance Directives?: Not Completed Referral to Social Work for Advance Care Planning? : Patient Declines Legal Next of Kin Does the patient have a Guardian?: No Spouse: Yes Name and Contact information: (Mo Rodriguez - - [phone]) Adult Child(breanna), List All Adult Children: No Parent(s) - List All Living Parents: Yes Name and Contact information: (mother - Zeinab Jina -[phone]) Would you like to add additional parents?: Yes Name and Contact information: (Christiano Muro- [phone]) Adult Sibling(s), List All Adult Siblings: (didn't list) Nearest Adult Related by Blood or Adoption: (parents) Reviewed and Updated in Demographics? : Yes Outpatient Providers Does patient have a primary care physician? : Yes (Dr. Lili Rodriguez - [phone]) When was the patient's last PCP visit?: > 30 days Does the patient follow any specialists?: (Is changing to [facility]/ [facility]) Reviewed and updated Care Team?: Yes Patient Care Team: Lili Rodriguez, DO as PCP - General (Family Medicine) Environment/Caregivers Is the patient from a facility or mcc?: No Patient lives with: Spouse or Partner Living Environment: House How many steps does the patient have to navigate to enter or inside the home? : (few) Does the patient have a first floor set-up with bed and bathroom?: Yes Patient Caregiving Responsibilities: Self Patient-identified caregiver/support network: Family Who does the patient identify as a teachable caregiver(s)?: Spouse or Partner Services Does the patient use a home health or hospice agency?: No Current with dialysis?: No Does the patient use any community programs or services?: No Does patient use DME? : none Does the patient use oxygen?: No Does patient use medical supplies? : none Anticipated Changes Related to Illness/Injury? : No Initial ADLs Prior to Arrival What is the patient's baseline physical functioning prior to this acute illness?: independent What is the patient's baseline cognitive functioning prior to this acute illness?: independent Is the patient's baseline functioning changed by this acute illness? : No Concerns with patient being able to care for themselves at home? : No Are there therapy or specialists consults?: Yes Does the patient's home require any home modifications for discharge? : No CM to recommend therapy or other consults? : No Medication Management Does the patient have prescription insurance coverage? : Yes Is the patient on Anticoagulation? : No [place] [address] [address] [address] [address] [facility] [address] Supplies Packer Does the patient or inbound call center representative express financial concerns? 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) Coping/Stress Concerns about patient s coping and stress?: No Concerns about patient s caregiver s coping and stress?: No Values and Beliefs Cultural or congregation practices that may impact discharge planning and/or medical care?: Yes Explanation of practices or beliefs: (confucianism) Initial Discharge Planning Anticipated discharge disposition: Home Transportation Available for Discharge: Family or Friend Anticipated DME: none Anticipated Services at Discharge: (none known) Patient Assessment Completed: Yes Risk of Readmission: 2.2 Category Reference: High:16-100 Mod-High:10-16 Mod-Low: 5-10 Low: 0-5 Expected Discharge Date: 11/28/2021 Discharge Planning Summary Talked with patient and . Lives together in a [address] will drive her home. Case Management Plan Introduction of role and self/ No new needs identified. Patient discharged from ED, admission status. Neurology follow up number given to patient to schedule her own appointment. Majo Wong RN Emergency Department Clinical Alcoholic Counselor [phone] Available via secure chat * REE Raygoza - 11/27/2021 9:40 PM EDT Contract Shank Threader Fab Presley saw this patient. Narrative is as follows: Introduced self and role of the tableman to patient's father and mother in law. Provided emotional and spiritual support and the family responded by sharing their experience and discussed the following: family medical history, emotions around patient's medical episode, trust in God and hope for healing. Family encouraged to request a tableman as needed. End narrative. Chaplains are available 24 hours a day and 7 days a week. For urgent matters in [facility], please page [phone]. If the request is not urgent, please enter a consult. Consults are responded to within 24 hours. Sundar Conte M.Div., [facility] Senior Shank Threader, [facility] Pager [phone] 11/27/21 8661 Clinical Encounter Type Visited With Family;Patient not available Visit Type Introduction Crisis Visit ED Pastoral Time Spent 15 min Referral Verbal;Nurse Spiritual Assessment Spiritual Observation Spirituality helpful Emotional Observation Acceptance;Coping well Hope Observation Hopeful and accepting Support Observation Strong support Interventions Provided Active listening;Supportive presence Facilitated Verbalization of feelings;Sharing of life story;Sharing hopes & fears;Identifying support system;Identifying Sources of spiritual well-being Explored Sanaz issues;Coping mechanism Computer Systems Software Architect Education Computer Systems Software Architect Service Available Yes Outcomes Family Outcomes Progressed toward focus on present;Reduced distress Plan of Care Continue Visiting Yes;PRN * Rupali Son MD - 11/27/2021 12:49 PM EDT Stroke attending note: [facility] called with 31 yo F with migraines, thalasemmia carrier who woke up normal at 7a and then at 815a crumbled and her carried her to the couch where she had right arm weakness,dizziness, and twitching in the face/lip. ER doctor reports on exam she has horizontal nystagmus and headache and right arm profound weakness. CT brain pending. Patient appears to be candidate for IVtPA. I was rounding on primary stroke patients and gave phone advice. I recommend if CT brain negative for bleed, to give tPA per protocol and transfer to [facility] ER as level 1. Reviewed tPA dosing with ER doctor. tPA recommend time 1015am. Of note, patient does not have thalassemia, but rather is carrier for hemophilia B, per [facility] heme outpatient notes. Rupali Son MD * Harmony Gruber [facility] - 11/27/2021 12:23 PM EDT Department of Pharmacy Emergency Department Stroke Alert Response Note Patient Name: Susana Rodriguez Room/Bed: E035/E035 A Pharmacist responded to the stroke alert. Confirmed via amazingtunes crew and OSH paperwork the patient was started on the following thrombolytic therapy prior to arrival: Alteplase Bolus: 7 mg given at 11:14. Alteplase Infusion: 62.5 mg/hr, (infusion rate 62.5 mL/hr) initiated at 11:16. Upon arrival thrombolytic therapy (tPA and saline chaser) Had not completely infused and therefore the transition to [facility] pump was facilitated. Instructed ELIZA Rogers to infuse 0.9% sodium chloride at 62.6 mL/hr (rate of thrombolytic infusion) in the same line for one hour after completion of alteplase infusion. This IHIS order set [facility] IP ED: Confirmed Stroke/ICH - Secondary was placed by Dr. Dickson for ongoingcare. Verified orders for anti-hypertensive therapy with correct blood pressure goals (SBP <180 mmHg / DBP <105 mmHg) and post-tPA bleeding precautions have been placed. Please feel free to contact me with any further questions. Name: Harmony Gruber RPH Phone: [phone] Date/Time: 11/27/2021 12:23 PM documented in this encounterOS[facility] Emergency department Note* Latha Baron - 11/28/2021 4:11 PM EDT 11-28-21 @ 4:10pm Case Management/Washing Machine Assembler received a request from the nurse piano case and bench assembler to place the phone number for Neurology in the patient's discharge paperwork. The phone number for Neurology was then placed in the discharge paperwork as requested. [facility]04-25-2022 Emergency department Note* Latha Baron - 11/28/2021 4:11 PM EDT 11-28-21 @ 4:10pm Case Management/Washing Machine Assembler received a request from the nurse piano case and bench assembler to place the phone number for Neurology in the patient's discharge paperwork. The phone number for Neurology was then placed in the discharge paperwork as requested. * Samantha Cortes RN - 11/28/2021 3:52 PM EDT Initial assessment completed documentation to follow. Majo Wong RN Emergency Department Clinical Alcoholic Counselor [phone] Available via secure chat * Samantha Cortes RN - 11/28/2021 3:14 PM EDT CM room visit, patient not present in room. Plan to return to talk with patient. Majo Wong RN Emergency Department Clinical Alcoholic Counselor [phone] Available via secure chat * Chapis Sapp RN - 11/27/2021 9:28 PM EDT Verbal ok for pt to go to [facility] off telemetry from Dr. Misti Cantu. * Sue Novak RN - 11/27/2021 7:04 PM EDT Pt had new onset twitch in face. Went away for a few hours according to family but is now back. MD Molina paged * Sue Novak RN - 11/27/2021 12:50 PM EDT TPA flush finished at this time-1250pm * Jarred Fountain MD - 11/27/2021 12:12 PM EDT Teaching Physician Attending Attestation CHIEF COMPLAINT: Chief Complaint Patient presents with Extremity Weakness History of illness and plan: Susana Rodriguez is a 31 y.o. 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 This patient presents to us as a stroke alert. She was seen at an outside hospital and given tPA for stroke-like symptoms. She is a carrier of hemophilia but does not have actual hemophilia disease. Upon arrival here she had some weakness but [facility] Review of Systems <<For Level 5, 10 or more systems>> All other systems were reviewed and were negative unless otherwise noted Pertinent Exam: Vitals: 11/27/21 1230 11/27/21 1245 11/27/21 1300 11/27/21 1315 BP: 130/73 120/73 118/71 120/69 Pulse: 72 64 63 62 Resp: 21 18 20 20 Temp: 98.5 degrees F (36.9 degrees C) TempSrc: Oral SpO2: 98% 99% 99% 99% Weight: 81 kg (178 lb 9.2 oz) Awake alert and able follow commands. Please see the resident note for the NIH stroke scale. Her skin was warm and dry. Her vital signs were stable. She is protecting her airway. CT STROKE HEAD-STROKE ALERT ONLY Final Result IMPRESSION: No acute intracranial abnormality. Findings were discussed with Amor Molina MD at 12:18 PM on November 27, 2021. I personally viewed and interpreted these images and I have reviewed and approved this report. CARDIOGRAM (Results Pending) MRI BRAIN WITHOUT CONTRAST (Results Pending) Impression & Plan: We where check a repeat head CT given the fact that she got tPA. Will also follow-up on lab work and imaging. On 11/27/2021 I saw and examined the patient. I discussed the history and examination with the resident and agree with the plan of care. I reviewed the patient's past medical history and medication list. Jarred Fountain MD 11/27/21 1214 Jarred Fountain MD 11/27/21 1326 * LUISA Dowell - 11/27/2021 12:06 PM EDT SW responded to Level 1 Stroke transferred from [facility] transported by [employer]. Per [employer], patient's (Mo Rodriguez [phone]) and patient's mother (Zeinab Muro [phone]) are en route to this ED. SW to remain available as needed. CONNER Calle, AMIRA-S, [facility] Manager Construction, Emergency Department [phone] * Sue Novak RN - 11/27/2021 12:02 PM EDT PT arrives to ED from OSH as a level 1 stroke. LKW 0715 this morning. Right sided weakness and slurred speech present. TPA given at OSH BS on arrival: 97 * Halina Emmanuel RN - 11/27/2021 12:01 PM EDT Bed: E035 Expected date: 11/27/21 Expected time: Means of arrival: Comments: * Jhonatan Dickson MD - 11/27/2021 11:56 AM EDT Images from the original note were not included. EMERGENCY DEPARTMENT ENCOUNTER CHIEF COMPLAINT Chief Complaint Patient presents with Extremity Weakness HPI Susana Rodriguez is a 31 y.o. 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 TPA was started between 11 and 11:30am. Patient endorses RUE numbness, weakness, facial droop. Negative head CT at OSH. Transferred to [facility] for further imaging and evaluation by neurovascular attending. OSH called [facility] re: TPA and they reportedly instructed her to get TPA and K- Centra at same time. EMS was unsure of what to do, so they did not hang the K-Centra. REVIEW OF SYSTEMS Constitutional: No chills, fatigue and fever. HENT: No sore throat or rhinorrhea. Eyes: No vision changes or conjunctival injection. Respiratory: No shortness of breath or cough. Cardiovascular: No chest pain, leg swelling. Gastrointestinal: No abdominal distension, abdominal pain, nausea, vomiting or diarrhea. Genitourinary: No dysuria or hematuria. Skin: No rashes or wounds. MSK: No joint pain or swelling. Neurologic: No headache, + numbness, or + weakness. All other systems reviewed and are negative. 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 ALLERGIES Allergies Allergen Reactions Nsaids Other reaction(s): OTHER FAMILY HISTORY Family History Problem Relation Age of Onset Cancer- Other Mother Bleeding or Clotting Problems Mother hemophilia B carrier Hypertension Father Lipid Disorder Father Bleeding or Clotting Problems Brother hemophilia B Bleeding or Clotting Problems Brother hemophilia B Diabetes Maternal Grandmother Colorectal Cancer Maternal Grandmother x1 and recurrence of tumor at ostomy site Cancer- Other Maternal Grandmother skin Breast Cancer Maternal Grandmother Bleeding or Clotting Problems Maternal Grandfather hemophilia B Diabetes Paternal Grandfather Myocardial Infarction Paternal Grandfather SOCIAL HISTORY Social History Socioeconomic History Marital status: Spouse name: Not on file Number of children: Not on file Years of education: Not on file Highest education level: Not on file Occupational History Not on file Tobacco Use Smoking status: Never Smoker Smokeless tobacco: Never Used Vaping Use Vaping Use: Never used Substance and Sexual Activity Alcohol use: Never Drug use: Never Sexual activity: Not on file Other Topics Concern Not on file Social History Narrative Not on file Social Determinants of Health Financial Resource Strain: Not on file Food Insecurity: Not on file Transportation Needs: Not on file Physical Activity: Not on file Stress: Not on file Social Connections: Not on file Intimate Partner Violence: Not on file Housing Stability: Not on file PHYSICAL EXAM Vital Signs:BP 120/69 (BP Location: Left arm, BP Position: Lying) Pulse 62 Temp 98.5 F (36.9 C)(Oral) Resp 20 Wt 81 kg (178 lb 9.2 oz) SpO2 99% BMI 29.72 kg/m Smoking Status Never Smoker Constitutional: Well appearing, in no acute distress. HENT: Normocephalic and atraumatic. Oropharynx is clear and moist. Neck: Normal range of motion. Neck supple. Cardiovascular: Normal rate and regular rhythm. No murmurs. Pulmonary: Effort normal, non-labored. Good aeration and symmetric breath sounds. No wheezes or Rhonchi. Abdominal: Abdomen soft, non-distended. There is no tenderness. No rebound or guarding. MSK: No deformities, joint effusions. Skin: Skin is warm and dry. No rashes or wounds noted. Psychiatric: Normal mood and affect. NIHSS (Provider) Flowsheet Row First Filed Value Provider NIH Stroke Scale NIH Interval (Provider) admission filed on 11/27/2021 1213 NIH Level of Conciousness (Provider) 0 filed on 11/27/2021 1213 NIH LOC Questions (Provider) 0 filed on 11/27/2021 1213 NIH LOC Commands (Provider) 0 filed on 11/27/2021 1213 NIH Best Gaze (Provider) 0 filed on 11/27/2021 1213 NIH Visual (Provider) 0 filed on 11/27/2021 1213 NIH Facial Palsy (Provider) 1 [R nasolabial fold flattening - corrects w/ smile] filed on 11/27/2021 1213 NIH Left Arm Motor (Provider) 0 filed on 11/27/2021 1213 NIH Right Arm Motor (Provider) 1 filed on 11/27/2021 1213 NIH Left Leg Motor (Provider) 0 filed on 11/27/2021 1213 NIH Right Leg Motor (Provider) 0 filed on 11/27/2021 1213 NIH Limb Ataxia (Provider) 0 filed on 11/27/2021 1213 NIH Sensory (Provider) 1 filed on 11/27/2021 1213 NIH Best Language (Provider) 0 filed on 11/27/2021 1213 NIH Dysarthria (Provider) 0 filed on 11/27/2021 1213 NIH Extinction and Inattention (Provider) 0 filed on 11/27/2021 1213 NIH Total Score (Provider) 3 filed on 11/27/2021 1213 Is NIH=0 Within 180 min of Last Known Well Time? -- NIHSS (Provider) Flowsheet Row First Filed Value Provider NIH Stroke Scale NIH Interval (Provider) admission filed on 11/27/2021 1213 NIH Level of Conciousness (Provider) 0 filed on 11/27/2021 1213 NIH LOC Questions (Provider) 0 filed on 11/27/2021 1213 NIH LOC Commands (Provider) 0 filed on 11/27/2021 1213 NIH Best Gaze (Provider) 0 filed on 11/27/2021 1213 NIH Visual (Provider) 0 filed on 11/27/2021 1213 NIH Facial Palsy (Provider) 1 [R nasolabial fold flattening - corrects w/ smile] filed on 11/27/2021 1213 NIH Left Arm Motor (Provider) 0 filed on 11/27/2021 1213 NIH Right Arm Motor (Provider) 1 filed on 11/27/2021 1213 NIH Left Leg Motor (Provider) 0 filed on 11/27/2021 1213 NIH Right Leg Motor (Provider) 0 filed on 11/27/2021 1213 NIH Limb Ataxia (Provider) 0 filed on 11/27/2021 1213 NIH Sensory (Provider) 1 filed on 11/27/2021 1213 NIH Best Language (Provider) 0 filed on 11/27/2021 1213 NIH Dysarthria (Provider) 0 filed on 11/27/2021 1213 NIH Extinction and Inattention (Provider) 0 filed on 11/27/2021 1213 NIH Total Score (Provider) 3 filed on 11/27/2021 1213 Is NIH=0 Within 180 min of Last Known Well Time? -- ED COURSE & MEDICAL DECISION MAKING Assessment: Susana Rodriguez is a 31 y.o. female who presents as a stroke alert. DDx: Ischemic stroke, hemorrhagic stroke, hypoglycemia, electrolyte abnormality, infection, seizure Initial Plan: Labs: POC glucose, CBC, Chem, LFTs, EKG, PT/INR Imaging: CT Angio, CT Perfusion Therapeutic: PRN BP Control Consultation: Neurovascular ED Course: Patient arrives via EMS as a stroke alert. Patient evaluated at the CT scanner by myself and neurovascular resident. NIH on arrival 3. At this time the patient requires further workup and management in the inpatient setting. The patient was admitted to the neurovascular service. Patient and family/caregivers were in agreement with the treatment plan and all questions were addressed prior to admission. Will continue to be monitoredwhile in the emergency department. ED Course as of 11/27/21 1326 Sun Nov 27, 2021 1254 Hematology okay with not starting PCC 1325 Heme called to say if patient bleeds, Benefix 70u/kg Impression: CVA Disposition: Admission, neurovascular I discussed the patient with the attending physician, Dr. Fountain. This note dictated using [employer] voice recognition software. Attempts at proofreading were made, but errors may occasionally still occur. Jhonatan Dickson PGY-2 Department of Emergency Medicine Jhonatan Dickson MD Resident 11/27/21 1217 Jhonatan Dickson MD Resident 11/27/21 1326 [facility] Emergency [facility] Note* Samantha Cortes RN - 11/28/2021 3:52 PM EDT Initial assessment completed documentation to follow. Majo Wong RN Emergency Department Clinical Alcoholic Counselor [phone] Available via secure chat [facility]04-25-[facility] Emergency department Note* Samantha Ledesma RN - 11/28/2021 3:14 PM EDT CM room visit, patient not present in room. Plan to return to talk with patient. Majo Wong RN Emergency Department Clinical Alcoholic Counselor [phone] Available via secure chat [facility]04-[facility] Consult note* Loyd Daniels MD, PhD - 11/28/2021 12:51 PM EDTAssociated Order(s): IP CONSULT TO HEMATOLOGY Hematology Consult IDENTIFYING INFORMATION PATIENT: Susana Rodriguez ADMIT DATE: 11/27/2021 TIME OF EVALUATION: 11/28/2021 12:51 PM Reason For Consult Hemophilia B Carrier HISTORY OF PRESENT ILLNESS Susana Rodriguez is a 31 y.o. 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 She was treated with tPA yesterday and hematology is consulted for recommendations regarding possible factor replacement. Today thankfully all of her neurological symptoms have resolved and imaging including CT-head and MRI brain are negative for hemorrhage or evidence of infarction. She reports that she is feeling better today. She does have a history of migraines that were previously extensively worked up but no symptoms such as this. She is looking forward to going home. She denies any bleeding since receiving tPA yesterday. 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 Past Surgical History: Procedure Laterality Date COLONOSCOPY DIAGNOSTIC FEMUR FRACTURE TX RELEASE TRIGGER FINGER WISDOM TEETH EXTRACTION Family History Problem Relation Age of Onset Cancer- Other Mother Bleeding or Clotting Problems Mother hemophilia B carrier Hypertension Father Lipid Disorder Father Bleeding or Clotting Problems Brother hemophilia B Bleeding or Clotting Problems Brother hemophilia B Diabetes Maternal Grandmother Colorectal Cancer Maternal Grandmother x1 and recurrence of tumor at ostomy site Cancer- Other Maternal Grandmother skin Breast Cancer Maternal Grandmother Bleeding or Clotting Problems Maternal Grandfather hemophilia B Diabetes Paternal Grandfather Myocardial Infarction Paternal Grandfather Social History Socioeconomic History Marital status: Tobacco Use Smoking status: Never Smoker Smokeless tobacco: Never Used Vaping Use Vaping Use: Never used Substance and Sexual Activity Alcohol use: Never Drug use: Never MEDICATIONS None ALLERGIES: She is allergic to nsaids. REVIEW OF SYSTEMS Review of systems is as per HPI. All other ROS are negative . PHYSICAL EXAM Temp: [98 F (36.7 C)-98.5 F (36.9 C)] 98 F (36.7 C) Pulse (Heart Rate): [57-89] 71 Resp Rate: [13-23] 20 BP: (96-124)/(53-78) 102/63 O2 Sat (%): [97 %-100 %] 99 % Weight: [81 kg (178 lb 9.2 oz)] 81 kg (178 lb 9.2 oz) Wt Readings from Last 3 Encounters: 11/27/21 81 kg (178 lb 9.2 oz) 11/22/21 79.8 kg (176 lb) Oxygen Therapy: Oxygen Therapy O2 Sat (%): 99 % O2 Device: room air Physical Exam: General: NAD, interactive HEENT: normocephalic, PERRL, MMM, no scleral icterus Cardio: RRR, S1 and S2 normal, no murmurs appreciated Lung: CTAB, no crackles/wheezes Abdomen: soft, nontender, nondistended, +BS Extremities: no peripheral edema Skin: warm, dry, no lesions/rashes/bruises Neuro: Aox3, no focal deficits Psych: appropriate mood and affect LABS AND IMAGING CBC WBC/Hgb/Hct/Plts: 6.29/13.5/40.2/278 (11/28 0410) Last 3 Hemoglobin Lab Results Component Value Date HGB 13.5 11/28/2021 HGB 13.0 11/27/2021 HGB 13.7 11/22/2021 Last 3 WBC/ANC Lab Results Component Value Date WBC 6.29 11/28/2021 WBC 3.27 (L) 11/27/2021 WBC 3.38 (L) 11/22/2021 No results found for: GRNLOCTYABS Last 3 Platelets Lab Results Component Value Date PLATELET 278 11/28/2021 PLATELET 300 11/27/2021 PLATELET 314 11/22/2021 Chemistry Bun/Creat/Cl/CO2/Glucose: 13/0.77/108/22/88 (11/28 409) Na/K+/Phos/Mg/Ca: 138/3.7/--/2.3/-- (11/28 409) No results found for: LDH Coagulation Studies Lab Results Component Value Date PT 12.3 11/27/2021 PTT 30.8 11/27/2021 INR 0.9 11/27/2021 Liver Function Studies Lab Results Component Value Date ALT 8 (L) 11/27/2021 AST 14 11/27/2021 ALKPHOS 35 11/27/2021 BILITOTAL 1.0 11/27/2021 BILIDIRECT 0.1 11/27/2021 ALBUMIN 4.3 11/27/2021 Impression and Recommendations Susana Rodriguez is a 31 y.o. 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 She was treated with tPA yesterday and hematology is consulted for recommendations regarding possible factor replacement. 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 -No concern for active bleeding so need for any factor replacement -No need for additional hematology follow up beyond what is already scheduled Hematology consults with now sign off. This plan was discussed with Dr. Thakkar, the attending electrical construction project manager for Hematology Consults. For additional questions please page the hematology consult fellow found under IM Consult Service Hematology Loyd Daniels MD, PhD Hematology and Medical Oncology Fellow, PGY-3 Pager: [phone] I interviewed and examined Ms. Rodriguez and I agree with the findings and plan as dictated by Dr Daniels. History of Hem B carrier state and stroke like symptoms that have resolved and found not to be related to any imaging findings on CT or MR. Give TPA yesterday but no bleeding issues secondary to this. No clear indication for factor support presently given no signs of bleeding. Nadiya Thakkar [facility] Work Phone: [phone] 880-641704-25-2022 Consult note* Loyd Daniels MD, PhD - 11/28/2021 12:51 PM EDTAssociated Order(s): IP CONSULT TO HEMATOLOGY Hematology Consult IDENTIFYING INFORMATION PATIENT: Susana Rodriguez ADMIT DATE: 11/27/2021 TIME OF EVALUATION: 11/28/2021 12:51 PM Reason For Consult Hemophilia B Carrier HISTORY OF PRESENT ILLNESS Susana Rodriguez is a 31 y.o. 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 She was treated with tPA yesterday and hematology is consulted for recommendations regarding possible factor replacement. Today thankfully all of her neurological symptoms have resolved and imaging including CT-head and MRI brain are negative for hemorrhage or evidence of infarction. She reports that she is feeling better today. She does have a history of migraines that were previously extensively worked up but no symptoms such as this. She is looking forward to going home. She denies any bleeding since receiving tPA yesterday. 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 Past Surgical History: Procedure Laterality Date COLONOSCOPY DIAGNOSTIC FEMUR FRACTURE TX RELEASE TRIGGER FINGER WISDOM TEETH EXTRACTION Family History Problem Relation Age of Onset Cancer- Other Mother Bleeding or Clotting Problems Mother hemophilia B carrier Hypertension Father Lipid Disorder Father Bleeding or Clotting Problems Brother hemophilia B Bleeding or Clotting Problems Brother hemophilia B Diabetes Maternal Grandmother Colorectal Cancer Maternal Grandmother x1 and recurrence of tumor at ostomy site Cancer- Other Maternal Grandmother skin Breast Cancer Maternal Grandmother Bleeding or Clotting Problems Maternal Grandfather hemophilia B Diabetes Paternal Grandfather Myocardial Infarction Paternal Grandfather Social History Socioeconomic History Marital status: Tobacco Use Smoking status: Never Smoker Smokeless tobacco: Never Used Vaping Use Vaping Use: Never used Substance and Sexual Activity Alcohol use: Never Drug use: Never MEDICATIONS None ALLERGIES: She is allergic to nsaids. REVIEW OF SYSTEMS Review of systems is as per HPI. All other ROS are negative . PHYSICAL EXAM Temp: [98 F (36.7 C)-98.5 F (36.9 C)] 98 F (36.7 C) Pulse (Heart Rate): [57-89] 71 Resp Rate: [13-23] 20 BP: (96-124)/(53-78) 102/63 O2 Sat (%): [97 %-100 %] 99 % Weight: [81 kg (178 lb 9.2 oz)] 81 kg (178 lb 9.2 oz) Wt Readings from Last 3 Encounters: 11/27/21 81 kg (178 lb 9.2 oz) 11/22/21 79.8 kg (176 lb) Oxygen Therapy: Oxygen Therapy O2 Sat (%): 99 % O2 Device: room air Physical Exam: General: NAD, interactive HEENT: normocephalic, PERRL, MMM, no scleral icterus Cardio: RRR, S1 and S2 normal, no murmurs appreciated Lung: CTAB, no crackles/wheezes Abdomen: soft, nontender, nondistended, +BS Extremities: no peripheral edema Skin: warm, dry, no lesions/rashes/bruises Neuro: Aox3, no focal deficits Psych: appropriate mood and affect LABS AND IMAGING CBC WBC/Hgb/Hct/Plts: 6.29/13.5/40.2/278 (11/28 0410) Last 3 Hemoglobin Lab Results Component Value Date HGB 13.5 11/28/2021 HGB 13.0 11/27/2021 HGB 13.7 11/22/2021 Last 3 WBC/ANC Lab Results Component Value Date WBC 6.29 11/28/2021 WBC 3.27 (L) 11/27/2021 WBC 3.38 (L) 11/22/2021 No results found for: GRNLOCTYABS Last 3 Platelets Lab Results Component Value Date PLATELET 278 11/28/2021 PLATELET 300 11/27/2021 PLATELET 314 11/22/2021 Chemistry Bun/Creat/Cl/CO2/Glucose: 13/0.77/108/22/88 (11/28 409) Na/K+/Phos/Mg/Ca: 138/3.7/--/2.3/-- (11/28 409) No results found for: LDH Coagulation Studies Lab Results Component Value Date PT 12.3 11/27/2021 PTT 30.8 11/27/2021 INR 0.9 11/27/2021 Liver Function Studies Lab Results Component Value Date ALT 8 (L) 11/27/2021 AST 14 11/27/2021 ALKPHOS 35 11/27/2021 BILITOTAL 1.0 11/27/2021 BILIDIRECT 0.1 11/27/2021 ALBUMIN 4.3 11/27/2021 Impression and Recommendations Susana Rodriguez is a 31 y.o. 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 She was treated with tPA yesterday and hematology is consulted for recommendations regarding possible factor replacement. 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 -No concern for active bleeding so need for any factor replacement -No need for additional hematology follow up beyond what is already scheduled Hematology consults with now sign off. This plan was discussed with Dr. Thakkar, the attending electrical construction project manager for Hematology Consults. For additional questions please page the hematology consult fellow found under IM Consult Service Hematology Loyd Daniels MD, PhD Hematology and Medical Oncology Fellow, PGY-3 Pager: [phone] I interviewed and examined Ms. Rodriguez and I agree with the findings and plan as dictated by Dr Daniels. History of Hem B carrier state and stroke like symptoms that have resolved and found not to be related to any imaging findings on CT or MR. Give TPA yesterday but no bleeding issues secondary to this. No clear indication for factor support presently given no signs of bleeding. Nadiya Thakkar documented in this encounterU [facility] Discharge instructions* Discharge Instructions* Brittnee Granger MD - 11/28/2021 7:48 AM EDT Miscellaneous Education Follow Up Appointment It is your responsibility to check that this appointment is covered by your insurance carrier. If the appointment requires pre-authorization or doctor referral, you must bring that paperwork to your visit. You can verify if the doctor you are scheduled to see is a participant in your insurance planby calling your carrier. If your insurance will not cover this visit or you have no insurance coverage, you will be required to make a down payment at the time of service. Discharge Instructions You will be given two copies of this discharge instruction. Keep one copy with you. This document has a copy of your current medicines. Take one copy to all of your doctor appointments. If medicines are added or deleted at your doctor visits, update this document. If you are readmitted to the hospital give a copy to the admitting doctor so he or she will know your current medicines. Additional Contacts: Evening and Weekend Contacts If you have questions or concerns during evening, weekend, or holiday hours, please call: -[facility] sueding machine operator at [phone]. -[facility] sueding machine operator at [phone] Ask the sueding machine operator to page the on-call doctor for the Neurovascular Service, they were responsible for your care while you were in the hospital. If you having an emergency, call 911. Emergency Information If you have a physical or psychiatric emergency call 911 or go to your local emergency department. You should also call your outpatient provider's emergency number. Other reference numbers: [facility] Int[facility] at [phone]; [facility] at 698-117-3572; or Suicide Prevention Hotline at 349-199-2947. RAPHAEL Roth, [facility] phone: [phone] Case Management Department phone: [phone]. *If you need additional medical records or imaging disks please contact: Medical Information Management Department [facility] PH: [phone] M-F: 7am-12:30am; Sat: 8am-12pm *In the event of an Emergency: If you have a physical or psychiatric emergency call 911 or go to your local emergency department. You should also call your outpatient provider's emergency number. Other reference numbers: [facility] Intake [facility] at [phone]; [employer] at 190-677-5209; or Suicide Prevention Hotline at 724-359-5039. *Helpful phone numbers: Free Crisis Hotline: 8-060-162-TALK ( ) Suicide Hotline: 481.518.7223 Seniors Suicide Hotline: 724.724.4673 [facility] Youth: 800.563.6426 Mental Health of [place]: [phone] (free counseling) [employer] Access Hotline: 080-077-FIEN (669-712-9256) 24-hour crisis text hotline: Text the word 4hope to 774-334 for crisis support. Texting this number is free if you have [employer], [employer], [employer] or [employer]. [facility] Financial Assistance: If you want to learn more about these programs, please call .There are three programsto help you with the cost of your medical care: Medicaid, Hospital Care Assurance Program (HCAP) & jean-pierre If you are without Insurance and believe you may qualify for Medicaid/public assistance: [facility] Department of Job and Family Services can now process espinal (TANF), food (SNAP) and Medicaid Applications over the phone. Please call [phone] ([phone]) and apply over the phone or apply online at www.benefits.[place].gov. Sunday-Sunday 8am-12pm noon. Medication Assistance Programs [employer] members can buy 100+ common prescriptions for FREE, $3 or $6. Annual membership is $36 for individuals and $72 for families (up to 6 people, including pets). Sign up online or enroll at your nearest pharmacy! -[employer], web site can provide a significant number of coupons for medications at a much lower barnett. * Medications* Mary Mae APRN-NUCLEAR WASTE MANAGEMENT ENGINEER - 11/28/2021 7:48 AM EDT Know your medicines Make sure you know why you are taking each medicine. Make a master list of all your medicines. Write down the medicine names and doctors' names. Includedoses and side effects too. And write down why you take each medicine. Include all prescription umjgwib-bot-zozokaz medicines, vitamins, and supplements. Keep this list up to date. Take a copy to each doctor visit. Know when you will run out of each medicine. Ask your pharmacist if there are ways the drugstore can remind you to refill your medicines so you do not run out. Write refill reminders on your calendar. Don't wait until you have a few pills left. Ask your pharmacist to plan your refills so that you can steel pickler all your medicines at the same time. This can mean fewer trips to the drugstore. If we have prescribed you a new medication during your stay, please contact with your primary physician for refills * Discharge Instr - Activity* MIMI Mendoza - 11/28/2021 7:48 AM EDT Activity -- Please follow these instructions: -Advance your activity as you can tolerate - You may walk all you want. You may go up and down the steps. Use the railing for support - It is normal for your energy level and sleep patterns to change after a stroke - Take rest periods during the day as needed - Complete recovery may take several weeks, months, up to a year. Patience is stiles. * Discharge Instr - Diet* MIMI Mendoza - 11/28/2021 7:48 AM EDT Current Diet Orders Procedures DIET REGULAR Standing Status: Standing Number of Occurrences: 1 * Discharge Instr - Notify* MIMI Mendoza - 11/28/2021 7:48 AM EDT Notify Your Doctor if you have any of the following: NEUROLOGICAL CHANGES-- Change in alertness Increased sleepiness Nausea and vomiting New onset of numbness or weakness in arms or legs New problems with your bowels or bladder New or worse problems with balance or walking Seizures, new or worsening UNRELIEVED HEADACHE PAIN-- New or increased pain unrelieved with pain medications Pain associated with nausea and vomiting Pain associated with other symptoms QUESTIONS OR PROBLEMS-- Any questions or problems that you are unsure about Deep Vein Thrombosis Symptoms Call your doctor or nurse right away if you have any signs of blood clots such as -Tender, swollen or reddened areas anywhere in your leg. -Numbness or tingling in your lower leg or calf, or at the top of your leg or groin -Skin on you leg looks pale or blue or feels cold to touch -Chest pain or have trouble breathing -Fever or chills [facility] Emergency [facility] Note* Chapis Sapp RN - 11/27/2021 9:28 PM EDT Verbal ok for pt to go to MRI off telemetry from Dr. Misti Cantu. [facility]04-24-2022 Emergency department Note* Sue Novak RN - 11/27/2021 7:04 PM EDT Pt had new onset twitch in face. Went away for a few hours according to family but is now back. MD Molina paged [facility]04-24-2022 Emergency department Note* Sue Novak RN - 11/27/2021 12:50 PM EDT TPA flush finished at this time-1250pm [facility]04-24-2022 NoteAcute Coronary Syndrome (ACS): Initial Evaluation and Management: [email or web address] [facility]04-24-2022 Note* Certification - Amor Molina MD - 11/27/2021 12:17 PM EDT I certify that this patient requires inpatient services at this time. I anticipate the expected length of stay will include at least two midnights. Inpatient services are due to the following medicalconcerns: stroke. Plans for post hospitalization care will be discharge to D. [facility]04-24-2022 Miscellaneous Notes* Certification - Amor Molina MD - 11/27/2021 12:17 PM EDT I certify that this patient requires inpatient services at this time. I anticipate the expected length of stay will include at least two midnights. Inpatient services are due to the following medicalconcerns: stroke. Plans for post hospitalization care will be discharge to D. documented in [facility] Physician Emergency department Note* Jarred Fountain MD - 11/27/2021 12:12 PM EDT Teaching Physician Attending Attestation CHIEF COMPLAINT: Chief Complaint Patient presents with Extremity Weakness History of illness and plan: Susana Rodriguez is a 31 y.o. 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 This patient presents to us as a stroke alert. She was seen at an outside hospital and given tPA for stroke-like symptoms. She is a carrier of hemophilia but does not have actual hemophilia disease. Upon arrival here she had some weakness but [facility] Review of Systems <> All other systems were reviewed and were negative unless otherwise noted Pertinent Exam: Vitals: 11/27/21 1230 11/27/21 1245 11/27/21 1300 11/27/21 1315 BP: 130/73 120/73 118/71 120/69 Pulse: 72 64 63 62 Resp: Temp: 98.5 degrees F (36.9 degrees C) TempSrc: Oral SpO2: 98% 99% 99% 99% Weight: 81 kg (178 lb 9.2 oz) Awake alert and able follow commands. Please see the resident note for the NIH stroke scale. Her skin was warm and dry. Her vital signs were stable. She is protecting her airway. CT STROKE HEAD-STROKE ALERT ONLY Final Result IMPRESSION: No acute intracranial abnormality. Findings were discussed with Amor Molina MD at 12:18 PM on November 27, 2021. I personally viewed and interpreted these images and I have reviewed and approved this report. CARDIOGRAM (Results Pending) MRI BRAIN WITHOUT CONTRAST (Results Pending) Impression & Plan: We where check a repeat head CT given the fact that she got tPA. Will also follow-up on lab work and imaging. On 11/27/2021 I saw and examined the patient. I discussed the history and examination with the resident and agree with the plan of care. I reviewed the patient's past medical history and medication list. Jarred Fountain MD 11/27/21 1214 Jarred Fountain MD 11/27/21 7353 [facility] Work Phone: 1(278) 529-643404-24-2022 History and physical note* Amor Molina MD - 11/27/2021 12:10 PM EDT Images from the original note were not included. Neurovascular Evaluation Note Evaluation Date: 11/27/2021 Unit: [id number]/[id number] Consultation was requested by Dr. Jarred Fountain MD Patient status: Emergency Length of stay: 0 days Reason for Consult/Chief Complaint Level 1 Stroke Alert History of Present Illness Susana Rodriguez is a 31 y.o. female with a past medical history significant for hemophilia B who presents as a Level 1 Stroke Alert. Patient LKW was on 11/27/21 at 08:15. Patient then developed symptoms of RUE weakness. mRS 0. They were then taken to [facility] via EMS. On arrival to OSH, vitals were BP 125/85, HR 72, SpO2 100%. Exam was significant for nystagmus and RUE weakness. CT head was obtained and w/o acute hemorrhage or large territory infarct. CTA w/o LVO.NIH of 4. tPA given. Patient was then transferred to [facility] for further evaluation. Upon [facility] to [facility], vitals were BP 128/85, HR 79, SpO2 98%, RR 25. On my initial examination NIHSS obtained was 3 (nasolabial fold flattening, RUE drift, RUE sensory). Repeat CT head was w/o hemorrhage. A stroke alert was called for STAT consultation. Time of Level 1 Stroke Alert Activation (Or In House): 1201 Arrival Time of Stroke Team : 1201 Patient Location - Onset of Symptoms: Not in a healthcare setting Patient first presented to an [facility] ED facility: no Last Known Well: Date: 11/27/21 Last Known Well: Time: 0815 Source of information: Outside facility medical record Review of Systems A complete review of systems was negative except for what is mentioned in the HPI. Neurovascular-specific History / Information Home antiplatelet/anticoagulation therapy: Antiplatelet therapy: none Anticoagulation: none. Patient Current Risk Factors: Stroke risk factors include hemophilia. Prior stroke history: no. Family Hx of Stroke: Parents: unknown Siblings: unknown Stroke Diagnostic/Treatment Eligibility Information tPA given at 11:14. Stroke Clinical Assessment Information: NIHSS (Provider) Flowsheet Row First Filed Value Provider NIH Stroke Scale NIH Interval (Provider) admission filed on 11/27/2021 1213 NIH Level of Conciousness (Provider) 0 filed on 11/27/2021 1213 NIH LOC Questions (Provider) 0 filed on 11/27/2021 1213 NIH LOC Commands (Provider) 0 filed on 11/27/2021 1213 NIH Best Gaze (Provider) 0 filed on 11/27/2021 1213 NIH Visual (Provider) 0 filed on 11/27/2021 1213 NIH Facial Palsy (Provider) 1 [R nasolabial fold flattening - corrects w/ smile] filed on 11/27/2021 1213 NIH Left Arm Motor (Provider) 0 filed on 11/27/2021 1213 NIH Right Arm Motor (Provider) 1 filed on 11/27/2021 1213 NIH Left Leg Motor (Provider) 0 filed on 11/27/2021 1213 NIH Right Leg Motor (Provider) 0 filed on 11/27/2021 1213 NIH Limb Ataxia (Provider) 0 filed on 11/27/2021 1213 NIH Sensory (Provider) 1 filed on 11/27/2021 1213 NIH Best Language (Provider) 0 filed on 11/27/2021 1213 NIH Dysarthria (Provider) 0 filed on 11/27/2021 1213 NIH Extinction and Inattention (Provider) 0 filed on 11/27/2021 1213 NIH Total Score (Provider) 3 filed on 11/27/2021 1213 Is NIH=0 Within 180 min of Last Known Well Time? -- Stroke Scales Flowsheet Row Most Recent Value Modified Patrick Scale Score Premorbid (MRSS) 0 filed on 11/27/2021 1214 NIH Total Score (Provider) 3 filed on 11/27/2021 1213 Past Medical History Medical History: Past Medical History: Diagnosis Date 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 SURGICAL HISTORY: Past Surgical History: Procedure Laterality Date COLONOSCOPY DIAGNOSTIC FEMUR FRACTURE TX RELEASE TRIGGER FINGER WISDOM TEETH EXTRACTION SOCIAL HISTORY: Social History Tobacco Use Smoking status: Never Smoker Smokeless tobacco: Never Used Vaping Use Vaping Use: Never used Substance Use Topics Alcohol use: Never Drug use: Never Medications PRIOR TO ARRIVAL MEDS: Prior to Admission medications Not on File Current Meds: Current Facility Administered Meds: Current Facility-Administered Medications Medication Dose Route Frequency Provider Last Rate Last Admin hydrALAZINE (APRESOLINE) injection 10 mg 10 mg Intravenous Q10 MIN PRN Jhonatan Dickson MD labetalol (NORMODYNE) injection 20 mg 20 mg Intravenous Q10 MIN PRN Jhonatan Dickson MD sodium chloride 0.9% IV solution Intravenous Continuous Jhonatan Dickson MD No current outpatient medications on file. Scheduled Meds: Continuous Infusions: PRN Meds: Vitals Objective Findings: Vital Signs (24hrs): Pulse (Heart Rate): [79] 79 Resp Rate: [25] 25 BP: (128)/(85) 128/85 O2 Sat (%): [98 %] 98 % There is no height or weight on file to calculate BMI. Lines/Drains/Airways/Wounds: Patient Lines/Drains/Airways Status Active Lines, Drains, Airways, & Wound Overview Name Placement date Placement time Site Days Peripheral IV Line - Single Lumen 11/27/21 1206 median cubital vein (antecubital fossa), right 18 gauge 11/27/21 1206 -- less than 1 Peripheral IV Line - Single Lumen 11/27/21 1206 median cubital vein (antecubital fossa), left 20 gauge 11/27/21 1206 -- less than 1 Physical Exam General: Laying in bed; in no acute distress. CV: RRR. Pulmonary: No increased work of breathing, Equal chest rise bilaterally, no audible wheezing. Abdomen: soft, non-tender Ext: No cyanosis, edema, or deformity Skin: No rash Neurological Examination Psych and Mental status: alert; oriented to person, place, year, and month; good attention Speech/language: fluent - slow to respond; comprehension intact; object naming intact; repetition intact Cranial nerves: CN II visual wells full to confrontation without visual extinction CN III, IV, PERRL. EOMI. CN V facial sensation intact to light touch bilaterally in V1, V2, V3 CN VII R nasolabial fold flattening - corrects w/ smile CN VIII hearing grossly intact to voice CN IX & X soft palate elevates symmetrically in the midline, no dysarthria CN XI shoulder shrug full strength bilaterally CNXII tongue protrudes midline Motor: Normal bulk and tone. Mild RUE pronator drift. Coordination: Nqstij-ey-jpee intact bilaterally. Gphd-zn-glpl intact bilaterally. Rapid alternatingmovements are normal. Sensation: Diminished on the RUE Gait: Deferred Laboratory Results Diagnostics/Procedures: Labs-CBC Labs-Chem 7([facility]) Labs-Coags Additional Labs No results found for: CHOLESTEROL, TRIG, HDL, LDLCALC, LDLDIRECT Labs-Hemoglobin A1C No results found for: HGBA1C Imaging Imaging was not analyzed by [facility]. O[facility] Imaging Prior to Arrival: CT Stroke Head (11/27/21) No acute hemorrhage or large territory infarct CTA Brain/Neck (11/27/21) No obvious LVO [facility]: CT Stroke Head (11/27/21) No acute hemorrhage or large territory infarct Assessment/Impression Susana Rodriguez is a 31 y.o. female with a past medical history significant for hemophilia B who presents as a Level 1 Stroke Alert. Patient LKW was on 11/27/21 at 08:15. They then developed symptomsof RUE weakness. EMS was called and transferred to OSH where CTH and CTA both were unrevealing. NIH4, tPA given. [facility] to [facility]. Initial NIH of 3 (R nasolabial fold flattening, RUE drift and sensory), mRS 0. Repeat CTH w/o hemorrhage. Will plan to admit to neurovascular service for further work up of stroke s/p tPA. Plan - Admit to Neurovascular Service, PCU, under Dr. Son - Frequent NeuroChecks per stroke unit protocol - CTH demonstrated no acute hemorrhage or mass - CTA Brain/Neck completed w/o LVO - CT Perfusion - completed - MRI Brain - ordered - TTE - ordered - Lipid Panel: ordered - Statin: Start statin if LDL>70 - HbA1c: ordered - Antithrombotic: Start ASA 81 mg daily if 24 h CTH does not show acute hemorrhage - DVT prophylaxis: SCDs. Pharmacologic prophylaxis if 24 h CTH does not demonstrate acute hemorrhage - Smoking cessation: Counseling ordered - Systolic Blood Pressure goal: < 180 mm Hg - Telemetry monitoring for arrhythmia: 72 hours - Swallow screen - ordered - PT/OT/SHUT OFF WORKER consults - consults placed Other Medical Problems: Hemophilia B Carrier: [facility]s at [facility]. Code Status: No Order DVT prophylaxis: Diet: DIET NPO WITHOUT meds Patient and plan discussed with neurovascular attending Dr. Son. Signed, Amor Molina M.D. PGY-2 Department of Neurology Associated attestation - Josse Whittaker MD - 11/28/2021 3:44 PM EDT I have interviewed and examined patient on 11/28/21. I have reviewed old records. I have independently reviewed all labs and imaging including MRI's and CT's. I have personally performed an H&P and reviewed resident's/EDITORIAL CLERK's note and agree with the plan of care. Data and Imaging Reviewed by me personally: DATA LABS: RADIOLOGY REVIEW: I have reviewed radiology image(s) and reports(s) of: MRI negative for acute infarct. Objective, O/N: HIMANSHU Assessment/Plan completed in its entirety by myself : Diagnosis: Acute hemiplegic Migraine. Received tPA. Feels better. Heme consult. Ok to DC AVSS Josse Whittaker MD The following are the risk factors for mortality: None [facility] Work Phone: 1(837) 525-684404-24-2022 History and physical note* Amor Molina MD - 11/27/2021 12:10 PM EDT Images from the original note were not included. Neurovascular Evaluation Note Evaluation Date: 11/27/2021 Unit: [id number]/[id number] Consultation was requested by Dr. Jarred Fountain MD Patient status: Emergency Length of stay: 0 days Reason for Consult/Chief Complaint Level 1 Stroke Alert History of Present Illness Susana Rodriguez is a 31 y.o. female with a past medical history significant for hemophilia B who presents as a Level 1 Stroke Alert. Patient LKW was on 11/27/21 at 08:15. Patient then developed symptoms of RUE weakness. mRS 0. They were then taken to [facility] via EMS. On arrival to OSH, vitals were BP 125/85, HR 72, SpO2 100%. Exam was significant for nystagmus and RUE weakness. CT head was obtained and w/o acute hemorrhage or large territory infarct. CTA w/o LVO.NIH of 4. tPA given. Patient was then transferred to [facility] for further evaluation. Upon arrival to [facility] ED, vitals were BP 128/85, HR 79, SpO2 98%, RR 25. On my initial examination NIHSS obtained was 3 (nasolabial fold flattening, RUE drift, RUE sensory). Repeat CT head was w/o hemorrhage. A stroke alert was called for STAT consultation. Time of Level 1 Stroke Alert Activation (Or In House): 1201 Arrival Time of Stroke Team : 1201 Patient Location - Onset of Symptoms: Not in a healthcare setting Patient first presented to an [facility] ED facility: no Last Known Well: Date: 11/27/21 Last Known Well: Time: 0815 Source of information: Outside facility medical record Review of Systems A complete review of systems was negative except for what is mentioned in the HPI. Neurovascular-specific History / Information Home antiplatelet/anticoagulation therapy: Antiplatelet therapy: none Anticoagulation: none. Patient Current Risk Factors: Stroke risk factors include hemophilia. Prior stroke history: no. Family Hx of Stroke: Parents: unknown Siblings: unknown Stroke Diagnostic/Treatment Eligibility Information tPA given at 11:14. Stroke Clinical Assessment Information: NIHSS (Provider) Flowsheet Row First Filed Value Provider NIH Stroke Scale NIH Interval (Provider) admission filed on 11/27/2021 1213 NIH Level of Conciousness (Provider) 0 filed on 11/27/2021 1213 NIH LOC Questions (Provider) 0 filed on 11/27/2021 1213 NIH LOC Commands (Provider) 0 filed on 11/27/2021 1213 NIH Best Gaze (Provider) 0 filed on 11/27/2021 1213 NIH Visual (Provider) 0 filed on 11/27/2021 1213 NIH Facial Palsy (Provider) 1 [R nasolabial fold flattening - corrects w/ smile] filed on 11/27/2021 1213 NIH Left Arm Motor (Provider) 0 filed on 11/27/2021 1213 NIH Right Arm Motor (Provider) 1 filed on 11/27/2021 1213 NIH Left Leg Motor (Provider) 0 filed on 11/27/2021 1213 NIH Right Leg Motor (Provider) 0 filed on 11/27/2021 1213 NIH Limb Ataxia (Provider) 0 filed on 11/27/2021 1213 NIH Sensory (Provider) 1 filed on 11/27/2021 1213 NIH Best Language (Provider) 0 filed on 11/27/2021 1213 NIH Dysarthria (Provider) 0 filed on 11/27/2021 1213 NIH Extinction and Inattention (Provider) 0 filed on 11/27/2021 1213 NIH Total Score (Provider) 3 filed on 11/27/2021 1213 Is NIH=0 Within 180 min of Last Known Well Time? -- Stroke Scales Flowsheet Row Most Recent Value Modified Patrick Scale Score Premorbid (MRSS) 0 filed on 11/27/2021 1214 NIH Total Score (Provider) 3 filed on 11/27/2021 1213 Past Medical History Medical History: Past Medical History: Diagnosis Date 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 SURGICAL HISTORY: Past Surgical History: Procedure Laterality Date COLONOSCOPY DIAGNOSTIC FEMUR FRACTURE TX RELEASE TRIGGER FINGER WISDOM TEETH EXTRACTION SOCIAL HISTORY: Social History Tobacco Use Smoking status: Never Smoker Smokeless tobacco: Never Used Vaping Use Vaping Use: Never used Substance Use Topics Alcohol use: Never Drug use: Never Medications PRIOR TO ARRIVAL MEDS: Prior to Admission medications Not on File Current Meds: Current Facility Administered Meds: Current Facility-Administered Medications Medication Dose Route Frequency Provider Last Rate Last Admin hydrALAZINE (APRESOLINE) injection 10 mg 10 mg Intravenous Q10 MIN PRN Jhonatan Dickson MD labetalol (NORMODYNE) injection 20 mg 20 mg Intravenous Q10 MIN PRN Jhonatan Dickson MD sodium chloride 0.9% IV solution Intravenous Continuous Jhonatan Dickson MD No current outpatient medications on file. Scheduled Meds: Continuous Infusions: PRN Meds: Vitals Objective Findings: Vital Signs (24hrs): Pulse (Heart Rate): [79] 79 Resp Rate: [25] 25 BP: (128)/(85) 128/85 O2 Sat (%): [98 %] 98 % There is no height or weight on file to calculate BMI. Lines/Drains/Airways/Wounds: Patient Lines/Drains/Airways Status Active Lines, Drains, Airways, & Wound Overview Name Placement date Placement time Site Days Peripheral IV Line - Single Lumen 11/27/21 1206 median cubital vein (antecubital fossa), right 18 gauge 11/27/21 1206 -- less than 1 Peripheral IV Line - Single Lumen 11/27/21 1206 median cubital vein (antecubital fossa), left 20 gauge 11/27/21 1206 -- less than 1 Physical Exam General: Laying in bed; in no acute distress. CV: RRR. Pulmonary: No increased work of breathing, Equal chest rise bilaterally, no audible wheezing. Abdomen: soft, non-tender Ext: No cyanosis, edema, or deformity Skin: No rash Neurological Examination Psych and Mental status: alert; oriented to person, place, year, and month; good attention Speech/language: fluent - slow to respond; comprehension intact; object naming intact; repetition intact Cranial nerves: CN II visual wells full to confrontation without visual extinction CN III, IV, PERRL. EOMI. CN V facial sensation intact to light touch bilaterally in V1, V2, V3 CN VII R nasolabial fold flattening - corrects w/ smile CN VIII hearing grossly intact to voice CN IX & X soft palate elevates symmetrically in the midline, no dysarthria CN XI shoulder shrug full strength bilaterally CNXII tongue protrudes midline Motor: Normal bulk and tone. Mild RUE pronator drift. Coordination: Obntgv-up-jmqw intact bilaterally. Wzae-ez-pusu intact bilaterally. Rapid alternatingmovements are normal. Sensation: Diminished on the RUE Gait: Deferred Laboratory Results Diagnostics/Procedures: Labs-CBC Labs-Chem 7(PMC) Labs-Coags Additional Labs No results found for: CHOLESTEROL, TRIG, HDL, LDLCALC, LDLDIRECT Labs-Hemoglobin A1C No results found for: HGBA1C Imaging Imaging was not analyzed by [facility]. OSH Imaging Prior to Arrival: CT Stroke Head (11/27/21) No acute hemorrhage or large territory infarct CTA Brain/Neck (11/27/21) No obvious [facility]: CT Stroke Head (11/27/21) No acute hemorrhage or large territory infarct Assessment/Impression Susana Rodriguez is a 31 y.o. female with a past medical history significant for hemophilia B who presents as a Level 1 Stroke Alert. Patient MELODYW was on 11/27/21 at 08:15. They then developed symptomsof RUE weakness. EMS was called and transferred to OSH where CTH and CTA both were unrevealing. NIH4, tPA given. Transfer to [facility]. Initial NIH of 3 (R nasolabial fold flattening, RUE drift and sensory), mRS 0. Repeat CTH w/o hemorrhage. Will plan to admit to neurovascular service for further work up of stroke s/p tPA. Plan - Admit to Neurovascular Service, PCU, under Dr. Son - Frequent NeuroChecks per stroke unit protocol - CTH demonstrated no acute hemorrhage or mass - CTA Brain/Neck completed w/o LVO - CT Perfusion - completed - MRI Brain - ordered - TTE - ordered - Lipid Panel: ordered - Statin: Start statin if LDL>70 - HbA1c: ordered - Antithrombotic: Start ASA 81 mg daily if 24 h CTH does not show acute hemorrhage - DVT prophylaxis: SCDs. Pharmacologic prophylaxis if 24 h CTH does not demonstrate acute hemorrhage - Smoking cessation: Counseling ordered - Systolic Blood Pressure goal: < 180 mm Hg - Telemetry monitoring for arrhythmia: 72 hours - Swallow screen - ordered - PT/OT/SHUT OFF WORKER consults - consults placed Other Medical Problems: Hemophilia B Carrier: Follows at [facility]. Code Status: No Order DVT prophylaxis: Diet: DIET NPO WITHOUT meds Patient and plan discussed with neurovascular attending Dr. Son. Signed, Amor Molina M.D. PGY-2 Department of Neurology Associated attestation - Josse Whittaker MD - 11/28/2021 3:44 PM EDT I have interviewed and examined patient on 11/28/21. I have reviewed old records. I have independently reviewed all labs and imaging including MRI's and CT's. I have personally performed an H&P and reviewed resident's/EDITORIAL CLERK's note and agree with the plan of care. Data and Imaging Reviewed by me personally: DATA LABS: RADIOLOGY REVIEW: I have reviewed radiology image(s) and reports(s) of: MRI negative for acute infarct. Objective, O/N: HIMANSHU Assessment/Plan completed in its entirety by myself : Diagnosis: Acute hemiplegic Migraine. Received tPA. Feels better. Heme consult. Ok to DC AVSS Josse Whittaker MD The following are the risk factors for mortality: [facility]* LUISA Dowell - 11/27/2021 12:06 PM EDT SW responded to Level 1 Stroke transferred from [facility] transported by [facility]. Per [facility], patient's (Mo Rodriguez [phone]) and patient's mother (Zeinab Muro [phone]) are en route to this ED. SW to remain available as needed. CONNER Calle, RAPHAEL, [facility] Manager Construction, Emergency Department [phone] [facility]04-24-2022 Emergency department Note* Sue Novak RN - 11/27/2021 12:02 PM EDT PT arrives to ED from OSH as a level 1 stroke. LKW 0715 this morning. Right sided weakness and slurred speech present. TPA given at OSH BS on arrival: 97 [facility]04-24-2022 Emergency department Note* Halina Emmanuel RN - 11/27/2021 12:01 PM EDT Bed: E035 Expected date: 11/27/21 Expected time: Means of arrival: Comments: [facility]04-24-2022 Physician Emergency department Note* Jhonatan Dickson MD - 11/27/2021 11:56 AM EDT Images from the original note were not included. EMERGENCY DEPARTMENT ENCOUNTER CHIEF COMPLAINT Chief Complaint Patient presents with Extremity Weakness HPI Susana Rodriguez is a 31 y.o. 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 TPA was started between 11 and 11:30am. Patient endorses RUE numbness, weakness, facial droop. Negative head CT at OSH. [facility]red [facility] for further imaging and evaluation by neurovascular attending. [facility] reportedly instructed her to get TPA and K- Centra at same time. EMS was unsure of what to do, so they did not hang the K-Centra. REVIEW OF SYSTEMS Constitutional: No chills, fatigue and fever. HENT: No sore throat or rhinorrhea. Eyes: No vision changes or conjunctival injection. Respiratory: No shortness of breath or cough. Cardiovascular: No chest pain, leg swelling. Gastrointestinal: No abdominal distension, abdominal pain, nausea, vomiting or diarrhea. Genitourinary: No dysuria or hematuria. Skin: No rashes or wounds. MSK: No joint pain or swelling. Neurologic: No headache, + numbness, or + weakness. All other systems reviewed and are negative. 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 ALLERGIES Allergies Allergen Reactions Nsaids Other reaction(s): OTHER FAMILY HISTORY Family History Problem Relation Age of Onset Cancer- Other Mother Bleeding or Clotting Problems Mother hemophilia B carrier Hypertension Father Lipid Disorder Father Bleeding or Clotting Problems Brother hemophilia B Bleeding or Clotting Problems Brother hemophilia B Diabetes Maternal Grandmother Colorectal Cancer Maternal Grandmother x1 and recurrence of tumor at ostomy site Cancer- Other Maternal Grandmother skin Breast Cancer Maternal Grandmother Bleeding or Clotting Problems Maternal Grandfather hemophilia B Diabetes Paternal Grandfather Myocardial Infarction Paternal Grandfather SOCIAL HISTORY Social History Socioeconomic History Marital status: Spouse name: Not on file Number of children: Not on file Years of education: Not on file Highest education level: Not on file Occupational History Not on file Tobacco Use Smoking status: Never Smoker Smokeless tobacco: Never Used Vaping Use Vaping Use: Never used Substance and Sexual Activity Alcohol use: Never Drug use: Never Sexual activity: Not on file Other Topics Concern Not on file Social History Narrative Not on file Social Determinants of Health Financial Resource Strain: Not on file Food Insecurity: Not on file Transportation Needs: Not on file Physical Activity: Not on file Stress: Not on file Social Connections: Not on file Intimate Partner Violence: Not on file Housing Stability: Not on file PHYSICAL EXAM Vital Signs:BP 120/69 (BP Location: Left arm, BP Position: Lying) Pulse 62 Temp 98.5 F (36.9 C)(Oral) Resp 20 Wt 81 kg (178 lb 9.2 oz) SpO2 99% BMI 29.72 kg/m Smoking Status Never Smoker Constitutional: Well appearing, in no acute distress. HENT: Normocephalic and atraumatic. Oropharynx is clear and moist. Neck: Normal range of motion. Neck supple. Cardiovascular: Normal rate and regular rhythm. No murmurs. Pulmonary: Effort normal, non-labored. Good aeration and symmetric breath sounds. No wheezes or Rhonchi. Abdominal: Abdomen soft, non-distended. There is no tenderness. No rebound or guarding. MSK: No deformities, joint effusions. Skin: Skin is warm and dry. No rashes or wounds noted. Psychiatric: Normal mood and affect. NIHSS (Provider) Flowsheet Row First Filed Value Provider NIH Stroke Scale NIH Interval (Provider) admission filed on 11/27/2021 1213 NIH Level of Conciousness (Provider) 0 filed on 11/27/2021 1213 NIH LOC Questions (Provider) 0 filed on 11/27/2021 1213 NIH LOC Commands (Provider) 0 filed on 11/27/2021 1213 NIH Best Gaze (Provider) 0 filed on 11/27/2021 1213 NIH Visual (Provider) 0 filed on 11/27/2021 1213 NIH Facial Palsy (Provider) 1 [R nasolabial fold flattening - corrects w/ smile] filed on 11/27/2021 1213 NIH Left Arm Motor (Provider) 0 filed on 11/27/2021 1213 NIH Right Arm Motor (Provider) 1 filed on 11/27/2021 1213 NIH Left Leg Motor (Provider) 0 filed on 11/27/2021 1213 NIH Right Leg Motor (Provider) 0 filed on 11/27/2021 1213 NIH Limb Ataxia (Provider) 0 filed on 11/27/2021 1213 NIH Sensory (Provider) 1 filed on 11/27/2021 1213 NIH Best Language (Provider) 0 filed on 11/27/2021 1213 NIH Dysarthria (Provider) 0 filed on 11/27/2021 1213 NIH Extinction and Inattention (Provider) 0 filed on 11/27/2021 1213 NIH Total Score (Provider) 3 filed on 11/27/2021 1213 Is NIH=0 Within 180 min of Last Known Well Time? -- NIHSS (Provider) Flowsheet Row First Filed Value Provider NIH Stroke Scale NIH Interval (Provider) admission filed on 11/27/2021 1213 NIH Level of Conciousness (Provider) 0 filed on 11/27/2021 1213 NIH LOC Questions (Provider) 0 filed on 11/27/2021 1213 NIH LOC Commands (Provider) 0 filed on 11/27/2021 1213 NIH Best Gaze (Provider) 0 filed on 11/27/2021 1213 NIH Visual (Provider) 0 filed on 11/27/2021 1213 NIH Facial Palsy (Provider) 1 [R nasolabial fold flattening - corrects w/ smile] filed on 11/27/2021 1213 NIH Left Arm Motor (Provider) 0 filed on 11/27/2021 1213 NIH Right Arm Motor (Provider) 1 filed on 11/27/2021 1213 NIH Left Leg Motor (Provider) 0 filed on 11/27/2021 1213 NIH Right Leg Motor (Provider) 0 filed on 11/27/2021 1213 NIH Limb Ataxia (Provider) 0 filed on 11/27/2021 1213 NIH Sensory (Provider) 1 filed on 11/27/2021 1213 NIH Best Language (Provider) 0 filed on 11/27/2021 1213 NIH Dysarthria (Provider) 0 filed on 11/27/2021 1213 NIH Extinction and Inattention (Provider) 0 filed on 11/27/2021 1213 NIH Total Score (Provider) 3 filed on 11/27/2021 1213 Is NIH=0 Within 180 min of Last Known Well Time? -- ED COURSE & MEDICAL DECISION MAKING Assessment: Susana Rodriguez is a 31 y.o. female who presents as a stroke alert. DDx: Ischemic stroke, hemorrhagic stroke, hypoglycemia, electrolyte abnormality, infection, seizure Initial Plan: Labs: POC glucose, CBC, Chem, LFTs, EKG, PT/INR Imaging: CT Angio, CT Perfusion Therapeutic: PRN BP Control Consultation: Neurovascular ED Course: Patient arrives via EMS as a stroke alert. Patient evaluated at the CT scanner by myself and neurovascular resident. NIH on arrival 3. At this time the patient requires further workup and management in the inpatient setting. The patient was admitted to the neurovascular service. Patient and family/caregivers were in agreement with the treatment plan and all questions were addressed prior to admission. Will continue to be monitoredwhile in the emergency department. ED Course as of 11/27/21 1326 Sun Nov 27, 2021 1254 Hematology okay with not starting PCC 1325 Heme called to say if patient bleeds, Benefix 70u/kg Impression: CVA Disposition: Admission, neurovascular I discussed the patient with the attending physician, Dr. Fountain. This note dictated using [employer] voice recognition software. Attempts at proofreading were made, but errors may occasionally still occur. Jhonatan Dickson PGY-2 Department of Emergency Medicine Jhonatan Dickson MD Resident 11/27/21 1217 Jhonatan Dickson MD Resident 11/27/21 1326 [facility] Work Phone: 1(440) 262-389604-24-2022 Emergency department Note* Aziza Best, RN - 11/27/2021 11:05 AM EDT Susana Rodriguez, 1990, 31 year old Allergies Allergen Reactions Aspirin Other - comment required Intolerance due to hemophilia 11/27/2021 [facility] Note STROKE ALERT Interfacility transfer: [facility] to [facility] Patient Information For Transport: Report received per Dr. Carreon. Reportedly, patient has hx of hemophilia B Around 0800 this morning the patient had sudden onset of weakness and dizziness. Patient's last known normal: 0700. CT indicates no acute abnormalities. Patient's initial NIH stroke scalescore at referring facility is 4. Patient's blood sugar is 89 per referring RN. Medications given by referring facility prior to our arrival: Zofran 4mg IVP; Alteplase bolus 7 mg; Alteplase 69.6 mg @62.6 ml/hr. This patient does not meet criteria for potential COVID-19 infection as determined by [facility] clinical crew assessment of symptoms and diagnostic findings. Prior to making patient contact, a timeout was performed with all crew members present to determine the safest approach to transport including the level of PPE to be utilized. TIMEOUT NOTE: The following [facility] team members were present for this transport. Name Level of Contact PPE Utilized [employer]J [employer] Operating Engineer - No direct patient care. Surgical Mask Aziza Best, Flight Nurse, EMT Clinical Crew - Provided direct patient care. Surgical Mask and Gloves and Aircraft Helmet Vilma Pastrana-Di, Flight Nurse, [employer] Clinical Crew - Provided direct patient care. SurgicalMask, Gloves and Aircraft Helmet N/A N/A The following isolation precautions were utilized to address source control for the duration of thepatient's encounter with [facility]: The patient was transported with a surgical mask in place for the duration of transport. Arrived at patient bedside 1120: Upon arrival at bedside, patient's airway is Patent and level of consciousness is Alert. Vitals: HR 63, BP 115/74, Resp 19, SpO2 99 % on RA. Primary assessment completed and documented. GCS= 15: Eyes: Spontaneous, Verbal: Oriented,converses, Motor: Obeys commands. Responses delayed but appropriate. TPA infusing per referring staff upon CF arrival. The [facility] 5point TPA checklist was verified by both my partner and myself. 1.) The drug used was Alteplase 2.) 0.9 mg/kg total dose (max 90) = 69.6 mg, 3.) Concentration of bag is 1:1 4.) 10% of total dose given over 1 minute = 7 mg 5.) The remaining 90% of total dose given over 60 minutes = 62.6 mg. Kcentra 1,500mg dose given to crew for infusion after TPA completion due to hemophilia history The [facility] mini-neuro exam (CANT Score) was completed by myself. Results as follows: Time of Exam: 1120 AVPU: Alert, keenly responsive Facial Palsy: Normal symmetrical movements Motor: Arm- Right: Drift, limb holds 90 (or 45) degrees, but drifts down before full 10 seconds, does not hit bed or other support Left: No drift, limb holds 90 (or 45) degrees for full 10 seconds Motor Leg- Right: Drift, leg falls by the end of the 5-second period but does not hit bed Left: No drift, leg holds 30-degree position for full 5 seconds Dysarthria: Normal or intubated or other physical barrier Patient connected to Zoll monitor and vital signs obtained. Patient noted to be in Normal sinus rhythm on the monitor. Patient gently transferred to aircraft stretcher and secured by all straps. 1132: Departed bedside. Patient taken from hospital, loaded into aircraft, and secured. I was able to brief patient on flight. Headphones placed on patient for hearing protection. Departed at [address] [facility]: During transport, patient was closely and continuously monitored including vital signs, clinical condition, and neurologic status. No significant changes in patient condition/vitals observed during transport. CANT Score repeated every 15 minutes without changes. No signs of bleeding assessed. TPA completed at 1154. Arrived at 1155: Patient off-loaded and taken to ED CAT Scan. Removed hearing protection. Removed patient from transport monitor when hospital monitor initiated. IV drip(s) maintained throughout transport (bedside to bedside) per associate caregiver. Kcentra dose not administered and given to receiving staff. Report given to the neurology resident and care relinquished at 1200. Patient left in Serious condition per [facility] crew. Chart complete. [id number] Emergency department Note* Vilma Carter RN - 11/27/2021 11:05 AM EDT I participated in the care of this patient as the associate care provider. [address]24-2022 Emergency department Note* Aziza Best RN - 11/27/2021 11:05 AM EDT Susana Rodriguez, 1990, 31 year old Allergies Allergen Reactions Aspirin Other - comment required Intolerance due to hemophilia 11/27/2021 [facility] Note STROKE ALERT Interfacility transfer: [facility] to [facility] Patient Information For Transport: Report received per Dr. Carreon. Reportedly, patient has hx of hemophilia B Around 0800 this morning the patient had sudden onset of weakness and dizziness. Patient's last known normal: 0700. CT indicates no acute abnormalities. Patient's initial NIH stroke scalescore at referring facility is 4. Patient's blood sugar is 89 per referring RN. Medications given by referring facility prior to our arrival: Zofran 4mg IVP; Alteplase bolus 7 mg; Alteplase 69.6 mg @62.6 ml/hr. This patient does not meet criteria for potential COVID-19 infection as determined by [facility] clinical crew assessment of symptoms and diagnostic findings. Prior to making patient contact, a timeout was performed with all crew members present to determine the safest approach to transport including the level of PPE to be utilized. TIMEOUT NOTE: The following [facility] team members were present for this transport. Name Level of Contact PPE Utilized RAJ [employer] - No direct patient care. Surgical Mask Aziza Best, Flight Nurse, EMT Clinical Crew - Provided direct patient care. Surgical Mask and Gloves and Aircraft Helmet Vilma Pastrana-Di, Flight Nurse, [employer] Clinical Crew - Provided direct patient care. SurgicalMask, Gloves and Aircraft Helmet N/A N/A The following isolation precautions were utilized to address source control for the duration of thepatient's encounter with [facility]: The patient was transported with a surgical mask in place for the duration of transport. Arrived at patient bedside 1120: Upon arrival at bedside, patient's airway is Patent and level of consciousness is Alert. Vitals: HR 63, BP 115/74, Resp 19, SpO2 99 % on RA. Primary assessment completed and documented. GCS= 15: Eyes: Spontaneous, Verbal: Oriented,converses, Motor: Obeys commands. Responses delayed but appropriate. TPA infusing per referring staff upon CF arrival. The [facility] 5point TPA checklist was verified by both my partner and myself. 1.) The drug used was Alteplase 2.) 0.9 mg/kg total dose (max 90) = 69.6 mg, 3.) Concentration of bag is 1:1 4.) 10% of total dose given over 1 minute = 7 mg 5.) The remaining 90% of total dose given over 60 minutes = 62.6 mg. Kcentra 1,500mg dose given to crew for infusion after TPA completion due to hemophilia history The [facility] mini-neuro exam (CANT Score) was completed by myself. Results as follows: Time of Exam: 1120 AVPU: Alert, keenly responsive Facial Palsy: Normal symmetrical movements Motor: Arm- Right: Drift, limb holds 90 (or 45) degrees, but drifts down before full 10 seconds, does not hit bed or other support Left: No drift, limb holds 90 (or 45) degrees for full 10 seconds Motor Leg- Right: Drift, leg falls by the end of the 5-second period but does not hit bed Left: No drift, leg holds 30-degree position for full 5 seconds Dysarthria: Normal or intubated or other physical barrier Patient connected to Zoll monitor and vital signs obtained. Patient noted to be in Normal sinus rhythm on the monitor. Patient gently transferred to aircraft stretcher and secured by all straps. 1132: Departed bedside. Patient taken from hospital, loaded into aircraft, and secured. I was able to brief patient on flight. Headphones placed on patient for hearing protection. Departed at [address] [facility]: During transport, patient was closely and continuously monitored including vital signs, clinical condition, and neurologic status. No significant changes in patient condition/vitals observed during transport. CANT Score repeated every 15 minutes without changes. No signs of bleeding assessed. TPA completed at 1154. Arrived at 1155: Patient off-loaded and taken to ED CAT Scan. Removed hearing protection. Removed patient from transport monitor when hospital monitor initiated. IV drip(s) maintained throughout transport (bedside to bedside) per associate caregiver. Kcentra dose not administered and given to receiving staff. Report given to the neurology resident and care relinquished at 1200. Patient left in Serious condition per [employer] crew. Chart complete. Aziza Best RN * Vilma Carter RN - 11/27/2021 11:05 AM EDT I participated in the care of this patient as the associate care provider. 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 Never had genetic testing. 39% per pt was her most recent Pt states she is always tired and doesn't get improvement from rest normally Pt denies any active signs of bleeding, Pt states she has oral surgery for implants scheduled this fall. Pt states she was given factor before wisdom teeth removal and a colonoscopy. Pt states her goal is that she would like to be trained to be able to do factor treatment herself at home for the wisdom teeth and for labor and delivery in the future when she has children. * Aide Thakkar MD - 11/22/2021 10:15 AM EDT Clinical Care Team: Primary Care Provider: Self Self History of Present Illness: Chief Complaint Patient presents with New Patient Bleeding disorder Ms. 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 She is known to run at baseline levels of 35- 40 percent and has 2 brothers who are moderately affected with hemophilia B at approximately 4%. Ms. Rodriguez has had issues with heavier and longer menstrual cycles and bleeding and has taken Lysteda in the past without any significant benefit. She has had surgical procedures in the past including wisdom tooth extraction, colonoscopies with factor, but also surgery on her leg without factor replacement. We discussed that depending on the severity of the procedure, she could get through a procedure without any need for additional supplemental factor. She is planning to have wisdom tooth extraction in the next 6-8 months, but also planning to start a family. She is inquiring about learning how to self start IVs and auto infuse not as much for her own personal care, but more for children that she may have in the future as she is planning to start a family and could have boys who will have hemophilia B. She is otherwise doing well and presents today to establish care. 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 Her has a past surgical history that includes release trigger finger; femur fracture tx; wisdom teeth extraction; and colonoscopy diagnostic. Family/Social History: Her family history includes Bleeding or Clotting Problems in her brother, brother, maternal grandfather, and mother; Breast Cancer in her maternal grandmother; Cancer- Other in her maternal grandmother and mother; Colorectal Cancer in her maternal grandmother; Diabetes in her maternal grandmother and paternal grandfather; Hypertension in her father; Lipid Disorder in her father; Myocardial Infarction in her paternal grandfather. She reports that she has never smoked. She has never used smokeless tobacco. She reports that she does not drink alcohol and does not use drugs. Physical Exam: Vital Signs: BP 119/66 Pulse 69 Temp 98.4 F (36.9 C) (Oral) Resp 20 Ht 1.651 m (5' 5) Wt79.8 kg (176 lb) SpO2 100% BMI 29.29 kg/m Smoking Status Never Smoker General/Constitutional: Well developed, well nourished female, who looks their stated age of 31 y.o.. No acute distress. HEENT: Head: Extraocular movements are intact. Sclerae are anicteric. Neck: non- tender, with no lymphadenopathy. Cardiac: Regular rate and rhythm. Normal S1, S2. No murmurs, rubs or gallops. Pulmonary/Chest: Lungs are clear to auscultation bilaterally. Abdominal: Soft, non-tender, non-distended. No masses or rebound tenderness. Extremities: Normal range of motion in all four extremities, No peripheral edema. Peripheral Vascular Exam: Normal radial arterial pulses. Neurological: Conscious, alert and oriented. No focal neurologic deficits. Skin: Skin is warm and dry. She is not diaphoretic. Psychiatric: Appropriate mood and affect for her clinical situation. Assessment & Plan: Impression: Hemophilia B Carrier. In summary, Ms. Rodriguez is a 31-year-old female with hemophilia B carrier status. We had a long discussion on her menstrual cycles and the bleeding. 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 In addition, she is planned to start a family and I expressed to her it may be important to establish care to get more regular cycles potentially pharmacologically to allow her to be able to conceive in a timely fashion. Ms. Rodriguez is enquiring about learning of start her own IVs and auto infusing. While I think it is not necessarily necessary for her except for her convenience, she is more worried, I believe, about children in the future and boys who will have hemophilia B. I will be in contact with our nurse, Radha Fan and ALEJANDRO Kirby, to arrange for teaching for self starting of IVs in the next couple of weeks to months. This again will allow her to be able to take care of children in the future, but also take care of herself for any upcoming procedures where she might require at least preoperative factor infusions. She will be scheduled to see the [facility] in approximately the next 6 to 9 months, but will call sooner with any questions or problems that arise. documented in this [facility]04-19-2022 Instructions* Patient Instructions* Halina Barcenas RN - 11/22/2021 10:08 AM EDT Follow up in 6-9 months Get labs drawn today prior to leaving the office. We will call/my chart message you regarding the results. Provider: Dr. Aide Thakkar Primary Nurse: Halina Associate Nurse: Carline Medication refills Please allow 1 week for all medication refills. You may request refills via [employer] or by calling [phone]. Paperwork Please allow 2 weeks to complete disability, FMLA, and insurance paperwork. Please clarify what to do once they are completed, including any fax numbers or addresses needed. [employer] is a secure way to get access to your labs online. Once you're online, you may need to send a message to the office to release results so that you can review the results of your blood tests. For non-emergent concerns, please send us a [employer] message but describe your issue fully. As an example, tell us how long you've had the symptom, what makes it better or worse, what you've done for it already) and one of our nurses or nurse practitioners will respond juan luis. For questions or concerns regarding MyChart access or technical dificulties, please call [phone] or toll free at . Appointment's/ No show visits If you arrive late to your scheduled appointment, you may be asked to reschedule your visit. Pleasecall [phone] at least 24 hours in advance if you are not able to make it to your scheduled visit. If you have three no show visit's within one year, you will be discharged from our practice. [facility] Instructions* Patient Instructions* Jimmy Tadeo PA-C - 11/16/2021 2:17 PM EDT Take antibiotics as prescribed till gone May take Tylenol, Advil, Aleve as directed May take vjks-dur-gkiohmg cough and cold medication as directed Increase oral fluid intake over the course the next 7-10 days Encourage healthy well-balanced diet Follow-up with primary care provider in 2-3 days if symptoms not resolving documented in this encounterMCLAREN CARO [id number] History of Present illness Narrative* Gia Ojeda RN - 11/16/2021 1:35 PM EDT Pt c/o URI since 11/11/21. Pt has hemaphelia history. * Jimmy Tadeo PA-C - 11/16/2021 1:35 PM EDT SUSIE Rodriguez is a 31 y.o. female presenting to the clinic for evaluation of fatigue, nasal congestion, sinus pressure and pain, sore throat, cough that is been present over the course the last 5 days. Patient denies having any fever, chills, malaise, fatigue, body aches, shortness of breath, nausea, vomiting, or diarrhea. Patient has been taking hrhy-bld-jeqpvpc cough cold medication but not getting great relief from this. Patient denies having any known sick or COVID contact. ROS Constitutional: Denies Fever or chills. + Fatigue Eyes: Denies visual change or eye discharge Head/Ear/Nose/Throat: Denies earache. + Nasal congestion, sinus pressure and pain, sore throat Respiratory: Denies shortness of breath. + Intermittent mildly productive cough Cardiovascular: Denies chest pain or palpitations Gastrointestinal: Denies abdominal pain, Denies nausea or vomiting. Denies constipation or diarrhea Genitourinary: Denies dysuria Musculoskeletal: Denies Joint pain, Denies muscle pain Skin: Denies Rash Neurological: Denies Headache, Denies focal neuro symptoms Social History Tobacco Use Smoking status: Never Smoker Smokeless tobacco: Never Used Substance Use Topics Alcohol use: Never Drug use: Never PHYSICAL EXAM BP 121/71 Pulse 90 Temp 97.4 F (36.3 C) Resp 18 SpO2 98% Smoking Status Never Smoker Primary Assessment: Airway patent. Respirations unlabored, Normal respiratory effort Constitutional: Vital signs reviewed. Well appearing. No distress Psychiatric: Mental status appropriate. Normal affect Skin: Warm and dry. No rashes noted Eyes: Conjunctiva clear. No photophobia HENT: Normocephalic. Normal Tms however show evidence of bilateral bulging. Posterior pharynx showsmoderate erythema. No evidence of any tonsillar swelling, erythema, or tonsillar exudate noted. Mild pain to palpation percussion the maxillary sinuses noted. No palpable lymphadenopathy noted. Thorax/ Respiratory: Respiratory effort non-labored. CTAB. Heart: Regular rate and rhythm with no murmurs. Gastrointestinal: Abdomen soft and non-tender. No rebound. No guarding. No masses. Musculoskeletal: Neck supple. All joints grossly normal. Neurologic: Alert and Oriented Diagnosis: ICD-10-CM 1. Acute maxillary sinusitis, recurrence not specified J01.00 Plan: 1. Acute maxillary sinusitis, recurrence not specified Jimmy Tadeo PA-C 11/16/2021 documented in this encounterMCLAREN CARO [id number] NoteHNO ID: [id number] Author: Susana Ireland APRN.NU[employer] WASTE MANAGEMENT ENGINEER Service: ? Author Type: Nurse Practitioner Type: Progress Notes Filed: 03/29/2021 2:44 PM Note Text: Lucila is a 30 year old who presents for an annual gynecologic exam with complaints, bump to right vagina. Noticed bump a week ago and thinks it is mostly resolved. Getting in 2 months. Menses: cycles every 28-30 days and 7 days of flow. Hemophilia B. Contraception: none HPV vaccine: No Last Pap: 11/14/2016 normal HPV: N/A History of abnormal pap: No History of ovarian cyst: Yes Last mammogram: never Sexually active: never OB History T0 L0 SAB0 TAB0 Ectopic0 Multiple0 Live Births0 PAST MEDICAL HISTORY Diagnosis Date - Family history of hemophilia B 2 Brothers - Femur fracture (HCC) - Hemophilia B (HCC) PAST SURGICAL HISTORY Procedure Laterality Date - CHG FEMORAL LENGTH FRACTURE OR EQUAL Rods placed and Removed from left leg - COLONOSCOP W/ OR W/O [facility] SPEC Colonoscopy - COLONOSCOP W/ OR W/O [facility] SPEC 09/28/2016 Colonoscopy - PAST SURGICAL HISTORY OF Trigger Thumb Release Surgery FAMILY HISTORY Problem Relation Age of Onset - Cancer Mother Liver and Heart - Seizures Brother - other (Hemophilia B) Brother - Cancer Maternal Grandmother Colon, Breast, and Skin - Stroke Maternal Grandmother - Diabetes Maternal Grandmother - Hypertension Maternal Grandmother - Hypertension Maternal Grandfather - other (Hemophilia B) Maternal Grandfather - Hypertension Paternal Grandmother - Heart Paternal Grandmother - Stroke Paternal Grandmother - Diabetes Paternal Grandfather - Heart Failure Paternal Grandfather - other (Dementia) Paternal Grandfather - other (Hemophilia B) Brother SOCIAL HISTORY Social History Tobacco Use - Smoking status: Never Smoker - Smokeless tobacco: Never Used Substance Use Topics - Alcohol use: No - Drug use: No REVIEW OF SYSTEMS Abdomen: No abdominal pain, nausea, vomiting, diarrhea, or constipation. No bloating, early satiety, indigestion, or increased flatulence. Bladder: No dysuria, gross hematuria, urinary frequency, urinary urgency, or incontinence. Breast: No breast lumps, nipple d/c, overlying skin changes, redness or skin retraction. Breast tenderness premenstrual. Allergies and current medication updated:Yes EXAM: BP 112/70 Ht 5' 5.5 (1.66m) Wt 163 lb (73.9kg) LMP 03/06/2021 BMI 26.70 kg/(m2). GENERAL: pleasant, female in no apparent distress HEENT: Normocephalic, atraumatic, mucus membranes moist and no lesions NECK: Supple, full range of motion, no adenopathy and thyroid normal DERMATOLOGY: Normal, without lesions, non-icteric and non-hirsute BREAST: soft, non-tender, symmetric, no dominant mass, normal nipple-areolar complex, no lymphadenopathy and no nipple discharge CHEST: Normal inspiratory effort ABDOMEN: soft, non-tender and no masses PELVIC: external genitalia normal, normal Bartholin's glands, urethra, [place]'s glands, no vulvar lesions, no cervical lesions, good vaginal support, physiologic discharge present, normal appearing perineal body and perianal region BIMANUAL: uterus normal size, shape and consistency, no adnexal masses and non-tender RECTOVAGINAL: deferred. NEURO: alert and oriented x3,exam grossly non-focal EXTREMITIES: normal ASSESSMENT/PLAN: 1) Health maintenance: Pap done with reflex HPV. No vaginal bump noted on exam. Nutrition, exercise and routine health maintenance exams reviewed. HPV vaccine: no 2) Contraception: none. Contraceptive options reviewed and information provided. Plans to use condoms. Given information on VCF strips in additions to condoms. 3) STD screening: Declined STD check. 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 [facility] Diagnosis Cerebrovascular accident (CVA), unspecified mechanism (HCC)- Primary Dizziness Dizziness and giddiness Nystagmus Nystagmus, unspecified H/O hemophilia B Personal history of diseases of blood and blood-forming organs documented in this encounter [facility] Phone: evaluation note* Diagnosis Migraine without status migrainosus, not intractable, unspecified migraine type- Primary Stroke-like symptoms Other symptoms involving nervous and musculoskeletal systems Complicated migraine Migraine with aura, without mention of intractable migraine without mention of status migrainosus [facility] Diagnosis Onset Date Resolution Status 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 acute acute Supervision of high risk , antepartum acute [facility] Work Phone: Evaluation note* Diagnosis Onset Date Resolution Status 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 acute acute Supervision of high risk , antepartum acute 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 acute acute Supervision of high risk , antepartum acute [facility] Work Phone: Evaluation note* Diagnosis Onset Date Resolution Status 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 acute acute Supervision of high risk , antepartum acute 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 acute acute Supervision of high risk , antepartum acute 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 acute acute Supervision of high risk , antepartum acute 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 acute acute Supervision of high risk , antepartum acute Abnormal glucose tolerance in acute 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 acute acute Rubella non-immune status, antepartum acute Supervision of high risk , antepartum acute [facility] Work Phone: Evaluation note* Diagnosis Onset Date Resolution Status 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 acute acute Supervision of high risk , antepartum acute 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 acute acute Supervision of high risk , antepartum acute 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 acute acute Supervision of high risk , antepartum acute Abnormal glucose tolerance in acute 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 acute acute Rubella non-immune status, antepartum acute Supervision of high risk , antepartum acute Abnormal glucose tolerance in acute 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 acute acute Rubella non-immune status, antepartum acute Supervision of high risk , antepartum acute Abnormal glucose tolerance in acute 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 acute acute Rubella non-immune status, antepartum acute Supervision of high risk , antepartum acute [facility] Work Phone: Evaluation note* Diagnosis 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 Supervision of high risk in third trimester (HHS-HCC) headache in third trimester (HHS-HCC) Biliary dyskinesia- Primary Other specified disorder of gallbladder Abnormal results of function studies of other organs and systems Genetic carrier of other disease Biliary dyskinesia- Primary Other specified disorder of gallbladder documented in this encounter [facility] Work Phone: Evaluation note* Diagnosis 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 Supervision of high risk in third trimester (HHS-HCC) headache in third trimester (HHS-HCC) Biliary dyskinesia- Primary Other specified disorder of gallbladder 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 deficiency 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 Cholecystitis Cholecystitis, unspecified 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 Biliary dyskinesia Other specified disorder of gallbladder documented in this encounter [facility] Work Phone: Evaluation note* Diagnosis 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 Supervision of high risk in third trimester (HHS-HCC) headache in third trimester (HHS-HCC) Biliary dyskinesia- Primary Other specified disorder of gallbladder Biliary dyskinesia Other specified disorder of gallbladder Hemophilia B (Multi) Congenital factor IX disorder Hemophilia B (Multi) Congenital factor IX disorder documented in this encounter [facility] Work Phone: Evaluation note* Diagnosis 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 Supervision of high risk in third trimester (HHS-HCC) headache in third trimester (HHS-HCC) Biliary dyskinesia- Primary Other specified disorder of gallbladder documented in this encounter [facility] Work Phone: Evaluation note* Diagnosis Onset Date Resolution Status Admit Date Family history of cancer acute February 13, 2025 2:41pm 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 She plans to transfer care at 36 wks to [facility] for delivery at [facility]. * Overall feeling well. +FM. Denies VB, LOF, or CTXs. * Had f/u with Dr. Jack earlier today and detailed plan made for her delivery. See plan for details. * Overall no concerns today. [id number] Work Phone: Reason for referral (narrative)* Consultation (Routine) - New Request Specialty Diagnoses / Procedures Referred By Contac t Referred To Contact Neurology Diagnoses Migraine without status migrainosus, not intractable, unspecified migraine type Mary Mae APRN-NUCLEAR WASTE MANAGEMENT ENGINEER [address] [place] [address] Referral ID Status Reason Start Date Expiration Date V isits Requested Visits Authorized [id number] New Request 11/28/2021 12/23/2022 1 1 * Radiology (Routine) - New Request Specialty Diagnoses / Procedures Referred By Contac t Referred To Contact Procedures ECG Rupali Son MD [address] [place] [id number] Referral ID Status Reason Start Date Expiration Date V isits Requested Visits Authorized [id number] New Request 11/27/2021 12/22/2022 1 1 * (Routine) - New Request Specialty Diagnoses / Procedures Referred By Contac t Referred To Contact Procedures NO PHARMACOLOGICAL DVT PROPHYLAXIS Rupali Son MD [address] [place] [address] Referral ID Status Reason Start Date Expiration Date V isits Requested Visits Authorized [id number] New Request 11/27/2021 12/22/2022 1 1 * (Routine) - New Request Specialty Diagnoses / Procedures Referred By Contac t Referred To Contact Procedures DVT/VTE RISK ASSESSMENT Rupali Son MD [address] [place] [address] Referral ID Status Reason Start Date Expiration Date V isits Requested Visits Authorized [id number] New Request 11/27/2021 12/22/2022 1 1 * Radiology (Emergency) - New Request Specialty Diagnoses / Procedures Referred By Contac t Referred To Contact Procedures ECG Jarred Fountain MD [address] [place] [address] Referral ID Status Reason Start Date Expiration Date V isits Requested Visits Authorized [id number] New Request 11/27/2021 12/22/2022 1 1 [facility]ative)No reason for referral information availableOlive [facility] Work Phone: Reason for visit Narrative* Consultation (Urgent) - Authorized Specialty Diagnoses / Procedures Referred By Contac t Referred To Contact General Surgery Diagnoses Abnormal results of function studies of other organs and systems Genetic carrier of other disease Cyndi Wong MD [address] [facility] [address] [address] Phone: tel: fax: Referral ID Status Reason Start Date Expiration Date Visits Requested Visits Authorized [id number] Authorized Specialty Services Required 09/24/2024 09/24/2025 1 1 [facility] Work Phone: Reason for visit Narrative* Auth/Cert (Routine) Specialty Diagnoses / Procedures Referred By Contac t Referred To Contact Diagnoses Biliary dyskinesia Biliary dyskinesia [K82.8] Procedures OR LAPS SURG CHOLECYSTECTOMY W/CHOLANGIOGRAPHY CHOLECYSTECTOMY, LAPAROSCOPIC, [place] [address] [place] [address] Phone: tel: fax: [place] [place] [address] [place] [address] fax: Referral ID Status Reason Start Date Expiration Date Visits Re quested Visits Authorized [id number] 1 1 [facility] Work Phone: Summary Purpose Family History No Family History Records Found Relationship Condition Age at Onset Recorded Date/T danay mother Malignant neoplasm 31 grandmother Malignant neoplasm of breast Unknown Malignant neoplasm of colon Unknown Diabetes mellitus Unknown father Hypertension Unknown Relationship Condition Age at Onset Recorded Date/T danay mother Malignant neoplasm 31 grandmother Malignant neoplasm of breast Unknown Malignant neoplasm of colon Unknown Diabetes mellitus Unknown father Hypertension Unknown brother Hemophilia Unknown Advance Directives No Advanced Directives Records FoundLatest Code Status on File Code Status Date Activated Date Inactivated Comments Full Code 11/27/2021 12:20 PM Advance Directive Response Recorded Date/ Time Living Will No September 28 017 7:06am Power of Lapidary Apprentice No September 28, 2016 7:06am Date Activated Date Inactivated Comments 05/26/2023 12:48 PM 05/29/2023 6:02 PM Question Answer Comments Plan of Care: Code Status Discussion Not Compl eted Decision Maker: Provider Rationale: Patient condition does not warra nt discussion Date Activated Date Inactivated Comments 05/26/2023 12:48 PM 05/29/2023 6:02 PM Question Answer Comments Plan of Care: Code Status Discussion Not Compl eted Decision Maker: Provider Rationale: Patient condition does not warra nt discussion Date Activated Date Inactivated Comments 10/22/2024 8:20 AM Question Answer Comments Plan of Care: Code Status Discussion Completed Decision Maker: Patient Date Activated Date Inactivated Comments 05/26/2023 12:48 PM 05/29/2023 6:02 PM Question Answer Comments Plan of Care: Code Status Discussion Not Compl eted Decision Maker: Provider Rationale: Patient condition does not warra nt discussion Date Activated Date Inactivated Comments 10/22/2024 8:20 AM Question Answer Comments Plan of Care: Code Status Discussion Completed Decision Maker: Patient Date Activated Date Inactivated Comments 05/26/2023 12:48 PM 05/29/2023 6:02 PM Question Answer Comments Plan of Care: Code Status Discussion Not Compl eted Decision Maker: Provider Rationale: Patient condition does not warra nt discussion Chief Complaint and Reason for Visit Chief Complaint NOB LMP 08/26 Reason for Visit 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 Supervision of high risk , antepartum Chief Complaint NOB LMP 08/26 13 WK OB Reason for Visit 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 Supervision of high risk , antepartum 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 Supervision of high risk , antepartum Chief Complaint 13 WK OB 16 WK OB 20 wk ob 25 WK OB 28 WK OB/GLUCOSE Z131 Reason for Visit 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 Supervision of high risk , antepartum 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 Supervision of high risk , antepartum 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 Supervision of high risk , antepartum 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 Supervision of high risk , antepartum Abnormal glucose tolerance in 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 Rubella non-immune status, antepartum Supervision of high risk , antepartum Chief Complaint 16 WK OB 20 wk ob 25 WK OB 28 WK OB/GLUCOSE Z131 30 WK OB 32 WK OB Reason for Visit 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 Supervision of high risk , antepartum 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 Supervision of high risk , antepartum 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 Supervision of high risk , antepartum Abnormal glucose tolerance in 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 Rubella non-immune status, antepartum Supervision of high risk , antepartum Abnormal glucose tolerance in 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 Rubella non-immune status, antepartum Supervision of high risk , antepartum Abnormal glucose tolerance in 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 Rubella non-immune status, antepartum Supervision of high risk , antepartum Chief Complaint Admit Date *NEW* NOB LMP 5, YARA 09/17February 13, 2 025 2:41pm Reason for Visit Admit Date Family history of cancer February 13, 2025 2:41pm 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 February 13, 2025 2:4 1pm Obesity affecting February 13 025 2:41pm February 13, 2025 2:41 pm Supervision of high-risk February 13, 2025 2:41pm Chief Complaint Patient referred by Joanne Trevino d/t hemophilia b* patient presents today for MFM F/u * operations officer declined [facility] [employer] * patient presents today for MFM F/u * operations officer declined [facility] [employer] Additional Source Comments INFORMATION SOURCE (unrecogn ized section and content) DATE CREATED AUTHOR 02/23/2020 [facility] DATE CREATED AUTHOR AUTHOR'S ORGANIZ ATION 09/05/2021 [facility] DATE CREATED AUTHOR AUTHOR'S ORGANIZ ATION 11/17/2021 [facility] DATE CREATED AUTHOR AUTHOR'S ORGANIZ ATION 05/15/2022 [facility] DATE CREATED AUTHOR AUTHOR'S ORGANIZ ATION 03/31/2023 [facility] DATE CREATED AUTHOR AUTHOR'S ORGANIZ ATION 04/04/2023 [facility] DATE CREATED AUTHOR AUTHOR'S ORGANIZ ATION 11/09/2024 [facility] DATE CREATED AUTHOR AUTHOR'S ORGANIZ ATION 01/30/2025 [facility] DATE CREATED AUTHOR AUTHOR'S ORGANIZ ATION 02/23/2025 [facility] Reason for Visit (unrecogniz ed section and content) Reason Comments URI Sunday11/11/21 Reason Comments New Patient Bleeding disorder Specialty Diagnoses / Procedures Referred By Contac t Referred To Contact Hematology Diagnoses PER E-MAIL RADHA Maloney Procedures NEW BENIGN HEMATOLOGY Self, Self Aide Thakkar MD [address] [place] [address] [address] [address] Referral ID Status Reason Start Date Expiration Date V isits Requested Visits Authorized [id number] New Request 11/22/2021 12/17/2022 1 1 Reason Comments Dizziness LKW 0830 pt has faci al twitching, headache and dizziness, Reason Comments Extremity Weakness Specialty Diagnoses / Procedures Referred By Contac t Referred To Contact Diagnoses weakness Referral ID Status Reason Start Date Expiration Date Visits Re quested Visits Authorized [id number] 1 1 Reason Comments New Patient Visit Care Teams (unrecognized sec tion and content) Industrial Tech Instructor Relationship Specialty Start Date End Date Self, Self PCP - General Unallocated 11/16/21 Industrial Tech Instructor Relationship Specialty Start Date End Date Self, Self PCP - General Unallocated 11/16/21 Industrial Tech Instructor Relationship Specialty Start Date End Date Lili Rodriguez, DO [address] [place] [address] PCP - General Family Medicine 11/27/21 Industrial Tech Instructor Relationship Specialty Start Date End Date Nonstaff, M[facility], [place] [phone] (Work) PCP - General 11/27/21 Industrial Tech Instructor Relationship Specialty Start Date End Date Lili Rodriguez DO [address] [place] [address] PCP - General Family Medicine 11/27/21 Team Status: Active Member Role Status Dates Dr. Bandar Lynn MD Family Provider Active Dr. Lili Rodriguez DO Primary Care Provider Active Team Status: Inactive Member Role Status Dates Dr. Lili Rodriguez DO Primary Care Provider, Referrin g Provider Active Dr. Allyssa Santana MD Attending Provider Active Team Status: Inactive Member Role Status Dates Dr. Lili Rodriguez DO Primary Care Provider Active Dr. Allyssa Santnaa MD Attending Provider Active Team Status: Inactive Member Role Status Dates Dr. Lili Rodriguez DO Primary Care Provider, Referrin g Provider Active Dr. Meghana Granda DO Attending Provider Activ e Team Status: Inactive Member Role Status Dates Dr. Lili Rodriguez DO Primary Care Provider Active Dr. Allyssa Santana MD Attending Provider, Referr ing Provider Active Team Status: Inactive Member Role Status Dates Dr. Lili Rodriguez DO Primary Care Provider, Referrin g Provider Active Melonie Hernandes CNM Attending Provider Active Team Status: Inactive Member Role Status Dates Dr. Lili Rodriguez DO Primary Care Provider, Referrin g Provider Active Debbie Jordan CNM Attending Provider Active Team Status: Inactive Member Role Status Dates Dr. Lili Rodriguez DO Primary Care Provider, Referrin g Provider Active Radha Dean EDITORIAL CLERK, EDITORIAL CLERK-C Attending Provider Active Team Status: Inactive Member Role Status Dates Dr. Lili Rodriguez DO Primary Care Provider Active Debbie Jordan CNM Attending Provider, Referring Pro vider Active Team Status: Active Member Role Status Dates Dr. Lili Rodriguez DO Primary Care Provider Active Radha Dean EDITORIAL CLERK, EDITORIAL CLERK-C Attending Provider, Referring Provider Active Team Status: Inactive Member Role Status Dates Dr. Lili Rodriguez DO Primary Care Provider Active Radha Dean EDITORIAL CLERK, EDITORIAL CLERK-C Attending Provider, Referring Provider Active Team Status: Inactive Member Role Status Dates Dr. Lili Rodriguez DO Primary Care Provider Active Dr. Meghana Granda , Attending Provider, Refe rring Provider Active Industrial Tech Instructor Relationship Specialty Start Date End Date Shekhar Lynn MD PCP - General 08/21/17 Loli Jack MD Consulting Physician Hematology and Oncology 01/21/24 Industrial Tech Instructor Relationship Specialty Start Date End Date Shekhar Lynn MD [address] [place] [address] PCP - General Family Medicine 10/14/24 Loli Jack MD Consulting Physician Hematology and Oncology 01/21/24 [place] [address] [place] [address] Consulting Physician Hematology and Oncology 10/15/24 Industrial Tech Instructor Relationship Specialty Start Date End Date Shekhar Lynn MD [address] [place] [address] PCP - General Family Medicine 10/14/24 Loli Jack MD Consulting Physician Hematology and Oncology 01/21/24 [place] [address] [place] [address] Consulting Physician Hematology and Oncology 10/15/24 Industrial Tech Instructor Relationship Specialty Start Date End Date Shekhar Lynn MD [address] [place] [address] PCP - General Family Medicine 10/14/24 Loli Jack MD Consulting Physician Hematology and Oncology 01/21/24 [place] [address] [place] [address] Consulting Physician Hematology and Oncology 10/15/24 Team Status: Active Member Role/Relationship Status Tirso Foley MD Primary Care Provider Active Team Status: Inactive Member Role/Relationship Status Tirso Foley MD Primary Care Provider Active St art: February 13, 2025 End: February 13, 2025 Ananda Foley MD Referring Provider Active Start : February 13, 2025 End: February 13, 2025 Debbie Jordan CNM Attending Provider Active S tart: February 13, 2025 End: February 13, 2025 Team Status: Inactive Member Role/Relationship Status Tirso Foley MD Primary Care Provider Active St art: February 13, 2025 End: February 13, 2025 Debbie Jordan CNM Attending Provider Active S tart: February 13, 2025 End: February 13, 2025 Scheduled Active and Recently Administ ered Medications (unrecognized section and content) Medication Order 11/25/2021 11/26/2021 11/27/2021 0.9 % sodium chloride bolus 50 mL (0.649 mL/kg), IntraVENous, at 100 mL/hr, Administer over 0.5 Hours, ONCE, On 11/27/21 at 1045, For 1 dose, Follow the alteplase (ACTIVASE) infusion with 50 mL of 0.9 % NS, at the same rate as the TPA infusion, to clear the line and complete the infusion. 1045 (Due) alteplase (ACTIVASE) injection 6.9 mg (COMPLETED) 6.9 mg (rounded from 6.939 mg = 0.09 mg/kg 77.1 kg), IntraVENous, ONCE, On 11/27/21 at 1045, For 1 dose, Bolus Dose Total dose of Alteplase=0.9mg/kg (90mg max) (10% -- given as Bolus) (90% -- given as Infusion) 1114 (New Bag - Prov ider: Mitch Velásquez RN)1152 (Patient Transferred to Other Facility - Provider: Mitch Velásquez RN) alteplase (ACTIVASE) injection 62.5 mg (COMPLETED) 62.5 mg (rounded from 62.451 mg = 0.81 mg/kg 77.1 kg), IntraVENous, at 62.5 mL/hr, Administer over 60 Minutes, ONCE, On 11/27/21 at 1045, For 1 dose, Infusion Dose Total dose of Alteplase=0.9mg/kg (90mg max) (10% -- given as Bolus) (90% -- given as Infusion) 1116 (New Bag - Prov ider: Mitch Velásquez RN)1141 (Patient Transferred to Other Facility - Provider: Mitch Velásquez RN - Comment: report given to [facility])1216 (Due: Stopped - Provider: Mitch Velásquez RN) ketorolac (TORADOL) injection 30 mg Ketorolac is contraindicated in patients with advanced renal impairment and in patients at risk of renal failure due to volume depletion. For 65 years of age and older OR weight less than 50 kg, use 15 mg IV every 6 hours; MAX dose: 60 mg/day. Dose greater than 30 mg must be administered via intramuscular route. Do not administer for more than 5 days., 30 mg, IntraVENous, ONCE, 1 dose, On 11/27/21 at 0945 1142 (Not Given - Pr ovider: Mitch Velásquez RN - Reason: Contraindicated) meclizine (ANTIVERT) tablet 25 mg 25 mg, Oral, ONCE, 1 dose, On 11/27/21 at 0945 0945 (Due) prothrombin complex concentrate (human) (KCENTRA) infusion 1,500 Units 1,500 Units, IntraVENous, ONCE, 1 dose, On 11/27/21 at 1115, Do not introduce other medications into the same IV line. 1141 (Not Given - Pr ovider: Mitch Velásquez RN - Reason: Other - Comment: given to [facility] for administration) sodium chloride flush 0.9 % injection 5-40 mL 5-40 mL, IntraVENous, EVERY 12 HOURS SCHEDULED (2 times per day), First dose on 11/27/21 at 1045, Until Discontinued, For Line Patency: Peripheral IV = 5 mL; Midline or Central Line = 10 mL/lumen. If following IV push medication, administer flush at same rate as the IV push. Flush volume is determined by type of infusion therapy being given. For non-viscous solutions use: Peripheral IV = 5 mL Midline or Central Line = 10 mL/lumen For viscous solutions (i.e. blood components, parenteral nutrition, contrast media, or after obtaining blood sample) use: Peripheral IV = 10 mL Midline or Central Line = 20 mL/lumen 1045 (Due)2100 (Due) PRN Medication Order 11/25/2021 11/26/2021 11/27/2021 0.9 % sodium chloride infusion IntraVENous, at 5-250 mL/hr, PRN, if patient receiving piggyback infusions and maintenance fluids are not ordered OR KVO fluids to protect IV site / prevent frequent line interruptions/ long duration, Starting on 11/27/21 at 1039, For piggyback infusion, administer at same rate as piggyback for a total of 25 mL. Enter 25 mL into dose field and piggyback rate into rate field of order. If piggyback is infusing at a rate less than 100 mL/hr, enter 25 mL into dose field and 100 mL/hr into rate field of order. For KVO fluids, enter rate of 20 mL/hr or less into rate field of order. dextrose 50 % IV solution 12.5 g, IntraVENous, ONCE PRN, 1 dose, Starting on 11/27/21 at 1039, Until 11/27/21 at 2359, Low blood sugar, For BS less than 60 mg/dL iopamidol (ISOVUE-370) 76 % injection 75 mL (COMPLETED) 75 mL, IntraVENous, IMG ONCE PRN, 1 dose, Starting on 11/27/21 at 1025, Until 11/27/21 at 1025, Other 1025 (Given - Provid er: Molly Kapadia) ondansetron (ZOFRAN) injection 4 mg 4 mg, IntraVENous, EVERY 30 MIN PRN, 3 doses, Starting on 11/27/21 at 0942, Until Discontinued, Nausea, Up to 3 doses. Please notify physician if needs 3rd dose. Thank you., Please notify physician if requires 3 doses. sodium chloride flush 0.9 % injection 5-40 mL 5-40 mL, IntraVENous, PRN, Starting on 11/27/21 at 1039, Until Discontinued, Line Care, After every IV line use, For Line Patency: Peripheral IV = 5 mL; Midline or Central Line = 10 mL/lumen. If following IV push medication, administer flush at same rate as the IV push. Flush volume is determined by type of infusion therapy being given. For non-viscous solutions use: Peripheral IV = 5 mL Midline or Central Line = 10 mL/lumen For viscous solutions (i.e. blood components, parenteral nutrition, contrast media, or after obtaining blood sample) use: Peripheral IV = 10 mL Midline or Central Line = 20 mL/lumen Scheduled Medication Order 11/26/2021 11/27/2021 11/28/2021 prochlorperazine (COMPAZINE) injection 10 mg (COMPLETED) 10 mg, Intravenous, ONCE, 1 dose, On 11/27/21 at 1430, For IV route: dilute dose with 10mL normal saline and give by slow IV push at a rate of 5mg/min. Maximum of 40mg/day. 1412 (Given - Provider: Sue Novak RN) senna (SENOKOT) tablet 8.6 mg(Linked Group 1) 8.6 mg, Oral, DAILY EVERY MORNING, First dose on 11/27/21 at 1230, Until Discontinued, Hold if BM in last 2 hours. 1239 (Not Given - Provider: Sue Novak RN - Reason: NPO) 0812 (Hold - Provider: Ying Ba RN - Reason: Patient/family refused) senna (SENOKOT) tablet 8.6 mg(Linked Group 1) 8.6 mg, Per NG tube, DAILY EVERY MORNING, First dose on 11/27/21 at 1230, Until Discontinued, Hold if BM in last 2 hours. 1239 (See Alternative - Provider: Sue Novak RN) 0812 (See Alternative - Provider: Ying Ba RN) Continuous Medication Order 11/26/2021 11/27/2021 11/28/2021 sodium chloride 0.9% IV solution (CANCELED) Intravenous, at 75 mL/hr, CONTINUOUS, Starting on 11/27/21 at 1230, Until 11/27/21 at 1356 1240 ($$New Bag$$ - Provider : Sue Novak RN)1605 (Stopped - Provider: Sue Novak RN) PRN Medication Order 11/26/2021 11/27/2021 11/28/2021 acetaminophen (TYLENOL) tablet 650 mg(Linked Group 2) 650 mg, Oral, EVERY 4 HOURS NEEDED, Starting on 11/27/21 at 1218, Until 11/28/21 at 1818, Mild Pain, Oral temp > 99.5, Maximum dose of acetaminophen is 4000 mg from all sources in 24 hours. acetaminophen (TYLENOL) tablet 650 mg(Linked Group 2) 650 mg, Per NG tube, EVERY 4 HOURS NEEDED, Starting on 11/27/21 at 1218, Until 11/28/21 at 1818, Mild Pain, Oral temp > 99.5, Maximum dose of acetaminophen is 4000 mg from all sources in 24 hours. hydrALAZINE (APRESOLINE) injection 10 mg 10 mg, Intravenous, EVERY 1 HOUR NEEDED, Starting on 11/27/21 at 1218, Until 11/28/21 at 1818, Blood Pressure (High), Systolic Blood Pressure greater than 180 mmHg and heart rate LESS THAN 60 beats per minute. labetalol (NORMODYNE) injection 10 mg 10 mg, Intravenous, EVERY 1 HOUR NEEDED, Starting on 11/27/21 at 1218, Until 11/28/21 at 1818, Systolic Blood Pressure greater than 180 mmHg and heart rate GREATER THAN 60 beats per minute., Hold if Heart Rate LESS THAN 60 beats per minute. For vials: labetalol should be treated as a SINGLE USE VIAL. Discard remaining contents after one use. polyethylene glycol (MIRALAX) packet 17 g(Linked Group 3) 17 g, Oral, DAILY NEEDED, Starting on 11/27/21 at 1218, Until Sun11/28/21 at 1818, Constipation If No Bowel Movement in 48 Hours, after bisacodyl polyethylene glycol (MIRALAX) packet 17 g(Linked Group 3) 17 g, Per NG tube, DAILY NEEDED, Starting on 11/27/21 at 1218, Until 11/28/21 at 1818, Constipation If No Bowel Movement in 48 Hours, after bisacodyl Linked Groups Order Group 1: senna (SENOKOT) tablet 8.6 mgJump to med 8.6 mg, Oral, DAILY EVERY MORNING, First dose on 11/27/21 at 1230, Until Discontinued
Hold if BM in last 2 hours.
Or senna (SENOKOT) tablet 8.6 mgJump to med 8.6 mg, Per NG tube, DAILY EVERY MORNING, First dose on 11/27/21 at 1230, Until Discontinued
Hold if BM in last 2 hours.
Group 2: acetaminophen (TYLENOL) tablet 650 mgJump to med 650 mg, Oral, EVERY 4 HOURS NEEDED, Starting on 11/27/21 at 1218, Until Sun11/28/21 at 1818, Mild Pain, Oral temp > 99.5
Maximum dose of acetaminophen is 4000 mg from all sources in 24 hours.
Or acetaminophen (TYLENOL) tablet 650 mgJump to med 650 mg, Per NG tube, EVERY 4 HOURS NEEDED, Starting on 11/27/21 at 1218, Until Sun11/28/21 at 1818, Mild Pain, Oral temp > 99.5
Maximum dose of acetaminophen is 4000 mg from all sources in 24 hours.
Group 3: polyethylene glycol (MIRALAX) packet 17 gJump to med 17 g, Oral, DAILY NEEDED, Starting on 11/27/21 at 1218, Until Sun11/28/21 at 1818, Constipation If No Bowel Movement in 48 Hours, after bisacodyl Or polyethylene glycol (MIRALAX) packet 17 gJump to med 17 g, Per NG tube, DAILY NEEDED, Starting on 11/27/21 at 1218, Until Sun11/28/21 at 1818, Constipation If No Bowel Movement in 48 Hours, after bisacodyl Scheduled Medication Order 10/21/2024 10/22/2024 10/23/2024 acetaminophen-caffeine 500-65 mg tablet 1 tablet (COMPLETED) 1 tablet, oral, Once, On Sun10/23/24 at 0900, For 1 dose, Maximum 8 tablets per day 1008 (Given - Provid er: Aleksandr Edward RN) ascorbic acid (Vitamin C) tablet 1,000 mg 1,000 mg, oral, 2 times daily, First dose on Sun10/22/24 at 1300 1812 (Given - Provider: Ying Lemus RN)205 (Not Given - Provider: Meghana Powell RN - Reason: Other - Comment: given at 1800) 1009 (Given - Provider: Aleksandr Edward RN)2100 (Due) cholecalciferol (Vitamin D-3) tablet 10 mcg 10 mcg (400 Units), oral, Daily, First dose on Sun10/22/24 at 1800 1854 (Not Given - Provider: Ying Lemus RN - Reason: Patient not available) 1014 (Given - Provider: Aleksandr Edward RN) coagulation factor IX (recomb) (Benefix) injection 4,500 Units (CANCELED) 4,500 Units, intravenous, Every 12 hours, First dose on Sun10/22/24 at 1100, For 3 doses, Preprocedure, Please infuse first dose pre-op for surgery. Note: we are using the patient's own supply of Benefix shipped from [facility] to Pharmacy just for this procedure. , Site of bleed: Prophylaxis, Goal of Therapy (% activity): 80 1012 (Given - Provider: Lorenza Holliday RN) coagulation factor IX (recombinant) (Benefix) injection 4,500 Units (COMPLETED) 4,500 Units, intravenous, Every 12 hours, First dose (after last modification) on Sun10/22/24 at 2200, For 2 doses, Please give at 10pm and 10 am , Site of bleed: Post-op 2200 (Given - Provider: Meghana Powell RN) 1048 (Given - Provider: Aleksandr Edward RN) ferrous sulfate tablet 325 mg 325 mg, oral, Daily, First dose (after last reorder) on Sun10/22/24 at 1830 1854 (Not Given - Provider: Ying Lemus RN - Reason: Patient not available) 1008 (Given - Provider: Aleksandr Edward, ELIZA) polyethylene glycol (Glycolax, Miralax) packet 17 g 17 g, oral, Daily, First dose on Sun10/22/24 at 1800, Bowel Regimen - for prevention of constipation. 181 (Given - Provider: Ying Lemus RN) 1015 (Not Given - Provider: Aleksandr Edward RN - Reason: Patient/family refused) sennosides (Senokot) tablet 17.2 mg 17.2 mg (2 tablet), oral, 2 times daily, First dose on Sun10/22/24 at 2100, Bowel Regimen - for prevention of constipation Hold for loose stools 2051 (Given - Provider: Meghana Powell RN) 1015 (Not Given - Provider: Aleksandr Edward RN - Reason: Patient/family refused)2100 (Due) Continuous Medication Order 10/21/2024 10/22/2024 10/23/2024 lactated Ringer's infusion 75 mL/hr, intravenous, Continuous, Starting on Sun10/22/24 at 1145, For 1 day, Recovery (only) 1127 (New Bag - Provider: Torri Waddell RN)1230 (Rate/Dose Verify - Provider: Torri Waddell RN)1400 (Rate/Dose Verify - Provider: Torri Waddell RN)1500 (Rate/Dose Verify - Provider: Torri Waddell RN)1600 (Rate/Dose Verify - Provider: Torri Waddell RN)1823 (New Bag - Provider: Ying Lemus RN)2049 (Stopped - Provider: Meghana Powell RN) sodium chloride 0.9% infusion 100 mL/hr, intravenous, Continuous, Starting on Sun10/22/24 at 1915, For 12 hours 2050 (New Bag - Provider: Meghana Powell, ELIZA) 0538 (Rate/Dose Verify - Provider: Meghana Powell RN)0603 (New Bag - Provider: Meghana Powell RN)0857 (Stopped - Provider: Aleksandr Edward, ELIZA) PRN Medication Order 10/21/2024 10/22/2024 10/23/2024 alteplase (Cathflo Activase) injection 2 mg 2 mg, intra-catheter, As needed, line care, Starting on Sun10/22/24 at 1238, Central line port. Dilute each 2 mg vial with 2.2 mL sterile water to give 1 mg/mL final concentration. Swirl gently to mix; do not shake. BUPivacaine-EPINEPHrine (Marcaine w/EPI) 0.5 %-1:200,000 injection (CANCELED) As needed, Starting on Sun10/22/24 at 1040, Intraprocedure 1040 (Given - Provider: Shilpi Benavides MD) HYDROmorphone (Dilaudid) injection 0.4 mg 0.4 mg, intravenous, Every 3 hours PRN, pain severe (7-10), first line, Starting on Sun10/22/24 at 1724 1923 (Given - Provider: Ying Lemus RN)2200 (Given - Provider: Meghana Powell RN) 0110 (Given - Provider: Mary Grant RN) HYDROmorphone PF (Dilaudid) injection 0.2 mg (CANCELED) 0.2 mg, intravenous, Every 5 min PRN, pain moderate (4-6), first line, Starting on Sun10/22/24 at 1118, Recovery (only), Max total of 4 mg regardless of dose. 1141 (Given - Provider: Torri Waddell RN)1146 (Given - Provider: Torri Waddell RN)1151 (Given - Provider: Torri Waddell RN)1216 (Given - Provider: Torri Waddell RN)1241 (Given - Provider: Torri Waddell RN)1406 (Given - Provider: Antonette Roca, ELIZA) ondansetron (Zofran) injection 4 mg (COMPLETED) 4 mg, intravenous, Once as needed, nausea/vomiting, first line, Starting on Sun10/22/24 at 1118, For 1 dose, Recovery (only), When administering via IV Push, administer over 3-5 minutes. 1241 (Given - Provider: Torri Waddell RN) ondansetron (Zofran) tablet 4 mg 4 mg, oral, Every 8 hours PRN, nausea/vomiting, first line, Starting on Sun10/22/24 at 2121 2226 (Given - Provider: Meghana Powell RN) 0803 (Given - Provider: Aleksandr Edward RN) oxyCODONE (Roxicodone) immediate release tablet 10 mg 10 mg, oral, Every 4 hours PRN, pain moderate (4-6), first line, Starting on Demetria 10/23/24 at 0927, If ordered PRN for pain, nurse is permitted to administer this medication for higher pain scores based on patient preference? Yes oxyCODONE (Roxicodone) immediate release tablet 5 mg (CANCELED) 5 mg, oral, Every 4 hours PRN, pain moderate (4-6), first line, Starting on 10/22/24 at 1725, If ordered PRN for pain, nurse is permitted to administer this medication for higher pain scores based on patient preference? Yes 1812 (Given - Provider: Ying Lemus RN) 0750 (Given - Provider: Aleksandr Edward RN) sodium chloride 0.9 % irrigation solution (CANCELED) As needed, Starting on 10/22/24 at 1052, Intraprocedure 1052 (Given - Provider: Shilpi Benavides MD - Comment: ON BACK TABLE)1108 (Given - Provider: Shilpi Benavides MD - Comment: via suction miter operator) Goals (unrecognized section and content) Goals may be documented in a n alternate sectionGoals may be documented in an alternate sectionGoals may be documented in an alternate sectionGoals may be documented in an alternate sectionGoals may be documented in an alternate sectionGoals may be documented in an alternate sectionGoals may be documented in an alternate section FOR RECORDS PERTAINING TO PATIENTS WHO ARE OR HAVE BEEN ENROLLED IN A CHEMICAL DEPENDENCY/SUBSTANCEABUSE PROGRAM, SOME INFORMATION MAY BE OMITTED. This clinical summary was aggregated from multiple sources. Caution should be exercised in using it in the provision of clinical care. This summary normalizes information from multiple sources, and as a consequence, information in this document may materially change the coding, format and clinical context of patient data. In addition, data may be omitted in some cases. CLINICAL DECISIONS SHOULD BE BASED ON THE PRIMARY CLINICAL RECORDS. [employer] [facility]. provides no warranty or guarantee of the accuracy or completeness of information in this document.
== END | disposition home or self-care (01) ==
PROVIDERS: Obstetrics & Gynecology; PCP Family Medicine; Visit Provider Advanced Practice Midwife
DX: O99.210 Obesity complicating pregnancy, unspecified trimester (principal); Z3A.00 Weeks of gestation of pregnancy not specified
CPT/HCPCS: 36415; 83036; 85025; 86703; 86762; 86780; 86803; 86850; 86900; 86901; 87340

== ENCOUNTER → 2025-03-16 | Outpatient (CLI) | payer SELFPAY ==
[2025-03-16 17:44] LABS: AST(SGOT) 11 U/L (<=31); Alanine Aminotransfer ALT/SGPT 10 U/L (<=34); Albumin, Serum 4.0 g/dL (3.5-5.0); Alkaline Phosphatase 49 U/L (35-104); Anion Gap 12 (5-15); BUN 11 mg/dL (4-19); BUN/Creat Ratio 18.6 RATIO (10-20); Calcium,Total 9.4 mg/dL (7.6-11.0); Carbon Dioxide 19.6 mmol/L (21.0-32.0); Chloride 102 mmol/L (98-108); Globulin 2.8 g/dL (2.2-4.2); Glucose 86 mg/dL (70-99); Potassium 4.0 mmol/L (3.3-5.1)
== END | disposition home or self-care (01) ==
PROVIDERS: PCP Family Medicine; Visit Provider Obstetrics & Gynecology
DX: O09.90 Supervision of high risk pregnancy, unspecified, unspecified trimester (principal); Z3A.00 Weeks of gestation of pregnancy not specified
CPT/HCPCS: 36415; 80053

== ENCOUNTER → 2025-06-24 | Outpatient (CLI) | payer SELFPAY ==
[2025-06-24 17:34] LABS: Hematocrit 36.1 % (37-47); Hemoglobin 11.8 g/dL (12.0-15.0); Immature Granulocytes Count 0.070 X10^3/uL (0.0-0.0); Mean Corp Hgb Conc 32.7 g/dL (32-36); Mean Corpuscular Volume 92.1 fL (81-99); Mean Platelet Vol. 10.3 fl (6.2-12.0); NRBC Flagged by Analyzer 0 % (0-5); Platelet Count 276 K/mm3 (150-450); RBC Distribution Width CV 15.0 % (11.6-14.6); RBC Distribution Width SD 50.5 fl (35.1-43.9); Red Blood Count 3.92 M/mm3 (4.2-5.4); White Blood Count 9.8 K/mm3 (4.4-11.0)
[2025-06-24 17:56] LABS: HIV Nonreactive (Nonreactive); Syphilis Antibodies Nonreactive (Nonreactive)
[2025-06-24 17:58] LABS: Glucose Challenge Gest 1H 50g 82 mg/dL (70-140)
== END | disposition home or self-care (01) ==
PROVIDERS: Nurse Practitioner Women's Health; PCP Family Medicine; Visit Provider Advanced Practice Midwife
DX: Z13.1 Encounter for screening for diabetes mellitus (principal); O09.92 Supervision of high risk pregnancy, unspecified, second trimester; Z3A.00 Weeks of gestation of pregnancy not specified
CPT/HCPCS: 36415; 82950; 85025; 86703; 86780

== ENCOUNTER → 2025-07-08 | Outpatient (CLI) | payer SELFPAY | END | disposition home or self-care (01) | LOC: LABSPEC 16:15 | PROVIDERS: PCP Family Medicine; Visit Provider Student in an Organized Health Care Education/Training Program | DX: O26.899 Other specified pregnancy related conditions, unspecified trimester (principal); R10.20 Pelvic and perineal pain unspecified side; Z3A.00 Weeks of gestation of pregnancy not specified | CPT/HCPCS: 87086; 87088 ==